=== PATIENT | female | born 1950 | race Caucasian/White ===

== ENCOUNTER 2017-06-18 07:44 | Observation (INO) ==
[2017-06-18 08:15] LABS: Basophils % 0.1 % (0.1-2.0); Eosinophils # 0.1 K/mm3 (0.0-0.4); Hematocrit 47.9 % (37.0-47.0); Lymphocytes # 0.5 K/mm3 (0.7-4.5); Lymphocytes % 7.8 K/mm3 (10-50); Mean Corpuscular HGB Conc 31.3 g/dL (31.8-35.4); Mean Corpuscular Hemoglobin 29.3 pg (27.0-31.2); Mean Corpuscular Volume 93.7 fl (81-99); Mean Platelet Volume 8.5 fl (7.4-10.4); Monocytes # 0.4 K/mm3 (0.1-1.0); Monocytes % 6.2 % (1.7-9.3); Neutrophils # 5.5 K/mm3 (1.8-7.8); Neutrophils % 83.9 % (37.0-80.0); Platelet Count 220 K/mm3 (142-424); Red Blood Count 5.11 M/mm3 (4.20-5.40); Red Cell Distribution Width 15.2 % (11.5-17.5); White Blood Count 6.6 K/mm3 (4.8-10.8)
[2017-06-18 08:26] LABS: Bilirubin,Total 1.1 mg/dL (0.2-1.0); Calcium 9.4 mg/dL (8.5-10.1); Globulin 4.2 gm/dl (1.3-3.2); Total Protein,Serum 8.2 gm/dL (6.4-8.2)
--- NOTE | 2017-06-18 08:50 | Emergency Department Note ---
ED Disposition Clinical Impression: Intractable vomiting, Renal insufficiency, Alfredo's disease, Influenza, Steroid dependence, Enteritis Disposition: Still a Patient Condition on Discharge: Fair Instructions: DI for Diarrhea and Traveler's Diarrhea -- Adult, DI for Diarrhea and Traveler's Diarrhea -- Child, DI for Nausea -- Adult, DI for Nausea -- Child - Critical Care Critical Care Time: No Attestation: On 06/18/17, the high probability of a clinically significant, sudden or life threatening deterioration of the following system(s) required my full and direct attention, intervention and personal management. The time I documented below is in addition to time spent performing reported procedures but includes the following listed in this critical care notation. Medical Decision Making - Medical Records Medical records reviewed: Yes: I reviewed the patient's medical records. - Justino Inquiry Pt receiving controlled substance: Yes Justino was queried for this patient: No (emergency .) Risks and benefits of using a controlled substance: were discussed with pt by me Comment: the patient has NSAID side effects Vital Signs: 06/18/17 07:46 06/18/17 11:16 Temperature 101.8 F H 100.4 F H Temperature Source Oral Oral Pulse Rate [Right Radial] 91 H 72 Respiratory Rate 26 H 20 Blood Pressure [Right Arm] 163/79 131/62 Blood Pressure Mean [Right Arm] 107 85 Blood Pressure Source [Right Arm] Automatic Cuff Automatic Cuff Blood Pressure Position [Right Arm] Sitting Supine 02 Sat by Pulse Oximetry 97 92 L Oxygen Delivery Method Room Air Room Air Oxygen Flow Rate (LPM) 2 - Lab Data Lab Results 06/18/17 07:40: WBC 6.6, RBC 5.11, Hgb 15.0, Hct 47.9 H, MCV 93.7, MCH 29.3, MCHC 31.3 L, RDW 15.2, Plt Count 220, MPV 8.5, Neut % (Auto) 83.9 H, Lymph % ( Auto) 7.8 L, [place] % (Auto) 6.2, Eos % (Auto) 2.0, Baso % (Auto) 0.1, Neut # ( Auto) 5.5, Lymph # (Auto) 0.5 L, [place] # (Auto) 0.4, Eos # (Auto) 0.1, Baso # ( Auto) 0.0 06/18/17 07:40: Sodium 141, Potassium 3.0 L, Chloride 102, Carbon Dioxide 28, Anion Gap 14.0, BUN 26 H, Creatinine 1.59 H, Estimated Creat Clear 40, Estimated GFR 32 L, Est GFR ( Amer) 39 L, Glucose 144 H, Calcium 9.4, Total Bilirubin 1.1 H, AST 24, ALT 23, Alkaline Phosphatase 116, Total Protein 8.2, Albumin 4.0, Globulin 4.2 H, Albumin/Globulin Ratio 1.0 L 06/18/17 07:40: Magnesium 1.2 L 06/18/17 08:05: Influenza Type A Ag Positive A, Influenza Type B Ag Negative 06/18/17 09:00: Lactic Acid 1.7 Result diagrams: 06/18/17 07:40 06/18/17 07:40 Orders (Tests/Meds): ED MEDICATIONS Generic Name Dose Route Start Last Admin Trade Name Freq PRN Reason Stop Dose Admin Potassium Chloride/Sodium Chloride 1,000 mls @ 100 mls/hr 06/18/17 08:45 11:16 Kcl 20 Meq In Ns 1,000 Ml Iv Soln IV 07/18/17 08:44 100 mls/hr .Q10H NARINDER Administration Oseltamivir Phosphate 75 mg 06/18/17 09:00 06/18/17 10:08 Tamiflu 75mg Capsule PO 07/02/17 08:59 75 mg BID NARINDER Administration Discontinued Medications Generic Name Dose Route Start Last Admin Trade Name Freq PRN Reason Stop Dose Admin Acetaminophen 650 mg 06/18/17 08:10 06/18/17 08:10 Acetaminophen 325mg Tab PO 06/18/17 08:11 650 mg ONCE ONE Administration Famotidine 20 mg 06/18/17 08:42 06/18/17 09:12 Pepcid 20mg/2ml Vial IV 06/18/17 08:43 20 mg ONCE ONE Administration Sodium Chloride 1,000 mls @ 999 mls/hr 06/18/17 08:00 06/18/17 08:20 Sod Chlor 0.9% 1000ml Bag IV 06/18/17 09:00 999 mls/hr .Q1H1M NARINDER Administration Magnesium Sulfate 1 gm/ Sodium 102 mls @ 200 mls/hr 06/18/17 10:11 06/18/17 10:39 Chloride IV 06/18/17 10:41 200 mls/hr ONCE ONE Administration Meperidine HCl 12.5 mg 06/18/17 10:02 06/18/17 10:06 Meperidine 25mg/Ml 1ml Syringe IV 06/18/17 10:03 12.5 mg ONCE ONE Administration Morphine Sulfate 2 mg 06/18/17 08:42 06/18/17 09:13 Morphine 2mg/2ml Syringe IV 06/18/17 08:43 2 mg ONCE ONE Administration Ondansetron HCl 4 mg 06/18/17 07:56 06/18/17 07:57 Zofran 4mg/2ml Vial IV 06/18/17 07:57 4 mg ONCE ONE Administration Potassium Chloride 20 meq 06/18/17 08:42 06/18/17 09:12 Klor-Con 20meq Tablet PO 06/18/17 08:43 20 meq ONCE ONE Administration Promethazine HCl 12.5 mg 06/18/17 09:08 06/18/17 09:12 Phenergan 25mg/Ml 1ml Vial IV 06/18/17 09:09 12.5 mg ONCE ONE Administration Sodium Chloride 25 ml 06/18/17 09:08 Sod Chlor 0.9% 25ml Bag IV 06/18/17 09:09 ONCE ONE ORDERS Category Date Time Status Diarrhea Panel, PCR Stat Lab 06/18/17 08:39 Ordered Blood Culture Stat Micro 06/18/17 10:20 Received - CT Data CT Scan: Abdomen, Pelvis Time Received: 11:[address] Reviewed: Yes: I have viewed the radiologist's interpretation Preliminary Findings: Abnormal Findings Narrative: ====IMPRESSION========= 1. Periumbilical hernia again noted but is slightly larger than seen than previous study & now contains small bowel loops. However I see no inflammation nor bowel dilatation associated here. No strangulation nor obstructive changes evident 2. Moderate fluid filled distended stomach , with generous fluid throughout nondilated small bowel. Also liquid stool throughout the right colon. These Nonspecific features but could reflect developing enteritis. Correlation required 3. Colonic diverticulosis most evident sigmoid colon, along with diverticuli scattered throughout the remainder the colon. No diverticulitis. 4. Mildly distended gallbladder. No gallstones evident 5. Minimal airspace disease left lung base most likely reflects dependent atelectasis Medical Decision Narrative: I reviewed the CT scan with Dr. Saunders who agreed to admit the patient recommended D5 Ringer lactate. Bowel rest and anti-medic. Just with the patient her family agreed for admission. Nausea/Vomiting/Diarrhea HPI - General Chief complaint: Nausea/Vomiting/Diarrhea Stated complaint: NAUSEA, BODY ACHES Time Seen by Provider: 06/18/17 08:20 Mode of Arrival: EMS Limitations: No Limitations Description of Symptoms (Recalled from ER Triage Doc. by RN): BODY ACHES, NAUSEA , DRY HEAVING, DIARRHEA AND FEVER SINCE YESTERDAY - History of Present Illness HPI Narrative: 67 years old white female with history of Alfredo thyroiditis, migraine chronic back pain due to degenerative arthritis on chronic steroid therapy. 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 The history was obtained from her daughter who returned from work at 630 this morning and found her mother week due to vomiting and diarrhea. By the patient account she started vomiting around 6 PM last night 10-20 times associated with diarrhea 10-20 times. He has no information is about the color of the vomiting or the color of the diarrhea. The daughter found her to have a fever of 100.7 at home the patient was not able to ambulate, her daughter called ambulance and brought the patient to the ED. the patient admits for having abdominal. Ms. 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 MD complaint: nausea, vomiting, diarrhea, abdominal pain Onset (ago): hour(s) (14 hours.) Description of Vomiting: other (Patient does not know.) Description of Diarrhea: water Associated Abdominal Pain: Yes (Right-sided. ) Location of pain: RLQ Severity: moderate Quality: dull Consistency: constant Relieving factors: none Exacerbating factors: bowel movement, vomiting Associated symptoms: fever/chills, malaise, nausea/vomiting, weakness - Related Data Home Medications Medication Instructions Recorded Confirmed Allopurinol [Allopurinol 300mg 300 mg PO DAILY 06/18/17 06/18/17 tablet] Atorvastatin Calcium [Atorvastatin 20 mg PO DAILY 06/18/17 06/18/17 20mg Tab] Dextran 70/Hypromellose 1 each OP Q1HP PRN 06/18/17 06/18/17 [Artificial Tears] Esomeprazole Magnesium 40 mg PO DAILY 06/18/17 06/18/17 Fluticasone Propionate 9.9 ml NS BID 06/18/17 06/18/17 Fluticasone Propionate [Flovent 1 puff NOSTRIL-B Q6HP PRN 06/18/17 06/18/17 Hfa 110mcg Inhaler] Furosemide [Furosemide 40MG tAB] 40 mg PO DAILY 06/18/17 06/18/17 Hydrocodone/Acetaminophen 10 - 325 mg PO QID 06/18/17 06/18/17 [Hydrocodone-Acetamin 10-325 mg] LORazepam [Ativan 0.5mg tablet] 0.5 mg PO Q8HP PRN 06/18/17 06/18/17 Ondansetron [Zofran 4mg ODT] 4 mg PO Q6HP PRN 06/18/17 06/18/17 Oxybutynin Chloride [Oxybutynin 5 mg PO DAILY 06/18/17 06/18/17 Chloride ER] Potassium Chloride [K-Tab ER 10 10 meq PO DAILY 06/18/17 06/18/17 mEq] Propranolol HCl 40 mg PO BID 06/18/17 06/18/17 Sertraline HCl [Zoloft 50mg tablet] 50 mg PO DAILY 06/18/17 06/18/17 Tizanidine HCl [Zanaflex] 4 mg PO HS 06/18/17 06/18/17 predniSONE [Deltasone 5mg 5 mg PO DAILY 06/18/17 06/18/17 tablet] Allergies Allergy/AdvReac Type Severity Reaction Status Date / Time NSAID AdvReac Mild KIDNEY Uncoded 06/18/17 07:54 [facility] History I have reviewed the patient's past medical history: Yes (History obtained from the patient and her daughters.) Medical History: Denies:: Cancer, Diabetes Mellitus Type 1, Diabetes Mellitus Type 2 - Social History Alcohol Intake: never - Psychiatric History Expresses thoughts of harming self/others: None Suicide Plan Description: No Plan ROS Obtained: Yes All systems reviewed & no additional complaints Physical Exam - General General appearance: alert, other (the patient is moaning in pain from back and abdominal pain, no active vomiting. ) - Head Head exam: atraumatic, normocephalic, normal inspection - Eye Eye exam: Present: normal appearance, PERRL, EOMI. Absent: scleral icterus - ENT ENT exam: Present: normal oropharynx, mucous membranes dry, TM's normal bilaterally - Neck Neck exam: Present: normal inspection, full ROM, trachea midline, other (no neck stiffness. ). Absent: tenderness, meningismus, lymphadenopathy - Chest Chest inspection: Present: normal inspection, symmetric chest wall rise. Absent : tenderness - Respiratory Respiratory exam: Present: normal lung sounds bilaterally. Absent: respiratory distress - Cardiovascular Cardiovascular exam: Present: regular rate, normal rhythm. Absent: JVD - Abdominal Exam Abdominal exam: Present: soft, tenderness, normal bowel sounds, tenderness at [place], other. Absent: guarding, rebound, rigidity Comment: The abdomen is obese soft with right sided abdominal tenderness no guarding no rigidity no rebound no cross or or rebound tenderness. The patient has a umbilical hernia most likely to be an omentocelle. No pulsating masses equal bilateral femoral pulse. - External exam: Present: normal external exam - Extremities Exam Extremities exam: Present: normal inspection, full ROM, normal capillary refill. Absent: calf tenderness - Back Exam Back exam: Present: normal inspection. Absent: tenderness - Neurological Exam Neurological exam: Present: alert, oriented X3, CN II-XII intact, motor sensory deficit, reflexes normal - Psychiatric Psychiatric exam: Present: normal affect, normal mood - Skin Skin exam: Present: warm, dry, intact, normal color - Lymphatic Lymphatic Findings: no adenopathy
--- NOTE | 2017-06-18 13:18 | History & Physical Report ---
*Admission Date: 06/18/17 *Chief complaint: Vomiting and diarrhea *History of present illness: 67 year old female with fairly sudden onset of symptoms last night consisting of fever and chills, body aches and cough followed by vomiting and diarrhea this morning. Patient was very weak this morning and her daughter called EMS to bring her to [facility] ER. She was evaluated in the ER and was found to have Influenza A and gastroenteritis. [facility] History Medical History: Reports:: Gastroesophageal Reflux Disease(GERD), Hyperlipidemia , Migraine, Renal Insufficiency Denies:: Cancer, Diabetes Mellitus Type 1, Diabetes Mellitus Type 2 Other Medical History: Reports: Arthritis, Other (gout, allergic rhinitis, chronic back pain, chronic steroid use) - *Social History Alcohol Intake: never - Psychiatric History Expresses thoughts of harming self/others: None Suicide Plan Description: No Plan *Family Hx:: No significant family history Review of Systems - Constitutional Reports chills - Eyes Denies blurry vision - ENT Denies dizziness - *Cardiovascular Denies chest pain - *Respiratory Reports cough - *Gastrointestinal Reports loose stools, Reports nausea, Reports vomiting - *Genitourinary Denies difficulty urinating - *Musculoskeletal Reports joint pain (chronic) - Integumentary/Breasts Denies rash - *Neurologic Denies dizziness Meds Home Medications Medication Instructions Recorded Confirmed Type Allopurinol [Allopurinol 300mg 300 mg PO DAILY 06/18/17 06/18/17 History tablet] Atorvastatin Calcium [Atorvastatin 20 mg PO DAILY 06/18/17 06/18/17 History 20mg Tab] Dextran 70/Hypromellose 1 each OP Q1HP PRN 06/18/17 06/18/17 History [Artificial Tears] Esomeprazole Magnesium 40 mg PO DAILY 06/18/17 06/18/17 History Fluticasone Propionate 9.9 ml NS BID 06/18/17 06/18/17 History Fluticasone Propionate [Flovent 1 puff NOSTRIL-B Q6HP PRN 06/18/17 06/18/17 History Hfa 110mcg Inhaler] Furosemide [Furosemide 40MG tAB] 40 mg PO DAILY 06/18/17 06/18/17 History Hydrocodone/Acetaminophen 10 - 325 mg PO QID 06/18/17 06/18/17 History [Hydrocodone-Acetamin 10-325 mg] LORazepam [Ativan 0.5mg tablet] 0.5 mg PO Q8HP PRN 06/18/17 06/18/17 History Ondansetron [Zofran 4mg ODT] 4 mg PO Q6HP PRN 06/18/17 06/18/17 History Oxybutynin Chloride [Oxybutynin 5 mg PO DAILY 06/18/17 06/18/17 History Chloride ER] Potassium Chloride [K-Tab ER 10 10 meq PO DAILY 06/18/17 06/18/17 History mEq] Propranolol HCl 40 mg PO BID 06/18/17 06/18/17 History Sertraline HCl [Zoloft 50mg tablet] 50 mg PO DAILY 06/18/17 06/18/17 History Tizanidine HCl [Zanaflex] 4 mg PO HS 06/18/17 06/18/17 History predniSONE [Deltasone 5mg 5 mg PO DAILY 06/18/17 06/18/17 History tablet] Allergies Allergy/AdvReac Type Severity Reaction Status Date / Time NSAID AdvReac Mild KIDNEY Uncoded 06/18/17 07:54 Exam Vital signs and Labs for Last 24 Hours: Temp Pulse Resp BP Pulse Ox 100.1 F H 62 20 153/77 92 L 06/18/17 13:04 06/18/17 13:04 06/18/17 13:04 06/18/17 13:04 06/18/17 11:16 - Constitutional no acute distress - *Routine HEENT Exam Head: Present: normocephalic, atraumatic ENT: Present: mucous membranes moist - *Routine Respiratory Exam Present: CTA bilaterally - *Routine Cardiovascular Exam Present: RRR - *Routine Skin Exam Present: intact H&P: Result - Labs Labs: Laboratory Results - last 24 hr 06/18/17 07:40: WBC 6.6, RBC 5.11, Hgb 15.0, Hct 47.9 H, MCV 93.7, MCH 29.3, MCHC 31.3 L, RDW 15.2, Plt Count 220, MPV 8.5, Neut % (Auto) 83.9 H, Lymph % ( Auto) 7.8 L, [place] % (Auto) 6.2, Eos % (Auto) 2.0, Baso % (Auto) 0.1, Neut # ( Auto) 5.5, Lymph # (Auto) 0.5 L, [place] # (Auto) 0.4, Eos # (Auto) 0.1, Baso # ( Auto) 0.0 06/18/17 07:40: Sodium 141, Potassium 3.0 L, Chloride 102, Carbon Dioxide 28, Anion Gap 14.0, BUN 26 H, Creatinine 1.59 H, Estimated Creat Clear 40, Estimated GFR 32 L, Est GFR ( Amer) 39 L, Glucose 144 H, Calcium 9.4, Total Bilirubin 1.1 H, AST 24, ALT 23, Alkaline Phosphatase 116, Total Protein 8.2, Albumin 4.0, Globulin 4.2 H, Albumin/Globulin Ratio 1.0 L 06/18/17 07:40: Magnesium 1.2 L 06/18/17 08:05: Influenza Type A Ag Positive A, Influenza Type B Ag Negative 06/18/17 09:00: Lactic Acid 1.7 Assessment and Plan (1) Gastroenteritis Current visit: Yes Status: Acute Category: Medical Code(s): K52.9 - Noninfective gastroenteritis and colitis, unspecified (2) Intractable vomiting Current visit: Yes Status: Acute Category: Medical Code(s): R11.10 - Vomiting, unspecified (3) Influenza A Current visit: Yes Status: Acute Category: Medical Code(s): J10.1 - Influenza due to other identified influenza virus with other respiratory manifestations (4) Renal insufficiency Current visit: Yes Status: Acute Category: Medical Code(s): N28.9 - Disorder of kidney and ureter, unspecified (5) Steroid dependence Current visit: Yes Status: Acute Category: Medical (6) Alfredo's disease Current visit: Yes Status: Acute Category: Medical Code(s): E06.3 - Autoimmune thyroiditis - Assessment and plan all Dx Assessment and Plan for all problems:: Patient admitted to [facility] for further treatment of her gastroenteritis and influenza. Potassium is being replaced with IVF. Recheck labs tomorrow.
[2017-06-19 07:21] LABS: Basophils % 0.5 % (0.1-2.0); Eosinophils # 0.1 K/mm3 (0.0-0.4); Eosinophils % 2.3 % (0.1-12.0); Hematocrit 39.3 % (37.0-47.0); Lymphocytes # 1.1 K/mm3 (0.7-4.5); Lymphocytes % 30.1 K/mm3 (10-50); Mean Corpuscular HGB Conc 31.2 g/dL (31.8-35.4); Mean Corpuscular Hemoglobin 29.7 pg (27.0-31.2); Mean Corpuscular Volume 95.2 fl (81-99); Mean Platelet Volume 8.5 fl (7.4-10.4); Monocytes # 0.2 K/mm3 (0.1-1.0); Monocytes % 6.2 % (1.7-9.3); Neutrophils # 2.3 K/mm3 (1.8-7.8); Platelet Count 165 K/mm3 (142-424); Red Blood Count 4.13 M/mm3 (4.20-5.40); Red Cell Distribution Width 15.4 % (11.5-17.5); White Blood Count 3.8 K/mm3 (4.8-10.8)
[2017-06-19 07:22] LABS: Hemoglobin 12.3 g/dL (12.2-16.2)
[2017-06-19 07:25] LABS: Anion Gap 11.2 mEq/L (5-15); Potassium 3.2 mmoL/L (3.5-5.1)
--- NOTE | 2017-06-19 08:30 | Progress Note ---
Internal Medicine - PN: Subj *Date: 06/19/17 *Time: 08:30 Interval history: Patient feels a little better this morning. She still has a lot of body aches and nausea, she vomited once this morning. Exam Vital signs and Labs for Last 24 Hours: Temp Pulse Resp BP Pulse Ox 98.5 F 61 18 128/68 99 06/19/17 07:53 06/19/17 07:53 06/19/17 07:53 06/19/17 07:53 06/19/17 07:53 Laboratory Results - last 24 hr 06/19/17 06:26: WBC 3.8 L D, RBC 4.13 L, Hgb 12.3 D, Hct 39.3, MCV 95.2, MCH 29.7, MCHC 31.2 L, RDW 15.4, Plt Count 165, MPV 8.5, Neut % (Auto) 61.0, Lymph % (Auto) 30.1, [place] % (Auto) 6.2, Eos % (Auto) 2.3, Baso % (Auto) 0.5, Neut # ( Auto) 2.3, Lymph # (Auto) 1.1, [place] # (Auto) 0.2, Eos # (Auto) 0.1, Baso # (Auto ) 0.0 06/19/17 06:26: Sodium 144, Potassium 3.2 L, Chloride 109 H, Carbon Dioxide 27, Anion Gap 11.2, BUN 16 D, Creatinine 1.25 H D, Estimated Creat Clear 83, Estimated GFR 43 L, Est GFR ( Amer) 52 L D, Glucose 115 H D Vital Signs Temp Pulse Pulse Resp BP BP BP 06/19/17 07:53 98.5 F 61 18 128/68 06/19/17 04:00 98.5 F 60 18 120/48 06/18/17 20:00 100.2 F H 62 18 146/47 06/18/17 15:52 98.7 F 64 16 133/53 06/18/17 14:02 100.1 F H 67 18 126/52 06/18/17 13:04 100.1 F H 62 20 153/77 06/18/17 11:16 100.4 F H 72 20 131/62 Pulse Ox 06/19/17 07:53 99 06/19/17 04:00 97 06/18/17 20:00 97 06/18/17 15:52 94 L 06/18/17 14:02 93 L 06/18/17 13:04 06/18/17 11:16 92 L Intake and Output 06/18/17 06/19/17 06/19/17 19:59 03:59 11:59 Intake Total 1412 / 1412 918 / 918 Output Total 500 / 500 300 / 300 600 / 600 Balance 912 / 912 -300 / -300 318 / 318 Intake: Intake, Oral Amount 0 / 0 Intake, Other Amount 918 / 918 Intake, Total IV Amount 1412 / 1412 0.9% NaCl w/20mEq KCL 1,000 ml 1000 / 1000 @ 100 mls/hr IV .Q10H NARINDER Rx#: [id number] Dextrose 5%-Lactated Ringers 1, 412 / 412 000 ml @ 100 mls/hr IV .Q10H NARINDER Rx#:[id number] Output: Output, Urine Amount 500 / 500 300 / 300 600 / 600 Other: Number of Voids 1 1 Weight 262 lb 4 oz Patient Weight 06/19/17 11:59 Weight 262 lb 4 oz I & O for Last 24 hours: Intake & Output 06/16/17 06/17/17 06/18/17 06/19/17 11:59 11:59 11:59 11:59 Intake Total 2330 / 2330 Output Total 1400 / 1400 Balance 930 / 930 - Constitutional mild distress - *Routine Respiratory Exam Present: CTA bilaterally - *Routine Cardiovascular Exam Present: RRR Assessment and Plan (1) Gastroenteritis Current visit: Yes Status: Acute Category: Medical Code(s): K52.9 - Noninfective gastroenteritis and colitis, unspecified (2) Intractable vomiting Current visit: Yes Status: Acute Category: Medical Code(s): R11.10 - Vomiting, unspecified (3) Influenza A Current visit: Yes Status: Acute Category: Medical Code(s): J10.1 - Influenza due to other identified influenza virus with other respiratory manifestations (4) Renal insufficiency Current visit: Yes Status: Acute Category: Medical Code(s): N28.9 - Disorder of kidney and ureter, unspecified (5) Steroid dependence Current visit: Yes Status: Acute Category: Medical (6) Alfredo's disease Current visit: Yes Status: Acute Category: Medical Code(s): E06.3 - Autoimmune thyroiditis (7) Hypokalemia Current visit: Yes Status: Acute Category: Medical Code(s): E87.6 - Hypokalemia - Assessment and plan all Dx Assessment and Plan for all problems:: Plan to continue current treatment as patient is improving but is still symptomatic, replace potassium.
--- NOTE | 2017-06-19 12:00 | Pharmacy Consult Notes ---
[facility] Pharmacy VTE Monitoring - Patient Demographics Admission date: 06/19/17 Report Date: 06/19/17 Time: 12:00 Allergies/Adverse Reactions: Patient Allergies NSAID Adverse Reaction (Mild, Uncoded 06/18/17 07:54) KIDNEY Height: 1.73 m Weight: 118.955 kg Patient Problems: Current Active Problems Intractable vomiting (Acute) Renal insufficiency (Acute) Alfredo's disease (Acute) Influenza (Acute) Steroid dependence (Acute) Enteritis (Acute) Gastroenteritis (Acute) Influenza A (Acute) Hypokalemia (Acute) - VTE Risk Labs: VTE Related Lab Results Hgb 12.3 g/dL (12.2-16.2) D 06/19/17 06:26 Hct 39.3 % (37.0-47.0) 06/19/17 06:26 Plt Count 165 K/mm3 (142-424) 06/19/17 06:26 BUN 16 mg/dL (7-18) D 06/19/17 06:26 Creatinine 1.25 mg/dL (0.55-1.02) H D 06/19/17 06:26 Estimated Creat Clear 83 mL/min (0-300) 06/19/17 06:26 Was VTE Risk Assessment Performed: Yes VTE Score: 2 - VTE Diagnosis Confirmed Comment: JOANNE SANCHEZ ORDERED
[2017-06-20 06:51] LABS: Basophils % 0.3 % (0.1-2.0); Eosinophils # 0.2 K/mm3 (0.0-0.4); Eosinophils % 5.1 % (0.1-12.0); Hematocrit 37.9 % (37.0-47.0); Hemoglobin 11.7 g/dL (12.2-16.2); Lymphocytes # 1.6 K/mm3 (0.7-4.5); Lymphocytes % 39.6 K/mm3 (10-50); Mean Corpuscular HGB Conc 30.9 g/dL (31.8-35.4); Mean Corpuscular Hemoglobin 29.2 pg (27.0-31.2); Mean Corpuscular Volume 94.7 fl (81-99); Monocytes # 0.2 K/mm3 (0.1-1.0); Monocytes % 5.2 % (1.7-9.3); Neutrophils % 49.8 % (37.0-80.0); Platelet Count 171 K/mm3 (142-424); Red Cell Distribution Width 15.3 % (11.5-17.5)
[2017-06-20 06:56] LABS: Anion Gap 10.7 mEq/L (5-15); Potassium 3.7 mmoL/L (3.5-5.1)
--- NOTE | 2017-06-20 08:07 | Progress Note ---
<Mirlande Hauser - Last Filed: 06/20/17 08:02> Internal Medicine - PN: Subj *Date: 06/20/17 *Time: 08:02 Interval history: Feels terrible. Has a migraine headache. Has received pain medicine for this. Did not sleep. She is unable to eat or drink due to nausea. States she has not vomited in a while. Bowels have not moved. She is voiding. She states she hurts all over. She does have a dry cough. Exam Vital signs and Labs for Last 24 Hours: Temp Pulse Resp BP Pulse Ox 98.3 F 69 20 152/68 99 06/20/17 07:34 06/20/17 07:34 06/20/17 07:34 06/20/17 07:34 06/20/17 07:34 Laboratory Results - last 24 hr 06/20/17 06:17: WBC 4.0 L, RBC 4.00 L, Hgb 11.7 L, Hct 37.9, MCV 94.7, MCH 29.2 , MCHC 30.9 L, RDW 15.3, Plt Count 171, MPV 8.0, Neut % (Auto) 49.8, Lymph % ( Auto) 39.6, Tama % (Auto) 5.2, Eos % (Auto) 5.1, Baso % (Auto) 0.3, Neut # (Auto ) 2.0, Lymph # (Auto) 1.6, Tama # (Auto) 0.2, Eos # (Auto) 0.2, Baso # (Auto) 0.0 06/20/17 06:17: Sodium 144, Potassium 3.7, Chloride 110 H, Carbon Dioxide 27, Anion Gap 10.7, BUN 8 D, Creatinine 1.12 H, Estimated Creat Clear 93, Estimated GFR 49 L, Est GFR ( Amer) 59, Glucose 110 H I & O for Last 24 hours: Intake & Output 06/17/17 06/18/17 06/19/17 06/20/17 11:59 11:59 11:59 11:59 Intake Total 2330 / 2330 3780 / 3780 Output Total 1400 / 1400 1400 / 1400 Balance 930 / 930 2380 / 2380 Weight 262 lb 4 oz - Constitutional no acute distress Comments: Lying on her side with her head covered. - *Routine Respiratory Exam Present: CTA bilaterally (Anteriorly and posteriorly) - *Routine Cardiovascular Exam Present: RRR - *Routine Abdominal Exam Present: soft, normoactive bowel sounds. Absent: tenderness - *Routine Extremities Exam Absent: edema, calf tenderness - *Routine Neurological Exam Present: alert Assessment and Plan (1) Gastroenteritis Current visit: Yes Status: Acute Category: Medical Code(s): K52.9 - Noninfective gastroenteritis and colitis, unspecified (2) Intractable vomiting Current visit: Yes Status: Acute Category: Medical Code(s): R11.10 - Vomiting, unspecified (3) Influenza A Current visit: Yes Status: Acute Category: Medical Code(s): J10.1 - Influenza due to other identified influenza virus with other respiratory manifestations (4) Renal insufficiency Current visit: Yes Status: Acute Category: Medical Code(s): N28.9 - Disorder of kidney and ureter, unspecified (5) Steroid dependence Current visit: Yes Status: Acute Category: Medical (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 Potassium is normal today. <Dwain Saunders - Last Filed: 06/20/17 08:52> Internal Medicine - PN: Subj *Date: 06/20/17 *Time: 08:52 Exam Vital signs and Labs for Last 24 Hours: Temp Pulse Resp BP Pulse Ox 98.3 F 69 20 152/68 99 06/20/17 07:34 06/20/17 07:34 06/20/17 07:34 06/20/17 07:34 06/20/17 07:34 Laboratory Results - last 24 hr 06/20/17 06:17: WBC 4.0 L, RBC 4.00 L, Hgb 11.7 L, Hct 37.9, MCV 94.7, MCH 29.2 , MCHC 30.9 L, RDW 15.3, Plt Count 171, MPV 8.0, Neut % (Auto) 49.8, Lymph % ( Auto) 39.6, Tama % (Auto) 5.2, Eos % (Auto) 5.1, Baso % (Auto) 0.3, Neut # (Auto ) 2.0, Lymph # (Auto) 1.6, Tama # (Auto) 0.2, Eos # (Auto) 0.2, Baso # (Auto) 0.0 06/20/17 06:17: Sodium 144, Potassium 3.7, Chloride 110 H, Carbon Dioxide 27, Anion Gap 10.7, BUN 8 D, Creatinine 1.12 H, Estimated Creat Clear 93, Estimated GFR 49 L, Est GFR ( Amer) 59, Glucose 110 H I & O for Last 24 hours: Intake & Output 06/17/17 06/18/17 06/19/17 06/20/17 11:59 11:59 11:59 11:59 Intake Total 2330 / 2330 3780 / 3780 Output Total 1400 / 1400 1400 / 1400 Balance 930 / 930 2380 / 2380 Weight 262 lb 4 oz Assessment and Plan (1) Gastroenteritis Current visit: Yes Status: Acute Category: Medical Code(s): K52.9 - Noninfective gastroenteritis and colitis, unspecified (2) Intractable vomiting Current visit: Yes Status: Acute Category: Medical Code(s): R11.10 - Vomiting, unspecified (3) Influenza A Current visit: Yes Status: Acute Category: Medical Code(s): J10.1 - Influenza due to other identified influenza virus with other respiratory manifestations (4) Renal insufficiency Current visit: Yes Status: Acute Category: Medical Code(s): N28.9 - Disorder of kidney and ureter, unspecified (5) Steroid dependence Current visit: Yes Status: Acute Category: Medical (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
--- NOTE | 2017-06-21 08:10 | Progress Note ---
<Mirlande Hauser - Last Filed: 06/21/17 08:07> Internal Medicine - PN: Subj *Date: 06/21/17 *Time: 08:07 Interval history: States she feels a little bit better. She did sleep some last night. She continues to have a headache. Pain medicine does help. Nausea is controlled with her medicine. She has had some full liquids without vomiting. She did take a shower yesterday and tolerated well and this made her feel better. She slept in a chair some yesterday as well. She continues to have body aches. She denies chest pain shortness of breath. Cough is infrequent. Voiding QS. Bowels moved yesterday. Exam Vital signs and Labs for Last 24 Hours: Temp Pulse Resp BP Pulse Ox 98.2 F 59 L 20 184/61 99 06/21/17 07:59 06/21/17 07:59 06/21/17 07:59 06/21/17 07:59 06/21/17 07:59 I & O for Last 24 hours: Intake & Output 06/18/17 06/19/17 06/20/17 06/21/17 11:59 11:59 11:59 11:59 Intake Total 2330 / 2330 4500 / 4500 3332 / 3332 Output Total 1400 / 1400 1950 / 1950 800 / 800 Balance 930 / 930 2550 / 2550 2532 / 2532 Weight 262 lb 4 oz - Constitutional no acute distress - *Routine Respiratory Exam Present: CTA bilaterally (Anteriorly and posteriorly) - *Routine Cardiovascular Exam Present: RRR - *Routine Abdominal Exam Present: soft, normoactive bowel sounds. Absent: tenderness - *Routine Extremities Exam Present: calf tenderness (Bilaterally wherever palpated). Absent: edema - *Routine Neurological Exam Present: alert, oriented X3 Assessment and Plan (1) Gastroenteritis Current visit: Yes Status: Acute Category: Medical Code(s): K52.9 - Noninfective gastroenteritis and colitis, unspecified (2) Intractable vomiting Current visit: Yes Status: Acute Category: Medical Code(s): R11.10 - Vomiting, unspecified (3) Influenza A Current visit: Yes Status: Acute Category: Medical Code(s): J10.1 - Influenza due to other identified influenza virus with other respiratory manifestations (4) Renal insufficiency Current visit: Yes Status: Acute Category: Medical Code(s): N28.9 - Disorder of kidney and ureter, unspecified (5) Steroid dependence Current visit: Yes Status: Acute Category: Medical (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 Saline lock <Dwain Saunders - Last Filed: 06/21/17 08:43> Internal Medicine - PN: Subj *Date: 06/21/17 *Time: 08:42 Exam Vital signs and Labs for Last 24 Hours: Temp Pulse Resp BP Pulse Ox 98.2 F 59 L 20 184/61 99 06/21/17 07:59 06/21/17 07:59 06/21/17 07:59 06/21/17 07:59 06/21/17 07:59 I & O for Last 24 hours: Intake & Output 06/18/17 06/19/17 06/20/17 06/21/17 11:59 11:59 11:59 11:59 Intake Total 2330 / 2330 4500 / 4500 3332 / 3332 Output Total 1400 / 1400 1950 / 1950 800 / 800 Balance 930 / 930 2550 / 2550 2532 / 2532 Weight 262 lb 4 oz Assessment and Plan (1) Gastroenteritis Current visit: Yes Status: Acute Category: Medical Code(s): K52.9 - Noninfective gastroenteritis and colitis, unspecified (2) Intractable vomiting Current visit: Yes Status: Acute Category: Medical Code(s): R11.10 - Vomiting, unspecified (3) Influenza A Current visit: Yes Status: Acute Category: Medical Code(s): J10.1 - Influenza due to other identified influenza virus with other respiratory manifestations (4) Renal insufficiency Current visit: Yes Status: Acute Category: Medical Code(s): N28.9 - Disorder of kidney and ureter, unspecified (5) Steroid dependence Current visit: Yes Status: Acute Category: Medical (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
--- NOTE | 2017-06-22 07:47 | Progress Note ---
<Mirlande Hauser - Last Filed: 06/22/17 07:44> Internal Medicine - PN: Subj *Date: 06/22/17 *Time: 07:44 Interval history: States she may feel a little bit better today. Headache is somewhat better. She continues to have body aches although they have improved. She states her legs always hurt due to bad knees. She was a able to eat yesterday without problems. She has been ambulating in the room. She did require pain medicine last night. Exam Vital signs and Labs for Last 24 Hours: Temp Pulse Resp BP Pulse Ox 98.3 F 66 20 149/52 97 06/22/17 04:00 06/22/17 04:00 06/22/17 04:00 06/22/17 04:00 06/22/17 04:00 I & O for Last 24 hours: Intake & Output 06/19/17 06/20/17 06/21/17 06/22/17 11:59 11:59 11:59 11:59 Intake Total 2330 / 2330 4500 / 4500 3332 / 3332 1560 / 1560 Output Total 1400 / 1400 1950 / 1950 800 / 800 1900 / 1900 Balance 930 / 930 2550 / 2550 2532 / 2532 -340 / -340 Weight 262 lb 4 oz - Constitutional no acute distress Comments: She is up in the room. - *Routine Respiratory Exam Present: CTA bilaterally (Anteriorly and posteriorly) - *Routine Cardiovascular Exam Present: RRR - *Routine Abdominal Exam Present: soft, normoactive bowel sounds. Absent: tenderness - *Routine Extremities Exam Present: edema. Absent: calf tenderness - *Routine Neurological Exam Present: alert, oriented X3 Assessment and Plan (1) Gastroenteritis Current visit: Yes Status: Acute Category: Medical Code(s): K52.9 - Noninfective gastroenteritis and colitis, unspecified (2) Intractable vomiting Current visit: Yes Status: Acute Category: Medical Code(s): R11.10 - Vomiting, unspecified (3) Influenza A Current visit: Yes Status: Acute Category: Medical Code(s): J10.1 - Influenza due to other identified influenza virus with other respiratory manifestations (4) Renal insufficiency Current visit: Yes Status: Acute Category: Medical Code(s): N28.9 - Disorder of kidney and ureter, unspecified (5) Steroid dependence Current visit: Yes Status: Acute Category: Medical (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 Possible discharge today. <Dwain Saunders - Last Filed: 06/22/17 07:59> Internal Medicine - PN: Subj *Date: 06/22/17 *Time: 07:58 Exam Vital signs and Labs for Last 24 Hours: Temp Pulse Resp BP Pulse Ox 98.9 F 60 22 186/69 100 06/22/17 07:52 06/22/17 07:52 06/22/17 07:52 06/22/17 07:52 06/22/17 07:52 I & O for Last 24 hours: Intake & Output 06/19/17 06/20/17 06/21/17 06/22/17 11:59 11:59 11:59 11:59 Intake Total 2330 / 2330 4500 / 4500 3332 / 3332 1560 / 1560 Output Total 1400 / 1400 1950 / 1950 800 / 800 1900 / 1900 Balance 930 / 930 2550 / 2550 2532 / 2532 -340 / -340 Weight 262 lb 4 oz Assessment and Plan (1) Gastroenteritis Current visit: Yes Status: Acute Category: Medical Code(s): K52.9 - Noninfective gastroenteritis and colitis, unspecified (2) Intractable vomiting Current visit: Yes Status: Acute Category: Medical Code(s): R11.10 - Vomiting, unspecified (3) Influenza A Current visit: Yes Status: Acute Category: Medical Code(s): J10.1 - Influenza due to other identified influenza virus with other respiratory manifestations (4) Renal insufficiency Current visit: Yes Status: Acute Category: Medical Code(s): N28.9 - Disorder of kidney and ureter, unspecified (5) Steroid dependence Current visit: Yes Status: Acute Category: Medical (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
[2017-06-22 07:54] VITALS: BP 186/69
--- NOTE | 2017-06-22 13:33 | Discharge Summary ---
General - General Admission date: 06/19/17 Discharge date: 06/22/17 HPI HPI: Ms Gongora is a 67 year old female with fairly sudden onset of symptoms last night consisting of fever and chills, body aches and cough followed by vomiting and diarrhea this morning. Patient was very weak this morning and her daughter called EMS to bring her to [facility] ER. She was evaluated in the ER and was found to have Influenza A and gastroenteritis. Hospital Course Hospital Course: The patient was started on tamiflu. The CT of her abdomen and pelvis showed a possible enteritis. Her potassium was low, therefore it was replaced with IVF. She had a migraine headache and received pain medicine for this as well as imitrex. Her potassium normalized and her symptoms improved. She was saline locked, her diet was advanced, and she was stable to be discharged home. Objective Vital signs: Temp Pulse Resp BP Pulse Ox 98.9 F 60 22 186/69 100 06/22/17 07:52 06/22/17 07:52 06/22/17 07:52 06/22/17 07:52 06/22/17 07:52 Narrative: - Constitutional no acute distress - *Routine HEENT Exam Head: Present: normocephalic, atraumatic ENT: Present: mucous membranes moist - *Routine Respiratory Exam Present: CTA bilaterally - *Routine Cardiovascular Exam Present: RRR - *Routine Skin Exam Present: intact DS: Diagnosis - Discharge Diagnosis (1) Gastroenteritis Status: Acute (2) Hypokalemia Status: Acute (3) Influenza A Status: Acute (4) Intractable vomiting Status: Acute (5) Renal insufficiency Status: Acute (6) Steroid dependence Status: Chronic (7) Alfredo's disease Status: Chronic Discharge Plan - Patient Discharge Instructions ACTIVITY: Continue current activity DIET: continue same diet Additional Instructions: Follow up with Tricia Carrasquillo in [place], [place] in 1 week. Patient Instructions: Influenza, Nausea and Vomiting-Adult - Follow up Plan Disposition: Home, Self-Longterm Medications: Home Medications Medication Instructions Recorded Confirmed Type Allopurinol [Allopurinol 300mg 300 mg PO DAILY 06/18/17 06/18/17 History tablet] Atorvastatin Calcium [Atorvastatin 20 mg PO DAILY 06/18/17 06/18/17 History 20mg Tab] Dextran 70/Hypromellose 1 each OP Q1HP PRN 06/18/17 06/18/17 History [Artificial Tears] Esomeprazole Magnesium 40 mg PO DAILY 06/18/17 06/18/17 History Fluticasone Propionate 2 sprays NS BID 06/18/17 06/19/17 History Furosemide [Furosemide 40MG tAB] 40 mg PO DAILY 06/18/17 06/18/17 History Hydrocodone/Acetaminophen 10 - 325 mg PO QID 06/18/17 06/18/17 History [Hydrocodone-Acetamin 10-325 mg] LORazepam [Ativan 0.5mg tablet] 0.5 mg PO Q8HP PRN 06/18/17 06/18/17 History Ondansetron [Zofran 4mg ODT] 4 mg PO Q6HP PRN 06/18/17 06/18/17 History Oxybutynin Chloride [Oxybutynin 5 mg PO DAILY 06/18/17 06/18/17 History Chloride ER] Potassium Chloride [K-Tab ER 10 10 meq PO DAILY 06/18/17 06/18/17 History mEq] Propranolol HCl 40 mg PO BID 06/18/17 06/18/17 History Sertraline HCl [Zoloft 50mg tablet] 50 mg PO DAILY 06/18/17 06/18/17 History Tizanidine HCl [Zanaflex] 4 mg PO HS 06/18/17 06/18/17 History predniSONE [Deltasone 5mg 5 mg PO DAILY 06/18/17 06/18/17 History tablet] Albuterol Sulfate [Albuterol HFA 2 puffs IH Q6HP PRN 06/19/17 06/19/17 History Inhaler] Fluticasone Propionate [Flovent 1 puff IH Q6HP PRN 06/19/17 06/19/17 History Hfa 110mcg Inhaler] Prescriptions/Medication Reconciliation: New Oseltamivir Phosphate [Tamiflu 75mg Capsule] 75 mg PO BID #4 cap Promethazine/Dextromethorphan [Promethazine-Dm Syrup] 5 ml PO Q6HP PRN #118 ml MDD 30ML/DAY PRN Reason: Cough Benzonatate [Benzonatate 200mg Cap] 200 mg PO TIDP PRN #30 cap PRN Reason: Cough Continue Dextran 70/Hypromellose [Artificial Tears] 1 each OP Q1HP PRN PRN Reason: Dry Eye(S) Hydrocodone/Acetaminophen [Hydrocodone-Acetamin 10-325 mg] 10 - 325 mg PO QID Ondansetron [Zofran 4mg ODT] 4 mg PO Q6HP PRN PRN Reason: Nausea LORazepam [Ativan 0.5mg tablet] 0.5 mg PO Q8HP PRN PRN Reason: Anxiety Furosemide [Furosemide 40MG tAB] 40 mg PO DAILY Potassium Chloride [K-Tab ER 10 mEq] 10 meq PO DAILY Esomeprazole Magnesium 40 mg PO DAILY Oxybutynin Chloride [Oxybutynin Chloride ER] 5 mg PO DAILY Tizanidine HCl [Zanaflex] 4 mg PO HS Sertraline HCl [Zoloft 50mg tablet] 50 mg PO DAILY predniSONE [Deltasone 5mg tablet] 5 mg PO DAILY Atorvastatin Calcium [Atorvastatin 20mg Tab] 20 mg PO DAILY Allopurinol [Allopurinol 300mg tablet] 300 mg PO DAILY Albuterol Sulfate [Albuterol HFA Inhaler] 2 puffs IH Q6HP PRN PRN Reason: BREATHING Fluticasone Propionate [Flovent Hfa 110mcg Inhaler] 1 puff IH Q6HP PRN PRN Reason: BREATHING Fluticasone Propionate 2 sprays NS BID Propranolol HCl 40 mg PO BID
== END 2017-06-22 09:09 | disposition home or self-care (01) ==
LOC: ER 07:44 → 2ND 07:44
PROVIDERS: ADMIT Family Medicine; ATTEND Family Medicine

== ENCOUNTER 2018-06-15 13:57 | Observation (INO) ==
[2018-06-15 15:03] LABS: Basophils % 0.2 % (0.1-2.0); Eosinophils # 0.1 K/mm3 (0.0-0.4); Eosinophils % 1.4 % (0.1-12.0); Hematocrit 50.7 % (37.0-47.0); Hemoglobin 16.1 g/dL (12.2-16.2); Lymphocytes # 0.7 K/mm3 (0.7-4.5); Lymphocytes % 7.2 % (10-50); Mean Corpuscular HGB Conc 31.8 g/dL (31.8-35.4); Mean Corpuscular Hemoglobin 29.8 pg (27.0-31.2); Mean Corpuscular Volume 93.9 fl (81-99); Mean Platelet Volume 7.6 fl (7.4-10.4); Monocytes # 0.3 K/mm3 (0.1-1.0); Monocytes % 3.2 % (1.7-9.3); Neutrophils # 8.7 K/mm3 (1.8-7.8); Platelet Count 265 K/mm3 (142-424); Red Blood Count 5.41 M/mm3 (4.20-5.40); Red Cell Distribution Width 15.2 % (11.5-17.5); White Blood Count 9.9 K/mm3 (4.8-10.8)
--- NOTE | 2018-06-15 15:14 | Emergency Department Note ---
ED Disposition Clinical Impression: Intractable vomiting Disposition: Admitted as Observation Condition on Discharge: Fair Instructions: DI for Diarrhea and Traveler's Diarrhea -- Adult, DI for Diarrhea and Traveler's Diarrhea -- Child, DI for Nausea -- Adult, DI for Nausea -- Child Referrals: Aura Carrasquillo APRN [Primary Care Provider] - Time of Disposition: 18:04 - Critical Care Critical Care Time: No Attestation: On 06/15/18, the high probability of a clinically significant, sudden or life threatening deterioration of the following system(s) required my full and direct attention, intervention and personal management. The time I documented below is in addition to time spent performing reported procedures but includes the following listed in this critical care notation. Medical Decision Making - Medical Records Medical records reviewed: Yes: I reviewed the patient's medical records. - Justino Inquiry Pt receiving controlled substance: No Justino was queried for this patient: No Vital Signs: 06/15/18 14:07 06/15/18 15:51 06/15/18 16:35 Temperature 99 F 210.2 F H Temperature Source Axillary Oral Pulse Rate [Left Radial] 92 H 91 H 70 Respiratory Rate 22 15 20 Blood Pressure [Right Arm] 176/89 H 138/73 166/70 H Blood Pressure Mean [Right Arm] 118 94 102 Blood Pressure Source [Right Arm] Automatic Cuff Automatic Cuff Automatic Cuff Blood Pressure Position [Right Arm] Sitting Sitting Sitting 02 Sat by Pulse Oximetry 99 95 94 L Oxygen Delivery Method Room Air Room Air Room Air - Lab Data Lab results reviewed: Yes: I reviewed the patient's lab results. Lab Results 06/15/18 14:55: WBC 9.9, RBC 5.41 H, Hgb 16.1, Hct 50.7 H, MCV 93.9, MCH 29.8, MCHC 31.8, RDW 15.2, Plt Count 265, MPV 7.6, Neut % (Auto) 88.0 H, Lymph % (Auto) 7.2 L, [place] % (Auto) 3.2, Eos % (Auto) 1.4, Baso % (Auto) 0.2, Neut # (Auto) 8.7 H, Lymph # (Auto) 0.7, [place] # (Auto) 0.3, Eos # (Auto) 0.1, Baso # (Auto) 0.0, Total Counted 100, Neutrophils % (Manual) 84 H, Band Neutrophils % 3.0, Lymphocytes % (Manual) 7 L, Monocytes % (Manual) 4, Eosinophils % (Manual) 2, Platelet Estimate Normal, Hypochromasia 1+ 06/15/18 14:55: Sodium 146 H, Potassium 3.7, Chloride 106, Carbon Dioxide 24, Anion Gap 19.7 H, BUN 32 H, Creatinine 1.53 H, Estimated Creat Clear 30, Estimated GFR 34 L, Est GFR ( Amer) 41 L, Glucose 137 H, Calcium 9.4, Total Bilirubin 1.0, AST 19, ALT 26, Alkaline Phosphatase 113, Troponin I < 0.02, Total Protein 8.7 H, Albumin 4.2, Globulin 4.5 H, Albumin/Globulin Ratio 0.9 L, Lipase 147 06/15/18 15:19: Influenza Type A Ag Negative, Influenza Type B Ag Negative 06/15/18 17:35: Urine Color Yellow, Urine Appearance Clear, Urine pH 5.5, Ur Specific [place] 1.015, Urine Protein 2+, Urine Glucose (UA) Negative, Urine Ketones Negative, Urine Blood 1+, Urine Nitrate Negative, Urine Bilirubin Negative, Urine Urobilinogen 0.2, Ur Leukocyte Esterase Negative Result diagrams: 06/15/18 14:55 06/15/18 14:55 Orders (Tests/Meds): ED MEDICATIONS Discontinued Medications Generic Name Dose Route Start Last Admin Trade Name Freq PRN Reason Stop Dose Admin Famotidine 20 mg 06/15/18 14:52 06/15/18 14:58 Pepcid 20mg/2ml Vial IV 06/15/18 14:53 20 mg ONCE ONE Administration Sodium Chloride 1,000 mls @ 999 mls/hr 06/15/18 15:00 06/15/18 15:16 Sod Chlor 0.9% 1000ml Bag IV 06/15/18 16:00 999 mls/hr .Q1H1M NARINDER Administration Metoclopramide HCl 10 mg 06/15/18 14:53 06/15/18 14:58 Reglan 10mg/2ml Vial IVP 06/15/18 14:54 10 mg ONCE ONE Administration Ondansetron HCl 4 mg 06/15/18 14:55 06/15/18 15:16 Zofran 4mg/2ml Vial IV 06/15/18 14:56 4 mg ONCE ONE Administration Promethazine HCl 25 mg 06/15/18 14:54 06/15/18 15:15 Phenergan 25mg/Ml 1ml Vial IV 06/15/18 14:55 25 mg ONCE ONE Administration Sodium Chloride 25 ml 06/15/18 14:54 06/15/18 15:15 Sod Chlor 0.9% 25ml Bag IV 06/15/18 14:55 25 ml ONCE ONE Administration ORDERS Category Date Time Status UA [Urinalysis and Microscopic] Stat Lab 06/15/18 17:35 Results EKG Request [ECG Request by Dr/Nse] Stat Y 06/15/18 14:53 Stop Req - Physician Consults Physician Consulted: sound Time: 18:02 Reason -: Admission General Adult HPI - General Chief complaint: Nausea/Vomiting/Diarrhea Stated complaint: V/D Time Seen by Provider: 06/15/18 15:11 Mode of Arrival: Family Vehicle Source of Information: Patient, Relative (n/v) Limitations: No Limitations Description of Symptoms (Recalled from ER Triage Doc. by RN): N/V, diarrhea began this morning - History of Present Illness HPI narrative: n/v/d/ started this am - Related Data Home Medications Medication Instructions Recorded Confirmed Allopurinol [Allopurinol 300mg 300 mg PO DAILY 06/18/17 06/18/17 tablet] Atorvastatin Calcium [Atorvastatin 20 mg PO DAILY 06/18/17 06/18/17 20mg Tab] Dextran 70/Hypromellose 1 each OP Q1HP PRN 06/18/17 06/18/17 [Artificial Tears] Esomeprazole Magnesium 40 mg PO DAILY 06/18/17 06/18/17 Fluticasone Propionate 2 sprays NS BID 06/18/17 06/19/17 Furosemide [Furosemide 40MG tAB] 40 mg PO DAILY 06/18/17 06/18/17 Hydrocodone/Acetaminophen 10 - 325 mg PO QID 06/18/17 06/18/17 [Hydrocodone-Acetamin 10-325 mg] LORazepam [Ativan 0.5mg 0.5 mg PO Q8HP PRN 06/18/17 06/18/17 tablet] Ondansetron [Zofran 4mg ODT] 4 mg PO Q6HP PRN 06/18/17 06/18/17 Oxybutynin Chloride [Oxybutynin 5 mg PO DAILY 06/18/17 06/18/17 Chloride ER] Potassium Chloride [K-Tab ER 10 10 meq PO DAILY 06/18/17 06/18/17 mEq] Propranolol HCl 40 mg PO BID 06/18/17 06/18/17 Sertraline HCl [Zoloft 50mg tablet] 50 mg PO DAILY 06/18/17 06/18/17 Tizanidine HCl [Zanaflex] 4 mg PO HS 06/18/17 06/18/17 predniSONE [Deltasone 5mg 5 mg PO DAILY 06/18/17 06/18/17 tablet] Albuterol Sulfate [Albuterol HFA 2 puffs IH Q6HP PRN 06/19/17 06/19/17 Inhaler] Fluticasone Propionate [Flovent 1 puff IH Q6HP PRN 06/19/17 06/19/17 Hfa 110mcg Inhaler] Previous Rx's Medication Instructions Recorded Benzonatate [Benzonatate 200mg Cap] 200 mg PO TIDP PRN #30 cap 06/22/17 Oseltamivir Phosphate [Tamiflu 75 mg PO BID #4 cap 06/22/17 75mg Capsule] Promethazine/Dextromethorphan 5 ml PO Q6HP PRN #118 ml MDD 06/22/17 [Promethazine-Dm Syrup] 30ML/DAY Allergies Allergy/AdvReac Type Severity Reaction Status Date / Time NSAID AdvReac Mild KIDNEY Uncoded 06/18/17 07:54 [facility] History - Hepatitis A Screen Drug use history?: No High risk sexual behaviors?: No History of sexually transmitted infection?: No Currently employed?: No Childcare worker?: No Do you have indoor plumbing?: Yes Do you have electricity?: Yes Attestation statement:: This patient has been screened for Hepatitis A risk factors. I have reviewed the patient's past medical history: Yes Medical History: Reports:: Gastroesophageal Reflux Disease(GERD), Hyperlipidemia, Migraine, MRSA, Renal Insufficiency Denies:: Cancer, Diabetes Mellitus Type 1, Diabetes Mellitus Type 2 Other Medical History: Reports: Arthritis, Thyroid Disease, Other (gout, allergic rhinitis, chronic back pain, chronic steroid use) Other Surgeries: Yes: Tubal Ligation Amputation: No Fractures: No - Social History Smoking Status: Never smoker Alcohol Intake: never Occupational Status: disabled Housing: house Household Members: children - Psychiatric History Expresses thoughts of harming self/others: None Suicide Plan Description: No Plan Family Hx:: No significant family history ROS Obtained: Yes All systems reviewed & no additional complaints - Constitutional Constitutional: Reports chills, Denies fever(s) - Eyes Eyes: Denies change in vision - ENT Ears, Nose, Mouth, and Throat: Denies sore throat, Denies throat swelling - Cardiovascular Cardiovascular: Reports system reviewed and no additional complaints, except as docu, Reports chest pain, Reports chest pain at rest - Respiratory Respiratory: Yes system reviewed and no additional complaints, except as docu, No chest congestion, No cough - Gastrointestinal Gastrointestingal: Reports: diarrhea, nausea, vomiting. Denies: abdominal pain - Genitourinary Female Genitourinary: Denies dysuria, Denies flank pain - Musculoskeletal Musculoskeletal: Denies joint pain, Denies decreased muscle mass, Denies joint swelling - Integumentary/Breasts Skin/Breast: Denies rash - Neurologic Neurologic: Denies behavioral changes, Denies focal weakness, Denies head ache(s), Denies numbness - Hematologic/Lymphatic Henatologic/Lymphatic: Denies easy bleeding, Denies easy bruising Physical Exam - General General appearance: alert, anxious, in distress, obese - Head Head exam: atraumatic, normocephalic, normal inspection - Eye Eye exam: Present: normal appearance, PERRL, EOMI - ENT ENT exam: Present: normal exam, normal oropharynx, mucous membranes moist, TM's normal bilaterally, normal external ear exam - Respiratory Respiratory exam: Present: normal lung sounds bilaterally. Absent: respiratory distress - Cardiovascular Cardiovascular exam: Present: regular rate, normal rhythm. Absent: JVD - Abdominal Exam Abdominal exam: Present: soft. Absent: distention, tenderness, guarding, rebound, mass - Extremities Exam Extremities exam: Present: normal inspection, full ROM, normal capillary refill. Absent: calf tenderness - Neurological Exam Neurological exam: Present: alert, oriented X3 - Psychiatric Psychiatric exam: Present: normal affect, normal mood - Skin Skin exam: Present: warm, dry, intact, normal color
[2018-06-15 15:22] LABS: Alanine Aminotransferase 26 U/L (12-78); Albumin Level 4.2 gm/dL (3.4-5.0); Albumin/Globulin Ratio 0.9 (1.1-1.8); Alkaline Phosphatase 113 U/L (46-116); Anion Gap 19.7 mEq/L (5-15); Aspartate Amino Transferase 19 U/L (15-37); Blood Urea Nitrogen 32 mg/dL (7-18); Calcium 9.4 mg/dL (8.5-10.1); Carbon Dioxide 24 mmol/L (21.0-32.0); Chloride 106 mmol/L (98-107); Globulin 4.5 gm/dl (1.3-3.2); Glucose 137 mg/dL (74-106); Lipase 147 u/L (73-393); Potassium 3.7 mmoL/L (3.5-5.1); Sodium 146 mmol/L (136-145); Total Protein,Serum 8.7 gm/dL (6.4-8.2)
[2018-06-15 15:33] LABS: Eosinophils % 2 % (0-3); Lymphocytes % 7 % (10-50); Monocytes % 4 % (2-9); Neutrophils % 84 % (42-76); Total Cells Counted 100
[2018-06-15 15:35] LABS: Hypochromasia 1+
[2018-06-15 17:43] LABS: Appearance,Urine CLEAR (Clear); Bilirubin,Urine Negative (Negative); Blood, Urine 1+ (Negative); Color,Urine YELLOW (Yellow); Glucose,Urine (UA) Negative (Negative); Ketones,Urine Negative (Negative); Leukocyte Esterase,Urine Negative (Negative); Microscopic, Urine URINE MICROSCOPIC (MICROSCOPIC); PH,Urine 5.5 (5.0-8.5); Protein,Urine 2+ (Negative); Specific Gravity, Urine 1.015 (1.005-1.030); Urobilinogen,Urine 0.2 EU/dl (0.2)
[2018-06-15 18:11] LABS: Bacteria,Urine 1+ /lpf
[2018-06-16 06:54] LABS: Anion Gap 14.2 mEq/L (5-15); Potassium 4.2 mmoL/L (3.5-5.1)
[2018-06-16 07:22] LABS: Calcium 8.2 mg/dL (8.5-10.1)
[2018-06-16 07:33] LABS: Basophils % 0.2 % (0.1-2.0); Eosinophils # 0.1 K/mm3 (0.0-0.4); Eosinophils % 0.9 % (0.1-12.0); Hematocrit 40.3 % (37.0-47.0); Mean Corpuscular HGB Conc 31.8 g/dL (31.8-35.4); Mean Corpuscular Volume 94.2 fl (81-99); Mean Platelet Volume 8.3 fl (7.4-10.4); Monocytes # 0.3 K/mm3 (0.1-1.0); Monocytes % 4.9 % (1.7-9.3); Neutrophils # 5.3 K/mm3 (1.8-7.8); Platelet Count 182 K/mm3 (142-424); Red Blood Count 4.27 M/mm3 (4.20-5.40); Red Cell Distribution Width 15.4 % (11.5-17.5); White Blood Count 6.7 K/mm3 (4.8-10.8)
--- NOTE | 2018-06-16 07:41 | Pharmacy Consult Notes ---
[facility] Pharmacy VTE Monitoring - Patient Demographics Admission date: 06/16/18 Report Date: 06/16/18 Time: 07:40 Allergies/Adverse Reactions: Patient Allergies NSAID Adverse Reaction (Mild, Uncoded 06/18/17 07:54) KIDNEY Height: 1.6 m Weight: 115.241 kg Patient Problems: Current Active Problems Intractable vomiting (Acute) - VTE Risk Labs: VTE Related Lab Results Hgb 16.1 g/dL (12.2-16.2) 06/15/18 14:55 Hct 40.3 % (37.0-47.0) 06/16/18 07:23 Plt Count 182 K/mm3 (142-424) D 06/16/18 07:23 BUN 34 mg/dL (7-18) H 06/16/18 06:10 Creatinine 2.16 mg/dL (0.55-1.02) H D 06/16/18 06:10 Estimated Creat Clear 21 mL/min (50-200) 06/16/18 06:10 Was VTE Risk Assessment Performed: Yes VTE Score: 6 VTE Risk Level: Moderate Risk Clinical Trial Participant: No - Prophylaxis VTE Prophylaxis Ordered?: Yes Types of VTE Prophylaxis: TEDS Knee High
[2018-06-16 07:43] LABS: Hemoglobin 12.8 g/dL (12.2-16.2)
--- NOTE | 2018-06-16 08:43 | History & Physical Report ---
*Admission Date: 06/16/18 <Kathryn Madsen 06/16/18 08:47> *Chief complaint: nausea, vomiting, diarrhea <Kathryn Madsen 06/16/18 08:47> *History of present illness: Ms. Gongora is a 68-year-old patient of Dr. Carrasquillo who began having nausea, vomiting, and diarrhea yesterday morning. She states she was unable to keep down anything other than this small amount of chicken broth. She became weak and presented to the emergency room. She was found to be dehydrated and was admitted for IV fluid hydration. She was also started on antiemetics. She states she has not had any further vomiting since last night but she continues with the abdominal pain and diarrhea. She is also complaining of a headache. <Kathryn Madsen 06/16/18 08:47> [facility] History Medical History: Reports:: Anxiety, Asthma, Depression, Gastroesophageal Reflux Disease(GERD), Hyperlipidemia, Migraine, MRSA, Renal Insufficiency Denies:: Cancer, Diabetes Mellitus Type 1, Diabetes Mellitus Type 2 <Kathryn Madsen 06/16/18 08:47> *Have you ever received a pneumonia vaccine?: Yes <Kathryn Madsen 06/16/18 08:47> *Have you received a flu vaccine this season?: Yes <Kathryn Madsen 06/16/18 08:47> Other Medical History: Reports: Arthritis, Thyroid Disease, Other (gout, allergic rhinitis, chronic back pain, chronic steroid use) <Kathryn Madsen 06/16/18 08:47> Other Surgeries: Yes: Hernia Repair, Tubal Ligation <Kathryn Madsen 06/16/18 08:47> Amputation: No <Kathryn Madsen 06/16/18 08:47> Fractures: No <Kathryn Madsen 06/16/18 08:47> - *Social History Educational Level: Attended College <Kathryn Madsen 06/16/18 08:47> Smoking Status: Never smoker <Kathryn Madsen 06/16/18 08:47> Alcohol Intake: never <Kathryn Madsen 06/16/18 08:47> *Occupational Status:: disabled <Kathryn Madsen 06/16/18 08:47> Housing: house <Kathryn Madsen 06/16/18 08:47> Household Members: children <Kathryn Madsen 06/16/18 08:47> *Travel in the last 8 weeks: None <Kathryn Madsen 06/16/18 08:47> - Psychiatric History Expresses thoughts of harming self/others: None <Kathryn Madsen 06/16/18 08:47> Suicide Plan Description: No Plan <Kathryn Madsen 06/16/18 08:47> Family Hx:: Cancer, Hyperlipidemia, Hypertension, Stroke <Kathryn Madsen 06/16/18 08:47> Review of Systems - Constitutional Reports weakness, Denies fever(s) <Kathryn Madsen 06/16/18 08:47> - Eyes Denies blurry vision, Denies double vision <Kathryn Madsen 06/16/18 08:47> - ENT Denies nasal congestion, Denies sore throat <Kathryn Madsen 06/16/18 08:47> - *Cardiovascular Denies chest pain, Denies rapid, pounding, or irregular heartbeat <Kathryn Madsen 06/16/18 08:47> - *Respiratory Denies cough, Denies shortness of breath <Kathryn Madsen 06/16/18 08:47> - *Gastrointestinal Reports abdominal pain, Reports loose stools, Reports nausea, Reports vomiting <Kathryn Madsen 06/16/18 08:47> - *Genitourinary Denies difficulty urinating, Denies painful urination <Kathryn Madsne 06/16/18 08:47> - *Musculoskeletal Reports back pain, Reports body aches <Kathryn Madsen 06/16/18 08:47> - *Neurologic Reports headache(s), Reports dizziness, Denies behavioral changes, Denies localized weakness, Denies numbness <Kathryn Madsen 06/16/18 08:47> Meds Home Medications Medication Instructions Recorded Confirmed Type Allopurinol [Allopurinol 300mg 300 mg PO DAILY 06/18/17 06/15/18 History tablet] Atorvastatin Calcium [Atorvastatin 20 mg PO DAILY 06/18/17 06/15/18 History 20mg Tab] Dextran 70/Hypromellose 1 each OP Q1HP PRN 06/18/17 06/15/18 History [Artificial Tears] Esomeprazole Magnesium 40 mg PO DAILY 06/18/17 06/15/18 History Fluticasone Propionate 2 sprays NS DAILY 06/18/17 06/16/18 History Furosemide [Furosemide 40MG tAB] 40 mg PO BID 06/18/17 06/16/18 History Hydrocodone/Acetaminophen 10 - 325 mg PO TID 06/18/17 06/15/18 History [Hydrocodone-Acetamin 10-325 mg] LORazepam [Ativan 0.5mg 0.5 mg PO Q8HP PRN 06/18/17 06/15/18 History tablet] Ondansetron [Zofran 4mg ODT] 4 mg PO Q6HP PRN 06/18/17 06/15/18 History Oxybutynin Chloride [Oxybutynin 5 mg PO DAILY 06/18/17 06/15/18 History Chloride ER] Potassium Chloride [K-Tab ER 10 10 meq PO DAILY 06/18/17 06/15/18 History mEq] Propranolol HCl 40 mg PO BID 06/18/17 06/15/18 History Sertraline HCl [Zoloft 50mg tablet] 50 mg PO DAILY 06/18/17 06/15/18 History Tizanidine HCl [Zanaflex] 4 mg PO HS 06/18/17 06/15/18 History Albuterol Sulfate [Albuterol HFA 2 puffs IH Q6HP PRN 06/19/17 06/15/18 History Inhaler] Fluticasone Propionate [Flovent 1 puff IH BID 06/19/17 06/16/18 History Hfa 110mcg Inhaler] Benzonatate [Benzonatate 200mg Cap] 200 mg PO TIDP PRN #30 cap 06/22/17 06/15/18 Rx Nystatin [Nystatin Cr 100,000 1 applicatio TOPICAL BID 06/16/18 06/16/18 History Units/GM 30GM] Phenylephrine/Shk Lv/Mo/Pet,Wh 1 applicatio RC QID 06/16/18 06/16/18 History [Hemorrhoidal Ointment] predniSONE [Prednisone 5mg 5 mg PO DAILY 06/16/18 06/16/18 History Tab] <Poly Gonzalez - 06/16/18 09:13> Allergies Allergy/AdvReac Type Severity Reaction Status Date / Time NSAIDS (Non-Steroidal AdvReac EFFECTS Verified 06/16/18 08:52 Anti-Inflamma KIDNEYS <Poly Gonzalez - 06/16/18 09:13> Exam Vital signs and Labs for Last 24 Hours: Temp Pulse Resp BP Pulse Ox 98.0 F 52 L 18 125/43 L 97 06/16/18 08:00 06/16/18 08:00 06/16/18 08:00 06/16/18 08:00 06/16/18 08:14 Laboratory Results - last 24 hr 06/15/18 14:55: WBC 9.9, RBC 5.41 H, Hgb 16.1, Hct 50.7 H, MCV 93.9, MCH 29.8, MCHC 31.8, RDW 15.2, Plt Count 265, MPV 7.6, Neut % (Auto) 88.0 H, Lymph % (Auto) 7.2 L, [place] % (Auto) 3.2, Eos % (Auto) 1.4, Baso % (Auto) 0.2, Neut # (Auto) 8.7 H, Lymph # (Auto) 0.7, [place] # (Auto) 0.3, Eos # (Auto) 0.1, Baso # (Auto) 0.0, Total Counted 100, Neutrophils % (Manual) 84 H, Band Neutrophils % 3.0, Lymphocytes % (Manual) 7 L, Monocytes % (Manual) 4, Eosinophils % (Manual) 2, Platelet Estimate Normal, Hypochromasia 1+ 06/15/18 14:55: Sodium 146 H, Potassium 3.7, Chloride 106, Carbon Dioxide 24, Anion Gap 19.7 H, BUN 32 H, Creatinine 1.53 H, Estimated Creat Clear 30, Estimated GFR 34 L, Est GFR ( Amer) 41 L, Glucose 137 H, Calcium 9.4, Total Bilirubin 1.0, AST 19, ALT 26, Alkaline Phosphatase 113, Troponin I < 0.0 2, Total Protein 8.7 H, Albumin 4.2, Globulin 4.5 H, Albumin/Globulin Ratio 0.9 L, Lipase 147 06/15/18 15:19: Influenza Type A Ag Negative, Influenza Type B Ag Negative 06/15/18 17:35: Urine Color Yellow, Urine Appearance Clear, Urine pH 5.5, Ur Specific [place] 1.015, Urine Protein 2+, Urine Glucose (UA) Negative, Urine Ketones Negative, Urine Blood 1+, Urine Nitrate Negative, Urine Bilirubin Negative, Urine Urobilinogen 0.2, Ur Leukocyte Esterase Negative, Urine RBC 3-5, Urine WBC 5-10, Ur Squamous Epith Cells 3-5, Urine Bacteria 1+ 06/16/18 06:10: Sodium 144, Potassium 4.2, Chloride 107, Carbon Dioxide 27, Anion Gap 14.2, BUN 34 H, Creatinine 2.16 H D, Estimated Creat Clear 21, Estimated GFR 23 L, Est GFR ( Amer) 28 L D, Glucose 94 D, Calcium 8.2 L D 06/16/18 07:23: WBC 6.7 D, RBC 4.27, Hgb 12.8 D, Hct 40.3, MCV 94.2, MCH 30.0, MCHC 31.8, RDW 15.4, Plt Count 182 D, MPV 8.3, Neut % (Auto) 79.0, Lymph % (Auto) 15.0, [place] % (Auto) 4.9, Eos % (Auto) 0.9, Baso % (Auto) 0.2, Neut # (Auto) 5.3, Lymph # (Auto) 1.0, [place] # (Auto) 0.3, Eos # (Auto) 0.1, Baso # (Auto) 0.0 <Poly Gonzalez - 06/16/18 09:13> Temp Pulse Resp BP Pulse Ox 98.0 F 52 L 18 125/43 L 97 06/16/18 08:00 06/16/18 08:00 06/16/18 08:00 06/16/18 08:00 06/16/18 08:14 Laboratory Results - last 24 hr 06/15/18 14:55: WBC 9.9, RBC 5.41 H, Hgb 16.1, Hct 50.7 H, MCV 93.9, MCH 29.8, MCHC 31.8, RDW 15.2, Plt Count 265, MPV 7.6, Neut % (Auto) 88.0 H, Lymph % (Auto) 7.2 L, [place] % (Auto) 3.2, Eos % (Auto) 1.4, Baso % (Auto) 0.2, Neut # (Auto) 8.7 H, Lymph # (Auto) 0.7, [place] # (Auto) 0.3, Eos # (Auto) 0.1, Baso # (Auto) 0.0, Total Counted 100, Neutrophils % (Manual) 84 H, Band Neutrophils % 3.0, Lymphocytes % (Manual) 7 L, Monocytes % (Manual) 4, Eosinophils % (Manual) 2, Platelet Estimate Normal, Hypochromasia 1+ 06/15/18 14:55: Sodium 146 H, Potassium 3.7, Chloride 106, Carbon Dioxide 24, Anion Gap 19.7 H, BUN 32 H, Creatinine 1.53 H, Estimated Creat Clear 30, Estimated GFR 34 L, Est GFR ( Amer) 41 L, Glucose 137 H, Calcium 9.4, Total Bilirubin 1.0, AST 19, ALT 26, Alkaline Phosphatase 113, Troponin I < 0.02, Total Protein 8.7 H, Albumin 4.2, Globulin 4.5 H, Albumin/Globulin Ratio 0.9 L, Lipase 147 06/15/18 15:19: Influenza Type A Ag Negative, Influenza Type B Ag Negative 06/15/18 17:35: Urine Color Yellow, Urine Appearance Clear, Urine pH 5.5, Ur Specific [place] 1.015, Urine Protein 2+, Urine Glucose (UA) Negative, Urine Ketones Negative, Urine Blood 1+, Urine Nitrate Negative, Urine Bilirubin Negative, Urine Urobilinogen 0.2, Ur Leukocyte Esterase Negative, Urine RBC 3-5, Urine WBC 5-10, Ur Squamous Epith Cells 3-5, Urine Bacteria 1+ 06/16/18 06:10: Sodium 144, Potassium 4.2, Chloride 107, Carbon Dioxide 27, Anion Gap 14.2, BUN 34 H, Creatinine 2.16 H D, Estimated Creat Clear 21, Estimated GFR 23 L, Est GFR ( Amer) 28 L D, Glucose 94 D, Calcium 8.2 L D 06/16/18 07:23: WBC 6.7 D, RBC 4.27, Hgb 12.8 D, Hct 40.3, MCV 94.2, MCH 30.0, MCHC 31.8, RDW 15.4, Plt Count 182 D, MPV 8.3, Neut % (Auto) 79.0, Lymph % (Auto) 15.0, [place] % (Auto) 4.9, Eos % (Auto) 0.9, Baso % (Auto) 0.2, Neut # (Auto) 5.3, Lymph # (Auto) 1.0, [place] # (Auto) 0.3, Eos # (Auto) 0.1, Baso # (Auto) 0.0 <Kathryn Madsen 06/16/18 08:47> I & O for Last 24 hours: Intake & Output 06/13/18 06/14/18 06/15/18 06/16/18 11:59 11:59 11:59 11:59 Intake Total 2279 / 2279 Balance 2279 / 2279 Weight 254 lb 1 oz <Poly Gonzalez 06/16/18 09:13> Intake & Output 06/13/18 06/14/18 06/15/18 06/16/18 11:59 11:59 11:59 11:59 Intake Total 2279 / 2279 Balance 2279 / 2279 Weight 254 lb 1 oz <Kathryn Madsen 06/16/18 08:47> - Constitutional no acute distress [facility] 08[facility]47> - *Routine HEENT Exam Head: Present: normocephalic [facility] 06/16/18 08:47> Eye: Present: EOMI, PERRL <TenaKathryn - 06/16/18 08:47> ENT: Present: mucous membranes dry <AnkushcmKathryn 06/16/18 08:47> - *Routine Neck Exam Present: supple. Absent: lymphadenopathy <AnkushcmKathryn - 06/16/18 08:47> - *Routine Respiratory Exam Present: CTA bilaterally [facility] 06/16/18 08:47> - *Routine Cardiovascular Exam Present: RRR [facility] 06/16/18 08:47> - *Routine Abdominal Exam Present: soft, normoactive bowel sounds, tenderness (diffuse) <AnkushcmKathryn 06/16/18 08:47> - *Routine Extremities Exam Present: edema. Absent: cyanosis, clubbing <TenaKathryn 06/16/18 08:47> - *Routine Skin Exam Present: warm. Absent: rash <Kathryn Madsen - 06/16/18 08:47> - *Routine Neurological Exam Present: alert, oriented X3 <Kathryn Madsen 06/16/18 08:47> H&P: Result - Impressions Abd CT 1. No acute abdominal or pelvic findings. 2. Colonic diverticulosis and other nonacute findings as described above. <Kathryn Madsen 06/16/18 08:47> Assessment and Plan (1) Intractable vomiting Current visit: Yes Status: Acute Category: Medical Code(s): R11.10 - Vomiting, unspecified (2) Gastroenteritis Current visit: No Status: Acute Category: Medical Code(s): K52.9 - Noninfective gastroenteritis and colitis, unspecified (3) Renal insufficiency Current visit: Yes Status: Acute Category: Medical Code(s): N28.9 - Disorder of kidney and ureter, unspecified (4) Chronic back pain Current visit: Yes Status: Chronic Category: Medical Code(s): M54.9 - Dorsalgia, unspecified; G89.29 - Other chronic pain (5) Asthma Current visit: Yes Status: Chronic Category: Medical Code(s): J45.909 - Unspecified asthma, uncomplicated (6) Arthritis Current visit: Yes Status: Chronic Category: Medical Code(s): M19.90 - Un specified osteoarthritis, unspecified site (7) Hyperlipidemia Current visit: Yes Status: Chronic Category: Medical Code(s): E78.5 - Hyperlipidemia, unspecified <Kathryn Madsen - 06/16/18 08:40> (1) Intractable vomiting Current visit: Yes Status: Acute Category: Medical Code(s): R11.10 - Vomiting, unspecified (2) Gastroenteritis Current visit: No Status: Acute Category: Medical Code(s): K52.9 - Noninfective gastroenteritis and colitis, unspecified (3) Renal insufficiency Current visit: Yes Status: Acute Category: Medical Code(s): N28.9 - Disorder of kidney and ureter, unspecified (4) Chronic back pain Current visit: Yes Status: Chronic Category: Medical Code(s): M54.9 - Dorsalgia, unspecified; G89.29 - Other chronic pain (5) Asthma Current visit: Yes Status: Chronic Category: Medical Code(s): J45.909 - Unspecified asthma, uncomplicated (6) Arthritis Current visit: Yes Status: Chronic Category: Medical Code(s): M19.90 - Unspecified osteoarthritis, unspecified site (7) Hyperlipidemia Current visit: Yes Status: Chronic Category: Medical Code(s): E78.5 - Hyperlipidemia, unspecified <Poly Gonzalez - 06/16/18 09:13> - Assessment and plan all Dx Assessment and Plan for all problems:: will continue IVF for now, advance diet to full liquid and advance to full diet if possible. Possible dc today. Diarrhea panel pending. <Poly Gonzalez - 06/16/18 09:13> Patient has been started on IV fluids and antiemetics. Her vomiting has resolved but she continues with diarrhea. Will order a diarrhea panel today. Renal function has worsened since admission. Will discuss further care with Dr. Gonzalez. <Kathryn Madsen - 06/16/18 08:47>
--- NOTE | 2018-06-16 15:05 | Discharge Summary ---
General - General Admission date:: 06/15/18 <CarlosPoly - 06/16/18 15:39> 06/15/18 <Kathryn Madsen - 06/16/18 15:13> Discharge date: 06/16/18 <Kathryn Madsen - 06/16/18 15:13> HPI HPI: Ms. Gongora is a 68-year-old patient of Dr. Carrasquillo who began having nausea, vomiting, and diarrhea yesterday morning. She states she was unable to keep down anything other than this small amount of chicken broth. She became weak and presented to the emergency room. She was found to be dehydrated and was admitted for IV fluid hydration. She was also started on antiemetics. She states she has not had any further vomiting since last night but she continues with the abdominal pain and diarrhea. She is also complaining of a headache. <Kathryn Madsen 06/16/18 15:13> Hospital Course Hospital Course: Preliminary report showed E.coli and possibly Norovirus. Will call her with final results once available. <Poly Gonzalez 06/16/18 15:39> Her abdominal CT showed nothing acute. The patient's diet was advanced and her symptoms did improve. She had no further vomiting and only one more episode of diarrhea, which was collected for a diarrhea panel that is still pending. She was able to eat and drink and was stable to be discharged home on phenergan and zofran. Of note, she has other family members that now have the vomiting and diarrhea as well. <Kathryn Madsen 06/16/18 15:13> Objective Vital signs: Temp Pulse Resp BP Pulse Ox 98.0 F 52 L 18 125/43 L 97 06/16/18 08:00 06/16/18 08:00 06/16/18 08:00 06/16/18 08:00 06/16/18 08:14 <CarlosPoly 06/16/18 15:39> Temp Pulse Resp BP Pulse Ox 98.0 F 52 L 18 125/43 L 97 06/16/18 08:00 06/16/18 08:00 06/16/18 08:00 06/16/18 08:00 06/16/18 08:14 <Kathryn Madsen 06/16/18 15:13> Narrative: - Constitutional no acute distress - *Routine HEENT Exam Head: Present: normocephalic Eye: Present: EOMI, PERRL ENT: Present: mucous membranes dry - *Routine Neck Exam Present: supple. Absent: lymphadenopathy - *Routine Respiratory Exam Present: CTA bilaterally - *Routine Cardiovascular Exam Present: RRR - *Routine Abdominal Exam Present: soft, normoactive bowel sounds, tenderness (diffuse) - *Routine Extremities Exam Present: edema. Absent: cyanosis, clubbing - *Routine Skin Exam Present: warm. Absent: rash - *Routine Neurological Exam Present: alert, oriented X3 <Kathryn Madsen - 06/16/18 15:13> Results Labs on day of discharge: Labs from last 24 hours 06/16/18 06/16/18 06/15/18 07:23 06:10 17:35 WBC 6.7 D RBC 4.27 Hgb 12.8 D Hct 40.3 MCV 94.2 MCH 30.0 MCHC 31.8 RDW 15.4 Plt Count 182 D MPV 8.3 Neut % (Auto) 79.0 Lymph % (Auto) 15.0 Teller % (Auto) 4.9 Eos % (Auto) 0.9 Baso % (Auto) 0.2 Neut # (Auto) 5.3 Lymph # (Auto) 1.0 Teller # (Auto) 0.3 Eos # (Auto) 0.1 Baso # (Auto) 0.0 Sodium 144 Potassium 4.2 Chloride 107 Carbon Dioxide 27 Anion Gap 14.2 BUN 34 H Creatinine 2.16 H D Estimated Creat Clear 21 Estimated GFR 23 L Est GFR ( Amer) 28 L D Glucose 94 D Calcium 8.2 L D Urine Color Yellow Urine Appearance Clear Urine pH 5.5 Ur Specific [place] 1.015 Urine Protein 2+ Urine Glucose (UA) Negative Urine Ketones Negative Urine Blood 1+ Urine Nitrate Negative Urine Bilirubin Negative Urine Urobilinogen 0.2 Ur Leukocyte Esterase Negative Urine RBC 3-5 Urine WBC 5-10 Ur Squamous Epith Cells 3-5 Urine Bacteria 1+ Influenza Type A Ag Influenza Type B Ag 06/15/18 15:19 WBC RBC Hgb Hct MCV MCH MCHC RDW Plt Count MPV Neut % (Auto) Lymph % (Auto) [place] % (Auto) Eos % (Auto) Baso % (Auto) Neut # (Auto) Lymph # (Auto) [place] # (Auto) Eos # (Auto) Baso # (Auto) Sodium Potassium Chloride Carbon Dioxide Anion Gap BUN Creatinine Estimated Creat Clear Estimated GFR Est GFR ( Amer) Glucose Calcium Urine Color Urine Appearance Urine pH Ur Specific [place] Urine Protein Urine Glucose (UA) Urine Ketones Urine Blood Urine Nitrate Urine Bilirubin Urine Urobilinogen Ur Leukocyte Esterase Urine RBC Urine WBC Ur Squamous Epith Cells Urine Bacteria Influenza Type A Ag Negative Influenza Type B Ag Negative <Poly Gonzalez - 06/16/18 15:39> Labs from last 24 hours 06/16/18 06/16/18 06/15/18 07:23 06:10 17:35 WBC 6.7 D RBC 4.27 Hgb 12.8 D Hct 40.3 MCV 94.2 MCH 30.0 MCHC 31.8 RDW 15.4 Plt Count 182 D MPV 8.3 Neut % (Auto) 79.0 Lymph % (Auto) 15.0 [place]eller % (Auto) 4.9 Eos % (Auto) 0.9 Baso % (Auto) 0.2 Neut # (Auto) 5.3 Lymph # (Auto) 1.0 Teller # (Auto) 0.3 Eos # (Auto) 0.1 Baso # (Auto) 0.0 Total Counted Neutrophils % (Manual) Band Neutrophils % Lymphocytes % (Manual) Monocytes % (Manual) Eosinophils % (Manual) Platelet Estimate Hypochromasia Sodium 144 Potassium 4.2 Chloride 107 Carbon Dioxide 27 Anion Gap 14.2 BUN 34 H Creatinine 2.16 H D Estimated Creat Clear 21 Estimated GFR 23 L Est GFR ( Amer) 28 L D Glucose 94 D Calcium 8.2 L D Total Bilirubin AST ALT Alkaline Phosphatase Troponin I Total Protein Albumin Globulin Albumin/Globulin Ratio Lipase Urine Color Yellow Urine Appearance Clear Urine pH 5.5 Ur Specific [place] 1.015 Urine Protein 2+ Urine Glucose (UA) Negative Urine Ketones Negative Urine Blood 1+ Urine Nitrate Negative Urine Bilirubin Negative Urine Urobilinogen 0.2 Ur Leukocyte Esterase Negative Urine RBC 3-5 Urine WBC 5-10 Ur Squamous Epith Cells 3-5 Urine Bacteria 1+ Influenza Type A Ag Influenza Type B Ag 06/15/18 06/15/18 06/15/18 15:19 14:55 14:55 WBC 9.9 RBC 5.41 H Hgb 16.1 Hct 50.7 H MCV 93.9 MCH 29.8 MCHC 31.8 RDW 15.2 Plt Count 265 MPV 7.6 Neut % (Auto) 88.0 H Lymph % (Auto) 7.2 L [place]eller % (Auto) 3.2 Eos % (Auto) 1.4 Baso % (Auto) 0.2 Neut # (Auto) 8.7 H Lymph # (Auto) 0.7 Teller # (Auto) 0.3 Eos # (Auto) 0.1 Baso # (Auto) 0.0 Total Counted 100 Neutrophils % (Manual) 84 H Band Neutrophils % 3.0 Lymphocytes % (Manual) 7 L Monocytes % (Manual) 4 Eosinophils % (Manual) 2 Platelet Estimate Normal Hypochromasia 1+ Sodium 146 H Potassium 3.7 Chloride 106 Carbon Dioxide 24 Anion Gap 19.7 H BUN 32 H Creatinine 1.53 H Estimated Creat Clear 30 Estimated GFR 34 L Est GFR ( Amer) 41 L Glucose 137 H Calcium 9.4 Total Bilirubin 1.0 AST 19 ALT 26 Alkaline Phosphatase 113 Troponin I < 0.02 Total Protein 8.7 H Albumin 4.2 Globulin 4.5 H Albumin/Globulin Ratio 0.9 L Lipase 147 Urine Color Urine Appearance Urine pH Ur Specific [place] Urine Protein Urine Glucose (UA) Urine Ketones Urine Blood Urine Nitrate Urine Bilirubin Urine Urobilinogen Ur Leukocyte Esterase Urine RBC Urine WBC Ur Squamous Epith Cells Urine Bacteria Influenza Type A Ag Negative Influenza Type B Ag Negative <Kathryn Madsen 06/16/18 15:13> DS: Diagnosis - Discharge Diagnosis (1) Intractable vomiting Status: Acute (2) Gastroenteritis Status: Acute (3) Renal insufficiency Status: Acute (4) Chronic back pain Status: Chronic (5) Asthma Status: Chronic (6) Arthritis Status: Chronic (7) Hyperlipidemia Status: Chronic <Kathryn Madsen 06/16/18 15:02> (1) Intractable vomiting Status: Acute (2) Gastroenteritis Status: Acute (3) Renal insufficiency Status: Acute (4) Chronic back pain Status: Chronic (5) Asthma Status: Chronic (6) Arthritis Status: Chronic (7) Hyperlipidemia Status: Chronic <Poly Gonzalez 06/16/18 15:39> Discharge Plan - Patient Discharge Instructions ACTIVITY: Continue current activity <Kathryn Madsen 06/16/18 15:13> DIET: continue same diet (advised to bland diet for a week) <Kathryn Madsen - 06/16/18 15:13> Patient Instructions: DI for Vomiting -- Adult <Poly Gonzalez - 06/16/18 15:39> Forms: <Poly Gonzalez - 06/16/18 15:39> - Follow up Plan Follow up with: <Poly Gonzalez - 06/16/18 15:39> Unknown provider or service follow up:: 06/16/18 14:30 PCP in 1 week <Kathryn Madsen - 06/16/18 15:13> Disposition: Home, Self-Care <Poly Gonzalez - 06/16/18 15:39> Home Medications: Home Medications Medication Instructions Recorded Confirmed Type RX: Allopurinol [Allopurinol 300mg 300 mg PO DAILY 06/18/17 06/15/18 History tablet] RX: Atorvastatin Calcium 20 mg PO DAILY 06/18/17 06/15/18 History [Atorvastatin 20mg Tab] RX: Dextran 70/Hypromellose 1 each OP Q1HP PRN 06/18/17 06/15/18 History [Artificial Tears] RX: Esomeprazole Magnesium 40 mg PO DAILY 06/18/17 06/15/18 History RX: Fluticasone Propionate 2 sprays NS DAILY 06/18/17 06/16/18 History RX: Furosemide [Furosemide 40MG 40 mg PO BID 06/18/17 06/16/18 History tAB] RX: Hydrocodone/Acetaminophen 10 - 325 mg PO TID 06/18/17 06/15/18 History [Hydrocodone-Acetamin 10-325 mg] RX: LORazepam [Ativan 0.5mg 0.5 mg PO Q8HP PRN 06/18/17 06/15/18 History tablet] RX: Ondansetron [Zofran 4mg 4 mg PO Q6HP PRN 06/18/17 06/15/18 History ODT] RX: Oxybutynin Chloride 5 mg PO DAILY 06/18/17 06/15/18 History [Oxybutynin Chloride ER] RX: Potassium Chloride [K-Tab ER 10 meq PO DAILY 06/18/17 06/15/18 History 10 mEq] RX: Propranolol HCl 40 mg PO BID 06/18/17 06/15/18 History RX: Sertraline HCl [Zoloft 50mg 50 mg PO DAILY 06/18/17 06/15/18 History tablet] RX: Tizanidine HCl [Zanaflex] 4 mg PO HS 06/18/17 06/15/18 History RX: Albuterol Sulfate [Albuterol 2 puffs IH Q6HP PRN 06/19/17 06/15/18 History HFA Inhaler] RX: Fluticasone Propionate 1 puff IH BID 06/19/17 06/16/18 History [Flovent Hfa 110mcg Inhaler] RX: Benzonatate [Benzonatate 200mg 200 mg PO TIDP PRN #30 cap 06/22/17 06/15/18 Rx Cap] Ondansetron HCl [Zofran 4mg Tab] 4 mg PO Q6H #21 tab 06/16/18 Rx Promethazine HCl [Phenergan 12.5mg 12.5 mg PO Q6H PRN #21 tab 06/16/18 Rx tablet] RX: Nystatin [Nystatin Cr 100,000 1 applicatio TOPICAL BID 06/16/18 06/16/18 History Units/GM 30GM] RX: Phenylephrine/Shk Lv/Mo/Pet,Wh 1 applicatio RC QID 06/16/18 06/16/18 History [Hemorrhoidal Ointment] RX: predniSONE [Prednisone 5mg 5 mg PO DAILY 06/16/18 06/16/18 History Tab] <Poly Gonzalez - 06/16/18 15:39> Prescriptions/Medication Reconciliation: New Promethazine HCl [Phenergan 12.5mg tablet] 12.5 mg PO Q6H PRN #21 tab PRN Reason: Diarrhea Ondansetron HCl [Zofran 4mg Tab] 4 mg PO Q6H #21 tab Continue RX: Dextran 70/Hypromellose [Artificial Tears] 1 each OP Q1HP PRN PRN Reason: Dry Eye(S) RX: Hydrocodone/Acetaminophen [Hydrocodone-Acetamin 10-325 mg] 10 - 325 mg PO TID RX: Ondansetron [Zofran 4mg ODT] 4 mg PO Q6HP PRN PRN Reason: Nausea RX: LORazepam [Ativan 0.5mg tablet] 0.5 mg PO Q8HP PRN PRN Reason: Anxiety RX: Furosemide [Furosemide 40MG tAB] 40 mg PO BID RX: Potassium Chloride [K-Tab ER 10 mEq] 10 meq PO DAILY RX: Esomeprazole Magnesium 40 mg PO DAILY RX: Oxybutynin Chloride [Oxybutynin Chloride ER] 5 mg PO DAILY RX: Tizanidine HCl [Zanaflex] 4 mg PO HS RX: Sertraline HCl [Zoloft 50mg tablet] 50 mg PO DAILY RX: Atorvastatin Calcium [Atorvastatin 20mg Tab] 20 mg PO DAILY RX: Allopurinol [Allopurinol 300mg tablet] 300 mg PO DAILY RX: Albuterol Sulfate [Albuterol HFA Inhaler] 2 puffs IH Q6HP PRN PRN Reason: BREATHING RX: Fluticasone Propionate [Flovent Hfa 110mcg Inhaler] 1 puff IH BID RX: Phenylephrine/Shk Lv/Mo/Pet,Wh [Hemorrhoidal Ointment] 1 applicatio RC QID RX: Fluticasone Propionate 2 sprays NS DAILY RX: Propranolol HCl 40 mg PO BID RX: Benzonatate [Benzonatate 200mg Cap] 200 mg PO TIDP PRN #30 cap PRN Reason: Cough RX: Nystatin [Nystatin Cr 100,000 Units/GM 30GM] 1 applicatio TOPICAL BID RX: predniSONE [Prednisone 5mg Tab] 5 mg PO DAILY <Poly Gonzalez - 06/16/18 15:39>
== END 2018-06-16 14:59 | disposition home or self-care (01) ==
LOC: ER 13:57 → 2ND 13:57
PROVIDERS: ADMIT Emergency Medicine; ATTEND Emergency Medicine
CPT/HCPCS: 36415; 74176; 80048; 80053; 81001; 83690; 84484; 85007; 85025; 87275; 87276; 87507; 93005; 96365; 96375; 96376; 99284; G0378; J2405

== ENCOUNTER 2019-03-30 22:35 | Observation (INO) ==
[2019-03-30 23:21] LABS: Basophils % 0.1 % (0.1-2.0); Eosinophils # 0.1 K/mm3 (0.0-0.4); Eosinophils % 0.4 % (0.1-12.0); Hematocrit 50.7 % (37.0-47.0); Hemoglobin 15.6 g/dL (12.2-16.2); Lymphocytes # 0.6 K/mm3 (0.7-4.5); Lymphocytes % 4.4 % (10-50); Mean Corpuscular HGB Conc 30.8 g/dL (31.8-35.4); Mean Corpuscular Volume 96.1 fl (81-99); Mean Platelet Volume 8.2 fl (7.4-10.4); Monocytes # 0.4 K/mm3 (0.1-1.0); Monocytes % 2.8 % (1.7-9.3); Neutrophils # 13.2 K/mm3 (1.8-7.8); Neutrophils % 92.3 % (37.0-80.0); Platelet Count 413 K/mm3 (142-424); Red Blood Count 5.27 M/mm3 (4.20-5.40); Red Cell Distribution Width 14.5 % (11.5-17.5); White Blood Count 14.3 K/mm3 (4.8-10.8)
--- NOTE | 2019-03-30 23:25 | Emergency Department Note ---
ED Disposition Clinical Impression: Gastroenteritis due to norovirus Disposition: Admitted as Observation Condition on Discharge: Fair Referrals: Provider,Referral, [Primary Care Provider] - - Critical Care Critical Care Time: No Attestation: On 03/30/19, the high probability of a clinically significant, sudden or life threatening deterioration of the following system(s) required my full and direct attention, intervention and personal management. The time I documented below is in addition to time spent performing reported procedures but includes the following listed in this critical care notation. Medical Decision Making - Justino Inquiry Pt receiving controlled substance: No Vital Signs: 03/30/19 23:05 03/30/19 23:40 Temperature 98.4 F Temperature Source Oral Pulse Rate [Right] 62 70 Respiratory Rate 16 16 Blood Pressure [Right Arm] 160/70 H Blood Pressure Mean [Right Arm] 100 Blood Pressure Source [Right Arm] Automatic Cuff Blood Pressure Position [Right Arm] Sitting 02 Sat by Pulse Oximetry 94 L 100 Oxygen Delivery Method Room Air Room Air - Lab Data Lab Results 03/30/19 22:50: WBC 14.3 H, RBC 5.27, Hgb 15.6, Hct 50.7 H, MCV 96.1, MCH 29.6, MCHC 30.8 L, RDW 14.5, Plt Count 413, MPV 8.2, Neut % (Auto) 92.3 H, Lymph % (A uto) 4.4 L, [place] % (Auto) 2.8, Eos % (Auto) 0.4, Baso % (Auto) 0.1, Neut # (Auto) 13.2 H, Lymph # (Auto) 0.6 L, [place] # (Auto) 0.4, Eos # (Auto) 0.1, Baso # (Auto) 0.0, Total Counted 100, Neutrophils % (Manual) 90 H, Band Neutrophils % 7.0, Lymphocytes % (Manual) 3 L, Platelet Estimate Normal, Hypochromasia 1+, Rouleaux 1+ 03/30/19 22:50: Sodium 142, Potassium 3.5, Chloride 103, Carbon Dioxide 25, Anion Gap 17.5 H, BUN 35 H, Creatinine 1.76 H, Estimated Creat Clear 27, Es timated GFR 29 L, Est GFR ( Amer) 35 L, Glucose 122 H, Calcium 9.9, Total Bilirubin 0.8, AST 13 L, ALT 15, Alkaline Phosphatase 121 H, Total Protein 8.8 H , Albumin 4.2, Globulin 4.6 H, Albumin/Globulin Ratio 0.9 L 03/30/19 23:20: Influenza Type A Ag Negative, Influenza Type B Ag Negative 03/31/19 00:43: Stl Aeromonas (PCR) Not detected, Stl C. cayetanensis PCR Not detected, Stool Rotavirus (PCR) Not detected, Stl Adenov F 40/41 PCR Not detected, Stool Astrovirus (PCR) Not detected, Stool Campylobacter PCR Not detected, Stl C.difficile Tox PCR Not detected, Stool Cryptosporidium PCR Not detected, Stl E.coli Shiga Tox PCR Not detected, Stool E coli O157 PCR Not detected, Stl Enterotoxigenic E PCR Not detected, Stool EPEC (PCR) Not detected, Stool EAEC (PCR) Not detected, Stl E. histolytica PCR Not detected, Stool Giardia Lamblia PCR Not detected, Stool Salmonella PCR Not detected, Stool Sapovirus (PCR) Not detected, Stl P. shigelloides PCR Not detected, Stl Shigella/EIEC PCR Not detected, St Y.enterocolitica PCR Not detected, Stool Vibrio (PCR) Not detected, Stl Vibrio cholerae PCR Not detected, Stl Norovirus GI/GII PCR Detected A Result diagrams: 03/30/19 22:50 03/30/19 22:50 Orders (Tests/Meds): ED MEDICATIONS Generic Name Dose Route Start Last Admin Trade Name Freq PRN Reason Stop Dose Admin Sodium Chloride 1,000 mls @ 25 mls/hr 03/30/19 23:15 03/30/19 23:15 Sod Chlor 0.9% 1000ml Bag IV 04/29/19 23:14 25 mls/hr .Q25H NARINDER Administration Discontinued Medications Generic Name Dose Route Start Last Admin Trade Name Freq PRN Reason Stop Dose Admin Ondansetron HCl 4 mg 03/30/19 23:11 03/30/19 23:14 Zofran 4mg/2ml Vial IV 03/30/19 23:12 4 mg ONCE ONE Administration Prochlorperazine Edisylate 10 mg 03/30/19 23:31 03/30/19 23:38 Compazine 10mg/2ml Vial IV 03/30/19 23:32 10 mg ONCE ONE Administration Promethazine HCl 12.5 mg 03/30/19 23:11 03/30/19 23:14 Phenergan 25mg/Ml 1ml Vial IV 03/30/19 23:12 12.5 mg ONCE ONE Administration Sodium Chloride 25 ml 03/30/19 23:11 03/30/19 23:14 Sod Chlor 0.9% 25ml Bag IV 03/30/19 23:12 25 ml ONCE ONE Administration Sodium Chloride 1,000 ml 03/30/19 23:33 03/30/19 23:38 Sod Chlor 0.9% 1000ml Bag IV 03/30/19 23:34 1,000 ml BOLUS ONE Administration - Physician Consults Physician Consulted: Chip Time: 03:39 Reason -: Admission Comment/Response: Agrees to admit the patient to the hospital. We discussed the patient's clinical information, including history, exam, laboratory and radiology results and ED course. Per hospital procedure, I will write temporary bridge inpatient orders on the patient. Specific orders requested by the admitting physician: Continue IV fluids, nausea medication - Reevaluation(s) Time: 03:30 Reevaluation #1: Vomiting has subsided, but says she still feels terrible and nauseated. Does not feel she can go home. General Adult HPI - General Chief complaint: Nausea/Vomiting/Diarrhea Stated complaint: Vomiting Time Seen by Provider: 03/30/19 23:24 Mode of Arrival: Wheelchair Limitations: No Limitations Description of Symptoms (Recalled from ER Triage Doc. by RN): Pt c/o N/V/D starting today - History of Present Illness HPI narrative: Started with diffuse vomiting and diarrhea couple of hours ago. At least 5 episodes of diarrhea and constant vomiting and dry heaving. States her abdomen only hurts a little bit from vomiting. Has chronic back pain which is also been exacerbated by her vomiting. Denies fevers. Denies chest pain. Noted to have been admitted here in May of this year for the same symptoms. States that this feels the same. Also had cataract surgery done yesterday. No exposures. No unusual foods. - Related Data Home Medications Medication Instructions Recorded Confirmed Atorvastatin Calcium [Atorvastatin 20 mg PO DAILY 06/18/17 06/15/18 20mg Tab] Dextran 70/Hypromellose 1 each OP Q1HP PRN 06/18/17 06/15/18 [Artificial Tears] Esomeprazole Magnesium 40 mg PO DAILY 06/18/17 06/15/18 Fluticasone Propionate 2 sprays NS DAILY 06/18/17 06/16/18 Furosemide [Furosemide 40MG tAB] 40 mg PO BID 06/18/17 06/16/18 Hydrocodone/Acetaminophen 10 - 325 mg PO TID 06/18/17 06/15/18 [Hydrocodone-Acetamin 10-325 mg] LORazepam [Ativan 0.5mg 0.5 mg PO Q8HP PRN 06/18/17 06/15/18 tablet] Ondansetron [Zofran 4mg ODT] 4 mg PO Q6HP PRN 06/18/17 06/15/18 Oxybutynin Chloride [Oxybutynin 5 mg PO DAILY 06/18/17 06/15/18 Chloride ER] Potassium Chloride [K-Tab ER 10 10 meq PO DAILY 06/18/17 06/15/18 mEq] Propranolol HCl 40 mg PO BID 06/18/17 06/15/18 Sertraline HCl [Zoloft 50mg tablet] 50 mg PO DAILY 06/18/17 06/15/18 Tizanidine HCl [Zanaflex] 4 mg PO HS 06/18/17 06/15/18 allopurinoL [Allopurinol 300mg 300 mg PO DAILY 06/18/17 06/15/18 tablet] Albuterol Sulfate [Albuterol HFA 2 puffs IH Q6HP PRN 06/19/17 06/15/18 Inhaler] Fluticasone Propionate [Flovent 1 puff IH BID 06/19/17 06/16/18 Hfa 110mcg Inhaler] Nystatin [Nystatin Cr 100,000 1 applicatio TOPICAL BID 06/16/18 06/16/18 Units/GM 30GM] Phenylephrine/Shk Lv/Mo/Pet,Wh 1 applicatio RC QID 06/16/18 06/16/18 [Hemorrhoidal Ointment] predniSONE [Prednisone 5mg 5 mg PO DAILY 06/16/18 06/16/18 Tab] Previous Rx's Medication Instructions Recorded Benzonatate [Benzonatate 200mg Cap] 200 mg PO TIDP PRN #30 cap 06/22/17 Ondansetron HCl [Zofran 4mg Tab] 4 mg PO Q6H #21 tab 06/16/18 Promethazine HCl [Phenergan 12.5mg 12.5 mg PO Q6H PRN #21 tab 06/16/18 tablet] Azithromycin [Z-Edy 250mg Tab*] 250 mg PO UD DOSE PK #6 tab 03/17/19 Fluticasone Propionate [Flonase 1 - 2 spr NS DAILY #1 bottle 03/17/19 50mcg nasal spray 16gm] Allergies Allergy/AdvReac Type Severity Reaction Status Date / Time NSAIDS (Non-Steroidal AdvReac EFFECTS Verified 06/16/18 08:52 Anti-Inflamma KIDNEYS [facility] History - Hepatitis A Screen Drug use history?: No High risk sexual behaviors?: No History of sexually transmitted infection?: No Currently employed?: No Childcare worker?: No Do you have indoor plumbing?: Yes Do you have electricity?: Yes Attestation statement:: This patient has been screened for Hepatitis A risk factors. I have reviewed the patient's past medical history: Yes Medical History: Reports:: Anxiety, Asthma, Depression, Gastroesophageal Reflux Disease(GERD), Hyperlipidemia, Migraine, MRSA, Renal Insufficiency Denies:: Cancer, Diabetes Mellitus Type 1, Diabetes Mellitus Type 2 Other Medical History: Reports: Arthritis, Thyroid Disease, Other (gout, allergic rhinitis, chronic back pain, chronic steroid use) Other Surgeries: Yes: Hernia Repair, Tubal Ligation Amputation: No Fractures: No - Social History Smoking Status: Never smoker Alcohol Intake: never Occupational Status: disabled Housing: house Household Members: children - Psychiatric History Pschychiatric History:: Reports:: Anxiety, Depression Family Hx:: Cancer, Hyperlipidemia, Hypertension, Stroke ROS Obtained: Yes All systems reviewed & no additional complaints - Constitutional Constitutional: Denies fever(s) - Eyes Eyes: Reports as per HPI - Cardiovascular Cardiovascular: Denies chest pain - Respiratory Respiratory: No dyspnea - Gastrointestinal Gastrointestingal: Reports: diarrhea, nausea, vomiting - Musculoskeletal Musculoskeletal: Reports back pain Physical Exam - General General appearance: alert Comment: Retching almost continuously - Head Head exam: atraumatic, normocephalic - Eye Eye exam: Present: other (Has a shield on her right) - Neck Neck exam: Present: normal inspection, trachea midline - Chest Chest inspection: Present: normal inspection, symmetric chest wall rise - Respiratory Respiratory exam: Present: normal lung sounds bilaterally. Absent: respiratory distress - Cardiovascular Cardiovascular exam: Present: regular rate, normal rhythm, normal heart sounds - Abdominal Exam Abdominal exam: Present: soft, normal bowel sounds. Absent: distention, tenderness, guarding, rebound, rigidity - Extremities Exam Extremities exam: Present: normal inspection - Neurological Exam Neurological exam: Present: alert, oriented X3 - Psychiatric Psychiatric exam: Present: normal affect, normal mood - Skin Skin exam: Present: warm, dry
[2019-03-30 23:33] LABS: Albumin Level 4.2 gm/dL (3.4-5.0); Albumin/Globulin Ratio 0.9 (1.1-1.8); Anion Gap 17.5 mEq/L (5-15); Bilirubin,Total 0.8 mg/dL (0.2-1.0); Calcium 9.9 mg/dL (8.5-10.1); Globulin 4.6 gm/dl (1.3-3.2); Total Protein,Serum 8.8 gm/dL (6.4-8.2)
[2019-03-30 23:35] LABS: Hypochromasia 1+; Lymphocytes % 3 % (10-50); Neutrophils % 90 % (42-76); Rouleaux 1+; Total Cells Counted 100
--- NOTE | 2019-03-31 08:34 | History & Physical Report ---
*Admission Date: 03/31/19 <Kathryn Madsen 03/31/19 08:36> *Chief complaint: Nausea, vomiting, diarrhea <Kathryn Madsen 03/31/19 08:36> *History of present illness: Ms. Gongora is a 68-year-old female who began having nausea, vomiting, diarrhea, and abdominal pain around 6 PM last night. She has had norovirus in the past and felt dehydrated as she did with her last episode. She presented to the emergency room and was found to have norovirus again. She was admitted and started on IV fluids and antiemetics. She states everything started to slow down around 4-5 AM this morning. <Kathryn Madsen 03/31/19 08:36> [facility] History I have reviewed the patient's past medical history: Yes <Kathryn Madsen 03/31/19 08:36> Medical History: Reports:: Anxiety, Asthma, Depression, Gastroesophageal Reflux Disease(GERD), Hyperlipidemia, Migraine, MRSA, Renal Insufficiency Denies:: Cancer, Diabetes Mellitus Type 1, Diabetes Mellitus Type 2 <Kathryn Madsen 03/31/19 08:36> *Have you ever received a pneumonia vaccine?: Yes (within last 5 years) <Kathryn Madsen 03/31/19 08:36> *Have you received a flu vaccine this season?: Yes (feb 2019) <Kathryn Madsen 03/31/19 08:36> Other Medical History: Reports: Arthritis, Thyroid Disease, Other (gout, allergic rhinitis, chronic back pain, chronic steroid use) <Kathryn Madsen 03/31/19 08:36> Laterality Cases: Right: Cataract <Kathryn Madsen 03/31/19 08:36> Other Surgeries: Yes: Hernia Repair, Tubal Ligation <Kathryn Madsen 03/31/19 08:36> Amputation: No <Kathryn Madsen 03/31/19 08:36> Fractures: No <Kathryn Madsen 03/31/19 08:36> - *Social History Educational Level: Attended College <Kathryn Madsen 03/31/19 08:36> Smoking Status: Never smoker <Kathryn Madsen 03/31/19 08:36> Alcohol Intake: never <Kathryn Madsen 03/31/19 08:36> *Occupational Status:: disabled <Kathryn Madsen 03/31/19 08:36> Housing: house <Kathryn Madsen 03/31/19 08:36> Household Members: children <Kathryn Madsen 03/31/19 08:36> *Travel in the last 8 weeks: None <Kathryn Madsen 03/31/19 08:36> - Psychiatric History Pschychiatric History:: Reports:: Anxiety, Depression <Kathryn Madsen 03/31/19 08:36> Family Hx:: Cancer, Hyperlipidemia, Hypertension, Stroke <Kathryn Madsen 03/31/19 08:36> Review of Systems - Constitutional Reports body ache(s), Reports chills, Reports weakness, Denies fever(s) <Kathryn Madsen 03/31/19 08:36> - Eyes Denies blurry vision, Denies double vision <Kathryn Madsen 03/31/19 08:36> - ENT Reports sore throat, Denies nasal congestion <Kathryn Madsen 03/31/19 08:36> - *Cardiovascular Denies chest pain, Denies shortness of breath <Kathryn Madsen 03/31/19 08:36> - *Respiratory Denies chest congestion, Denies cough, Denies shortness of breath <Zeeshan Madsena 03/31/19 08:36> - *Gastrointestinal Reports abdominal pain (diffuse), Reports loose stools, Reports nausea, Reports vomiting <Kathryn Madsen 03/31/19 08:36> - *Genitourinary Denies difficulty urinating, Denies painful urination <Zeeshan Madsena 03/31/19 08:36> - *Musculoskeletal Reports body aches <Zeeshan Madsena 03/31/19 08:36> - *Neurologic Reports weakness, Denies headache(s), Denies dizziness <Kathryn Madsen 03/31/19 08:36> Meds Home Medications Medication Instructions Recorded Confirmed Type Atorvastatin Calcium [Atorvastatin 20 mg PO DAILY 06/18/17 03/31/19 History 20mg Tab] Dextran 70/Hypromellose 1 each OP Q1HP PRN 06/18/17 03/31/19 History [Artificial Tears] Esomeprazole Magnesium 40 mg PO DAILY 06/18/17 03/31/19 History Fluticasone Propionate 2 sprays NS DAILY 06/18/17 03/31/19 History Furosemide [Furosemide 40MG tAB] 40 mg PO BID 06/18/17 03/31/19 History LORazepam [Ativan 0.5mg 0.5 mg PO Q8HP PRN 06/18/17 03/31/19 History tablet] Ondansetron [Zofran 4mg ODT] 4 mg PO Q6HP PRN 06/18/17 03/31/19 History Oxybutynin Chloride [Oxybutynin 5 mg PO DAILY 06/18/17 03/31/19 History Chloride ER] Potassium Chloride [K-Tab ER 10 10 meq PO BID 06/18/17 03/31/19 History mEq] Propranolol HCl 40 mg PO BID 06/18/17 03/31/19 History Sertraline HCl [Zoloft 50mg tablet] 50 mg PO DAILY 06/18/17 03/31/19 History Tizanidine HCl [Zanaflex] 4 mg PO HS 06/18/17 03/31/19 History allopurinoL [Allopurinol 300mg 300 mg PO DAILY 06/18/17 03/31/19 History tablet] Fluticasone Propionate [Flovent 1 puff IH BID 06/19/17 03/31/19 History Hfa 110mcg Inhaler] Nystatin [Nystatin Cr 100,000 1 applicatio TOPICAL BID 06/16/18 03/31/19 History Units/GM 30GM] predniSONE [Prednisone 5mg 5 mg PO DAILY 06/16/18 03/31/19 History Tab] Ondansetron HCl [Zofran 4mg Tab*] 4 mg PO TID PRN 03/31/19 03/31/19 History Oxycodone HCl [Oxycodone 5mg tab 5 mg PO NEEDED PRN 03/31/19 03/31/19 History (IR)] SUMAtriptan succinate [Sumatriptan 100 mg PO QID 03/31/19 03/31/19 History Succinate] Spironolactone [Spironolactone 25 mg PO DAILY 03/31/19 03/31/19 History 25mg Tablet] Tobramycin [Tobrex] 5 ml OP QID 03/31/19 03/31/19 History prednisoLONE acetate [Prednisolone 5 ml OP QID 03/31/19 03/31/19 History Acetate] <Dwain Saunders - 03/31/19 08:57> Allergies Allergy/AdvReac Type Severity Reaction Status Date / Time NSAIDS (Non-Steroidal AdvReac EFFECTS Verified 03/31/19 05:31 Anti-Inflamma KIDNEYS <Dwain Saunders - 03/31/19 08:57> Exam Vital signs and Labs for Last 24 Hours: Temp Pulse Resp BP Pulse Ox 99.7 F H 56 L 17 157/52 H 97 03/31/19 08:00 03/31/19 08:00 03/31/19 08:00 03/31/19 08:00 03/31/19 08:00 Laboratory Results - last 24 hr 03/30/19 22:50: WBC 14.3 H, RBC 5.27, Hgb 15.6, Hct 50.7 H, MCV 96.1, MCH 29.6, MCHC 30.8 L, RDW 14.5, Plt Count 413, MPV 8.2, Neut % (Auto) 92.3 H, Lymph % (Auto) 4.4 L, [place] % (Auto) 2.8, Eos % (Auto) 0.4, Baso % (Auto) 0.1, Neut # (Auto) 13.2 H, Lymph # (Auto) 0.6 L, [place] # (Auto) 0.4, Eos # (Auto) 0.1, Baso # (Auto) 0.0, Total Counted 100, Neutrophils % (Manual) 90 H, Band Neutrophils % 7.0, Lymphocytes % (Manual) 3 L, Platelet Estimate Normal, Hypochromasia 1+, [place]le[place] 1+ 03/30/19 22:50: Sodium 142, Potassium 3.5, Chloride 103, Carbon Dioxide 25, Anion Gap 17.5 H, BUN 35 H, Creatinine 1.76 H, Estimated Creat Clear 27, Estimated GFR 29 L, Est GFR ( Amer) 35 L, Glucose 122 H, Calcium 9.9, Total Bilirubin 0.8, AST 13 L, ALT 15, Alkaline Phosphatase 121 H, Total Protein 8.8 H, Albumin 4.2, Globulin 4.6 H, Albumin/Globulin Ratio 0.9 L 03/30/19 23:20: Influenza Type A Ag Negative, Influenza Type B Ag Negative 03/31/19 00:43: Stl Aeromonas (PCR) Not detected, Stl C. cayetanensis PCR Not detected, Stool Rotavirus (PCR) Not detected, Stl Adenov F 40/41 PCR Not detected, Stool Astrovirus (PCR) Not detected, Stool Campylobacter PCR Not detected, Stl C.difficile Tox PCR Not detected, Stool Cryptosporidium PCR Not detected, Stl E.coli Shiga Tox PCR Not detected, Stool E coli O157 PCR Not detected, Stl Enterotoxigenic E PCR Not detected, Stool EPEC (PCR) Not detected, Stool EAEC (PCR) Not detected, Stl E. histolytica PCR Not detected, Stool Giardia Lamblia PCR Not detected, Stool Salmonella PCR Not detected, Stool Sapovirus (PCR) Not detected, Stl P. shigelloides PCR Not detected, Stl Shigella/EIEC PCR Not detected, St Y.enterocolitica PCR Not detected, Stool Vibrio (PCR) Not detected, Stl Vibrio cholerae PCR Not detected, Stl Norovirus GI/GII PCR Detected A <Dwain Saunders - 03/31/19 08:57> Temp Pulse Resp BP Pulse Ox 98.4 F 82 16 163/80 H 100 03/31/19 04:56 03/31/19 04:56 03/31/19 04:56 03/31/19 04:56 03/30/19 23:40 Laboratory Results - last 24 hr 03/30/19 22:50: WBC 14.3 H, RBC 5.27, Hgb 15.6, Hct 50.7 H, MCV 96.1, MCH 29.6, MCHC 30.8 L, RDW 14.5, Plt Count 413, MPV 8.2, Neut % (Auto) 92.3 H, Lymph % (Auto) 4.4 L, [place] % (Auto) 2.8, Eos % (Auto) 0.4, Baso % (Auto) 0.1, Neut # (Auto) 13.2 H, Lymph # (Auto) 0.6 L, [place] # (Auto) 0.4, Eos # (Auto) 0.1, Baso # (Auto) 0.0, Total Counted 100, Neutrophils % (Manual) 90 H, Band Neutrophils % 7.0, Lymphocytes % (Manual) 3 L, Platelet Estimate Normal, Hypochromasia 1+, [place] 1+ 03/30/19 22:50: Sodium 142, Potassium 3.5, Chloride 103, Carbon Dioxide 25, Anion Gap 17.5 H, BUN 35 H, Creatinine 1.76 H, Estimated Creat Clear 27, Estimated GFR 29 L, Est GFR ( Amer) 35 L, Glucose 122 H, Calcium 9.9, Total Bilirubin 0.8, AST 13 L, ALT 15, Alkaline Phosphatase 121 H, Total Protein 8.8 H, Albumin 4.2, Globulin 4.6 H, Albumin/Globulin Ratio 0.9 L 03/30/19 23:20: Influenza Type A Ag Negative, Influenza Type B Ag Negative 03/31/19 00:43: Stl Aeromonas (PCR) Not detected, Stl C. cayetanensis PCR Not detected, Stool Rotavirus (PCR) Not detected, Stl Adenov F 40/41 PCR Not detected, Stool Astrovirus (PCR) Not detected, Stool Campylobacter PCR Not detected, Stl C.difficile Tox PCR Not detected, Stool Cryptosporidium PCR Not detected, Stl E.coli Shiga Tox PCR Not detected, Stool E coli O157 PCR Not detected, Stl Enterotoxigenic E PCR Not detected, Stool EPEC (PCR) Not detected, Stool EAEC (PCR) Not detected, Stl E. histolytica PCR Not detected, Stool Giardia Lamblia PCR Not detected, Stool Salmonella PCR Not detected, Stool Sapovirus (PCR) Not detected, Stl P. shigelloides PCR Not detected, Stl Shigella/EIEC PCR Not detected, St Y.enterocolitica PCR Not detected, Stool Vibrio (PCR) Not detected, Stl Vibrio cholerae PCR Not detected, Stl Norovirus GI/GII PCR Detected A <Kathryn Madsen - 03/31/19 08:36> I & O for Last 24 hours: Intake & Output 03/28/19 03/29/19 03/30/19 03/31/19 23:59 23:59 23:59 23:59 Intake Total 1000 / 1000 Balance 1000 / 1000 Weight 250 lb <Dwain Saunders - 03/31/19 08:57> Intake & Output 01/08/03/29/19 03/30/19 03/31/19 11:59 11:59 11:59 11:59 Intake Total 1000 / 1000 Balance 1000 / 1000 Weight 250 lb <Kathryn Madsen 03/31/19 08:36> - Constitutional Comments: Does not appear to feel well <Kathryn Madsen 03/31/19 08:36> - *Routine HEENT Exam Head: Present: normocephalic <Zeeshan Madsena 03/31/19 08:36> Eye: Present: EOMI, PERRL <Zeeshan Madsena 03/31/19 08:36> ENT: Present: mucous membranes dry <Kathryn Madsen 03/31/19 08:36> - *Routine Neck Exam Present: supple. Absent: lymphadenopathy <Zeeshan Madsena 03/31/19 08:36> - *Routine Respiratory Exam Present: CTA bilaterally <Kathryn Madsen 03/31/19 08:36> - *Routine Cardiovascular Exam Present: RRR <[facility] 03/31/19 08:36> - *Routine Abdominal Exam Present: soft, normoactive bowel sounds, tenderness (diffuse) <TenaKathryn 03/31/19 08:36> - *Routine Extremities Exam Absent: cyanosis, clubbing, edema <TenaKathryn 03/31/19 08:36> - *Routine Skin Exam Present: warm. Absent: rash <Zeeshan Madsena 03/31/19 08:36> - *Routine Neurological Exam Present: alert, oriented X3 <Zeeshan Madsena 03/31/19 08:36> Assessment and Plan (1) Gastroenteritis due to norovirus Current visit: Yes Status: Acute Category: Medical Code(s): A08.11 - Acute gastroenteropathy due to [place] agent (2) Renal insufficiency Current visit: No Status: Acute Category: Medical Code(s): N28.9 - Disorder of kidney and ureter, unspecified (3) Arthritis Current visit: No Status: Chronic Category: Medical Code(s): M19.90 - Unspecified osteoarthritis, unspecified site (4) Asthma Current visit: No Status: Chronic Category: Medical Code(s): J45.909 - Unspecified asthma, uncomplicated (5) Chronic back pain Current visit: No Status: Chronic Category: Medical Code(s): M54.9 - Dorsalgia, unspecified; G89.29 - Other chronic pain (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 (7) Hyperlipidemia Current visit: No Status: Chronic Category: Medical Code(s): E78.5 - Hyperlipidemia, unspecified <Dwain Saunders - 03/31/19 08:57> (1) Gastroenteritis due to norovirus Current visit: Yes Status: Acute Category: Medical Code(s): A08.11 - Acute gastroenteropathy due to [place] agent (2) Renal insufficiency Current visit: No Status: Acute Category: Medical Code(s): N28.9 - Disorder of kidney and ureter, unspecified (3) Arthritis Current visit: No Status: Chronic Category: Medical Code(s): M19.90 - Unspecified osteoarthritis, unspecified site (4) Asthma Current visit: No Status: Chronic Category: Medical Code(s): J45.909 - Unspecified asthma, uncomplicated (5) Chronic back pain Current visit: No Status: Chronic Category: Medical Code(s): M54.9 - Dorsalgia, unspecified; G89.29 - Other chronic pain (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 <Dwain Saunders - 03/31/19 08:57> Patient was started on IV fluids and antiemetics and her vomiting and diarrhea have slowed. She would like to try some sips and chips this morning. <Kathryn Madsen - 03/31/19 08:36>
--- NOTE | 2019-03-31 11:53 | Pharmacy Consult Notes ---
[facility] Pharmacy VTE Monitoring - Patient Demographics Admission date: 03/31/19 Report Date: 03/31/19 Time: 11:52 Allergies/Adverse Reactions: Patient Allergies NSAIDS (Non-Steroidal Anti-Inflamma Adverse Reaction (Verified 03/31/19 05:31) EFFECTS KIDNEYS Height: 1.63 m Weight: 112.604 kg Patient Problems: Current Active Problems Gastroenteritis due to norovirus (Acute) - VTE Risk Labs: VTE Related Lab Results Hgb 15.6 g/dL (12.2-16.2) 03/30/19 22:50 Hct 50.7 % (37.0-47.0) H 03/30/19 22:50 Plt Count 413 K/mm3 (142-424) 03/30/19 22:50 BUN 35 mg/dL (7-18) H 03/30/19 22:50 Creatinine 1.76 mg/dL (0.55-1.02) H 03/30/19 22:50 Estimated Creat Clear 27 mL/min (50-200) 03/30/19 22:50 VTE Score: 5 VTE Risk Level: Low Risk - Prophylaxis Types of VTE Prophylaxis: TEDS Knee High (JOANNE HOSE ORDERED) Location of Applied Device: Bilateral Lower Extremeties
[2019-04-01 07:38] LABS: Basophils % 0.5 % (0.1-2.0); Eosinophils # 0.1 K/mm3 (0.0-0.4); Eosinophils % 2.5 % (0.1-12.0); Hematocrit 39.8 % (37.0-47.0); Lymphocytes # 1.5 K/mm3 (0.7-4.5); Lymphocytes % 31.4 % (10-50); Mean Corpuscular HGB Conc 30.1 g/dL (31.8-35.4); Mean Platelet Volume 8.7 fl (7.4-10.4); Monocytes # 0.3 K/mm3 (0.1-1.0); Monocytes % 6.8 % (1.7-9.3); Neutrophils # 2.8 K/mm3 (1.8-7.8); Neutrophils % 58.8 % (37.0-80.0); Platelet Count 264 K/mm3 (142-424); Red Blood Count 4.06 M/mm3 (4.20-5.40); Red Cell Distribution Width 14.8 % (11.5-17.5); White Blood Count 4.7 K/mm3 (4.8-10.8)
[2019-04-01 07:44] LABS: Anion Gap 16.4 mEq/L (5-15)
[2019-04-01 08:06] LABS: Calcium 8.5 mg/dL (8.5-10.1)
--- NOTE | 2019-04-01 08:31 | Progress Note ---
Internal Medicine - PN: Subj *Date: 04/01/19 *Time: 08:29 Interval history: Patient with no new complaints today. She denies vomiting overnight but did have 10 watery bowel movements. She did have some dyspepsia Exam Vital signs and Labs for Last 24 Hours: Temp Pulse Resp BP Pulse Ox 97.9 F 55 L 18 168/70 H 100 04/01/19 08:00 04/01/19 08:00 04/01/19 08:00 04/01/19 08:00 04/01/19 08:00 Laboratory Results - last 24 hr 04/01/19 06:37: WBC 4.7 L D, RBC 4.06 L, Hgb 12.0 L, Hct 39.8, MCV 98.0, MCH 29.5, MCHC 30.1 L, RDW 14.8, Plt Count 264 D, MPV 8.7, Neut % (Auto) 58.8, Lymph % (Auto) 31.4, [place] % (Auto) 6.8, Eos % (Auto) 2.5, Baso % (Auto) 0.5, Neut # (Auto) 2.8, Lymph # (Auto) 1.5, [place] # (Auto) 0.3, Eos # (Auto) 0.1, Baso # (Auto) 0.0 04/01/19 06:37: Sodium 142, Potassium 3.4 L, Chloride 109 H, Carbon Dioxide 20 L , Anion Gap 16.4 H, BUN 17 D, Creatinine 1.06 H D, Estimated Creat Clear 44, Estimated GFR 52 L, Est GFR ( Amer) 63 D, Glucose 97, Calcium 8.5 D Vital Signs - 24 hr 03/31/19 16:00 03/31/19 20:00 04/01/19 04:00 Temperature 98.3 F 97.8 F 98.2 F Pulse Rate [Right] 52 L 60 64 Respiratory Rate 18 18 17 Blood Pressure [Right Arm] 124/48 L 146/68 H 142/61 H 02 Sat by Pulse Oximetry 98 99 100 04/01/19 08:00 Temperature 97.9 F Pulse Rate [Right] 55 L Respiratory Rate 18 Blood Pressure [Right Arm] 168/70 H 02 Sat by Pulse Oximetry 100 I & O for Last 24 hours: Intake & Output 03/29/19 03/30/19 03/31/1912/20 23:59 23:59 23:59 23:59 Intake Total 1000 / 1000 Output Total 200 / 200 Balance 800 / 800 Weight 250 lb 248 lb 4 oz 244 lb 2 oz - Constitutional no acute distress - *Routine HEENT Exam Head: Present: normocephalic Eye: Present: EOMI ENT: Present: mucous membranes moist - *Routine Neck Exam Present: supple. Absent: lymphadenopathy - *Routine Respiratory Exam Present: CTA bilaterally - *Routine Cardiovascular Exam Present: RRR - *Routine Abdominal Exam Present: soft, normoactive bowel sounds. Absent: tenderness - *Routine Extremities Exam Absent: cyanosis, clubbing, edema - *Routine Skin Exam Present: warm. Absent: rash - *Routine Neurological Exam Present: alert, oriented X3 Assessment and Plan (1) Gastroenteritis due to norovirus Current visit: Yes Status: Acute Category: Medical Code(s): A08.11 - Acute gastroenteropathy due to [place] agent (2) Renal insufficiency Current visit: No Status: Acute Category: Medical Code(s): N28.9 - Disorder of kidney and ureter, unspecified (3) Arthritis Current visit: No Status: Chronic Category: Medical Code(s): M19.90 - Unspecified osteoarthritis, unspecified site (4) Asthma Current visit: No Status: Chronic Category: Medical Code(s): J45.909 - Unspecified asthma, uncomplicated (5) Chronic back pain Current visit: No Status: Chronic Category: Medical Code(s): M54.9 - Dorsalgia, unspecified; G89.29 - Other chronic pain (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
[2019-04-02 07:57] LABS: Anion Gap 14.9 mEq/L (5-15); Calcium 8.5 mg/dL (8.5-10.1)
[2019-04-02 08:03] LABS: Basophils % 0.3 % (0.1-2.0); Eosinophils # 0.1 K/mm3 (0.0-0.4); Eosinophils % 1.9 % (0.1-12.0); Hematocrit 39.4 % (37.0-47.0); Hemoglobin 12.6 g/dL (12.2-16.2); Lymphocytes # 1.9 K/mm3 (0.7-4.5); Lymphocytes % 30.4 % (10-50); Mean Corpuscular HGB Conc 31.9 g/dL (31.8-35.4); Mean Platelet Volume 10.3 fl (7.4-10.4); Monocytes # 0.4 K/mm3 (0.1-1.0); Neutrophils # 3.8 K/mm3 (1.8-7.8); Neutrophils % 61.4 % (37.0-80.0); Platelet Count 233 K/mm3 (142-424); Red Blood Count 4.15 M/mm3 (4.20-5.40); Red Cell Distribution Width 14.9 % (11.5-17.5); White Blood Count 6.2 K/mm3 (4.8-10.8)
--- NOTE | 2019-04-02 08:26 | Progress Note ---
<Mirlande Hauser - Last Filed: 04/02/19 08:23> Internal Medicine - PN: Subj *Date: 04/02/19 *Time: 08:23 Interval history: Patient states she is better. She did sleep during the night. She states her diarrhea has ceased. She is eating without difficulty. She is voiding QS. She denies chest pain and shortness of breath. She does complain of a sore throat this morning but states she has not been taking her daily antihistamines since in the hospital. She describes postnasal drainage. She denies cough and rhinorrhea as well. She also states her blood pressures been more elevated than at home. She feels the Inderal which she takes for her headaches keeps her blood pressure lower. Exam Vital signs and Labs for Last 24 Hours: Temp Pulse Resp BP Pulse Ox 97.7 F 68 16 156/66 H 96 04/02/19 04:00 04/02/19 04:00 04/02/19 04:00 04/02/19 04:00 04/02/19 04:00 Laboratory Results - last 24 hr 04/02/19 06:38: WBC 6.2 D, RBC 4.15 L, Hgb 12.6, Hct 39.4, MCV 95.0, MCH 30.3, MCHC 31.9, RDW 14.9, Plt Count 233, MPV 10.3, Neut % (Auto) 61.4, Lymph % (Auto) 30.4, [place] % (Auto) 6.0, Eos % (Auto) 1.9, Baso % (Auto) 0.3, Neut # (Auto) 3.8, Lymph # (Auto) 1.9, [place] # (Auto) 0.4, Eos # (Auto) 0.1, Baso # (Auto) 0.0 04/02/19 06:38: Sodium 142, Potassium 4.9 D, Chloride 112 H, Carbon Dioxide 20 L, Anion Gap 14.9, BUN 9 D, Creatinine 0.91, Estimated Creat Clear 47, Estimated GFR 62, Est GFR ( Amer) 75, Glucose 79, Calcium 8.5 I & O for Last 24 hours: Intake & Output 03/30/19 03/31/19 04/01/19 04/02/19 11:59 11:59 11:59 11:59 Intake Total 1000 / 1000 240 / 240 838 / 838 Output Total 200 / 200 Balance 800 / 800 240 / 240 838 / 838 Weight 248 lb 4 oz 244 lb 2 oz 258 lb 3 oz - Constitutional no acute distress Comments: Sitting in the recliner in her room. Appears comfortable. - *Routine HEENT Exam ENT: Present: mucous membranes moist Comments: Oropharyngeal area with some erythema. - *Routine Respiratory Exam Present: CTA bilaterally (Anteriorly and posteriorly) - *Routine Cardiovascular Exam Present: RRR - *Routine Abdominal Exam Present: soft, normoactive bowel sounds. Absent: tenderness - *Routine Extremities Exam Absent: edema, calf tenderness - *Routine Neurological Exam Present: alert, oriented X3 Assessment and Plan (1) Gastroenteritis due to norovirus Current visit: Yes Status: Acute Category: Medical Code(s): A08.11 - Acute gastroenteropathy due to [place] agent (2) Renal insufficiency Current visit: No Status: Acute Category: Medical Code(s): N28.9 - Disorder of kidney and ureter, unspecified (3) Arthritis Current visit: No Status: Chronic Category: Medical Code(s): M19.90 - Unspecified osteoarthritis, unspecified site (4) Asthma Current visit: No Status: Chronic Category: Medical Code(s): J45.909 - Unspecified asthma, uncomplicated (5) Chronic back pain Current visit: No Status: Chronic Category: Medical Code(s): M54.9 - Joe salgia, unspecified; G89.29 - Other chronic pain (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 Patient is ready for discharge with follow-up with her PCP <Dwain Saunders - Last Filed: 04/02/19 08:59> Internal Medicine - PN: Subj *Date: 04/02/19 *Time: 08:59 Exam Vital signs and Labs for Last 24 Hours: Temp Pulse Resp BP Pulse Ox 98.2 F 61 18 153/59 H 96 04/02/19 08:00 04/02/19 08:00 04/02/19 08:00 04/02/19 08:00 04/02/19 08:00 Laboratory Results - last 24 hr 04/02/19 06:38: WBC 6.2 D, RBC 4.15 L, Hgb 12.6, Hct 39.4, MCV 95.0, MCH 30.3, MCHC 31.9, RDW 14.9, Plt Count 233, MPV 10.3, Neut % (Auto) 61.4, Lymph % (Auto) 30.4, [place] % (Auto) 6.0, Eos % (Auto) 1.9, Baso % (Auto) 0.3, Neut # (Auto) 3.8, Lymph # (Auto) 1.9, [place] # (Auto) 0.4, Eos # (Auto) 0.1, Baso # (Auto) 0.0 04/02/19 06:38: Sodium 142, Potassium 4.9 D, Chloride 112 H, Carbon Dioxide 20 L, Anion Gap 14.9, BUN 9 D, Creatinine 0.91, Estimated Creat Clear 47, Estimated GFR 62, Est GFR ( Amer) 75, Glucose 79, Calcium 8.5 I & O for Last 24 hours: Intake & Output 03/30/19 03/31/19 04/01/19 04/02/19 23:59 23:59 23:59 23:59 Intake Total 1000 / 1000 1078 / 1078 Output Total 200 / 200 Balance 800 / 800 1078 / 1078 Weight 250 lb 248 lb 4 oz 244 lb 2 oz 258 lb 3 oz Assessment and Plan (1) Gastroenteritis due to norovirus Current visit: Yes Status: Acute Category: Medical Code(s): A08.11 - Acute gastroenteropathy due to [place] agent (2) Renal insufficiency Current visit: No Status: Acute Category: Medical Code(s): N28.9 - Disorde r of kidney and ureter, unspecified (3) Arthritis Current visit: No Status: Chronic Category: Medical Code(s): M19.90 - Unspecified osteoarthritis, unspecified site (4) Asthma Current visit: No Status: Chronic Category: Medical Code(s): J45.909 - Unspecified asthma, uncomplicated (5) Chronic back pain Current visit: No Status: Chronic Category: Medical Code(s): M54.9 - Dorsalgia, unspecified; G89.29 - Other chronic pain (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 OK for discharge.
--- NOTE | 2019-04-02 22:01 | Discharge Summary ---
General - General Admission date:: 03/31/19 Discharge date: 04/16/19 HPI HPI: Ms. Gongora is a 68-year-old female who began having nausea, vomiting, diarrhea, and abdominal pain around 6 PM last night. She has had norovirus in the past and felt dehydrated as she did with her last episode. She presented to the emergency room and was found to have norovirus again. She was admitted and started on IV fluids and antiemetics. She states everything started to slow down around 4-5 AM this morning. Hospital Course Hospital Course: Patient was started on IV fluids and antiemetics. She was started on sips and c hips. She continued with loose stools but her vomiting resolved. She was given potassium supplementation for hypokalemia. Her diet was advanced. She was started on some Nexium. Her diarrhea finally resolved and she was able to eat without difficulty. Her CBC, electrolytes, and renal function all normalized. She was stable to be discharged home and will need to follow-up with her PCP. Objective Vital signs: Temp Pulse Resp BP Pulse Ox 98.2 F 61 18 153/59 H 96 04/02/19 08:00 04/02/19 08:00 04/02/19 08:00 04/02/19 08:00 04/02/19 08:00 Narrative: - Constitutional Comments: Does not appear to feel well - *Routine HEENT Exam Head: Present: normocephalic Eye: Present: EOMI, PERRL ENT: Present: mucous membranes dry - *Routine Neck Exam Present: supple. Absent: lymphadenopathy - *Routine Respiratory Exam Present: CTA bilaterally - *Routine Cardiovascular Exam Present: RRR - *Routine Abdominal Exam Present: soft, normoactive bowel sounds, tenderness (diffuse) - *Routine Extremities Exam Absent: cyanosis, clubbing, edema - *Routine Skin Exam Present: warm. Absent: rash - *Routine Neurological Exam Present: alert, oriented X3 Results Labs on day of discharge: Labs from last 24 hours 04/02/19 04/02/19 06:38 06:38 WBC 6.2 D RBC 4.15 L Hgb 12.6 Hct 39.4 MCV 95.0 MCH 30.3 MCHC 31.9 RDW 14.9 Plt Count 233 MPV 10.3 Neut % (Auto) 61.4 Lymph % (Auto) 30.4 [place] % (Auto) 6.0 Eos % (Auto) 1.9 Baso % (Auto) 0.3 Neut # (Auto) 3.8 Lymph # (Auto) 1.9 [place] # (Auto) 0.4 Eos # (Auto) 0.1 Baso # (Auto) 0.0 Sodium 142 Potassium 4.9 D Chloride 112 H Carbon Dioxide 20 L Anion Gap 14.9 BUN 9 D Creatinine 0.91 Estimated Creat Clear 47 Estimated GFR 62 Est GFR ( Amer) 75 Glucose 79 Calcium 8.5 DS: Diagnosis - Discharge Diagnosis (1) Gastroenteritis due to norovirus Status: Acute (2) Renal insufficiency Status: Acute (3) Arthritis Status: Chronic (4) Asthma Status: Chronic (5) Chronic back pain Status: Chronic (6) Alfredo's disease Status: Chronic (7) Hyperlipidemia Status: Chronic (8) Hypokalemia Status: Acute Discharge Plan - Patient Discharge Instructions ACTIVITY: Continue current activity DIET: continue same diet Patient Instructions: Norovirus Infection - Follow up Plan Unknown provider or service follow up:: Follow up with primary MD in 1 week Disposition: Home, Self-Custodial Medications: Home Medications Medication Instructions Recorded Confirmed Type Atorvastatin Calcium [Atorvastatin 20 mg PO HS 06/18/17 03/31/19 History 20mg Tab] Dextran 70/Hypromellose 1 each OP Q1HP PRN 06/18/17 03/31/19 History [Artificial Tears] Esomeprazole Magnesium 40 mg PO DAILY 06/18/17 03/31/19 History Fluticasone Propionate 2 sprays NS DAILY 06/18/17 03/31/19 History Furosemide [Furosemide 40MG tAB] 40 mg PO BID 06/18/17 03/31/19 History LORazepam [Ativan 0.5mg 0.5 mg PO Q8HP PRN 06/18/17 03/31/19 History tablet] Oxybutynin Chloride [Oxybutynin 5 mg PO DAILY 06/18/17 03/31/19 History Chloride ER] Potassium Chloride [K-Tab ER 10 10 meq PO BID 06/18/17 03/31/19 History mEq] Propranolol HCl 40 mg PO BID 06/18/17 03/31/19 History Sertraline HCl [Zoloft 50mg tablet] 50 mg PO DAILY 06/18/17 03/31/19 History Tizanidine HCl [Zanaflex] 4 mg PO HS 06/18/17 03/31/19 History allopurinoL [Allopurinol 300mg 300 mg PO DAILY 06/18/17 03/31/19 History tablet] Fluticasone Propionate [Flovent 1 puff IH BID 06/19/17 03/31/19 History Hfa 110mcg Inhaler] Nystatin [Nystatin Cr 100,000 1 applicatio TOPICAL BID 06/16/18 03/31/19 History Units/GM 30GM] predniSONE [Prednisone 5mg 5 mg PO DAILY 06/16/18 03/31/19 History Tab] Ondansetron HCl [Zofran 4mg Tab*] 4 mg PO TID PRN 03/31/19 03/31/19 History Oxycodone HCl [Oxycodone 5mg tab 5 mg PO NEEDED PRN 03/31/19 03/31/19 History (IR)] SUMAtriptan succinate [Sumatriptan 100 mg PO QID 03/31/19 03/31/19 History Succinate] Spironolactone [Spironolactone 25 mg PO DAILY 03/31/19 03/31/19 History 25mg Tablet] Tobramycin [Tobrex] 1 drop OP QID 03/31/19 03/31/19 History prednisoLONE acetate [Prednisolone 1 drop OP QID 03/31/19 03/31/19 History Acetate] Prescriptions/Medication Reconciliation: Continued Dextran 70/Hypromellose [Artificial Tears] 1 each OP Q1HP PRN PRN Reason: Dry Eye(S) LORazepam [Ativan 0.5mg tablet] 0.5 mg PO Q8HP PRN PRN Reason: Anxiety Furosemide [Furosemide 40MG tAB] 40 mg PO BID Potassium Chloride [K-Tab ER 10 mEq] 10 meq PO BID Esomeprazole Magnesium 40 mg PO DAILY Oxybutynin Chloride [Oxybutynin Chloride ER] 5 mg PO DAILY Tizanidine HCl [Zanaflex] 4 mg PO HS Sertraline HCl [Zoloft 50mg tablet] 50 mg PO DAILY Atorvastatin Calcium [Atorvastatin 20mg Tab] 20 mg PO HS allopurinoL [Allopurinol 300mg tablet] 300 mg PO DAILY Fluticasone Propionate [Flovent Hfa 110mcg Inhaler] 1 puff IH BID Ondansetron HCl [Zofran 4mg Tab*] 4 mg PO TID PRN PRN Reason: Nausea Fluticasone Propionate 2 sprays NS DAILY Propranolol HCl 40 mg PO BID Nystatin [Nystatin Cr 100,000 Units/GM 30GM] 1 applicatio TOPICAL BID predniSONE [Prednisone 5mg Tab] 5 mg PO DAILY Oxycodone HCl [Oxycodone 5mg tab (IR)] 5 mg PO NEEDED PRN PRN Reason: pain Spironolactone [Spironolactone 25mg Tablet] 25 mg PO DAILY Tobramycin [Tobrex] 1 drop OP QID SUMAtriptan succinate [Sumatriptan Succinate] 100 mg PO QID prednisoLONE acetate [Prednisolone Acetate] 1 drop OP QID - Problem Reconciliation Problems Reviewed?: Yes
== END 2019-04-02 10:17 | disposition home or self-care (01) ==
LOC: 2ND 22:35 → ER 22:35 → 2ND 03-31 05:01
PROVIDERS: ADMIT Family Medicine; ATTEND Family Medicine
CPT/HCPCS: 36415; 80048; 80053; 85007; 85025; 87275; 87276; 87506; 96365; 96375; 99284; G0378; J2405

== ENCOUNTER 2021-04-13 18:35 | Emergency (ER) | payer MEDICARE, SELFPAY ==
--- NOTE | 2021-04-13 21:02 | HMH.EDUTC ---
[facility] [place] Clinical Impression: Viral syndrome, Exposure to COVID-19 virus Asthma exacerbation Qualifiers: Asthma severity: unspecified severity Asthma persistence: unspecified Qualified Code(s): J45.901 - Unspecified asthma with (acute) exacerbation Disposition: Home, Self-Care Condition on Discharge: Good Instructions: DI for COVID-19 (Suspected or Confirmed ), Preventing the Spread of Coronavirus Discharge Instructions Additional Instructions: Drink plenty of fluids. Take tylenol for pain or fever. Take the medications as directed. Follow up with your regular doctor. GO TO THE ER FOR ANY WORSENING SYMPTOMS Quarantine until you know the results of your covid-19 test. Notify your school or workplace of your results and follow their instructions regarding return to work/school. Prescriptions: methylPREDNISolone [Medrol] 4 mg PO DIRECTED 6 Days #21 packet Transmission Status: Received by [id number] Azithromycin [Z-Edy 250mg Tab*] 250 mg PO UD DOSE PK #6 tab Transmission Status: Received by [id number] Referrals: Reese Carrasquillo MD [Primary Care Provider] - Time of Disposition: 21:30 Medical Decision Making - Medical Records Medical records reviewed: No: I reviewed the patient's medical records. - Justino Inquiry Pt receiving controlled substance: No Vital Signs: 04/13/21 21:06 04/13/21 21:47 Temperature 98.2 F 98.2 F Temperature Source Oral Pulse Rate 57 L Pulse Rate [Left] 57 L Respiratory Rate 20 20 Blood Pressure 132/57 L Blood Pressure [Right Arm] 132/57 L Blood Pressure Mean [Right Arm] 82 02 Sat by Pulse Oximetry 95 - Lab Data Lab results reviewed: Yes: I reviewed the patient's lab results. Lab Results 04/13/21 21:00: Group A Strep Rapid Negative 04/13/21 21:00: Influenza Type A Ag Negative, Influenza Type B Ag Negative Orders (Tests/Meds): ORDERS Category Date Time Status Covid-19 Nasal PCR ([facility]) Routine Lab 04/13/21 21:00 Received Strep Screen Confirmation Stat Micro 04/13/21 21:00 Received [facility] UTC HPI - General Stated complaint: covid test MURO Time Seen by Provider: 04/13/21 21:02 - History of Present Illness Provider Complaint: She states that she has had chills, body aches, sore throat, a nonproductive cough, sinus congestion and she has felt bad since yesterday. She denies documented fever. She has been fully vaccinated against covid-19. She has a history of asthma. - Related Data Home Medications Medication Instructions Recorded Confirmed Atorvastatin Calcium [Lipitor 20mg 20 mg PO HS 06/18/17 03/31/19 Tab] Dextran 70/Hypromellose 1 each OP Q1HP PRN 06/18/17 03/31/19 [Artificial Tears] Esomeprazole Magnesium 40 mg PO DAILY 06/18/17 03/31/19 Fluticasone Propionate 2 sprays NS DAILY 06/18/17 03/31/19 Furosemide [Furosemide 40MG tAB*] 40 mg PO BID 06/18/17 03/31/19 LORazepam [Ativan 0.5mg 0.5 mg PO Q8HP PRN 06/18/17 03/31/19 tablet] Oxybutynin Chloride [Oxybutynin 5 mg PO DAILY 06/18/17 03/31/19 Chloride ER] Potassium Chloride [K-Tab ER 10 10 meq PO BID 06/18/17 03/31/19 mEq] Propranolol HCl 40 mg PO BID 06/18/17 03/31/19 Sertraline HCl [Zoloft 50mg tablet] 50 mg PO DAILY 06/18/17 03/31/19 Tizanidine HCl [Zanaflex] 4 mg PO HS 06/18/17 03/31/19 allopurinoL [Allopurinol 300mg 300 mg PO DAILY 06/18/17 03/31/19 tablet] Fluticasone Propionate [Flovent 1 puff IH BID 06/19/17 03/31/19 Hfa 110mcg Inhaler] Nystatin [Nystatin Cr 100,000 1 applicatio TOPICAL BID 06/16/18 03/31/19 Units/GM 30GM] predniSONE [Prednisone 5mg 5 mg PO DAILY 06/16/18 03/31/19 Tab] Oxycodone HCl [Oxycodone 5mg tab 5 mg PO NEEDED PRN 03/31/19 03/31/19 (IR)] SUMAtriptan succinate [Sumatriptan 100 mg PO QID 03/31/19 03/31/19 Succinate] Spironolactone [Spironolactone 25 mg PO DAILY 03/31/19 03/31/19 25mg Tablet] Tobramycin [Tobrex] 1 drop OP QID 03/31/19 03/31/19 anil
[2021-04-13 21:06] VITALS: BP 132/57; PULSE 57; RESP 20; TEMP 36.8; O2SAT 95; BMI 45.8
[2021-04-13 21:12] LABS: UTC Influenza A Antigen Negative (Negative)
[2021-04-13 21:13] LABS: UTC Influenza B Antigen Negative (Negative)
[2021-04-13 21:31] LABS: Strep Scrn Group A (Rapid) Negative (Negative)
[2021-04-13 21:47] VITALS: BP 132/57; PULSE 57; RESP 20; TEMP 36.8
== END 2021-04-13 21:48 | disposition home or self-care (01) ==
PROVIDERS: Emergency Provider Nurse Practitioner Family; PCP Family Medicine
DX: B34.9 Viral infection, unspecified (principal); Z20.822 Contact with and (suspected) exposure to COVID-19; J45.901 Unspecified asthma with (acute) exacerbation; F41.8 Other specified anxiety disorders; K21.9 Gastro-esophageal reflux disease without esophagitis
CPT/HCPCS: G0463; 87430; 87804; 99203; C9803; U0003; U0005

== ENCOUNTER 2021-06-02 21:51 | Observation (INO) | payer MEDICARE, SELFPAY ==
[2021-06-02 21:53] VITALS: BP 171/98; PULSE 87; RESP 18; TEMP 36.5; O2SAT 98; BMI 46.0
--- NOTE | 2021-06-02 22:21 | CT_ITS ---
PROCEDURE INFORMATION: Exam: CT Abdomen And Pelvis With Contrast Exam date and time: 06/02/2021 10:21 PM Age: 71 years old Clinical indication: Nausea and vomiting; Abdominal pain; Additional info: Abdominal pain/ nausea/ vomiting TECHNIQUE: Imaging protocol: Computed tomography of the abdomen and pelvis with contrast. Radiation optimization: All CT scans at this facility use at least one of these dose optimization techniques: automated exposure control; mA and/or kV adjustment per patient size (includes targeted exams where dose is matched to clinical indication); or iterative reconstruction. Contrast material: ISOVUE; Contrast volume: 75 ml; Contrast route: IV; [facility] pelvis wo con 06/15/2018 4:02 PM FINDINGS: Lungs: In the lung bases there is scattered areas of atelectasis. Liver: Normal. No mass. Gallbladder and bile ducts: Normal. No calcified stones. No ductal dilation. Pancreas: Normal. No ductal dilation. Spleen: Normal. No splenomegaly. Adrenal glands: Normal. No mass. Kidneys and ureters: 1 cm exophytic simple cyst right kidney requiring no further follow-up. No hydronephrosis or calcified stones. Stomach and bowel: Diverticulosis in the sigmoid without diverticulitis. The colon is decompressed. Dilated distal jejunal and proximal ileal loops with air-fluid levels with a transition point located in the midline lower abdomen series 3, image number 91. The distal small bowel loops are decompressed. Appendix: No evidence of appendicitis. Intraperitoneal space: Mild free fluid. Vasculature: Unremarkable. No abdominal aortic aneurysm. Lymph nodes: Unremarkable. No enlarged lymph nodes. Urinary bladder: Mcghee catheter in the urinary bladder. Reproductive: Unremarkable as visualized. Bones/joints: Unremarkable. No acute fracture. Soft tissues: Unremarkable. IMPRESSION: 1. Partial small bowel obstruction with dilated distal jejunum and proximal ileal loops with air-fluid levels. 2. Gallbladder normal. 3. Kidneys normal. 4. No colitis. 5. Mild free fluid.
[2021-06-02 22:27] LABS: Basophils # 0.2 K/mm3 (0-0.2); Basophils % 1.4 % (0.1-2.0); Eosinophils # 0.1 K/mm3 (0.0-0.4); Hematocrit 48.7 % (37.0-47.0); Hemoglobin 15.1 g/dL (12.2-16.2); Lymphocytes % 18.5 % (10-50); Mean Corpuscular HGB Conc 31.1 g/dL (31.8-35.4); Mean Corpuscular Volume 99.9 fl (81-99); Mean Platelet Volume 8.3 fl (7.4-10.4); Monocytes # 0.5 K/mm3 (0.1-1.0); Monocytes % 4.7 % (1.7-9.3); Neutrophils # 8.1 K/mm3 (1.8-7.8); Neutrophils % 75.8 % (37.0-80.0); Platelet Count 314 K/mm3 (142-424); Red Blood Count 4.88 M/mm3 (4.20-5.40); Red Cell Distribution Width 15.3 % (11.5-17.5); White Blood Count 10.7 K/mm3 (4.8-10.8)
[2021-06-02 22:29] LABS: Chloride 103 mmol/L (98-107); Potassium 4.1 mmoL/L (3.5-5.1); Sodium 143 mmol/L (136-145)
[2021-06-02 22:31] LABS: Amylase 118 U/L (30-110)
[2021-06-02 22:32] LABS: Alanine Aminotransferase 23 U/L (12-78); Albumin Level 4.8 g/dl (3.5-5.0); Albumin/Globulin Ratio 1.5 (1.1-1.8); Alkaline Phosphatase 102 U/L (38-126); Anion Gap 12.1 mEq/L (5-15); Aspartate Amino Transferase 31 U/L (14-36); Bilirubin,Total 1.2 mg/dl (0.2-1.3); Blood Urea Nitrogen 24 mg/dl (7-17); Calcium 9.4 mg/dl (8.4-10.2); Carbon Dioxide 32 mmol/L (22.0-30.0); Creatinine Clearance Estimated 31 mL/min (50-200); Estimated Glomerular Filt Rate 37 ml/min (>60); GFR (African American) 45 ML/MIN (>60); Globulin 3.3 g/dL (1.3-3.2); Glucose 127 mg/dl (74-100); Lipase 92 U/L (23-300); Total Protein,Serum 8.1 g/dl (6.3-8.2)
[2021-06-02 22:34] VITALS: BP 176/76; PULSE 44; O2SAT 94
--- NOTE | 2021-06-02 22:35 | ECG_ITS ---
APPROVED REPORT Exam: Resting ECG HR:45 bpm ECG Measurements Heart Rate 45 AXES [place] 171 P 76 QRSd 74 QRS -16 QT 453 T 61 QTc 406 Conclusion SINUS BRADYCARDIA BORDERLINE ECG UNCONFIRMED REPORT Electronically signed by : Edgar Mccarty MD 06/03/2021 07:41:14
--- NOTE | 2021-06-02 22:35 | PC.NURSE ---
PT COMPLAINT OF FEELING LIKE SHE IS GOING TO PASS OUT. PLACED IN LYING POSITION. PT PALP PULSE 39-45. EKG ORDERED. PT REMAINS ALERT AND ORIENTED AT THIS TIME.
[2021-06-02 22:38] LABS: C-Reactive Protein 9.1 mg/L (0-4)
--- NOTE | 2021-06-02 22:42 | HMH.EDNVD ---
ED Disposition Clinical Impression: Small bowel obstruction, Renal insufficiency, Bradycardia Obesity Qualifiers: Obesity type: due to excess calories Obesity classification: adult class 3 (BMI >= 40) Serious obesity comorbidity presence: with serious comorbidity Body mass index: BMI 45.0-49.9 Qualified Code(s): E66.01 - Morbid (severe) obesity due to excess calories; Z68.42 - Body mass index [BMI] 45.0-49.9, adult Disposition: Admitted As Inpatient Condition on Discharge: Fair - Critical Care Critical Care Time: No Attestation: On 06/02/21, the high probability of a clinically significant, sudden or life threatening deterioration of the following system(s) required my full and direct attention, intervention and personal management. The time I documented below is in addition to time spent performing reported procedures but includes the following listed in this critical care notation. Medical Decision Making - Medical Records Medical records reviewed: Yes: I reviewed the patient's medical records. - Justino Inquiry Pt receiving controlled substance: No Vital Signs: 06/02/21 21:53 06/02/21 22:34 06/02/21 23:01 Temperature 97.7 F Temperature Source Oral Pulse Rate 44 L 48 L Pulse Rate [Left Radial] 87 Respiratory Rate 18 Blood Pressure 176/76 H 167/66 H Blood Pressure [Right Arm] 171/98 H Blood Pressure Mean 91 81 Blood Pressure Mean [Right Arm] 122 Blood Pressure Position [Right Arm] Sitting 02 Sat by Pulse Oximetry 98 94 L 95 Oxygen Delivery Method Room Air - Lab Data Lab results reviewed: Yes: I reviewed the patient's lab results. Lab Results 06/02/21 22:13: WBC 10.7, RBC 4.88, Hgb 15.1, Hct 48.7 H, MCV 99.9 H, MCH 31.0, MCHC 31.1 L, RDW 15.3, Plt Count 314, MPV 8.3, Neut % (Auto) 75.8, Lymph % (Auto) 18.5, [place] % (Auto) 4.7, Eos % (Auto) 1.0, Baso % (Auto) 1.4, Neut # (Auto) 8.1 H, Lymph # (Auto) 2.0, [place] # (Auto) 0.5, Eos # (Auto) 0.1, Baso # (Auto) 0.2 06/02/21 22:13: Sodium 143, Potassium 4.1, Chloride 103, Carbon Dioxide 32 H, Anion Gap 12.1, BUN 24 H, Creatinine 1.40 H, Estimated Creat Clear 31, Estimated GFR 37 L, Est GFR ( Amer) 45 L, Glucose 127 H, Calcium 9.4, Total Bilirubin 1.2, AST 31, ALT 23, Alkaline Phosphatase 102, C-Reactive Protein 9.1 H, Total Protein 8.1, Albumin 4.8, Globulin 3.3 H, Albumin/Globulin Ratio 1.5, Amylase 118 H, Lipase 92, Procalcitonin 0.065 06/02/21 22:13: ESR 31 H 06/02/21 22:13: Troponin I < 0.01 06/02/21 22:33: Lactate 2.2 H 06/02/21 23:56: SARS-CoV-2 (PCR) Not detected, Influenza A Untype (PCR) Not detected, Influenza Type B (PCR) Not detected 06/03/21 00:00: Urine Color Yellow, Urine Appearance Clear, Urine pH 6.0, Ur Specific [place] 1.020, Urine Protein 1+, Urine Glucose (UA) Negative, Urine Ketones Negative, Urine Blood Negative, Urine Nitrate Negative, Urine Bilirubin Negative, Urine Urobilinogen 0.2, Ur Leukocyte Esterase Negative Result diagrams: 06/02/21 22:13 06/02/21 22:13 Orders (Tests/Meds): ED MEDICATIONS Generic Name Dose Route Start Last Admin Trade Name Freq PRN Reason Stop Dose Admin Sodium Chloride 1,000 mls @ 999 mls/hr 06/02/21 22:30 06/02/21 22:25 Sod Chlor 0.9% 1000ml Bag IV 06/02/21 23:30 999 mls/hr .Q1H1M NARINDER Administration Sodium Chloride 8 ml 06/03/21 00:33 Sodium Chloride 0.9% 10ml Vial IV 07/03/21 00:32 NEEDED PRN dilute pepcid Discontinued Medications Generic Name Dose Route Start Last Admin Trade Name Freq PRN Reason Stop Dose Admin Famotidine 20 mg 06/03/21 00:33 06/03/21 00:39 Famotidine 20mg/2ml Vial IV 06/03/21 00:34 20 mg ONCE ONE Administration Iopamidol 75 ml 06/02/21 23:17 06/02/21 23:18 Iopamidol-370 (76%);100ml Bottle IV 06/02/21 23:18 75 ml ONCE ONE Administration Metoclopramide HCl 10 mg 06/03/21 00:33 06/03/21 00:39 Metoclopramide Hcl 10mg/2ml Vial IVP 06/03/21 00:34 10 mg ONCE ONE Administration Ondansetron HCl 4
[2021-06-02 22:49] LABS: Lactic Acid 2.2 mmol/L (0.7-2.1)
[2021-06-02 22:51] LABS: Procalcitonin 0.065 ng/mL (0.0-2.0)
[2021-06-02 23:00] LABS: Erythrocyte Sedimentation Rate 31 mm/hr (0-30)
[2021-06-02 23:01] VITALS: BP 167/66; PULSE 48; O2SAT 95
--- NOTE | 2021-06-02 23:15 | PC.NURSE ---
Patient to X-Ray
--- NOTE | 2021-06-02 23:17 | XR_ITS ---
PROCEDURE INFORMATION: Exam: XR Chest Exam date and time: 06/02/2021 11:17 PM Age: 71 years old Clinical indication: Sternal or substernal pain; Additional info: Chest pain TECHNIQUE: Imaging protocol: XR of the chest. Views: 1 view. COMPARISON: CT ABDOMEN PELVIS W CON 06/02/2021 11:09 PM FINDINGS: Lungs: Granulomatous changes. No consolidation. Mild atelectasis in the lung bases. Pleural spaces: Unremarkable. No pleural effusion. No pneumothorax. Heart/Mediastinum: Cardiomegaly. Bones/joints: Unremarkable. IMPRESSION: No acute findings.
[2021-06-02 23:22] LABS: Troponin I < 0.01 ng/ml (0.00-0.034)
--- NOTE | 2021-06-02 23:25 | PC.NURSE ---
PT REPORTS NAUSEA HAS IMPROVED. PT REPORTS CONTINUED WEAKNESS AND DIZZINESS. FAMILY REMAINS AT BEDSIDE. 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 WCM.
[2021-06-02 23:48] VITALS: BP 159/73; PULSE 52; RESP 16; O2SAT 94
--- NOTE | 2021-06-02 23:58 | PC.NURSE ---
COVID SWAB OBTAINED AND SENT TO LAB. PT/FAMILY ARE AWARE OF PLAN TO ADMIT.
[2021-06-03] VITALS (14 sets, daily range): BP systolic 130–166; BP diastolic 50–82; PULSE 45–70; RESP 16–18; TEMP 36.6–37.6; O2SAT 88–98; BMI 46.6; BMI 45.7
[2021-06-03] LABS: Coronavirus 19, PCR Not Detected (NotDetected); Influenza A, PCR Not Detected (NotDetected); Influenza B, PCR Not Detected (NotDetected)
[2021-06-03 00:33] LABS: Microscopic, Urine URINE MICROSCOPIC (MICROSCOPIC)
[2021-06-03 00:38] LABS: Appearance,Urine CLEAR (Clear); Bilirubin,Urine Negative (Negative); Blood, Urine Negative (Negative); Color,Urine YELLOW (Yellow); Glucose,Urine (UA) Negative (Negative); Ketones,Urine Negative (Negative); Leukocyte Esterase,Urine Negative (Negative); Nitrate,Urine Negative (Negative); Protein,Urine 1+ (Negative); Urobilinogen,Urine 0.2 EU/dl (0.2)
--- NOTE | 2021-06-03 00:50 | PC.NURSE ---
domestic housekeeper notified this RN that pt will be boarding in the ER until further notice
[2021-06-03 00:54] LABS: Bacteria,Urine Trace /lpf; WBC,Urine Occasional #/hpf (0-3)
--- NOTE | 2021-06-03 00:55 | PC.NURSE ---
patient transferred to regular hospital bed for patient comfort, call light placed in patients reach
--- NOTE | 2021-06-03 01:54 | PC.NURSE ---
Second floor RN at bedside doing admission, patient has no complaints at this time call light within reach
[2021-06-03 02:06] LABS: Reflex Lactic Add Lactic Reflex
--- NOTE | 2021-06-03 02:16 | PC.NURSE ---
PT ASSISTED WITH REPOSITIONING FOR COMFORT. DENIES PAIN. IV SITE WNL. NO N/V AT THIS TIME. PT UPDATED TO REMAIN NPO. WCM.
[2021-06-03 02:27] LABS: Lactic Acid Follow Up (RFLX 1) 1.5 mmol/L (0.7-2.1)
--- NOTE | 2021-06-03 03:47 | PC.NURSE ---
food service steward on med surg notified of instrumentation supervisor surgeon and cardiology consults
--- NOTE | 2021-06-03 04:44 | PC.NURSE ---
PT ASSISTED FROM BEDSIDE COMMODE TO BED. SMALL AMOUNT OF FORMED STOOL NOTED. NO COMPLAINTS VOICED. NADN.
[2021-06-03 05:34] LABS: POC Glucose,Bedside 99 (70-110)
[2021-06-03 05:51] LABS: Basophils # 0.1 K/mm3 (0-0.2); Basophils % 0.8 % (0.1-2.0); Eosinophils # 0.1 K/mm3 (0.0-0.4); Eosinophils % 1.2 % (0.1-12.0); Lymphocytes # 1.6 K/mm3 (0.7-4.5); Lymphocytes % 18.1 % (10-50); Mean Corpuscular HGB Conc 30.6 g/dL (31.8-35.4); Mean Corpuscular Hemoglobin 31.1 pg (27.0-31.2); Mean Corpuscular Volume 101.5 fl (81-99); Mean Platelet Volume 8.8 fl (7.4-10.4); Monocytes # 0.5 K/mm3 (0.1-1.0); Monocytes % 5.6 % (1.7-9.3); Neutrophils # 6.5 K/mm3 (1.8-7.8); Neutrophils % 74.3 % (37.0-80.0); Platelet Count 235 K/mm3 (142-424); Red Blood Count 4.23 M/mm3 (4.20-5.40); Red Cell Distribution Width 15.3 % (11.5-17.5); White Blood Count 8.7 K/mm3 (4.8-10.8)
[2021-06-03 05:56] LABS: Anion Gap 6.3 mEq/L (5-15); Blood Urea Nitrogen 20 mg/dl (7-17); Calcium 8.9 mg/dl (8.4-10.2); Carbon Dioxide 32 mmol/L (22.0-30.0); Chloride 104 mmol/L (98-107); Creatinine Clearance Estimated 36 mL/min (50-200); Estimated Glomerular Filt Rate 44 ml/min (>60); GFR (African American) 54 ML/MIN (>60); Glucose 123 mg/dl (74-100); Potassium 3.3 mmoL/L (3.5-5.1); Sodium 139 mmol/L (136-145)
[2021-06-03 06:14] LABS: T4 (Thyroxine) 12.1 ug/dl (5.53-11.0)
[2021-06-03 06:23] LABS: Hemoglobin 13.2 g/dL (12.2-16.2)
[2021-06-03 06:27] LABS: Thyroid Stimulating Hormone 3.35 uIU/mL (0.465-4.68)
--- NOTE | 2021-06-03 07:00 | PC.NURSE ---
vascular lab staff at for echo
--- NOTE | 2021-06-03 07:20 | P.CONPHA_ITS ---
[facility] Pharmacy VTE Monitoring - Patient Demographics Admission date: 06/02/21 Report Date: 06/03/21 Time: 07:20 Allergies/Adverse Reactions: Patient Allergies NSAIDS (Non-Steroidal Anti-Inflamma Adverse Reaction (Verified 03/31/19 05:31) EFFECTS KIDNEYS Height: 1.6 m Weight: 119.38 kg Patient Problems: Current Active Problems Renal insufficiency (Acute) Small bowel obstruction (Acute) Obesity (Acute) Bradycardia (Acute) - VTE Risk Labs: VTE Related Lab Results Hgb 13.2 g/dL (12.2-16.2) D 06/03/21 05:50 Hct 43.0 % (37.0-47.0) 06/03/21 05:50 Plt Count 235 K/mm3 (142-424) D 06/03/21 05:50 BUN 20 mg/dl (7-17) H 06/03/21 05:50 Creatinine 1.20 mg/dl (0.52-1.04) H 06/03/21 05:50 Estimated Creat Clear 36 mL/min (50-200) 06/03/21 05:50 VTE Score: 4 VTE Risk Level: Low Risk - Prophylaxis VTE Prophylaxis Ordered?: Yes Types of VTE Prophylaxis: TEDS Knee High Location of Applied Device: Bilateral Lower Extremeties
--- NOTE | 2021-06-03 07:35 | PC.NURSE ---
Kaylen Chang at BS
--- NOTE | 2021-06-03 07:40 | PC.NURSE ---
clamp forklift operator paging dr. toscano
--- NOTE | 2021-06-03 08:00 | CA_ITS ---
APPROVED REPORT EXAM: Comprehensive 2D, Doppler, and color-flow Echocardiogram Microbiology Analyst: Rabia Butt CRT Ht: 5 ft 3 in Wt: 260lbs BSA: 2.16 BP: 166/66 mmHg Indications: Murmur, Hyperlipidemia, GERD 2D Dimensions LVOT 1.99 cm (M/F) 1.5-2.5 LA Volume 48.40 mL LA Volume Index 22.40 mL/m2 (M/F) 16-34 M-Mode Dimensions RVDd 3.26 cm (0.9-2.6) LA Diam 3.73 cm (1.9-4.0) LVDd 5.27 cm (3.5-5.7) Ao Diam 3.19 cm (2.0-3.7) LVDs 2.41 cm (3.5-5.7) IVSd 1.17 cm (0.6-1.1) PWd 0.72 cm (0.6-1.1) EF (Teich) 84.70% FS 54.30% EDV (Teich) 133.60 mL TAPSE 2.54 (<1.7) ESV (Teich) 20.40 mL LV Diastology E Decel Time 230.00 (160-240 msec) E/A Ratio 4.44 MED E' 8.10 (< 7 cm/sec) MED A' 10.00 cm/s E'/MED E' Ratio 12.00 (>14) LAT E' 9.30 (<10 cm/sec) LAT A' 8.80 cm/s E/LAT E' Ratio 10.45 (>14) Aortic Valve LVOT Max 179.00 (70-110 cm/s) LVOT VTI 39.00 cm AoV Peak Ish. 225.00 (50-130 cm/s) AI PHT 638.00 ms AO Peak GR. 20.20 mmHg AO Mean GR. 9.60 (<5 mmHg) AO VTI 46.00 (18-25 cm) SOLO (VTI) 2.64 (2.5-4.5 cm2) Mitral Valve MV A Velocity 22.00 (40-130 cm/s) E/A Ratio 4.44 MV Decel. Time 230.00 (160-240 ms) Pulmonary Valve PV Peak Velocity 129.00 (50-150 cm/s) Tricuspid Valve TR P. Velocity 283.00 cm/s RAP Estimate 10.00 mmHg RVSP 42.10 mmHg Left Ventricle Left atrium is mildly enlarged, left ventricle is normal size, mild concentric left ventricular hypertrophy, visually estimated ejection fraction 55% with no regional wall motion abnormality, diastolic parameters are inconclusive. Right Ventricle Right atrium and right ventricle are mildly enlarged with normal contractility. Aortic Valve Aortic valve is minimally thickened and fibrosed, aortic outflow velocity is mildly increased, does not represent any significant aortic insufficiency, there is mild aortic insufficiency. Mitral Valve Mitral valve leaflets are minimally thickened, there is mild mitral regurgitation. Tricuspid Valve Tricuspid valve grossly normal, there is mild tricuspid regurgitation, tricuspid regurgitation jet velocity is inadequate for calculation of the right ventricular systolic pressure. Pulmonic Valve Pulmonic valve is poorly visualized. Great Vessels Aortic root is normal size. Inferior vena cava is poorly visualized. Pericardium No significant pericardial effusion. Conclusion 1. Mildly enlarged left atrium, normal left ventricular size, mild concentric left ventricular hypertrophy, visually estimated ejection fraction 55% with no regional wall motion abnormality, diastolic parameters are inconclusive. 2. Thickened and calcified aortic valve without significant aortic stenosis, there is mild aortic insufficiency. 3. Mild mitral and tricuspid regurgitation. 4. No significant pericardial effusion noted. Electronically signed by : Anthony Moody MD 06/03/2021 20:01:11
--- NOTE | 2021-06-03 08:15 | PC.NURSE ---
dr. toscano called back at this time, dr. sawyer had went upstairs for rounds, notified dr. toscano of surgical consult on pt for SBO.
--- NOTE | 2021-06-03 08:24 | PC.NURSE ---
dr. toscano at BS
--- NOTE | 2021-06-03 08:29 | FL_ITS ---
FINAL REPORT CLINICAL HISTORY: . small bowel obstruction FINDINGS: Multiple images of the abdomen and pelvis were obtained after the injection of contrast through the existing nasogastric tube. On the manager of warehouse radiograph, a nasogastric tube is present with its tip in the region of the fundus of the stomach. The visualized small bowel has an unremarkable appearance. Contrast is noted within the colon by the 1 hour 15 minute image. There is no evidence of significant bowel obstruction. IMPRESSION: No evidence of bowel obstruction identified. Authenticated by Neo Stein III, MD on 06/03/2021 01:43:44 PM [facility]
--- NOTE | 2021-06-03 08:30 | HMH.GSCON ---
*Admission Date: 06/02/21 *Reason for consult:: Small bowel obstruction *History of present illness: This is a 71-year-old female seen in consultation from the primary service after presenting to emergency department with increasing abdominal pain and nausea. She states that her last bowel movement was yesterday and was a little loose . Her last flatus was reportedly yesterday. Currently, she feels somewhat better . Please see HPI forwarded from emergency department evaluation below. Ordered from emergency department evaluation: Nausea/Vomiting/Diarrhea HPI - General Chief complaint: Abdominal Pain Stated complaint: vomiting,abd pain Time Seen by Provider: 06/02/21 22:00 Mode of Arrival: Ambulatory Source of Information: Patient, Relative, Medical Record Limitations: No Limitations Description of Symptoms (Recalled from ER Triage Doc. by RN): PT BEGAN HAVING ABDOMINAL PAIN, NAUSEA AND VOMITING AROUND 1800 TODAY. - History of Present Illness HPI Narrative: acute onset of abd pain with nausea and vomiting this pm MD complaint: nausea, vomiting, abdominal pain Onset (ago): hour(s) Associated Abdominal Pain: Yes Location of pain: diffuse Severity: moderate Quality: cramping Associated symptoms: denies other symptoms Review of Systems - Constitutional Denies chills - *Cardiovascular Denies chest pain - *Respiratory Denies cough - *Gastrointestinal Reports abdominal pain, Reports nausea, Reports vomiting - *Neurologic Denies headache(s), Denies seizure-like activity [facility] History Medical History: Reports:: Anxiety, Asthma, Depression, Gastroesophageal Reflux Disease(GERD), Hyperlipidemia, Migraine, Renal Insufficiency Denies:: Cancer, Diabetes Mellitus Type 1, Diabetes Mellitus Type 2, MRSA *Have you ever received a pneumonia vaccine?: Yes *Have you received a flu vaccine this season?: Yes Other Medical History: Reports: Arthritis, Thyroid Disease, Other (gout, allergic rhinitis, chronic back pain, chronic steroid use) Other Surgeries: Yes: Hernia Repair, Tubal Ligation Amputation: No Fractures: No - *Social History Smoking Status: Never smoker Alcohol Intake: never *Occupational Status:: retired Housing: house Household Members: children *Travel in the last 8 weeks: None - Psychiatric History Pschychiatric History:: Reports:: Anxiety, Depression Family Hx:: No significant family history Meds Home Medications Medication Instructions Recorded Confirmed Type Atorvastatin Calcium [Lipitor 20mg 20 mg PO HS 06/18/17 06/02/21 History Tab] Dextran 70/Hypromellose 1 each OP Q1HP PRN 06/18/17 06/02/21 History [Artificial Tears] Esomeprazole Magnesium 40 mg PO DAILY 06/18/17 06/02/21 History Fluticasone Propionate 2 sprays NS DAILY 06/18/17 06/02/21 History Furosemide [Furosemide 40MG tAB*] 40 mg PO BID 06/18/17 06/02/21 History LORazepam [Ativan 0.5mg 0.5 mg PO Q8HP PRN 06/18/17 06/02/21 History tablet] Oxybutynin Chloride [Oxybutynin 5 mg PO DAILY 06/18/17 06/02/21 History Chloride ER] Potassium Chloride [K-Tab ER 10 10 meq PO BID 06/18/17 06/02/21 History mEq] Propranolol HCl 40 mg PO BID 06/18/17 06/02/21 History Sertraline HCl [Zoloft 50mg tablet] 50 mg PO DAILY 06/18/17 06/02/21 History Tizanidine HCl [Zanaflex] 4 mg PO HS 06/18/17 06/02/21 History allopurinoL [Allopurinol 300mg 300 mg PO DAILY 06/18/17 06/02/21 History tablet] Fluticasone Propionate [Flovent 1 puff IH BID 06/19/17 06/02/21 History Hfa 110mcg Inhaler] Nystatin [Nystatin Cr 100,000 1 applicatio TOPICAL BID 06/16/18 06/02/21 History Units/GM 30GM] Oxycodone HCl [Oxycodone 5mg tab 5 mg PO NEEDED PRN 03/31/19 06/02/21 History (IR)] SUMAtriptan succinate [Sumatriptan 100 mg PO QID 03/31/19 06/02/21 History Succinate] Spironolactone [Spironolactone 25 mg PO DAILY 03/31/19 06/02/21 History 25mg Tablet] ondansetron HCL [Zofran 4mg Tab*] 4 mg PO TID PRN 03/31/19 06/02/21 History
--- NOTE | 2021-06-03 08:49 | HMH.HP ---
*Admission Date: 06/02/21 *Chief complaint: Abdominal pain *History of present illness: 71-year-old female patient presented to the [facility] emergency department with complaints of abdominal pain, nausea, and several emesis starting about 5 hours prior to presentation. While in the emergency department her heart rate was in the 40s, she reports taking propranolol for migraines. She denies any chest pain, chest pressure, or shortness of breath. She does have bilateral lower extremity edema and she reports this is her normal. She denies any fever/chills/body aches or diarrhea In the emergency department she received 1 L of IV fluids, famotidine, metoclopramide, Zofran. Abdomen/pelvis CT revealed partial small bowel obstruction and general surgery was consulted [facility] History I have reviewed the patient's past medical history: Yes Medical History: Reports:: Anxiety, Asthma, Depression, Gastroesophageal Reflux Disease(GERD), Hyperlipidemia, Migraine, Renal Insufficiency Denies:: Cancer, Diabetes Mellitus Type 1, Diabetes Mellitus Type 2, MRSA *Have you ever received a pneumonia vaccine?: Yes *Have you received a flu vaccine this season?: Yes Other Medical History: Reports: Arthritis, Thyroid Disease, Other (gout, allergic rhinitis, chronic back pain, chronic steroid use) Other Surgeries: Yes: Hernia Repair, Tubal Ligation Amputation: No Fractures: No - *Social History Smoking Status: Never smoker Alcohol Intake: never *Occupational Status:: retired Housing: house Household Members: children *Travel in the last 8 weeks: None - Psychiatric History Pschychiatric History:: Reports:: Anxiety, Depression Family Hx:: No significant family history Review of Systems - Review of Systems Review of systems:: pertinent systems reviewed and negative unless documented below - Constitutional Reports fatigue, Reports fever(s), Denies chills - Eyes Denies blurry vision, Denies double vision - ENT Denies abnormal hearing, Denies nosebleed - *Cardiovascular Denies chest pain, Denies shortness of breath - *Respiratory Denies chest congestion, Denies shortness of breath - *Gastrointestinal Reports abdominal pain, Reports nausea, Reports vomiting, Denies loose stools, Denies vomiting blood - *Musculoskeletal Reports joint pain, Denies muscle weakness - Integumentary/Breasts Denies bleeding lesions, Denies yellowing of the skin - *Neurologic Denies headache(s), Denies seizure-like activity - Psychiatric Denies lack of enjoyment, Denies confusion - Endocrine Denies cold intolerance, Denies increased thirst - Hematologic/Lymphatic Reports easy bleeding, Reports easy bruising - Allergic/Immunologic Denies GI upset with certain foods, Denies seasonal runny nose Meds Home Medications Medication Instructions Recorded Confirmed Type Atorvastatin Calcium [Lipitor 20mg 20 mg PO HS 06/18/17 06/02/21 History Tab] Esomeprazole Magnesium 40 mg PO DAILY 06/18/17 06/02/21 History Furosemide [Furosemide 40MG tAB*] 40 mg PO BID 06/18/17 06/02/21 History LORazepam [Ativan 0.5mg 0.5 mg PO Q8HP PRN 06/18/17 06/02/21 History tablet] Oxybutynin Chloride [Oxybutynin 5 mg PO DAILY 06/18/17 06/02/21 History Chloride ER] Potassium Chloride [K-Tab ER 10 10 meq PO BID 06/18/17 06/02/21 History mEq] Propranolol HCl 40 mg PO BID 06/18/17 06/02/21 History Sertraline HCl [Zoloft 50mg tablet] 50 mg PO DAILY 06/18/17 06/02/21 History Tizanidine HCl [Zanaflex] 4 mg PO HS 06/18/17 06/02/21 History allopurinoL [Allopurinol 300mg 300 mg PO DAILY 06/18/17 06/02/21 History tablet] Spironolactone [Spironolactone 25 mg PO DAILY 03/31/19 06/02/21 History 25mg Tablet] Fexofenadine HCl 180 mg PO DAILY 06/03/21 06/03/21 History Hydrocodone/Acetaminophen 1 tab PO Q4H 06/03/21 06/03/21 History [Hydrocodone-Acetamin 10-325 mg] Allergies Allergy/AdvReac Type Severity Reaction Status Date / Time NSA
--- NOTE | 2021-06-03 09:54 | PC.NURSE ---
PT UP TO BEDSIDE COMMODE.
--- NOTE | 2021-06-03 10:20 | XR_ITS ---
FINAL REPORT CLINICAL HISTORY: CHECK NG PLACEMENT COMPARISON: 06/02/2021 FINDINGS: A single view of the chest was obtained. A new NG tube is present with the tip in the fundus of the stomach. The heart is enlarged. The mediastinum is unremarkable. There is no acute pulmonary abnormality. There is no pneumothorax. There is no acute osseous abnormality. IMPRESSION: No acute cardiopulmonary process. NG tube tip in the fundus of the stomach. Reviewed, Interpreted and Dictated by Neo Stein III, MD Transcribed by Jazmine Mtz Authenticated by Neo Stein III, MD on 06/03/2021 12:23:[address] [facility]
--- NOTE | 2021-06-03 10:20 | PC.NURSE ---
SUTTON DRAINED 1200CC URINE
--- NOTE | 2021-06-03 10:34 | PC.NURSE ---
second floor staff called stating pt will be assigned to room 202, room is clean but needs to be made up.
--- NOTE | 2021-06-03 10:57 | PC.NURSE ---
Radiology at bedside
--- NOTE | 2021-06-03 11:11 | PC.NURSE ---
REPORT CALLED TO FLOOR
--- NOTE | 2021-06-03 12:06 | HMH.CNCARD ---
History of Present Illness Consult date: 06/03/21 Requesting physician: Carter Hair Chief complaint: n/v/abd pain History of present illness: This is a 71-year-old white female who presented to the emergency department with complaints of nausea, vomiting and abdominal pain. She states that her abdominal pain started a few days ago and she just generally did not feel well. She states that her daughter's dog kept bothering her belly for a few days prior to her coming in the hospital. Then last night she started feeling really nauseated and then had episodes of vomiting. When her daughter came home from work and saw that she was really nauseous and having vomiting with her abdominal pain they brought her to the emergency department. The patient was found to have a small bowel obstruction and admitted to the hospital. She was also found to be bradycardic at the time of her admission. The patient takes propranolol for migraines which is most likely the cause of her bradycardia. Her propranolol has been held and her heart rate has improved and is around 60 bpm now. She denies any chest pain or pressure. She denies any shortness of breath or edema. She denies any fever, chills, diarrhea, PND or orthopnea. The patient denies any history of coronary artery disease or IA. [facility] History I have reviewed the patient's past medical history: Yes Medical History: Reports:: Anxiety, Asthma, Depression, Gastroesophageal Reflux Disease(GERD), Hyperlipidemia, Migraine, Renal Insufficiency Denies:: Cancer, Diabetes Mellitus Type 1, Diabetes Mellitus Type 2, MRSA *Have you ever received a pneumonia vaccine?: Yes *Have you received a flu vaccine this season?: Yes Other Medical History: Reports: Arthritis, Thyroid Disease, Other (gout, allergic rhinitis, chronic back pain, chronic steroid use) Other Surgeries: Yes: Hernia Repair, Tubal Ligation Amputation: No Fractures: No - *Social History Smoking Status: Never smoker Alcohol Intake: never *Occupational Status:: retired Housing: house Household Members: children *Travel in the last 8 weeks: None - Psychiatric History Pschychiatric History:: Reports:: Anxiety, Depression Family Hx:: No significant family history Meds Home Medications Medication Instructions Recorded Confirmed Type Atorvastatin Calcium [Lipitor 20mg 20 mg PO HS 06/18/17 06/02/21 History Tab] Esomeprazole Magnesium 40 mg PO DAILY 06/18/17 06/02/21 History Furosemide [Furosemide 40MG tAB*] 40 mg PO BID 06/18/17 06/02/21 History LORazepam [Ativan 0.5mg 0.5 mg PO Q8HP PRN 06/18/17 06/02/21 History tablet] Oxybutynin Chloride [Oxybutynin 5 mg PO DAILY 06/18/17 06/02/21 History Chloride ER] Potassium Chloride [K-Tab ER 10 10 meq PO BID 06/18/17 06/02/21 History mEq] Propranolol HCl 40 mg PO BID 06/18/17 06/02/21 History Sertraline HCl [Zoloft 50mg tablet] 50 mg PO DAILY 06/18/17 06/02/21 History Tizanidine HCl [Zanaflex] 4 mg PO HS 06/18/17 06/02/21 History allopurinoL [Allopurinol 300mg 300 mg PO DAILY 06/18/17 06/02/21 History tablet] Spironolactone [Spironolactone 25 mg PO DAILY 03/31/19 06/02/21 History 25mg Tablet] Fexofenadine HCl 180 mg PO DAILY 06/03/21 06/03/21 History Hydrocodone/Acetaminophen 1 tab PO Q4H 06/03/21 06/03/21 History [Hydrocodone-Acetamin 10-325 mg] Allergies Allergy/AdvReac Type Severity Reaction Status Date / Time NSAIDS (Non-Steroidal AdvReac EFFECTS Verified 03/31/19 05:31 Anti-Inflamma KIDNEYS Exam Vital signs and Labs for Last 24 Hours: Temp Pulse Resp BP Pulse Ox 97.7 F 56 L 16 130/50 L 94 L 06/02/21 21:53 06/03/21 08:01 06/03/21 08:01 06/03/21 08:01 06/03/21 08:01 Laboratory Results - last 24 hr 06/02/21 22:13: WBC 10.7, RBC 4.88, Hgb 15.1, Hct 48.7 H, MCV 99.9 H, MCH 31.0, MCHC 31.1 L, RDW 15.3, Plt Count 314, MPV 8.3, Neut % (Auto) 75.8, Lymph % (Auto) 18.5, Meriwether % (Auto) 4.7, Eos % (Auto) 1.0, Baso % (Auto) 1.4, Neut # (Au
--- NOTE | 2021-06-03 12:47 | HMH.PHAINT ---
MEDICATION RECONCILIATION COMPLETED ON PATIENT USING EXTERNAL FILL HISTORY FROM PHARMACY AND MEKA REPORT. -CLEO TAVAREZD
--- NOTE | 2021-06-03 13:35 | PC.NURSE ---
rounded on patient. patient was sleeping. family at bedside with no concerns or questions. no needs voiced.
[2021-06-03 16:43] LABS: POC Glucose,Bedside 87 (70-110)
--- NOTE | 2021-06-03 17:40 | PC.NURSE ---
Pt is alert and oriented x4. Lungs are clear, bowel sounds hyperactive x4. Abdomen is distended. She has had multiple episodes of bowel incontinence since arriving to the floor. Her goodwin is to bedside draining straw colored urine. Gann colored drainage noted from NG. 450 mls out since arriving to the floor. She's been given zofran x1 with favorable results noted on reassessment. She is currently laying in bed resting with her eyes closed. Daughter is at bedside.
[2021-06-03 23:59] LABS: POC Glucose,Bedside 110 (70-110)
[2021-06-04] VITALS (9 sets, daily range): BP systolic 130–166; BP diastolic 58–83; PULSE 50–80; RESP 16–20; TEMP 36.9–37.6; O2SAT 92–98; BMI 45.8
--- NOTE | 2021-06-04 04:34 | PC.NURSE ---
PATIENT HAS NOT RESTED WELL THRU THIS RN SHIFT. PATIENT HAD 2 DIARRHEA EPISODES THUS FAR. PATIENT HAD 450ML OF TEA COLOR FLUID FROM NG TUBE. NO NEW CONCERNS OR NEEDS AT THIS TIME.
--- NOTE | 2021-06-04 06:51 | HMH.GSPN ---
Subjective Patient reports: feels better, flatus, bowel movement Progress Note: A&P (1) Small bowel obstruction Status: Acute Assessment and plan: No obvious obstruction noted on small bowel follow-through yesterday. She reports bowel movement and flatus. D/C nasogastric tube Clear liquid diet (slowly advance as she tolerates) (2) Obesity, morbid, BMI 40.0-49.9 Status: Acute (3) Abdominal pain Status: Acute (4) Bradycardia Status: Acute (5) Renal insufficiency Status: Acute Exam Vital signs and Labs for Last 24 Hours: Temp Pulse Resp BP Pulse Ox 99.1 F 63 18 140/58 L 94 L 06/04/21 04:00 06/04/21 04:00 06/04/21 04:00 06/04/21 04:00 06/04/21 04:00 Laboratory Results - last 24 hr 06/03/21 05:50: TSH 3.35 06/03/21 16:34: POC Glucose 87 06/03/21 23:50: POC Glucose 110 I & O for Last 24 hours: Intake & Output 06/01/21 06/02/21 06/03/21 06/04/21 11:59 11:59 11:59 11:59 Intake Total 110 / 110 Output Total 1200 / 1200 Balance -1090 / -1090 Weight 263 lb 3 oz 258 lb 14.221 oz - Constitutional no acute distress - *Routine Respiratory Exam Absent: respiratory distress - *Routine Cardiovascular Exam Absent: tachycardia - *Routine Abdominal Exam Present: soft
--- NOTE | 2021-06-04 09:09 | HMH.ACPN2 ---
Internal Medicine - PN: Subj *Date: 06/04/21 *Time: 12:11 Interval history: 71-year-old female patient sitting up to the side of the bed, she does report some nausea present. NG tube was removed and she was started on a clear liquid diet, she reports she had a little bit too much fluids too soon and became nauseated. She does report some nausea during the night, denies emesis and Zofran relieves symptoms. Exam Vital signs and Labs for Last 24 Hours: Temp Pulse Resp BP Pulse Ox 99.6 F 80 20 155/83 H 96 06/04/21 08:00 06/04/21 08:00 06/04/21 08:00 06/04/21 08:00 06/04/21 08:00 Laboratory Results - last 24 hr 06/03/21 16:34: POC Glucose 87 06/03/21 23:50: POC Glucose 110 I & O for Last 24 hours: Intake & Output 06/01/21 06/02/21 06/03/21 06/04/21 23:59 23:59 23:59 23:59 Intake Total 110 / 110 1240 / 1240 Output Total 750 / 750 450 / 450 Balance -640 / -640 790 / 790 Weight 260 lb 258 lb 1 oz 258 lb 14.221 oz - Constitutional no acute distress, obese, chronically ill appearing - *Routine HEENT Exam Head: Present: normocephalic ENT: Present: mucous membranes moist - *Routine Neck Exam Present: trachea midline. Absent: tracheal deviation - *Routine Respiratory Exam Present: CTA bilaterally. Absent: accessory muscle use - *Routine Cardiovascular Exam Present: RRR - *Routine Abdominal Exam Present: soft, normoactive bowel sounds. Absent: tenderness, firm - *Routine Extremities Exam Present: full ROM. Absent: cyanosis, clubbing, calf tenderness - *Routine Skin Exam Present: intact, dry. Absent: cyanosis, erythema - *Routine Neurological Exam Present: alert, oriented X3. Absent: motor deficit - Routine Psychiatric Exam Present: normal affect, normal thought process. Absent: visual hallucinations Assessment and Plan (1) Small bowel obstruction Status: Acute Category: Medical Code(s): K56.609 - Unspecified intestinal obstruction, unspecified as to partial versus complete obstruction (2) Obesity, morbid, BMI 40.0-49.9 Status: Acute Category: Medical Code(s): E66.01 - Morbid (severe) obesity due to excess calories (3) Abdominal pain Status: Acute Category: Medical Code(s): R10.9 - Unspecified abdominal pain (4) Bradycardia Status: Acute Category: Medical Code(s): R00.1 - Bradycardia, unspecified (5) Renal insufficiency Status: Acute Category: Medical Code(s): N28.9 - Disorder of kidney and ureter, unspecified - Assessment and plan all Dx Assessment and Plan for all problems:: Rounded with Dr. Quiroz, all orders per Dr. Quiroz: 1. Refer to cardiology 2. PT OT eval 3. DC Mcghee 4. Clear liquids advance as tolerated
--- NOTE | 2021-06-04 10:09 | HMH.PNCARD ---
Subjective Date: 06/04/21 Time: 08:30 Principal diagnosis: bradycardia Interval history: This is a 71-year-old white female presented to the emergency department complaints of nausea, vomiting and abdominal pain. She was found to have a small bowel obstruction. The patient was also bradycardic on arrival to the emergency department. Her propranolol has been stopped and her heart rate is now in the 80s. She denies any chest pain or pressure. She denies any shortness of breath or edema. She denies any fever, chills, nausea, vomiting, diarrhea, PND or orthopnea. She states that she is feeling much better now since being in the hospital and also since having the NG tube removed. Exam Vital signs and Labs for Last 24 Hours: Temp Pulse Resp BP Pulse Ox 99.6 F 80 20 155/83 H 96 06/04/21 08:00 06/04/21 08:00 06/04/21 08:00 06/04/21 08:00 06/04/21 08:00 Laboratory Results - last 24 hr 06/03/21 16:34: POC Glucose 87 06/03/21 23:50: POC Glucose 110 I & O for Last 24 hours: Intake & Output 06/01/21 06/02/21 06/03/21 06/04/21 23:59 23:59 23:59 23:59 Intake Total 110 / 110 1840 / 1840 Output Total 750 / 750 450 / 450 Balance -640 / -640 1390 / 1390 Weight 260 lb 258 lb 1 oz 258 lb 14.221 oz Narrative: Echocardiogram shows: 1. Mildly enlarged left atrium, normal left ventricular size, mild concentric left ventricular hypertrophy, visually estimated ejection fraction 55% with no regional wall motion abnormality, diastolic parameters are inconclusive. 2. Thickened and calcified aortic valve without significant aortic stenosis, there is mild aortic insufficiency. 3. Mild mitral and tricuspid regurgitation. 4. No significant pericardial effusion noted. - Constitutional no acute distress, morbidly obese - *Routine HEENT Exam Head: Present: normocephalic, atraumatic Eye: Present: EOMI, PERRL ENT: Present: mucous membranes moist - *Routine Neck Exam Present: supple, full ROM, normal carotid upstroke. Absent: JVD, carotid bruit, lymphadenopathy - *Routine Respiratory Exam Present: CTA bilaterally - *Routine Cardiovascular Exam Present: RRR, Normal S1, Normal S2. Absent: murmur - *Routine Abdominal Exam Present: soft, normoactive bowel sounds. Absent: tenderness, distended - *Routine Extremities Exam Present: full ROM, pulses intact, normal capillary refill. Absent: cyanosis, clubbing, edema - *Routine Skin Exam Present: intact, warm. Absent: erythema, rash - *Routine Neurological Exam Present: alert, oriented X3, CN II-XII intact. Absent: sensory deficit, motor deficit Progress Note: A&P (1) Bradycardia Status: Acute (2) Small bowel obstruction Status: Acute (3) Obesity, morbid, BMI 40.0-49.9 Status: Acute (4) Abdominal pain Status: Acute (5) Renal insufficiency Status: Acute (6) Hypertension Status: Acute (7) Nausea & vomiting Status: Resolved (8) Hyperlipidemia Status: Chronic Assessment and Plan for All Diagnoses:: Plan: 1. The patient was mated to the hospital with nausea, vomiting and abdominal pain. She was found to have small bowel obstruction. Her NG tube has been removed. This is being managed by her primary care provider and surgery. Will defer. 2. The patient was also found to be bradycardic on admission with a heart rate in the 40s. Her propranolol was stopped and her heart rate is now in the 80s. 3. The patient's blood pressure is elevated today since being off the propranolol. We will restart this at a lower dose today due to her hypertension. Start propranolol 20 mg p.o. twice daily for better blood pressure control. 4. Her LDL goal is less than 100. 5. Her echocardiogram shows a normal ejection fraction with no wall motion abnormalities. There is mild AI mild MR. She denies any chest pain or pressure. No plans for any further invasive cardiac testing at this time. 6. No further recommendations at this time
--- NOTE | 2021-06-04 11:35 | HMH.OTEV ---
OT Inpatient Evaluation Rehab OT IP Evaluation Start: 06/04/21 08:25 Freq: ONCE Status: Complete Protocol: Document 06/04/21 11:30 TRINY (Rec: 06/04/21 11:34 [facility] [id number]) Rehab OT IP Assessment Subjective History Pt oriented x 3 on arrival. Pt agreeable to engage in therapy evaluation. Pt was admitted on 06/02/21 due to abdominal pain. Pt explains she lived at home with her daughter prior to being in the hospital. Pt claims she was independent with ADLs and IADLs prior to becoming sick. Pt did use a can when ambulating out in public for safety. The following information was copied from history and physical report: 71-year-old female patient presented to the [facility] emergency department with complaints of abdominal pain, nausea, and several emesis starting about 5 hours prior to presentation. While in the emergency department her heart rate was in the 40s, she reports taking propranolol for migraines. She denies any chest pain, chest pressure, or shortness of breath. She does have bilateral lower extremity edema and she reports this is her normal. She denies any fever/chills/body aches or diarrhea In the emergency department she received 1 L of IV fluids, famotidine, metoclopramide, Zofran. Abdomen/pelvis CT revealed partial small bowel obstruction and general surgery was consulted Subjective I am just sore. Pt resting in bed on arrival. Pt completed bed mobility and went from supine to sitting at eob with cga. Pt stoo
--- NOTE | 2021-06-04 11:50 | HMH.PTEV ---
Physical Therapy Evaluation Rehab PT IP Evaluation Start: 06/04/21 08:24 Freq: ONCE Status: Active Protocol: Document 06/04/21 11:44 PHORARI (Rec: 06/04/21 11:50 PHORNE [id number]) Subjective/History History History 71 yowf adm to [facility] with SBO. She reports she lives with family and is independent with all mobility at baseline. Subjective Subjective Pt reports continued abdominal pain, but feels better overall. Rehab PT IP Eval Objective Appearance Patient Behavior Appropriate Patient Orientation Person,Place,Time Difficulty following instructions none Speech Pattern Clear Ambulation Patient Able to Ambulate Yes Ambulation Observation IP General Gait Pattern Observation Wide Based Gait Ambulation Distance (feet) 30 Ambulation Assistive Device None Ambulation Ability Independent Balance Ability to Arise Able, uses arms to help Sitting Balance Steady, safe Standing Balance Steady, wide stance Dynamic Sitting Balance Ability Good Dynamic Standing Balance Ability Good Transfers Bed Transfer Ability Independent Chair Transfer Ability Independent Sit to Stand Bed Transfer Ability Independent Sit to Stand Chair Transfer Ability Independent Rehab PT IP prob,goals,plan Problems Date of Evaluation: 06/04/21 Discharge Plan PT Discharge Plan Pt appears to be at baseline for all mobility at this time and is appropriate to return home once medically stable. G -code Required No PHYSICIAN CERTIFICATION: I certify the specified therapy services for Summer Gongora are required, authorized, and reviewed every 30 days.
--- NOTE | 2021-06-04 14:08 | PC.NURSE ---
Taz and BENJIE dc'd this am per MD order. Pt tolerated well.
--- NOTE | 2021-06-04 17:14 | PC.NURSE ---
Pt has been up to the chair most of the shift. Zofran administered once at breakfast with relief noted on reassessment. No reports of nausea since. Morphine administered once for back pain with favorable results. She is tolerating her clear liquid diet. Sinus dereck/arrhythmia on telemetry. Glucose was 97 and 102 at checks. No other complaints noted at this time.
[2021-06-05] VITALS: BP 149/65; PULSE 50; PULSE 61; RESP 14; TEMP 36.7; O2SAT 97
[2021-06-05 04:00] VITALS: BP 148/69; PULSE 60; RESP 20; TEMP 36.8; O2SAT 96
[2021-06-05 05:00] VITALS: BMI 44.4
[2021-06-05 06:16] LABS: POC Glucose,Bedside 93 (70-110)
--- NOTE | 2021-06-05 06:29 | PC.NURSE ---
PATIENT RESTED WELL THRU THIS RN SHIFT, ABLE TO AMBULATE TO RESTROOM WITH STAND BY ASSIST. TOLERATED WELL. NO NEW CONCERNS AT THIS TIME.
[2021-06-05 06:59] LABS: Blood Urea Nitrogen 11 mg/dl (7-17); Calcium 7.9 mg/dl (8.4-10.2); Carbon Dioxide 26 mmol/L (22.0-30.0); Chloride 110 mmol/L (98-107); Creatinine Clearance Estimated 41 mL/min (50-200); Estimated Glomerular Filt Rate 55 ml/min (>60); GFR (African American) 66 ML/MIN (>60); Glucose 103 mg/dl (74-100); Sodium 137 mmol/L (136-145)
[2021-06-05 07:04] LABS: Basophils % 0.2 % (0.1-2.0); Eosinophils # 0.3 K/mm3 (0.0-0.4); Eosinophils % 5.1 % (0.1-12.0); Hemoglobin 11.8 g/dL (12.2-16.2); Lymphocytes # 1.5 K/mm3 (0.7-4.5); Lymphocytes % 24.1 % (10-50); Mean Corpuscular Hemoglobin 31.8 pg (27.0-31.2); Mean Corpuscular Volume 99.4 fl (81-99); Monocytes # 0.4 K/mm3 (0.1-1.0); Monocytes % 6.9 % (1.7-9.3); Neutrophils # 3.8 K/mm3 (1.8-7.8); Neutrophils % 63.7 % (37.0-80.0); Platelet Count 175 K/mm3 (142-424); Red Blood Count 3.72 M/mm3 (4.20-5.40); Red Cell Distribution Width 15.4 % (11.5-17.5)
[2021-06-05 08:00] VITALS: BP 142/74; PULSE 64; PULSE 87; RESP 18; TEMP 37.3; O2SAT 97
[2021-06-05 08:16] LABS: Anion Gap 4.6 mEq/L (5-15); Potassium 3.6 mmoL/L (3.5-5.1)
--- NOTE | 2021-06-05 09:12 | HMH.GSPN ---
Subjective Patient reports: no new complaints, feels better, flatus, bowel movement Narrative: She continues to have some abdominal discomfort but states that she has gotten much better Progress Note: A&P (1) Small bowel obstruction Status: Acute Assessment and plan: No evidence of obstruction on small bowel follow-through. She continues to have bowel function. Full liquid diet ordered (2) Obesity, morbid, BMI 40.0-49.9 Status: Acute (3) Abdominal pain Status: Acute (4) Bradycardia Status: Acute (5) Renal insufficiency Status: Acute Exam Vital signs and Labs for Last 24 Hours: Temp Pulse Resp BP Pulse Ox 99.2 F 87 18 142/74 H 97 06/05/21 08:00 06/05/21 08:00 06/05/21 08:00 06/05/21 08:00 06/05/21 08:00 Laboratory Results - last 24 hr 06/05/21 05:58: WBC 6.0 D, RBC 3.72 L, Hgb 11.8 L, Hct 37.0, MCV 99.4 H, MCH 31.8 H, MCHC 32.0, RDW 15.4, Plt Count 175 D, MPV 9.0, Neut % (Auto) 63.7, Lymph % (Auto) 24.1, Twiggs % (Auto) 6.9, Eos % (Auto) 5.1, Baso % (Auto) 0.2, Neut # (Auto) 3.8, Lymph # (Auto) 1.5, Twiggs # (Auto) 0.4, Eos # (Auto) 0.3, Baso # (Auto) 0.0 06/05/21 05:58: Sodium 137, Potassium 3.6, Chloride 110 H, Carbon Dioxide 26, Anion Gap 4.6 L, BUN 11 D, Creatinine 1.00, Estimated Creat Clear 41, Estimated GFR 55 L, Est GFR ( Amer) 66 D, Glucose 103 H, Calcium 7.9 L 06/05/21 06:09: POC Glucose 93 I & O for Last 24 hours: Intake & Output 06/02/21 06/03/21 06/04/21 06/05/21 11:59 11:59 11:59 11:59 Intake Total 1950 / 1950 1587 / 1587 Output Total 1700 / 1700 Balance 250 / 250 1587 / 1587 Weight 263 lb 3 oz 258 lb 14.221 oz 250 lb 11.2 oz - Constitutional no acute distress - *Routine Respiratory Exam Absent: respiratory distress - *Routine Cardiovascular Exam Absent: tachycardia - *Routine Abdominal Exam Present: soft
[2021-06-05 11:34] VITALS: BMI 44.4
--- NOTE | 2021-06-05 11:40 | DIET.NUTRFU ---
RD provided handout on GI soft with plans to discharge soon.
[2021-06-05 11:53] LABS: POC Glucose,Bedside 99 (70-110)
[2021-06-05 12:00] VITALS: PULSE 56
[2021-06-05 16:00] VITALS: BP 140/90; PULSE 60; RESP 20; TEMP 36.9; O2SAT 98
--- NOTE | 2021-06-05 16:58 | PC.NURSE ---
No acute changes. Remains on room air. Lungs CTA. SB/sinus arrhythmia on tely. Abdomen soft, non-tender w/ active BS in all quads. Pt did report having a liquid stool this AM. Voiding w/o difficulty. Ambulates independently w/o safety concerns. Tolerating full liquid diet w/o issue. Has sat in recliner most of day. No complaints voiced. Call rios w/in reach.
--- NOTE | 2021-06-05 17:52 | HMH.DCSUM ---
General - General Admission date:: 06/03/21 Discharge date: 06/05/21 HPI HPI: 71-year-old female patient presented to the [facility] emergency department with complaints of abdominal pain, nausea, and several emesis starting about 5 hours prior to presentation. While in the emergency department her heart rate was in the 40s, she reports taking propranolol for migraines. She denies any chest pain, chest pressure, or shortness of breath. She does have bilateral lower extremity edema and she reports this is her normal. She denies any fever/chills/body aches or diarrhea In the emergency department she received 1 L of IV fluids, famotidine, metoclopramide, Zofran. Abdomen/pelvis CT revealed partial small bowel obstruction and general surgery was consulted Hospital Course Hospital Course: Abnormal Lab Results 06/05/21 05:58: RBC 3.72 L, Hgb 11.8 L, MCV 99.4 H, MCH 31.8 H 06/05/21 05:58: Chloride 110 H, Anion Gap 4.6 L, Estimated GFR 55 L, Glucose 103 H, Calcium 7.9 L Ordering Physician: Carter Hair MD Date of Service: 06/02/21 Procedure(s): CT abdomen pelvis w con Accession Number(s): [id number] cc: Edmar Richmond MD; Reese Carrasquillo MD; Carter Hair MD~ PROCEDURE INFORMATION: Exam: CT Abdomen And Pelvis With Contrast Exam date and time: 06/02/2021 10:21 PM Age: 71 years old Clinical indication: Nausea and vomiting; Abdominal pain; Additional info: Abdominal pain/ nausea/ vomiting TECHNIQUE: Imaging protocol: Computed tomography of the abdomen and pelvis with contrast. Radiation optimization: All CT scans at this facility use at least one of these dose optimization techniques: automated exposure control; mA and/or kV adjustment per patient size (includes targeted exams where dose is matched to clinical indication); or iterative reconstruction. Contrast material: ISOVUE; Contrast volume: 75 ml; Contrast route: IV; COMPARISON: ABDPELWO CT abdomen pelvis wo con 06/15/2018 4:02 PM FINDINGS: Lungs: In the lung bases there is scattered areas of atelectasis. Liver: Normal. No mass. Gallbladder and bile ducts: Normal. No calcified stones. No ductal dilation. Pancreas: Normal. No ductal dilation. Spleen: Normal. No splenomegaly. Adrenal glands: Normal. No mass. Kidneys and ureters: 1 cm exophytic simple cyst right kidney requiring no further follow-up. No hydronephrosis or calcified stones. Stomach and bowel: Diverticulosis in the sigmoid without diverticulitis. The colon is decompressed. Dilated distal jejunal and proximal ileal loops with air-fluid levels with a transition point located in the midline lower abdomen series 3, image number 91. The distal small bowel loops are decompressed. Appendix: No evidence of appendicitis. Intraperitoneal space: Mild free fluid. Vasculature: Unremarkable. No abdominal aortic aneurysm. Lymph nodes: Unremarkable. No enlarged lymph nodes. Urinary bladder: Mcghee catheter in the urinary bladder. Reproductive: Unremarkable as visualized. Bones/joints: Unremarkable. No acute fracture. Soft tissues: Unremarkable. IMPRESSION: 1. Partial small bowel obstruction with dilated distal jejunum and proximal ileal loops with air-fluid levels. 2. Gallbladder normal. 3. Kidneys normal. 4. No colitis. 5. Mild free fluid. Ordering Physician: Carter Hair MD Date of Service: 06/02/21 Procedure(s): XR chest portable Accession Number(s): [id number] cc: Edmar Richmond MD; Reese Carrasquillo MD~ PROCEDURE INFORMATION: Exam: XR Chest Exam date and time: 06/02/2021 11:17 PM Age: 71 years old Clinical indication: Sternal or substernal pain; Additional info: Chest pain TECHNIQUE: Imaging protocol: XR of the chest. Views: 1 view. COMPARISON: CT ABDOMEN PELVIS W CON 06/02/2021 11:09 PM FINDINGS: Lungs: Granulomatous changes. No consolidation. Mild atelectasis in the lung b
== END 2021-06-05 19:30 | disposition home or self-care (01) ==
LOC: ER 21:56 → 2ND 06-03 00:52
PROVIDERS: Nurse Practitioner Family; Admitting Provider Emergency Medicine; Emergency Provider Emergency Medicine; PCP Family Medicine; Visit Provider Emergency Medicine
DX: K56.600 Partial intestinal obstruction, unspecified as to cause (principal); E66.01 Morbid (severe) obesity due to excess calories; Z68.41 Body mass index [BMI] 40.0-44.9, adult; I10 Essential (primary) hypertension; K21.9 Gastro-esophageal reflux disease without esophagitis; E03.9 Hypothyroidism, unspecified; Z79.899 Other long term (current) drug therapy; G43.909 Migraine, unspecified, not intractable, without status migrainosus; E78.5 Hyperlipidemia, unspecified; R10.9 Unspecified abdominal pain; R00.1 Bradycardia, unspecified; N28.9 Disorder of kidney and ureter, unspecified
CPT/HCPCS: G0378; 51702; 71045; 74177; 74250; 80048; 80053; 81001; 82150; 82962; 83605; 83690; 84145; 84436; 84443; 84484; 85025; 85651; 86140; 93005; 93306; 96374; 96375; 96376; 97166; 99285; C9803; J2405; Q9967; U0003; U0005

== ENCOUNTER 2021-06-16 17:51 | Inpatient (IN) | payer MEDICARE, SELFPAY ==
[2021-06-16] VITALS (8 sets, daily range): BP systolic 156–174; BP diastolic 62–86; PULSE 44–76; RESP 19–20; TEMP 36.8; O2SAT 94–100; BMI 44.9; BMI 45.6
--- NOTE | 2021-06-16 18:05 | HMH.EDGENADL ---
ED Disposition Condition on Discharge: Good - Critical Care Critical Care Time: No <Emerson Newton - Last Filed: 06/16/21 20:07> <Carter Hair - Last Filed: 06/17/21 00:20> Clinical Impression: SBO (small bowel obstruction), Obesity, morbid, BMI 40.0-49.9, Renal insufficiency Vomiting Qualifiers: Vomiting type: unspecified Nausea presence: with nausea Qualified Code(s): R11.2 - Nausea with vomiting, unspecified Disposition: Admitted as Observation Attestation: On 06/16/21, the high probability of a clinically significant, sudden or life threatening deterioration of the following system(s) required my full and direct attention, intervention and personal management. The time I documented below is in addition to time spent performing reported procedures but includes the following listed in this critical care notation. Medical Decision Making - Medical Records Medical records reviewed: Yes: I reviewed the patient's medical records. - Justino Inquiry Pt receiving controlled substance: No - Lab Data Result diagrams: 06/16/21 18:15 06/16/21 18:15 - ECG Data Tracing #1 I reviewed this ECG and interpreted as documented below: <Emerson Newton - Last Filed: 06/16/21 20:07> - Lab Data Lab results reviewed: Yes: I reviewed the patient's lab results. Result diagrams: 06/16/21 18:15 06/16/21 18:15 - Radiology Data #1 Image(s): Abdomen Image Reviewed: Yes I have reviewed radiologist's interpretation Preliminary Findings: Normal/NAD - CT Data CT Scan: Abdomen, Pelvis Time Received: 00:[address] Reviewed: Yes: I have viewed the radiologist's interpretation Preliminary Findings: Abnormal - Physician Consults Physician Consulted: julio Reason -: Pt condition <Carter Hair - Last Filed: 06/17/21 00:20> Vital Signs: 06/16/21 17:53 06/16/21 18:38 06/16/21 19:31 Temperature 98.3 F 98.3 F Temperature Source Oral Oral Pulse Rate 44 L 70 Pulse Rate [Left Radial] 76 Respiratory Rate 20 19 Blood Pressure 159/81 H Blood Pressure [Right Arm] 159/81 H Blood Pressure Mean Blood Pressure Mean [Right Arm] 107 Blood Pressure Source Automatic Cuff Blood Pressure Source [Right Arm] Automatic Cuff Blood Pressure Position Supine Blood Pressure Position [Right Arm] Sitting 02 Sat by Pulse Oximetry 97 96 96 Oxygen Delivery Method Room Air Room Air Room Air 06/16/21 20:04 06/16/21 20:30 06/16/21 21:00 Temperature Temperature Source Pulse Rate 64 62 64 Pulse Rate [Left Radial] Respiratory Rate Blood Pressure 156/62 H 173/62 H 174/72 H Blood Pressure [Right Arm] Blood Pressure Mean 93 99 97 Blood Pressure Mean [Right Arm] Blood Pressure Source Blood Pressure Source [Right Arm] Blood Pressure Position Blood Pressure Position [Right Arm] 02 Sat by Pulse Oximetry 100 100 99 Oxygen Delivery Method Room Air Room Air Room Air 06/16/21 23:16 06/16/21 23:31 Temperature Temperature Source Pulse Rate 65 65 Pulse Rate [Left Radial] Respiratory Rate Blood Pressure 159/86 H 170/82 H Blood Pressure [Right Arm] Blood Pressure Mean Blood Pressure Mean [Right Arm] Blood Pressure Source Blood Pressure Source [Right Arm] Blood Pressure Position Blood Pressure Position [Right Arm] 02 Sat by Pulse Oximetry 94 L 95 Oxygen Delivery Method Room Air - Lab Data Lab Results 06/16/21 18:15: WBC 9.4, RBC 4.86, Hgb 15.6, Hct 47.6 H, MCV 98.1, MCH 32.1 H, MCHC 32.7, RDW 15.1, Plt Count 301, MPV 9.4, Neut % (Auto) 76.0, Lymph % (Auto) 18.1, Boyle % (Auto) 4.1, Eos % (Auto) 1.3, Baso % (Auto) 0.5, Neut # (Auto) 7.2, Lymph # (Auto) 1.7, Boyle # (Auto) 0.4, Eos # (Auto) 0.1, Baso # (Auto) 0.0 06/16/21 18:15: Sodium 140, Potassium 4.2, Chloride 97 L, Carbon Dioxide 32 H, Anion Gap 15.2 H, BUN 25 H, Creatinine 1.60 H, Estimated Creat Clear 27, Estimated GFR 32 L, Est GFR ( Amer) 39 L, Glucose 141 H, Calcium 9.9, Total Bilirub
[2021-06-16 18:26] LABS: Basophils % 0.5 % (0.1-2.0); Eosinophils # 0.1 K/mm3 (0.0-0.4); Eosinophils % 1.3 % (0.1-12.0); Hematocrit 47.6 % (37.0-47.0); Hemoglobin 15.6 g/dL (12.2-16.2); Lymphocytes # 1.7 K/mm3 (0.7-4.5); Lymphocytes % 18.1 % (10-50); Mean Corpuscular HGB Conc 32.7 g/dL (31.8-35.4); Mean Corpuscular Hemoglobin 32.1 pg (27.0-31.2); Mean Corpuscular Volume 98.1 fl (81-99); Mean Platelet Volume 9.4 fl (7.4-10.4); Monocytes # 0.4 K/mm3 (0.1-1.0); Monocytes % 4.1 % (1.7-9.3); Neutrophils # 7.2 K/mm3 (1.8-7.8); Platelet Count 301 K/mm3 (142-424); Red Blood Count 4.86 M/mm3 (4.20-5.40); Red Cell Distribution Width 15.1 % (11.5-17.5); White Blood Count 9.4 K/mm3 (4.8-10.8)
--- NOTE | 2021-06-16 18:30 | XR_ITS ---
PROCEDURE INFORMATION: Exam: XR Complete Acute Abdomen Series Including Chest Exam date and time: 06/16/2021 6:31 PM Age: 71 years old Clinical indication: Abdominal pain; Generalized; Additional info: N/v, abd pain, h/o sbo TECHNIQUE: Imaging protocol: XR complete acute abdomen series, including 2 or more views of the abdomen and a single view chest. COMPARISON: CR XR CHEST PORTABLE 06/02/2021 11:23 PM FINDINGS: Lungs: Bibasal subsegmental atelectasis/scarring. Pleural spaces: No pleural effusion. No pneumothorax. Heart/Mediastinum: Within normal limits. Gastrointestinal tract: Non-obstructive bowel gas pattern. Intraperitoneal space: No pneumoperitoneum. Bones/joints: No acute fracture or malalignment. Soft tissues: Unremarkable. IMPRESSION: No acute findings. No evidence of small bowel obstruction.
[2021-06-16 19:07] LABS: Alanine Aminotransferase 25 U/L (12-78); Albumin Level 4.9 g/dl (3.5-5.0); Albumin/Globulin Ratio 1.3 (1.1-1.8); Alkaline Phosphatase 92 U/L (38-126); Anion Gap 15.2 mEq/L (5-15); Aspartate Amino Transferase 36 U/L (14-36); Blood Urea Nitrogen 25 mg/dl (7-17); Calcium 9.9 mg/dl (8.4-10.2); Carbon Dioxide 32 mmol/L (22.0-30.0); Chloride 97 mmol/L (98-107); Creatinine Clearance Estimated 27 mL/min (50-200); Estimated Glomerular Filt Rate 32 ml/min (>60); GFR (African American) 39 ML/MIN (>60); Globulin 3.7 g/dL (1.3-3.2); Glucose 141 mg/dl (74-100); Potassium 4.2 mmoL/L (3.5-5.1); Sodium 140 mmol/L (136-145); Total Protein,Serum 8.6 g/dl (6.3-8.2)
--- NOTE | 2021-06-16 19:29 | ECG_ITS ---
APPROVED REPORT Exam: Resting ECG HR:66 bpm ECG Measurements Heart Rate 66 AXES MT 180 P 74 QRSd 94 QRS -18 QT 253 T 88 QTc 266 Conclusion SINUS RHYTHM WITH FREQUENT SUPRAVENTRICULAR PREMATURE COMPLEXES IN A BIGEMINAL PATTERN NONSPECIFIC ST & T-WAVE ABNORMALITY ABNORMAL RHYTHM ECG UNCONFIRMED REPORT Electronically signed by : dEgar Mccarty MD 06/18/2021 16:04:57
--- NOTE | 2021-06-16 19:41 | PC.NURSE ---
LAB NOTIFIED OF NEED FOR LAB STICK.
[2021-06-16 19:47] LABS: Troponin I < 0.01 ng/ml (0.00-0.034)
[2021-06-16 19:59] LABS: Lactic Acid 2.5 mmol/L (0.7-2.1)
--- NOTE | 2021-06-16 21:06 | CT_ITS ---
PROCEDURE INFORMATION: Exam: CT Abdomen And Pelvis Without Contrast Exam date and time: 06/16/2021 9:24 PM Age: 71 years old Clinical indication: Nausea and vomiting; Additional info: N/v TECHNIQUE: Imaging protocol: Computed tomography of the abdomen and pelvis without contrast. Radiation optimization: All CT scans at this facility use at least one of these dose optimization techniques: automated exposure control; mA and/or kV adjustment per patient size (includes targeted exams where dose is matched to clinical indication); or iterative reconstruction. COMPARISON: CT ABDOMEN PELVIS W CON 06/02/2021 11:09 PM FINDINGS: Liver: Unremarkable. Gallbladder and bile ducts: Unremarkable. Pancreas: Fatty infiltration of the pancreas, unchanged. Spleen: Unremarkable. Adrenal glands: Unremarkable. Kidneys and ureters: Stable right simple renal cyst. No renal or ureteral stones. No hydronephrosis. Stomach and bowel: Persistent incarcerated umbilical hernia with worsening proximal small bowel distension and regional mesenteric edema associated with a 2nd transition point proximally, consistent with closed loop obstruction. Increased feculent material in the obstructed small bowel loops, consistent with delayed transit. No evidence of pneumatosis. Colonic diverticulosis without evidence of diverticulitis, unchanged. Appendix: No evidence of appendicitis. Intraperitoneal space: Trace ascites in the pelvis, likely on account of extensive mesenteric edema. No pneumoperitoneum. Vasculature: Unremarkable. Lymph nodes: Unremarkable. Urinary bladder: Bladder is decompressed, limiting evaluation. Reproductive: Unremarkable. Bones/joints: Multi-level bridging osteophytes in the spine, compatible with diffuse idiopathic skeletal hyperostosis (DISH), unchanged. Variant lumbosacral anatomy with sacralization of L5. No acute osseous abnormality. Soft tissues: Unremarkable. IMPRESSION: 1. Persistent incarcerated umbilical hernia with worsening proximal small bowel obstruction associated with a 2nd transition point proximally, consistent with closed loop obstruction. 2. 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 Please correlate with patient history and/or symptoms. 3. Additional chronic ancillary findings are stable, as detailed above.
[2021-06-16 21:32] LABS: Amylase 98 U/L (30-110); Lipase 120 U/L (23-300)
[2021-06-16 21:47] LABS: Troponin I < 0.01 ng/ml (0.00-0.034)
--- NOTE | 2021-06-16 22:04 | PC.NURSE ---
Pt attempted to give urine specimen but was unable to give enough urine to test
[2021-06-16 23:08] LABS: Coronavirus 19, PCR Not Detected (NotDetected); Influenza A, PCR Not Detected (NotDetected); Influenza B, PCR Not Detected (NotDetected)
--- NOTE | 2021-06-16 23:18 | PC.NURSE ---
Dr. Hair on phone with Dr. Klein
[2021-06-16 23:25] LABS: Reflex Lactic Add Lactic Reflex
--- NOTE | 2021-06-16 23:28 | PC.NURSE ---
Patient admitted to [address] Hair with acute small bowel obstruction.
[2021-06-16 23:40] LABS: Lactic Acid Follow Up (RFLX 1) 1.2 mmol/L (0.7-2.1)
[2021-06-17] VITALS (29 sets, daily range): BP systolic 125–175; BP diastolic 62–85; PULSE 65–100; RESP 14–20; TEMP 36.2–43; O2SAT 90–100; BMI 45.6; BMI 45.3; BMI 44.9
--- NOTE | 2021-06-17 00:33 | PC.NURSE ---
pt arrived to floor via stretcher at this time
[2021-06-17 01:44] LABS: Troponin I < 0.01 ng/ml (0.00-0.034)
[2021-06-17 05:55] LABS: Basophils % 0.5 % (0.1-2.0); Eosinophils # 0.1 K/mm3 (0.0-0.4); Hematocrit 39.9 % (37.0-47.0); Lymphocytes # 1.3 K/mm3 (0.7-4.5); Lymphocytes % 22.6 % (10-50); Mean Corpuscular Hemoglobin 32.2 pg (27.0-31.2); Mean Corpuscular Volume 94.9 fl (81-99); Monocytes # 0.4 K/mm3 (0.1-1.0); Monocytes % 7.3 % (1.7-9.3); Neutrophils % 67.6 % (37.0-80.0); Platelet Count 204 K/mm3 (142-424); White Blood Count 5.9 K/mm3 (4.8-10.8)
[2021-06-17 06:16] LABS: Hemoglobin 12.8 g/dL (12.2-16.2)
--- NOTE | 2021-06-17 07:00 | P.CONPHA_ITS ---
[facility] Pharmacy VTE Monitoring - Patient Demographics Admission date: 06/16/21 Report Date: 06/17/21 Time: 07:00 Allergies/Adverse Reactions: Patient Allergies NSAIDS (Non-Steroidal Anti-Inflamma Adverse Reaction (Verified 06/17/21 00:55) EFFECTS KIDNEYS Height: 1.6 m Weight: 116.891 kg Patient Problems: Current Active Problems Renal insufficiency (Acute) Small bowel obstruction (Acute) Obesity, morbid, BMI 40.0-49.9 (Acute) Vomiting (Acute) - VTE Risk Labs: VTE Related Lab Results Hgb 12.8 g/dL (12.2-16.2) D 06/17/21 05:42 Hct 39.9 % (37.0-47.0) 06/17/21 05:42 Plt Count 204 K/mm3 (142-424) D 06/17/21 05:42 BUN 25 mg/dl (7-17) H 06/16/21 18:15 Creatinine 1.60 mg/dl (0.52-1.04) H 06/16/21 18:15 Estimated Creat Clear 27 mL/min (50-200) 06/16/21 18:15 VTE Score: 7 VTE Risk Level: Moderate Risk - Prophylaxis VTE Prophylaxis Ordered?: Yes Types of VTE Prophylaxis: TEDS Knee High Location of Applied Device: Bilateral Lower Extremeties
[2021-06-17 07:07] LABS: Anion Gap 10.4 mEq/L (5-15); Blood Urea Nitrogen 21 mg/dl (7-17); Calcium 8.5 mg/dl (8.4-10.2); Carbon Dioxide 28 mmol/L (22.0-30.0); Chloride 103 mmol/L (98-107); Creatinine Clearance Estimated 35 mL/min (50-200); Estimated Glomerular Filt Rate 44 ml/min (>60); GFR (African American) 54 ML/MIN (>60); Glucose 87 mg/dl (74-100); Potassium 3.4 mmoL/L (3.5-5.1); Sodium 138 mmol/L (136-145)
--- NOTE | 2021-06-17 07:48 | HMH.GSCON ---
*Admission Date: 06/16/21 *Reason for consult:: Bowel obstruction *History of present illness: Patient is a 71-year-old female. She had previously undergone apparent laparoscopic umbilical hernia repair about 2 years ago in [facility]. She had been admitted to the hospital on 06/03/2021 until 06/05/2021 with findings of partial small bowel obstruction. This was able to be managed nonoperatively. However, the patient had recurrent symptoms of significant abdominal pain with some nausea and vomiting. She had presented to the emergency department yesterday evening. She was seen and evaluated. She did have findings of dehydration. She underwent plain films of the chest and abdomen and this was unremarkable for any acute process. However her symptoms persisted and she underwent CT scan. This revealed findings of persistent incarcerated umbilical hernia with worsening proximal small bowel obstruction associated with second transition point proximally, consistent with closed-loop obstruction. Patient has not had any vomiting this morning. She states however she is having a lot of burping and belching. She has persistent pain. Review of Systems - Review of Systems Review of systems:: pertinent systems reviewed and negative unless documented below - *Neurologic Denies seizure-like activity [facility] History I have reviewed the patient's past medical history: Yes Medical History: Reports:: Anxiety, Asthma, Depression, Diabetes Mellitus Type 2, Gastroesophageal Reflux Disease(GERD), Hyperlipidemia, Migraine, Renal Insufficiency Denies:: Cancer, Diabetes Mellitus Type 1, MRSA *Have you ever received a pneumonia vaccine?: Yes *Have you received a flu vaccine this season?: Yes Other Medical History: Reports: Arthritis, Thyroid Disease, Other (gout, allergic rhinitis, chronic back pain, chronic steroid use) Other Surgeries: Yes: Hernia Repair, Tubal Ligation Amputation: No Fractures: No - *Social History Smoking Status: Never smoker Alcohol Intake: never *Occupational Status:: retired Housing: house Household Members: children *Travel in the last 8 weeks: None - Psychiatric History Pschychiatric History:: Reports:: Anxiety, Depression Family Hx:: No significant family history Meds Home Medications Medication Instructions Recorded Confirmed Type Atorvastatin Calcium [Lipitor 20mg 20 mg PO HS 06/18/17 06/17/21 History Tab] Esomeprazole Magnesium 40 mg PO DAILY 06/18/17 06/17/21 History Furosemide [Furosemide 40MG tAB*] 40 mg PO BID 06/18/17 06/17/21 History LORazepam [Ativan 0.5mg 0.5 mg PO Q8HP PRN 06/18/17 06/17/21 History tablet] Oxybutynin Chloride [Oxybutynin 5 mg PO DAILY 06/18/17 06/17/21 History Chloride ER] Potassium Chloride [K-Tab ER 10 10 meq PO BID 06/18/17 06/17/21 History mEq] Sertraline HCl [Zoloft 50mg tablet] 50 mg PO DAILY 06/18/17 06/17/21 History Tizanidine HCl [Zanaflex] 4 mg PO HS 06/18/17 06/17/21 History allopurinoL [Allopurinol 300mg 300 mg PO DAILY 06/18/17 06/17/21 History tablet] Spironolactone [Spironolactone 25 mg PO DAILY 03/31/19 06/17/21 History 25mg Tablet] Fexofenadine HCl 180 mg PO DAILY 06/03/21 06/17/21 History Hydrocodone/Acetaminophen 1 tab PO Q4H 06/03/21 06/17/21 History [Hydrocodone-Acetamin 10-325 mg] Propranolol HCl [Inderal 20mg 20 mg PO BID 06/16/21 06/17/21 History tablet] Dextran 70/Hypromellose/Pf 1 drp EYE-BOTH NEEDED PRN 06/17/21 06/17/21 History [Artificial Tears Drops] Empagliflozin [Jardiance] 25 mg PO DAILY 06/17/21 06/17/21 History Fluticasone Propionate [Flovent 50 mcg IH DAILY 06/17/21 06/17/21 History Diskus] Metformin HCl [Metformin ER 500 mg PO DAILY 06/17/21 06/17/21 History Gastric] ondansetron HCL [Ondansetron 4mg 4 mg PO Q6 PRN 06/17/21 06/17/21 History tab*] predniSONE [Prednisone 5mg 5 mg PO DAILY 06/17/21 06/17/21 History Tab] Allergies Allergy/AdvReac Type Severity Reaction Status
--- NOTE | 2021-06-17 09:41 | HMH.HP ---
*Admission Date: 06/16/21 *Chief complaint: abd pain *History of present illness: 71-year-old female presented to ed with c/o of abd pain. She had been admitted to the hospital on 06/03/2021 until 06/05/2021 with findings of partial small bowel obstruction. At that time it was managed nonoperatively. She had previously undergone apparent laparoscopic umbilical hernia repair about 2 years ago in [facility]. Patinet states the symptoms returned a few days ago and worsened woth nausea and vomiting. CT scan shows findings of persistent incarcerated umbilical hernia with worsening proximal small bowel obstruction associated with second transition point proximally, consistent with closed-loop obstruction. Patient was admitted and surgery consult placed. [facility] History I have reviewed the patient's past medical history: Yes Medical History: Reports:: Anxiety, Asthma, Depression, Diabetes Mellitus Type 2, Gastroesophageal Reflux Disease(GERD), Hyperlipidemia, Migraine, Renal Insufficiency Denies:: Cancer, Diabetes Mellitus Type 1, MRSA *Have you ever received a pneumonia vaccine?: Yes *Have you received a flu vaccine this season?: Yes Other Medical History: Reports: Arthritis, Thyroid Disease, Other (gout, allergic rhinitis, chronic back pain, chronic steroid use) Other Surgeries: Yes: Hernia Repair, Tubal Ligation Amputation: No Fractures: No - *Social History Smoking Status: Never smoker Alcohol Intake: never *Occupational Status:: retired Housing: house Household Members: children *Travel in the last 8 weeks: None - Psychiatric History Pschychiatric History:: Reports:: Anxiety, Depression Family Hx:: No significant family history Review of Systems - Review of Systems Review of systems:: pertinent systems reviewed and negative unless documented below - Constitutional Denies body ache(s) - Eyes Denies blurry vision - ENT Denies bleeding gums - *Cardiovascular Denies chest pain at rest - *Respiratory Denies chest congestion - *Gastrointestinal Reports abdominal pain, Reports belching, Reports bloating, Reports cramping, Reports nausea, Reports vomiting - *Genitourinary Denies urinary urgency - *Musculoskeletal Denies joint pain - Integumentary/Breasts Denies rash - *Neurologic Denies abnormal hearing, Denies seizure-like activity - Psychiatric Denies anxiety - Endocrine Denies excessive sweating - Hematologic/Lymphatic Denies easy bruising - Allergic/Immunologic Denies itchy eyes Meds Home Medications Medication Instructions Recorded Confirmed Type Atorvastatin Calcium [Lipitor 20mg 20 mg PO HS 06/18/17 06/17/21 History Tab] Esomeprazole Magnesium 40 mg PO DAILY 06/18/17 06/17/21 History Furosemide [Furosemide 40MG tAB*] 40 mg PO BID 06/18/17 06/17/21 History LORazepam [Ativan 0.5mg 0.5 mg PO Q8HP PRN 06/18/17 06/17/21 History tablet] Oxybutynin Chloride [Oxybutynin 5 mg PO DAILY 06/18/17 06/17/21 History Chloride ER] Potassium Chloride [K-Tab ER 10 10 meq PO BID 06/18/17 06/17/21 History mEq] Sertraline HCl [Zoloft 50mg tablet] 50 mg PO DAILY 06/18/17 06/17/21 History Tizanidine HCl [Zanaflex] 4 mg PO HS 06/18/17 06/17/21 History allopurinoL [Allopurinol 300mg 300 mg PO DAILY 06/18/17 06/17/21 History tablet] Spironolactone [Spironolactone 25 mg PO DAILY 03/31/19 06/17/21 History 25mg Tablet] Fexofenadine HCl 180 mg PO DAILY 06/03/21 06/17/21 History Hydrocodone/Acetaminophen 1 tab PO Q4H 06/03/21 06/17/21 History [Hydrocodone-Acetamin 10-325 mg] Propranolol HCl [Inderal 20mg 20 mg PO BID 06/16/21 06/17/21 History tablet] Dextran 70/Hypromellose/Pf 1 drp EYE-BOTH NEEDED PRN 06/17/21 06/17/21 History [Artificial Tears Drops] Empagliflozin [Jardiance] 25 mg PO DAILY 06/17/21 06/17/21 History Fluticasone Propionate [Flovent 50 mcg IH DAILY 06/17/21 06/17/21 History Diskus] Metformin HCl [Metformin ER 500 mg PO DAILY 06/17/21
--- NOTE | 2021-06-17 11:40 | PC.NURSE ---
Pt left the floor to go to surgery
--- NOTE | 2021-06-17 12:39 | HMH.ANESCL ---
[facility] Anesthesia Checklist - Patient Identification Patient Identification: Arm Band, Family - Structural Data Admitted From: Inpatient Planned Operative Procedure/s: Exploratory Laparotomy Consent for Planned Operative Procedure(s) Verified: Yes Verified Documents: Surgical Consent - NPO Status Verified Time NPO: 00:00 - Additional verifications Anesthesia Reactions: No - Airway Assessment C-Spine Mobility Assessed: Yes (mp2) TMJ Mobility Assessed: Yes Dentition: Edentulous - Neurological Assessment Level of Consciousness: Awake, Alert - Anesthesia Plan Anesthesia Risk discussed: Yes Anesthesia Plan: Verified ASA Class: III Anesthesia Type: General [facility] History I have reviewed the patient's past medical history: Yes Medical History: Reports:: Anxiety, Asthma, Depression, Diabetes Mellitus Type 2, Gastroesophageal Reflux Disease(GERD), Hyperlipidemia, Migraine, Renal Insufficiency Denies:: Cancer, Diabetes Mellitus Type 1, MRSA *Have you ever received a pneumonia vaccine?: Yes *Have you received a flu vaccine this season?: Yes Other Medical History: Reports: Arthritis, Thyroid Disease, Other (gout, allergic rhinitis, chronic back pain, chronic steroid use) Anesthesia experience/problems:: nac Other Surgeries: Yes: Hernia Repair, Tubal Ligation Amputation: No Fractures: No - *Social History Smoking Status: Never smoker Alcohol Intake: never Substance Use Type: denies use *Occupational Status:: retired Housing: house Household Members: children *Travel in the last 8 weeks: None - Psychiatric History Pschychiatric History:: Reports:: Anxiety, Depression Family Hx:: No significant family history
--- NOTE | 2021-06-17 15:07 | HMH.OPNOTE ---
Date of procedure: 06/17/21 Pre-op Diagnosis:: Small bowel obstruction Post-op Diagnosis:: Same Procedure performed:: Laparotomy with small bowel resection for obstruction Surgeon:: Neo Klein MD FERMENTING CELLAR DROPPER:: Jacques Madrigal Anesthesia: GETAlejandra Estimated blood loss (mL): 40 Clinical Note:: Patient is a 71-year-old female. She had previously undergone apparent umbilical hernia repair about 2 years ago in [facility]. Exact details of hernia repair are unclear. She had been admitted to the hospital on 06/03/2021 until 06/05/2021 with findings of partial small bowel obstruction. This was able to be managed nonoperatively. She actually did undergo a small bowel follow-through during that hospitalization which revealed no evidence of any obstruction. However, the patient had recurrent symptoms of significant abdominal pain with some nausea and vomiting. She had presented to the emergency department yesterday evening. She was seen and evaluated. She did have findings of dehydration. She underwent plain films of the chest and abdomen and this was unremarkable for any acute process. However her symptoms persisted and she underwent CT scan. This revealed findings of persistent incarcerated umbilical hernia with worsening proximal small bowel obstruction associated with second transition point proximally, consistent with closed-loop obstruction. Patient has not had any vomiting this morning. She states however she is having a lot of burping and belching. She has persistent pain. On examination she was quite tender with findings consistent with early peritonitis. Plan was made for laparotomy. Operative findings:: Patient had severely matted small bowel near her umbilical area. It was difficult to determine if she had recurrent hernia versus severe adhesions distally with severe adhesions proximally creating somewhat of a closed-loop obstruction. The small bowel was markedly edematous, distended, and quite friable. The mesentery was quite friable and edematous as well. Operative note:: Patient was taken to the operating room. She was given preoperative intravenous antibiotics. In the operating room she was placed in a supine position. Mcghee catheter was placed. Abdomen was prepped and draped in the standard surgical fashion. Limited supraumbilical laparotomy incision was made. Dissection was carried down through subcutaneous tissues down to fascia. Fascia was incised. Peritoneum was entered. There was some edema within the soft tissues. There was some fluid in the abdomen. This was suctioned free. Exposure was achieved. Ultimately incision was extended inferiorly around the umbilicus. She had densely matted adhesions posterior to the umbilical area which included omentum and small bowel. There was a fibrous sheath likely from previous hernia repair. This was ultimately excised back to normal fascia. There were several tiny hernias and what appeared to be mesh mostly containing epiploic fat. This was able to be reduced. Ultimately adhesions were freed and distal small bowel was completely decompressed. Mid small bowel was extremely matted, edematous, indurated, and inflamed. This included severely inflamed and friable mesentery. Proximally this was actually decompressed as well as it appeared adhesions were creating somewhat of a closed-loop obstruction. With careful Metzenbaum dissection this was freed. However the mesentery was quite friable and tore easily. There were also some serosal tears present but no evidence of any full-thickness perforation. Although there was no evidence of any small bowel vascular compromise or necrosis as of yet it was felt that resection was deemed necessary due to the profound inflammation, edema, and friability of the tissues. Has limited of a resection as possible was carried out dividing the small bowel proximally and distally with VARUN 75-type stapling device. Small bowel mesentery was then d
--- NOTE | 2021-06-17 15:10 | HMH.ANESI ---
[facility] Anesthesia Record Part I Intake, IV Amount: 2,100 Estimated blood loss (mL): 50 Urine output (mL): 100 Blood Pressure: 161/76 SaO2: 93 Pulse Rate: 81 Respiratory Rate: 14 Temperature: 98.2 F Patient is:: Drowsy Stable to PACU at:: 15:04
[2021-06-17 15:23] LABS: POC Glucose,Bedside 116 (70-110)
--- NOTE | 2021-06-17 15:38 | SUR.PHASEI ---
Detailed report called to Dulce Sánchez RN @ [phone]. RN made aware of pt's (R) zach WALDROP that is to be to [facility]. 16 fr goodwin cath inserted while in OR, urine clear/straw color in appearance. Midline incision c/d/i. Pt rates pain @ time of report given 04/30, pain medicaiton admin per MAR previously for pain w/ favorable results. Pt transported to floor and left in care of primary nurse. VSS. Bed in lowest postion and locked. Family updated once again and @ bedside.
[2021-06-17 15:39] LABS: Microscopic,Cath URINE MICROSCOPIC (MICROSCOPIC)
[2021-06-17 16:24] LABS: Appearance,Urine/Cath CLEAR (Clear); Blood, Urine/Cath Negative (Negative); Color,Urine/Cath YELLOW (Yellow); Glucose,Urine/Cath (UA) 3+ (Negative); Ketones,Urine/Cath 1+ (Negative); Leukocyte Esterase,Cath Negative (Negative); Nitrate,Cath Negative (Negative); Protein,Urine/Cath Negative (Negative); Specific Gravity, Urine/Cath 1.015 (1.005-1.030); Urobilinogen,Cath 0.2 EU/dl (0.2)
[2021-06-17 16:35] LABS: Bilirubin,Cath 1+ (Negative)
[2021-06-17 16:57] LABS: RBC,Urine/Cath Occasional # /hpf (0-3); Squamous Epithelial Ur./Cath Occasional #/hpf (0-5)
[2021-06-18] VITALS (13 sets, daily range): BP systolic 127–172; BP diastolic 57–83; PULSE 18–105; RESP 17–28; TEMP 36.6–38.1; O2SAT 90–96; BMI 44.4
--- NOTE | 2021-06-18 03:00 | PC.NURSE ---
Patient has now pulled two NG tubes out. Pt remains screaming out in pain, states the pain is in the incision, her back, and legs. Continuously educated on OSTEOPATHIC MEDICINE TEACHER pump use. Patient is able to hit her button when needed. Patient's upper abdomen is more distended and firm than previous assessment. Called MD Klein and notified. Ordered to place another NG tube and receive x-ray for confirmation. Placed NG to right nare at 60, x-ray was taken and confirmed placement.
--- NOTE | 2021-06-18 04:22 | XR_ITS ---
PROCEDURE INFORMATION: Exam: XR Abdomen Exam date and time: 06/18/2021 4:39 AM Age: 71 years old Clinical indication: Device placement; Gi device; Nasogastric tube; Additional info: Ng tube placement TECHNIQUE: Imaging protocol: XR of the abdomen. Views: Frontal supine view of the abdomen. 1 View. COMPARISON: CT ABDOMEN PELVIS WO CON 06/16/2021 9:24 PM FINDINGS: Tubes, catheters and devices: Nasogastric tube overlies the stomach. Gastrointestinal tract: Normal. No bowel dilation. Bones/joints: Unremarkable. IMPRESSION: Nasogastric tube in good position.
--- NOTE | 2021-06-18 06:15 | HMH.ANESII ---
[facility] Anesthesia Record Part II Discharge Time: 15:41 Destination: 2nd floor PACU nurse assessment reviewed?: Yes Patient Condition:: Good Anesthesia Complications:: None none Swallowing reflex intact?: Yes Cyanosis?: No Blood Pressure: 157/72 Pulse Rate: 18 Temperature: 98 F Mental Status: Alert & Oriented Pain level:: 2 Nausea and/or vomitting:: None Intake, IV Amount: 0
--- NOTE | 2021-06-18 06:50 | XR_ITS ---
FINAL REPORT CLINICAL HISTORY: NG placement COMPARISON: From earlier today June 18, 2021 FINDINGS: A single portable view of the chest was obtained. A nasogastric tube is again noted with its tip in the region of the body of the stomach. The heart size is within normal limits. There is pulmonary vascular congestion. The mediastinum is within normal limits. There is persistent left base atelectasis or pneumonia. The bony thorax is intact. IMPRESSION: NG tube tip in the body of stomach. Pulmonary vascular congestion with persistent left base atelectasis or pneumonia. Reviewed, Interpreted and Dictated by Neo Stein III, MD Transcribed by Ron Anderson Authenticated by Neo Stein III, MD on 06/18/2021 08:26:58 AM [facility]
--- NOTE | 2021-06-18 06:54 | P.PN_ITS ---
Subjective Narrative: Patient had quite an eventful night. Had increasing pain so as needed morphine was increased. Pain still not controlled so morphine HEAVY EQUIPMENT MECHANIC was ordered. Consideration was being given for possible Toradol but this was not done due to her allergies and renal function. Continued to have agitation. Pulled out NG numerous times only to have it replaced. Ultimately patient was given some Haldol for her significant agitation. Complains of pain in abdomen, back, legs, etc. This morning once again pulled NG out. Progress Note: A&P (1) Obesity, morbid, BMI 40.0-49.9 Status: Acute (2) Renal insufficiency Status: Acute (3) Small bowel obstruction Status: Acute (4) Abdominal pain Status: Acute Assessment and Plan for All Diagnoses:: Unclear as to the etiology of the patient's significant pain and agitation/confusion. May need to hold meds for now to allow mental status to normalize. Doubt intra-abdominal pathology but will continue to monitor closely and may need return to OR for re-exploration. Labs pending. Exam Vital signs and Labs for Last 24 Hours: Temp Pulse Resp BP Pulse Ox 98 F 18 L 17 157/72 H 90 L 06/18/21 06:16 06/18/21 06:16 06/18/21 06:00 06/18/21 06:16 06/18/21 06:00 Laboratory Results - last 24 hr 06/17/21 05:42: Sodium 138, Potassium 3.4 L, Chloride 103, Carbon Dioxide 28, Anion Gap 10.4, BUN 21 H, Creatinine 1.20 H D, Estimated Creat Clear 35, Estimated GFR 44 L, Est GFR ( Amer) 54 L D, Glucose 87 D, Calcium 8.5 06/17/21 12:20: Urine Color Yellow, Urine Appearance Clear, Urine pH 6.0, Ur Specific [place] 1.015, Urine Protein Negative, Urine Glucose (UA) 3+, Urine Ketones 1+, Urine Blood Negative, Urine Nitrate Negative, Urine Bilirubin 1+ A, Urine Urobilinogen 0.2, Ur Leukocyte Esterase Negative, Urine RBC Occasional, Urine WBC None, Ur Squamous Epith Cells Occasional, Urine Bacteria None 06/17/21 15:16: POC Glucose 116 H I & O for Last 24 hours: Intake & Output 06/15/21 06/16/21 06/17/21 06/18/21 11:59 11:59 11:59 11:59 Intake Total 0 / 0 2100 / 2100 Output Total 750 / 750 Balance 0 / 0 1350 / 1350 Weight 257 lb 11.2 oz 250 lb 14.4 oz Microbiology Reports for the Last 24 Hours: Microbiology 06/16/21 22:58 Blood Blood Culture - Preliminary Narrative: Agitated and confused. - *Routine Abdominal Exam Present: soft Comments: Incision clean. Abdomen soft. Some incisional tenderness.
[2021-06-18 07:01] LABS: Basophils % 0.5 % (0.1-2.0); Eosinophils % 0.5 % (0.1-12.0); Hematocrit 36.1 % (37.0-47.0); Hemoglobin 12.1 g/dL (12.2-16.2); Lymphocytes # 0.8 K/mm3 (0.7-4.5); Mean Corpuscular HGB Conc 33.5 g/dL (31.8-35.4); Mean Corpuscular Hemoglobin 32.2 pg (27.0-31.2); Mean Corpuscular Volume 96.3 fl (81-99); Mean Platelet Volume 8.9 fl (7.4-10.4); Monocytes # 0.4 K/mm3 (0.1-1.0); Monocytes % 5.5 % (1.7-9.3); Neutrophils % 82.6 % (37.0-80.0); Platelet Count 242 K/mm3 (142-424); Red Blood Count 3.75 M/mm3 (4.20-5.40); Red Cell Distribution Width 14.8 % (11.5-17.5); White Blood Count 7.3 K/mm3 (4.8-10.8)
[2021-06-18 07:05] LABS: Anion Gap 14.6 mEq/L (5-15); Blood Urea Nitrogen 19 mg/dl (7-17); Carbon Dioxide 23 mmol/L (22.0-30.0); Chloride 106 mmol/L (98-107); Potassium 3.6 mmoL/L (3.5-5.1); Sodium 140 mmol/L (136-145)
[2021-06-18 07:06] LABS: Creatinine Clearance Estimated 30 mL/min (50-200); Estimated Glomerular Filt Rate 37 ml/min (>60); GFR (African American) 45 ML/MIN (>60); Glucose 143 mg/dl (74-100)
--- NOTE | 2021-06-18 07:16 | PC.NURSE ---
This RN has placed a NG tube down the left nare. Placed at 60. Confirmed via KUB x-ray and auscultation.
--- NOTE | 2021-06-18 07:47 | PC.NURSE ---
17mg of Morphine cleared from REHAB DEPARTMENT MANAGER pump at this time.
--- NOTE | 2021-06-18 14:26 | HMH.ACPN2 ---
Internal Medicine - PN: Subj *Date: 06/18/21 *Time: 21:27 Interval history: 71-year-old female patient sitting up in bed she does not respond to verbal direction or communication. Nursing reports she removed her NG tube multiple times during the night and this morning, there is some blood in the tubing. Coin intact to midline abdominal incision no redness, drainage, or swelling. Dressing intact to incision clean/dry/intact Exam Vital signs and Labs for Last 24 Hours: Temp Pulse Resp BP Pulse Ox 100 F H 61 26 H 168/64 H 94 L 06/18/21 12:00 06/18/21 12:00 06/18/21 12:00 06/18/21 12:00 06/18/21 12:00 Laboratory Results - last 24 hr 06/17/21 12:20: Urine Color Yellow, Urine Appearance Clear, Urine pH 6.0, Ur Specific [place] 1.015, Urine Protein Negative, Urine Glucose (UA) 3+, Urine Ketones 1+, Urine Blood Negative, Urine Nitrate Negative, Urine Bilirubin 1+ A, Urine Urobilinogen 0.2, Ur Leukocyte Esterase Negative, Urine RBC Occasional, Urine WBC None, Ur Squamous Epith Cells Occasional, Urine Bacteria None 06/17/21 15:16: POC Glucose 116 H 06/18/21 06:44: WBC 7.3, RBC 3.75 L, Hgb 12.1 L, Hct 36.1 L, MCV 96.3, MCH 32.2 H, MCHC 33.5, RDW 14.8, Plt Count 242, MPV 8.9, Neut % (Auto) 82.6 H, Lymph % (Auto) 11.0, [place] % (Auto) 5.5, Eos % (Auto) 0.5, Baso % (Auto) 0.5, Neut # (Auto) 6.0, Lymph # (Auto) 0.8, [place] # (Auto) 0.4, Eos # (Auto) 0.0, Baso # (Auto) 0.0 06/18/21 06:44: Sodium 140, Potassium 3.6, Chloride 106, Carbon Dioxide 23, Anion Gap 14.6, BUN 19 H, Creatinine 1.40 H, Estimated Creat Clear 30, Estimated GFR 37 L, Est GFR ( Amer) 45 L, Glucose 143 H, Calcium 8.0 L I & O for Last 24 hours: Intake & Output 06/15/21 06/16/21 06/17/21 06/18/21 23:59 23:59 23:59 23:59 Intake Total 2100 / 2100 1744 / 1744 Output Total 300 / 750 600 / 600 Balance 1800 / 1350 1144 / 1144 Weight 257 lb 11.2 oz 253 lb 5 oz 250 lb 14.4 oz Microbiology Reports for the Last 24 Hours: Microbiology 06/16/21 22:58 Blood Blood Culture - Preliminary - Constitutional no acute distress, obese - *Routine HEENT Exam Head: Present: normocephalic ENT: Present: mucous membranes moist - *Routine Neck Exam Present: trachea midline. Absent: tracheal deviation - *Routine Respiratory Exam Present: CTA bilaterally. Absent: accessory muscle use - *Routine Cardiovascular Exam Present: RRR - *Routine Abdominal Exam Present: soft, normoactive bowel sounds, tenderness. Absent: firm - *Routine Extremities Exam Present: edema, full ROM, pulses intact. Absent: cyanosis, clubbing - *Routine Skin Exam Present: dry, wounds. Absent: intact, cyanosis, erythema Assessment and Plan (1) Obesity, morbid, BMI 40.0-49.9 Status: Acute Category: Medical Code(s): E66.01 - Morbid (severe) obesity due to excess calories (2) Renal insufficiency Status: Acute Category: Medical Code(s): N28.9 - Disorder of kidney and ureter, unspecified (3) Small bowel obstruction Status: Acute Category: Medical Code(s): K56.609 - Unspecified intestinal obstruction, unspecified as to partial versus complete obstruction (4) Abdominal pain Status: Acute Category: Medical Code(s): R10.9 - Unspecified abdominal pain - Assessment and plan all Dx Assessment and Plan for all problems:: Rounded with Dr. Quiroz, all orders for Dr. Quiroz: 1. General surgery following 2. Continue current medical regimen
--- NOTE | 2021-06-18 18:38 | PC.NURSE ---
Pt has been confused, combative and resistant to care this shift. She has mittens on and her two daughters are at bedside assisting in comforting her. She has repeatedly tried to pull her mittens off and NG tube out. IV dilaudid required for pain control and ativan administered per mar for agitation (see mar) with inconsistent relief noted. She has ran a low grade temp of 100.1 - 100.6 this shift. Her goodwin is to bedside draining dark colored urine. IV is patent and infusing LR @ 125. She remain NPO per order at this time.
[2021-06-19] VITALS (8 sets, daily range): BP systolic 114–155; BP diastolic 59–95; PULSE 70–130; RESP 16–24; TEMP 36.8–37.4; O2SAT 90–95; BMI 100.8; BMI 46.3
--- NOTE | 2021-06-19 06:53 | HMH.GSPN ---
Subjective Narrative: Patient had better night. Better rested and less pain. Mental status improved. Progress Note: A&P (1) Obesity, morbid, BMI 40.0-49.9 Status: Acute (2) Renal insufficiency Status: Acute (3) Small bowel obstruction Status: Acute (4) Abdominal pain Status: Acute Assessment and Plan for All Diagnoses:: Continue n.p.o. with nasogastric suction and limited to ice chips. Will decrease Dilaudid to continue with pain control but allow patient to wake up and encourage mobility. Exam Vital signs and Labs for Last 24 Hours: Temp Pulse Resp BP Pulse Ox 99.4 F 104 H 16 145/63 H 95 06/19/21 04:00 06/19/21 04:00 06/19/21 04:00 06/19/21 04:00 06/19/21 04:00 Laboratory Results - last 24 hr 06/18/21 06:44: WBC 7.3, RBC 3.75 L, Hgb 12.1 L, Hct 36.1 L, MCV 96.3, MCH 32.2 H, MCHC 33.5, RDW 14.8, Plt Count 242, MPV 8.9, Neut % (Auto) 82.6 H, Lymph % (Auto) 11.0, [place] % (Auto) 5.5, Eos % (Auto) 0.5, Baso % (Auto) 0.5, Neut # (Auto) 6.0, Lymph # (Auto) 0.8, [place] # (Auto) 0.4, Eos # (Auto) 0.0, Baso # (Auto) 0.0 06/18/21 06:44: Sodium 140, Potassium 3.6, Chloride 106, Carbon Dioxide 23, Anion Gap 14.6, BUN 19 H, Creatinine 1.40 H, Estimated Creat Clear 30, Estimated GFR 37 L, Est GFR ( Amer) 45 L, Glucose 143 H, Calcium 8.0 L I & O for Last 24 hours: Intake & Output 06/16/21 06/17/21 06/18/21 06/19/21 11:59 11:59 11:59 11:59 Intake Total 0 / 0 3844 / 3844 713 / 713 Output Total 750 / 750 1050 / 1050 Balance 0 / 0 3094 / 3094 -337 / -337 Weight 257 lb 11.2 oz 250 lb 14.4 oz 569 lb 0.209 oz Microbiology Reports for the Last 24 Hours: Microbiology 06/16/21 22:58 Blood Blood Culture - Preliminary NO GROWTH AFTER 48 HOURS - Constitutional Comments: Resting comfortably
[2021-06-19 07:08] LABS: Basophils % 0.7 % (0.1-2.0); Eosinophils % 0.4 % (0.1-12.0); Hemoglobin 10.8 g/dL (12.2-16.2); Lymphocytes # 0.9 K/mm3 (0.7-4.5); Lymphocytes % 17.1 % (10-50); Mean Corpuscular HGB Conc 32.6 g/dL (31.8-35.4); Mean Corpuscular Hemoglobin 32.1 pg (27.0-31.2); Mean Corpuscular Volume 98.5 fl (81-99); Monocytes # 0.3 K/mm3 (0.1-1.0); Neutrophils # 4.1 K/mm3 (1.8-7.8); Neutrophils % 76.8 % (37.0-80.0); Platelet Count 251 K/mm3 (142-424); Red Blood Count 3.35 M/mm3 (4.20-5.40); Red Cell Distribution Width 15.1 % (11.5-17.5); White Blood Count 5.4 K/mm3 (4.8-10.8)
[2021-06-19 07:14] LABS: Sodium 143 mmol/L (136-145)
[2021-06-19 07:15] LABS: Potassium 3.6 mmoL/L (3.5-5.1)
[2021-06-19 07:16] LABS: Chloride 109 mmol/L (98-107)
[2021-06-19 07:18] LABS: Anion Gap 7.6 mEq/L (5-15); Blood Urea Nitrogen 18 mg/dl (7-17); Calcium 7.5 mg/dl (8.4-10.2); Carbon Dioxide 30 mmol/L (22.0-30.0); Creatinine Clearance Estimated 35 mL/min (50-200); Estimated Glomerular Filt Rate 44 ml/min (>60); GFR (African American) 54 ML/MIN (>60); Glucose 106 mg/dl (74-100)
--- NOTE | 2021-06-19 10:55 | HMH.PTEV ---
Physical Therapy Evaluation Rehab PT IP Evaluation Start: 06/19/21 10:01 Freq: ONCE Status: Active Protocol: Document 06/19/21 10:51 PHODARY (Rec: 06/19/21 10:55 PHORNE [id number]) Subjective/History History History 71 yowf adm to [facility] with abd pain, now S/P lap SB resection . She reports she lives with daughter, 1 step to enter the home and uses a cane sometimes for ambulation. Subjective Subjective Pt c/o pain in the abdomen, worse with all movement. Rehab PT IP Eval Objective Appearance Patient Behavior Appropriate,Belligerent Patient Orientation Person,Place,Time Difficulty following instructions none Speech Pattern Clear Ambulation Patient Able to Ambulate Yes Ambulation Observation IP General Gait Pattern Observation Shuffling Step Ambulation Distance (feet) 3 Ambulation Ability Moderate x 1 (50% assist) Balance Ability to Arise Able, uses arms to help Sitting Balance Leans or slides in chair Standing Balance Unsteady Dynamic Sitting Balance Ability Fair Dynamic Standing Balance Ability Poor Transfers Bed Transfer Ability Maximum x 1 (75% assist) Chair Transfer Ability Moderate x 1 (50% assist) Sit to Stand Bed Transfer Ability Moderate x 1 (50% assist) Sit to Stand Chair Transfer Ability Moderate x 1 (50% assist) Rehab PT IP prob,goals,plan Problems Date of Evaluation: 06/19/21 PT IP Problems Bed Mobility,Transfers,Gait Rehab Potential Rehab Potential Good Plan PT Intervention Plan Bed Mobility,Transfers,Gait, Self care,Therapeutic Exercise PT Plan Frequency BID Duration LOS Discharge Goals Bed Transfer Ability Moderate x 1 (50% assist) Sit to Stand Chair Transfer Ability Minimal x 1 (25% assist) Ambulation Assistive Device Straight Cane Ambulation Distance (feet) 25 Discharge Plan PT Discharge Plan Pt is currently most appropriate for rehab placement once medically stable. She may be able to retrun home if she cooperates with care and improves mobility. G -code Required No Eval Complexity Eval Charge Codes 70605 - Moderate Complexity PHYSICIAN CERTIFICATION: I certify the specified therapy services for Summer [place] are required, authorized, and reviewed every
--- NOTE | 2021-06-19 10:57 | HMH.OTEV ---
OT Inpatient Evaluation Rehab OT IP Evaluation Start: 06/19/21 10:01 Freq: ONCE Status: Complete Protocol: Document 06/19/21 10:[address] [facility] (Rec: 06/19/21 10:[address] [facility] [id number]) Rehab OT IP Assessment Subjective History Pt oriented x 3 on arrival. Pt agreeable to engage in therapy evaluation. Pt was admitted on 06/16/21 due to small bowel obstruction. Pt required surgery on 06/17/21 to complete laparotomy with small bowel resection. Prior to becoming ill, pt lived with her daugther. Daugther was present during therapy evaluation and was supportive. Pt claims she was able to completed all ADLs and IADLs independently. Pt was also still driving. Pt used a cane when out in public for safety . The following information was copied from history and physcial report: 71-year-old female presented to ed with c/o of abd pain. She had been admitted to the hospital on 06/03/2021 until with findings of partial small bowel obstruction. At that time it was managed nonoperatively. She had previously undergone apparent laparoscopic umbilical hernia repair about 2 years ago in [facility]. Patinet states the symptoms returned a few days ago and worsened woth nausea and vomiting. CT scan shows findings of persistent incarcerated umbilical hernia with worsening proximal small bowel obstruction associated with second transition point proximally, consistent with closed-loop obstruction. Patient was admitted and surgery consult placed. Subjective I
--- NOTE | 2021-06-19 12:13 | DIET.NUTRFU ---
Spoke to family and patient today, she is more alert today and less confused. Still NPO s/p sx. Eats regular diet at home, watches her salt intake secondary to CKD. Newly dx DM, HgA1c of 15. Will provide some handouts and follow-up on Tuesday when more alert. Also recommended scheduling dietary consult for further education. Will advance diet to cardiac, diabetic when appropriate.
--- NOTE | 2021-06-19 12:54 | PC.NURSE ---
Addendum entered by Dinorah Barba RN 06/19/21 17:38: AT 1645 PT WAS RESTING IN BED. TECHS TOOK VS AND HR WAS IN THE 130'S. RT CALLED TO DO EKG. AFIB/RVR. SIGNED OFF BY THE ED PHYSICIAN. NOTIFIED AND HE ORDERED A ONE TIME CARDIZEM BOLUS AND CARDIZEM DRIP. ORDERED FAXED TO PHARMACY. PT'S FAMILY STATED PT HAD NO HISTORY OF AFIB. PT WILL BE TRANSFERRED TO STEP DOWN UNIT. Original Note: PT IS SITTING UP IN THE CHAIR WITH FAMILY AT BEDSIDE. ALERT AND ORIENTED X3. MEDICATED PER MAR FOR DISCOMFORT. PT STATES SHE FEELS LIKE SHE NEEDS THE DILAUDID EVERY HOUR FOR HER BACK AND ABDOMINAL PAIN. NG TUBE NOTED TO LEFT NARE CONNECTED TO LOW WALL SUCTION. ABDOMINAL DRESSING NOTED TO MIDLINE INCISION C/D/I. SWELLING NOTED TO LEFT ANKLE. SWELLING/BRUISING NOTED TO RT HAND. LUNG SOUNDS DIMINISHED. VSS. WILL CONTINUE TO MONITOR.
--- NOTE | 2021-06-19 13:16 | HMH.ACPN2 ---
Internal Medicine - PN: Subj *Date: 06/19/21 *Time: 08:16 Interval history: 71-year-old female patient resting quietly in bed with typing, daughter is in chair asleep at bedside. Patient is alert and oriented x3 this morning reports she is feeling better. Denies remembrance of yesterday's events. Denies any nausea and reports pain is well controlled. Exam Vital signs and Labs for Last 24 Hours: Temp Pulse Resp BP Pulse Ox 98.5 F 88 18 155/95 H 92 L 06/19/21 11:54 06/19/21 11:54 06/19/21 11:54 06/19/21 11:54 06/19/21 11:54 Laboratory Results - last 24 hr 06/19/21 06:55: WBC 5.4 D, RBC 3.35 L, Hgb 10.8 L, Hct 33.0 L, MCV 98.5, MCH 32.1 H, MCHC 32.6, RDW 15.1, Plt Count 251, MPV 9.0, Neut % (Auto) 76.8, Lymph % (Auto) 17.1, [place] % (Auto) 5.0, Eos % (Auto) 0.4, Baso % (Auto) 0.7, Neut # (Auto) 4.1, Lymph # (Auto) 0.9, [place] # (Auto) 0.3, Eos # (Auto) 0.0, Baso # (Auto) 0.0 06/19/21 06:55: Sodium 143, Potassium 3.6, Chloride 109 H, Carbon Dioxide 30, Anion Gap 7.6, BUN 18 H, Creatinine 1.20 H, Estimated Creat Clear 35, Estimated GFR 44 L, Est GFR ( Amer) 54 L, Glucose 106 H, Calcium 7.5 L I & O for Last 24 hours: Intake & Output 06/16/21 06/17/21 06/18/21 06/19/21 23:59 23:59 23:59 23:59 Intake Total 2100 / 2100 2457 / 2457 Output Total 300 / 750 600 / 1500 1900 / 1900 Balance 1800 / 1350 1857 / 957 -1900 / -1900 Weight 257 lb 11.2 oz 253 lb 5 oz 250 lb 14.4 oz 569 lb 0.209 oz Microbiology Reports for the Last 24 Hours: Microbiology 06/16/21 22:58 Blood Blood Culture - Preliminary Gram Positive Cocci 06/16/21 22:58 Blood Blood Culture - Preliminary NO GROWTH AFTER 48 HOURS - Constitutional no acute distress, chronically ill appearing - *Routine HEENT Exam Head: Present: normocephalic Eye: Present: EOMI ENT: Present: mucous membranes moist - *Routine Neck Exam Present: trachea midline. Absent: tracheal deviation - *Routine Respiratory Exam Present: CTA bilaterally. Absent: accessory muscle use - *Routine Cardiovascular Exam Present: RRR - *Routine Abdominal Exam Present: soft, normoactive bowel sounds, tenderness, obese, wound. Absent: firm Comments: Abdominal incision well approximated with chava intact No redness, swelling, or drainage - *Routine Extremities Exam Present: full ROM, pulses intact. Absent: cyanosis, clubbing, edema - *Routine Skin Exam Present: dry, warm, wounds. Absent: intact, cyanosis, erythema Comments: Midline abdominal incision with dressing clean dry and intact - *Routine Neurological Exam Present: alert, oriented X3. Absent: motor deficit - Routine Psychiatric Exam Present: normal affect, normal thought process. Absent: visual hallucinations Assessment and Plan (1) Obesity, morbid, BMI 40.0-49.9 Status: Acute Category: Medical Code(s): E66.01 - Morbid (severe) obesity due to excess calories (2) Renal insufficiency Status: Acute Category: Medical Code(s): N28.9 - Disorder of kidney and ureter, unspecified (3) Small bowel obstruction Status: Acute Category: Medical Code(s): K56.609 - Unspecified intestinal obstruction, unspecified as to partial versus complete obstruction (4) Abdominal pain Status: Acute Category: Medical Code(s): R10.9 - Unspecified abdominal pain - Assessment and plan all Dx Assessment and Plan for all problems:: Rounded with Dr. Hair, all orders per Dr. Hair: 1. Continue current medical care 2. General surgery following
--- NOTE | 2021-06-19 14:42 | PC.NURSE ---
rounded on patient. patient and family at bedside asleep.
--- NOTE | 2021-06-19 17:14 | ECG_ITS ---
APPROVED REPORT Exam: Resting ECG HR:157 bpm ECG Measurements Heart Rate 157 AXES QRSd 106 QRS -13 QT 278 T 70 QTc 366 Conclusion ATRIAL FIBRILLATION WITH RAPID VENTRICULAR RESPONSE INFERIOR change is old UNCONFIRMED REPORT Electronically signed by : Edgar Mccarty MD 06/20/2021 08:16:30
--- NOTE | 2021-06-19 17:46 | PC.NURSE ---
Called Admissions at [phone] to change pts status from acute to Stepdown
--- NOTE | 2021-06-19 18:13 | PC.NURSE ---
HR 160-180s. Diltiazem 10mg IV bolus given and Diltiazem gtt started @ 15mg/hr.
[2021-06-20] VITALS (10 sets, daily range): BP systolic 116–176; BP diastolic 56–73; PULSE 50–117; RESP 14–18; TEMP 36.8–37.5; O2SAT 91–96; BMI 46.3
--- NOTE | 2021-06-20 05:15 | PC.NURSE ---
Pt is A&O x3 with periods of confusion this shift. Has c/o discomfort to abdomen with a rating of 5-6 POLICY ANALYST scale. She has had difficulty with repositioning and being comfortable. Pt turned Q2 H or more as needed. Medication administered per may. NG to low wall continuous suction. Pt has passed gas this shift. F/C draining to bedside with bright, yellow urine. O2 NC titrated to 3L due to pt c/o soa this AM. Diltiazem titrated per protocol. Currently infusing @ 15 ml/hr. No other concerns. Will continue to monitor.
[2021-06-20 06:40] LABS: Basophils % 0.7 % (0.1-2.0); Eosinophils # 0.2 K/mm3 (0.0-0.4); Eosinophils % 3.5 % (0.1-12.0); Hematocrit 33.6 % (37.0-47.0); Hemoglobin 10.7 g/dL (12.2-16.2); Lymphocytes # 0.9 K/mm3 (0.7-4.5); Mean Corpuscular HGB Conc 31.9 g/dL (31.8-35.4); Mean Corpuscular Hemoglobin 32.1 pg (27.0-31.2); Mean Corpuscular Volume 100.6 fl (81-99); Mean Platelet Volume 8.6 fl (7.4-10.4); Monocytes # 0.3 K/mm3 (0.1-1.0); Monocytes % 6.9 % (1.7-9.3); Neutrophils % 68.8 % (37.0-80.0); Platelet Count 265 K/mm3 (142-424); Red Blood Count 3.34 M/mm3 (4.20-5.40); Red Cell Distribution Width 15.2 % (11.5-17.5); White Blood Count 4.4 K/mm3 (4.8-10.8)
[2021-06-20 07:45] LABS: Chloride 111 mmol/L (98-107); Potassium 3.6 mmoL/L (3.5-5.1); Sodium 145 mmol/L (136-145)
[2021-06-20 07:48] LABS: Anion Gap 10.6 mEq/L (5-15); Blood Urea Nitrogen 18 mg/dl (7-17); Calcium 7.3 mg/dl (8.4-10.2); Carbon Dioxide 27 mmol/L (22.0-30.0); Creatinine Clearance Estimated 41 mL/min (50-200); Estimated Glomerular Filt Rate 55 ml/min (>60); GFR (African American) 66 ML/MIN (>60); Glucose 92 mg/dl (74-100)
--- NOTE | 2021-06-20 08:33 | HMH.PHACONS ---
- Pharmacy Consult Date: 06/20/21 Time: 08:33 Referring provider: DR RODRIGUEZ Reason for Consult:: VANCOMYCIN DOSING CONSULT Allergies and ADEs:: Allergies Allergy/AdvReac Type Severity Reaction Status Date / Time NSAIDS (Non-Steroidal AdvReac EFFECTS Verified 06/17/21 00:55 Anti-Inflamma KIDNEYS Home Medications:: Home Medications Medication Instructions Recorded Confirmed Type Atorvastatin Calcium [Lipitor 20mg 20 mg PO HS 06/18/17 06/17/21 History Tab] Esomeprazole Magnesium 40 mg PO DAILY 06/18/17 06/17/21 History Furosemide [Furosemide 40MG tAB*] 40 mg PO BID 06/18/17 06/17/21 History LORazepam [Ativan 0.5mg 0.5 mg PO Q8HP PRN 06/18/17 06/17/21 History tablet] Oxybutynin Chloride [Oxybutynin 5 mg PO DAILY 06/18/17 06/17/21 History Chloride ER] Potassium Chloride [K-Tab ER 10 10 meq PO BID 06/18/17 06/17/21 History mEq] Sertraline HCl [Zoloft 50mg tablet] 50 mg PO DAILY 06/18/17 06/17/21 History Tizanidine HCl [Zanaflex] 4 mg PO HS 06/18/17 06/17/21 History allopurinoL [Allopurinol 300mg 300 mg PO DAILY 06/18/17 06/17/21 History tablet] Spironolactone [Spironolactone 25 mg PO DAILY 03/31/19 06/17/21 History 25mg Tablet] Fexofenadine HCl 180 mg PO DAILY 06/03/21 06/17/21 History Hydrocodone/Acetaminophen 1 tab PO Q4H 06/03/21 06/17/21 History [Hydrocodone-Acetamin 10-325 mg] Propranolol HCl [Inderal 20mg 20 mg PO BID 06/16/21 06/17/21 History tablet] Dextran 70/Hypromellose/Pf 1 drp EYE-BOTH NEEDED PRN 06/17/21 06/17/21 History [Artificial Tears Drops] Empagliflozin [Jardiance] 25 mg PO DAILY 06/17/21 06/17/21 History Fluticasone Propionate [Flovent 50 mcg IH DAILY 06/17/21 06/17/21 History Diskus] Metformin HCl [Metformin ER 500 mg PO DAILY 06/17/21 06/17/21 History Gastric] ondansetron HCL [Ondansetron 4mg 4 mg PO Q6 PRN 06/17/21 06/17/21 History tab*] predniSONE [Prednisone 5mg 5 mg PO DAILY 06/17/21 06/17/21 History Tab] Height: 1.6 m Weight: 118.478 kg Laboratory Results:: Laboratory Results - last 24 hr 06/20/21 06:30: WBC 4.4 L, RBC 3.34 L, Hgb 10.7 L, Hct 33.6 L, MCV 100.6 H, MCH 32.1 H, MCHC 31.9, RDW 15.2, Plt Count 265, MPV 8.6, Neut % (Auto) 68.8, Lymph % (Auto) 20.0, [place] % (Auto) 6.9, Eos % (Auto) 3.5, Baso % (Auto) 0.7, Neut # (Auto) 3.0, Lymph # (Auto) 0.9, [place] # (Auto) 0.3, Eos # (Auto) 0.2, Baso # (Auto) 0.0 06/20/21 06:30: Sodium 145, Potassium 3.6, Chloride 111 H, Carbon Dioxide 27, Anion Gap 10.6, BUN 18 H, Creatinine 1.00, Estimated Creat Clear 41, Estimated GFR 55 L, Est GFR ( Amer) 66 D, Glucose 92, Calcium 7.3 L Medical History: Reports:: Anxiety, Asthma, Depression, Diabetes Mellitus Type 2, Gastroesophageal Reflux Disease(GERD), Hyperlipidemia, Migraine, Renal Insufficiency Denies:: Cancer, Diabetes Mellitus Type 1, MRSA Assessment and Plan (1) Obesity, morbid, BMI 40.0-49.9 Status: Acute Category: Medical Code(s): E66.01 - Morbid (severe) obesity due to excess calories (2) Renal insufficiency Status: Acute Category: Medical Code(s): N28.9 - Disorder of kidney and ureter, unspecified (3) Small bowel obstruction Status: Acute Category: Medical Code(s): K56.609 - Unspecified intestinal obstruction, unspecified as to partial versus complete obstruction (4) Abdominal pain Status: Acute Category: Medical Code(s): R10.9 - Unspecified abdominal pain - Assessment and plan all Dx Assessment and Plan for all problems:: Pharmacokinetic dosing service Objective: Age: 71 yo Serum creatinine: 1.0 mg/dL Height: 63.0 Inches Weight (kg): 118.48 Diagnosis: BACTEREMIA Assessment: IBW (kg): 52.40 Dosing wt(kg): 78.8 Estimated Creatinine clearance (ml/min): 65.1 CRCL method: Cockcroft and Gault using adjusted body weight Drug selected: Vancomycin Loading dose (mg):
--- NOTE | 2021-06-20 09:36 | P.PN_ITS ---
Subjective Patient reports: no bowel movement Narrative: Patient went into atrial fibrillation with rapid ventricular response requiring transfer to stepdown and initiation of Cardizem drip. Otherwise she is doing well without significant complaints. NG drained a liter yesterday. Progress Note: A&P (1) Obesity, morbid, BMI 40.0-49.9 Status: Acute (2) Renal insufficiency Status: Acute (3) Small bowel obstruction Status: Acute (4) Abdominal pain Status: Acute Assessment and Plan for All Diagnoses:: We will start working towards removing NG tube. May be able to DC Mcghee. Exam Vital signs and Labs for Last 24 Hours: Temp Pulse Resp BP Pulse Ox 99.1 F 104 H 15 156/71 H 92 L 06/20/21 04:00 06/20/21 06:20 06/20/21 06:20 06/20/21 06:20 06/20/21 06:20 Laboratory Results - last 24 hr 06/20/21 06:30: WBC 4.4 L, RBC 3.34 L, Hgb 10.7 L, Hct 33.6 L, MCV 100.6 H, MCH 32.1 H, MCHC 31.9, RDW 15.2, Plt Count 265, MPV 8.6, Neut % (Auto) 68.8, Lymph % (Auto) 20.0, [place] % (Auto) 6.9, Eos % (Auto) 3.5, Baso % (Auto) 0.7, Neut # (Auto) 3.0, Lymph # (Auto) 0.9, [place] # (Auto) 0.3, Eos # (Auto) 0.2, Baso # (Auto) 0.0 06/20/21 06:30: Sodium 145, Potassium 3.6, Chloride 111 H, Carbon Dioxide 27, Anion Gap 10.6, BUN 18 H, Creatinine 1.00, Estimated Creat Clear 41, Estimated GFR 55 L, Est GFR ( Amer) 66 D, Glucose 92, Calcium 7.3 L I & O for Last 24 hours: Intake & Output 06/17/21 06/18/21 06/19/21 06/20/21 11:59 11:59 11:59 11:59 Intake Total 0 / 0 3844 / 3844 713 / 713 3699 / 3699 Output Total 750 / 750 2049 / 2050 570 / 570 Balance 0 / 0 3094 / 3094 -1337 / -1337 3129 / 3129 Weight 257 lb 11.2 oz 250 lb 14.4 oz 569 lb 0.209 oz 261 lb 3.2 oz Microbiology Reports for the Last 24 Hours: Microbiology 06/16/21 22:58 Blood Blood Culture - Preliminary 06/16/21 22:58 Blood Blood Culture - Preliminary Gram Positive Cocci - *Routine Abdominal Exam Present: soft Comments: Incisional tenderness.
--- NOTE | 2021-06-20 09:40 | HMH.ACPN2 ---
Internal Medicine - PN: Subj *Date: 06/20/21 *Time: 09:40 Interval history: afib w/rvr last night cardizem gtt and metoprolol x 1 good rate control more alert spoke w/Dr Klein Exam Vital signs and Labs for Last 24 Hours: Temp Pulse Resp BP Pulse Ox 99.1 F 104 H 15 156/71 H 92 L 06/20/21 04:00 06/20/21 06:20 06/20/21 06:20 06/20/21 06:20 06/20/21 06:20 Laboratory Results - last 24 hr 06/20/21 06:30: WBC 4.4 L, RBC 3.34 L, Hgb 10.7 L, Hct 33.6 L, MCV 100.6 H, MCH 32.1 H, MCHC 31.9, RDW 15.2, Plt Count 265, MPV 8.6, Neut % (Auto) 68.8, Lymph % (Auto) 20.0, [place] % (Auto) 6.9, Eos % (Auto) 3.5, Baso % (Auto) 0.7, Neut # (Auto) 3.0, Lymph # (Auto) 0.9, [place] # (Auto) 0.3, Eos # (Auto) 0.2, Baso # (Auto) 0.0 06/20/21 06:30: Sodium 145, Potassium 3.6, Chloride 111 H, Carbon Dioxide 27, Anion Gap 10.6, BUN 18 H, Creatinine 1.00, Estimated Creat Clear 41, Estimated GFR 55 L, Est GFR ( Amer) 66 D, Glucose 92, Calcium 7.3 L I & O for Last 24 hours: Intake & Output 06/17/21 06/18/21 06/19/21 06/20/21 23:59 23:59 23:59 23:59 Intake Total 2099 / 2099 2457 / 2457 3639 / 3669 60 / 60 Output Total 300 / 750 600 / 1500 2019 450 / 450 Balance 1800 / 1350 1857 / 957 1619 / 1649 -390 / -390 Weight 253 lb 5 oz 250 lb 14.4 oz 261 lb 6 oz 261 lb 3.2 oz Microbiology Reports for the Last 24 Hours: Microbiology 06/16/21 22:58 Blood Blood Culture - Preliminary 06/16/21 22:58 Blood Blood Culture - Preliminary Gram Positive Cocci - Constitutional no acute distress, obese, chronically ill appearing - *Routine HEENT Exam Head: Present: normocephalic Eye: Present: EOMI, PERRL ENT: Present: mucous membranes moist - *Routine Neck Exam Present: supple. Absent: lymphadenopathy - *Routine Respiratory Exam Present: CTA bilaterally - *Routine Cardiovascular Exam Present: tachycardia, irregularly irregular - *Routine Abdominal Exam Present: tenderness, surgical scars - *Routine Extremities Exam Absent: cyanosis, clubbing, edema - *Routine Skin Exam Present: warm. Absent: rash - *Routine Neurological Exam Present: alert, vision grossly intact, hearing grossly intact Assessment and Plan (1) Obesity, morbid, BMI 40.0-49.9 Status: Acute Category: Medical Code(s): E66.01 - Morbid (severe) obesity due to excess calories (2) Renal insufficiency Status: Acute Category: Medical Code(s): N28.9 - Disorder of kidney and ureter, unspecified (3) Small bowel obstruction Status: Acute Category: Medical Code(s): K56.609 - Unspecified intestinal obstruction, unspecified as to partial versus complete obstruction (4) Abdominal pain Status: Acute Category: Medical Code(s): R10.9 - Unspecified abdominal pain - Assessment and plan all Dx Assessment and Plan for all problems:: continue current regimen
--- NOTE | 2021-06-20 20:52 | PC.NURSE ---
Paged Pharmacy at [phone] to confirm compatibility with LR and Ampicillin Pharmacy returned call at [phone] and confirmed compatibility.
[2021-06-21] VITALS (13 sets, daily range): BP systolic 121–158; BP diastolic 56–93; PULSE 90–124; RESP 16–20; TEMP 36.5–38; O2SAT 90–98; BMI 46.5
--- NOTE | 2021-06-21 06:03 | PC.NURSE ---
pt has not rested much this shift, has required PRN pain meds 3 times this shift, PRN medications also given for agitation, NG remains in place to continuous low wall suction, remains on cardizem gtt at 15, HR has been between 90-116, systolic BP 121-157, goodwin remains in place, 1000 mL of urine out so far this shift
[2021-06-21 06:51] LABS: Basophils % 0.4 % (0.1-2.0); Eosinophils # 0.2 K/mm3 (0.0-0.4); Eosinophils % 3.4 % (0.1-12.0); Hematocrit 34.5 % (37.0-47.0); Hemoglobin 10.6 g/dL (12.2-16.2); Lymphocytes # 0.9 K/mm3 (0.7-4.5); Lymphocytes % 15.8 % (10-50); Mean Corpuscular HGB Conc 30.8 g/dL (31.8-35.4); Mean Corpuscular Hemoglobin 31.3 pg (27.0-31.2); Mean Corpuscular Volume 101.5 fl (81-99); Monocytes # 0.3 K/mm3 (0.1-1.0); Monocytes % 5.1 % (1.7-9.3); Neutrophils # 4.1 K/mm3 (1.8-7.8); Neutrophils % 75.3 % (37.0-80.0); Platelet Count 305 K/mm3 (142-424); Red Cell Distribution Width 15.1 % (11.5-17.5); White Blood Count 5.5 K/mm3 (4.8-10.8)
[2021-06-21 07:05] LABS: Chloride 113 mmol/L (98-107); Potassium 3.1 mmoL/L (3.5-5.1); Sodium 148 mmol/L (136-145)
[2021-06-21 07:08] LABS: Anion Gap 12.1 mEq/L (5-15); Carbon Dioxide 26 mmol/L (22.0-30.0)
[2021-06-21 07:09] LABS: Calcium 7.6 mg/dl (8.4-10.2); Glucose 75 mg/dl (74-100)
[2021-06-21 07:13] LABS: Blood Urea Nitrogen 15 mg/dl (7-17)
[2021-06-21 07:14] LABS: Creatinine Clearance Estimated 38 mL/min (50-200); Estimated Glomerular Filt Rate 49 ml/min (>60); GFR (African American) 59 ML/MIN (>60)
--- NOTE | 2021-06-21 09:14 | HMH.ACPN2 ---
Internal Medicine - PN: Subj *Date: 06/21/21 *Time: 09:14 Interval history: Patient looks much brighter today. NG tube still in, positive flatus. Atrial fib and flutter on the monitor, continues Cardizem at 15. No chest pain or dyspnea. Exam Vital signs and Labs for Last 24 Hours: Temp Pulse Resp BP Pulse Ox 100.4 F H 116 H 20 158/60 H 96 06/21/21 07:06 06/21/21 08:00 06/21/21 08:00 06/21/21 08:00 06/21/21 08:00 Laboratory Results - last 24 hr 06/21/21 06:26: WBC 5.5, RBC 3.40 L, Hgb 10.6 L, Hct 34.5 L, MCV 101.5 H, MCH 31.3 H, MCHC 30.8 L, RDW 15.1, Plt Count 305, MPV 9.0, Neut % (Auto) 75.3, Lymph % (Auto) 15.8, [place] % (Auto) 5.1, Eos % (Auto) 3.4, Baso % (Auto) 0.4, Neut # (Auto) 4.1, Lymph # (Auto) 0.9, [place] # (Auto) 0.3, Eos # (Auto) 0.2, Baso # (Auto) 0.0 06/21/21 06:26: Sodium 148 H, Potassium 3.1 L, Chloride 113 H, Carbon Dioxide 26, Anion Gap 12.1, BUN 15, Creatinine 1.10 H, Estimated Creat Clear 38, Estimated GFR 49 L, Est GFR ( Amer) 59, Glucose 75, Calcium 7.6 L I & O for Last 24 hours: Intake & Output 06/18/21 06/19/21 06/20/21 06/21/21 23:59 23:59 23:59 23:59 Intake Total 2457 / 2457 3639 / 3669 3174 / 3174 1775 / 1775 Output Total 600 / 1500 2019 2825 / 2825 2099 / 2100 Balance 1857 / 957 1619 / 1649 349 / 349 -325 / -325 Weight 250 lb 14.4 oz 261 lb 6 oz 261 lb 3.2 oz 262 lb 6.4 oz Microbiology Reports for the Last 24 Hours: Microbiology 06/16/21 22:58 Blood Blood Culture - Preliminary Gram Positive Cocci 06/16/21 22:58 Blood Blood Culture - Preliminary - Constitutional no acute distress, obese, chronically ill appearing, cooperative - *Routine HEENT Exam Head: Present: normocephalic Eye: Present: EOMI, PERRL ENT: Present: mucous membranes moist - *Routine Neck Exam Present: supple. Absent: lymphadenopathy - *Routine Respiratory Exam Present: CTA bilaterally - *Routine Cardiovascular Exam Present: tachycardia, irregular rhythm - *Routine Abdominal Exam Present: tenderness - *Routine Extremities Exam Absent: cyanosis, clubbing, edema - *Routine Skin Exam Present: warm. Absent: rash - *Routine Neurological Exam Present: alert, oriented X3 Assessment and Plan (1) Obesity, morbid, BMI 40.0-49.9 Status: Acute Category: Medical Code(s): E66.01 - Morbid (severe) obesity due to excess calories (2) Renal insufficiency Status: Acute Category: Medical Code(s): N28.9 - Disorder of kidney and ureter, unspecified (3) Small bowel obstruction Status: Acute Category: Medical Code(s): K56.609 - Unspecified intestinal obstruction, unspecified as to partial versus complete obstruction (4) Abdominal pain Status: Acute Category: Medical Code(s): R10.9 - Unspecified abdominal pain - Assessment and plan all Dx Assessment and Plan for all problems:: Continue current regimen for now. Have cardiology see tomorrow. Anticipate that NG be discontinued later today.
--- NOTE | 2021-06-21 09:17 | HMH.GSPN ---
Subjective Narrative: Patient taking in a very large amount of ice chips. Therefore significant NG output which appears mainly like water. She does state that she is passing gas. Progress Note: A&P (1) Obesity, morbid, BMI 40.0-49.9 Status: Acute (2) Renal insufficiency Status: Acute (3) Small bowel obstruction Status: Acute (4) Abdominal pain Status: Acute Assessment and Plan for All Diagnoses:: I will check an acute abdominal series. Monitor incision for wound infection. Possible removal of NG tube soon. Exam Vital signs and Labs for Last 24 Hours: Temp Pulse Resp BP Pulse Ox 100.4 F H 116 H 20 158/60 H 96 06/21/21 07:06 06/21/21 08:00 06/21/21 08:00 06/21/21 08:00 06/21/21 08:00 Laboratory Results - last 24 hr 06/21/21 06:26: WBC 5.5, RBC 3.40 L, Hgb 10.6 L, Hct 34.5 L, MCV 101.5 H, MCH 31.3 H, MCHC 30.8 L, RDW 15.1, Plt Count 305, MPV 9.0, Neut % (Auto) 75.3, Lymph % (Auto) 15.8, [place] % (Auto) 5.1, Eos % (Auto) 3.4, Baso % (Auto) 0.4, Neut # (Auto) 4.1, Lymph # (Auto) 0.9, [place] # (Auto) 0.3, Eos # (Auto) 0.2, Baso # (Auto) 0.0 06/21/21 06:26: Sodium 148 H, Potassium 3.1 L, Chloride 113 H, Carbon Dioxide 26, Anion Gap 12.1, BUN 15, Creatinine 1.10 H, Estimated Creat Clear 38, Estimated GFR 49 L, Est GFR ( Amer) 59, Glucose 75, Calcium 7.6 L I & O for Last 24 hours: Intake & Output 06/18/21 06/19/21 06/20/21 06/21/21 11:59 11:59 11:59 11:59 Intake Total 3844 / 3844 713 / 713 3699 / 3699 4889 / 4889 Output Total 750 / 750 2050 / 2050 570 / 570 4475 / 4475 Balance 3094 / 3094 -1337 / -1337 3129 / 3129 414 / 414 Weight 250 lb 14.4 oz 569 lb 0.209 oz 261 lb 3.2 oz 262 lb 6.4 oz Microbiology Reports for the Last 24 Hours: Microbiology 06/16/21 22:58 Blood Blood Culture - Preliminary Gram Positive Cocci 06/16/21 22:58 Blood Blood Culture - Preliminary - *Routine Abdominal Exam Present: soft Comments: Minor drainage from the incision.
--- NOTE | 2021-06-21 09:20 | XR_ITS ---
PROCEDURE INFORMATION: Exam: XR Abdomen Exam date and time: 06/21/2021 9:57 AM Age: 71 years old Clinical indication: Bloating; Prior surgery; Surgery date: Post-operative (0-2 days); Surgery type: Laparotomy; Additional info: Bowel obstruction, S/P laparotomy/ -- patient unable to stand we had to set up in chair for one and lay for the other for upright and supine xray TECHNIQUE: Imaging protocol: XR of the abdomen. Views: 2 Views. Upright and supine views. COMPARISON: CR XR KUB 06/18/2021 4:39 AM FINDINGS: Tubes, catheters and devices: There is a nasogastric tube terminating near the gastroesophageal junction. Gastrointestinal tract: There are multiple loops of air-filled bowel identified in the left upper quadrant. Most of these loops have the appearance of air-filled redundant transverse colon. There is a loop of bowel in the right hemiabdomen which is likely within ascending colon. On upright radiograph, there is a dilated loop of bowel in the upper abdomen that may represent dilated small bowel. Intraperitoneal space: Normal. No free air. Bones/joints: Unremarkable for age. IMPRESSION: 1. Air-filled dilated loops of bowel, mostly colon. However, there may be 1 loop of bowel in the left hemiabdomen that represents air-filled small bowel. 2. Dilation CT examination of the abdomen and pelvis is suggested for further evaluation.
[2021-06-22] VITALS (15 sets, daily range): BP systolic 135–179; BP diastolic 62–97; PULSE 84–117; RESP 12–23; TEMP 36.7–39; O2SAT 90–98; BMI 46.4
--- NOTE | 2021-06-22 | CA_ITS ---
APPROVED REPORT EXAM: Comprehensive 2D, Doppler, and color-flow Echocardiogram Engraver Machine: AIDAN Osman, RVS Ht: 5 ft 2 in Wt: 262lbs BSA: 2.14 BP: 135/64 mmHg Indications: post op SBO, AFIB, HTN, HLD, DM Echo Enhancing Agent Comments: Pt scanned Supine in chair, poor acoustics throughout exam. 2D Dimensions IVSd 0.80 cm LVEF (Visual) 74.70 % PWd 1.05 cm LA Volume 55.80 mL LVDd 5.05 cm LA Volume Index 26.10 mL/m2 (M/F) 16-34 LVDs 2.84 cm Left Atrium 3.40 cm LVOT 1.89 cm (M/F) 1.5-2.5 M-Mode Dimensions RVDd 2.55 cm (0.9-2.6) LA Diam 4.17 cm (1.9-4.0) LVDd 4.84 cm (3.5-5.7) Ao Diam 2.98 cm (2.0-3.7) LVDs 2.76 cm (3.5-5.7) IVSd 1.36 cm (0.6-1.1) PWd 1.19 cm (0.6-1.1) EF (Teich) 74.00% EPSs 0.64 cm FS 43.00% EDV (Teich) 109.60 mL TAPSE 2.97 (<1.7) ESV (Teich) 28.50 mL LV Diastology E Decel Time 270.00 (160-240 msec) E/A Ratio 1.13 MED E' 7.80 (< 7 cm/sec) MED A' 10.40 cm/s E'/MED E' Ratio 10.74 (>14) LAT E' 14.00 (<10 cm/sec) LAT A' 8.40 cm/s E/LAT E' Ratio 5.99 (>14) Aortic Valve LVOT Max 136.00 (70-110 cm/s) LVOT VTI 23.50 cm AoV Peak Ish. 230.00 (50-130 cm/s) AO Peak GR. 21.20 mmHg AO Mean GR. 10.40 (<5 mmHg) AO VTI 41.30 (18-25 cm) SOLO (VTI) 1.60 (2.5-4.5 cm2) Mitral Valve MV A Velocity 74.00 (40-130 cm/s) E/A Ratio 1.13 MV Decel. Time 270.00 (160-240 ms) MV Mean Gr. 2.50 (<2mmHg) MV PHT 80.00 ms Pulmonary Valve PV Peak Velocity 135.00 (50-150 cm/s) Tricuspid Valve TR P. Velocity 255.00 cm/s RAP Estimate 10.00 mmHg RVSP 36.00 mmHg Left Ventricle Left atrium is mildly enlarged, left ventricle is normal size, mild concentric left ventricular hypertrophy, visually estimated ejection fraction 55 to 60% with no regional wall motion abnormality, diastolic parameters are inconclusive. Right Ventricle Right atrium and left ventricular normal size and contractility. Aortic Valve Aortic valve is thickened and calcified, mean gradient across the aortic valve is 11 mmHg, valve area is 1.6 cm represents mild aortic stenosis, there is no significant aortic insufficiency. Mitral Valve Mitral valve is grossly normal, there is mild mitral regurgitation. Tricuspid Valve Tricuspid grossly normal, there is mild tricuspid regurgitation. Tricuspid regurgitation jet velocity is inadequate for calculation of the right ventricular systolic pressure. Pulmonic Valve Pulmonic valve is poorly visualized. Great Vessels Aortic root is normal size. Inferior vena cava is poorly visualized. Pericardium No significant pericardial effusion noted. Conclusion 1. Mildly enlarged left atrium, normal left ventricular size, mild concentric left ventricular hypertrophy, visually estimated ejection fraction 55 to 60% with no regional wall motion abnormality, diastolic parameters are inconclusive. 2. Thickened and calcified aortic valve with mild aortic stenosis, there is no aortic insufficiency. 3. Mild mitral and tricuspid regurgitation. 4. No significant pericardial effusion. 5. Inferior vena cava is poorly visualized. Electronically signed by : Anthony Moody MD 06/22/2021 20:57:30
[2021-06-22 04:35] LABS: MANUAL DIFFERENTIAL MANUAL DIFFERENTIAL (MANUAL DIFF)
[2021-06-22 04:38] LABS: Basophils # 0.1 K/mm3 (0-0.2); Basophils % 1.3 % (0.1-2.0); Eosinophils # 0.3 K/mm3 (0.0-0.4); Eosinophils % 4.2 % (0.1-12.0); Hematocrit 32.9 % (37.0-47.0); Hemoglobin 10.4 g/dL (12.2-16.2); Lymphocytes # 0.9 K/mm3 (0.7-4.5); Lymphocytes % 14.7 % (10-50); Mean Corpuscular HGB Conc 31.7 g/dL (31.8-35.4); Mean Corpuscular Hemoglobin 31.4 pg (27.0-31.2); Mean Corpuscular Volume 98.9 fl (81-99); Mean Platelet Volume 8.7 fl (7.4-10.4); Monocytes # 0.3 K/mm3 (0.1-1.0); Monocytes % 5.5 % (1.7-9.3); Neutrophils # 4.3 K/mm3 (1.8-7.8); Neutrophils % 74.2 % (37.0-80.0); Platelet Count 329 K/mm3 (142-424); Red Blood Count 3.32 M/mm3 (4.20-5.40); Red Cell Distribution Width 15.3 % (11.5-17.5); White Blood Count 5.8 K/mm3 (4.8-10.8)
[2021-06-22 04:57] LABS: Eosinophils % 3 % (0-3); Hypochromasia 1+; Lymphocytes % 13 % (10-50); Macrocytosis 1+; Monocytes % 2 % (2-9); Neutrophils % 68 % (42-76); Platelet Estimate Normal; Rouleaux 2+; Total Cells Counted 100
[2021-06-22 05:06] LABS: Vancomycin,Trough 11.8 ug/mL (5.0-10.0)
[2021-06-22 05:19] LABS: Chloride 115 mmol/L (98-107); Potassium 3.3 mmoL/L (3.5-5.1); Sodium 149 mmol/L (136-145)
[2021-06-22 05:22] LABS: Blood Urea Nitrogen 17 mg/dl (7-17); Creatinine Clearance Estimated 38 mL/min (50-200); Estimated Glomerular Filt Rate 49 ml/min (>60); GFR (African American) 59 ML/MIN (>60)
[2021-06-22 05:23] LABS: Anion Gap 8.3 mEq/L (5-15); Calcium 7.4 mg/dl (8.4-10.2); Carbon Dioxide 29 mmol/L (22.0-30.0); Glucose 81 mg/dl (74-100)
--- NOTE | 2021-06-22 05:29 | ECG_ITS ---
APPROVED REPORT Exam: Resting ECG HR:90 bpm ECG Measurements Heart Rate 90 AXES PA 162 P 59 QRSd 92 QRS 18 QT 309 T 89 QTc 357 Conclusion SINUS RHYTHM NONSPECIFIC T-WAVE ABNORMALITY BORDERLINE ECG UNCONFIRMED REPORT Electronically signed by : Edgar Mccarty MD 06/24/2021 17:37:01
--- NOTE | 2021-06-22 06:00 | PC.NURSE ---
Pt has rested better this shift. Has requested pain medication and ativan as needed. Administered per may. Pt turned and repositioned. She's A&O x3. Pt was noted on telemetry to have converted to NSR. EKG was obtained this AM. MD Quiroz was notified. New orders received to keep pt on Diltiazem gtt at this time. It is currently infusing @ 5 ml/hr. VS currently stable. Pt has been febrile this shift. She is currently on 2.5 L O2 NC. No other concerns. Will continue to monitor.
--- NOTE | 2021-06-22 08:56 | CA_ITS ---
FINAL REPORT TECHNIQUE: Sonographic images of the veins of the right upper extremity were obtained from axilla to antecubital fossa. Additionally, images of the internal jugular vein and subclavian vein were also obtained. CLINICAL HISTORY: EDEMA,BRUISING RUE,PAIN PROXIAML FOREARM,S/P BOWEL SURGERY FINDINGS: The veins of the right upper extremity are compressible from axilla to antecubital fossa. Blood flow is demonstrated by both color and spectral Doppler as well. The internal jugular vein and subclavian vein are also patent. IMPRESSION: No evidence of venous thrombosis of the upper extremity. Reviewed, Interpreted and Dictated by Neo Stein III, MD Transcribed by Tabitha Sánchez Authenticated by Neo Stein III, MD on 06/22/2021 11:45:56 AM [facility]
--- NOTE | 2021-06-22 09:01 | HMH.ACPN2 ---
Internal Medicine - PN: Subj *Date: 06/22/21 *Time: 08:15 Interval history: pt laying in bed states she feels bad Exam Vital signs and Labs for Last 24 Hours: Temp Pulse Resp BP Pulse Ox 98.3 F 90 15 142/66 H 95 06/22/21 04:00 06/22/21 06:00 06/22/21 06:00 06/22/21 06:00 06/22/21 06:00 Laboratory Results - last 24 hr 06/22/21 04:29: Vancomycin Trough 11.8 H 06/22/21 04:29: WBC 5.8, RBC 3.32 L, Hgb 10.4 L, Hct 32.9 L, MCV 98.9, MCH 31.4 H, MCHC 31.7 L, RDW 15.3, Plt Count 329, MPV 8.7, Neut % (Auto) 74.2, Lymph % (Auto) 14.7, [place] % (Auto) 5.5, Eos % (Auto) 4.2, Baso % (Auto) 1.3, Neut # (Auto) 4.3, Lymph # (Auto) 0.9, [place] # (Auto) 0.3, Eos # (Auto) 0.3, Baso # (Auto) 0.1, Total Counted 100, Neutrophils % (Manual) 68, Band Neutrophils % 14.0 H, Lymphocytes % (Manual) 13, Monocytes % (Manual) 2, Eosinophils % (Manual) 3, Platelet Estimate Normal, Hypochromasia 1+, Macrocytosis 1+, Rouleaux 2+ 06/22/21 04:29: Sodium 149 H, Potassium 3.3 L, Chloride 115 H, Carbon Dioxide 29, Anion Gap 8.3, BUN 17, Creatinine 1.10 H, Estimated Creat Clear 38, Estimated GFR 49 L, Est GFR ( Amer) 59, Glucose 81, Calcium 7.4 L I & O for Last 24 hours: Intake & Output 06/19/21 06/20/21 06/21/21 06/22/21 11:59 11:59 11:59 11:59 Intake Total 713 / 713 3699 / 3699 4889 / 4889 2124 / 2124 Output Total 2049 / 2049 570 / 570 4475 / 4475 2450 / 2450 Balance -1337 / -1337 3129 / 3129 414 / 414 -325 / -325 Weight 569 lb 0.209 oz 261 lb 3.2 oz 262 lb 6.4 oz 262 lb 3.2 oz Microbiology Reports for the Last 24 Hours: Microbiology 06/16/21 22:58 Blood Blood Culture - Final Jaylan singh 06/16/21 22:58 Blood Blood Culture - Preliminary Gram Positive Cocci - Constitutional no acute distress - *Routine HEENT Exam Head: Present: normocephalic Eye: Present: PERRL ENT: Present: mucous membranes moist - *Routine Neck Exam Present: supple. Absent: lymphadenopathy - *Routine Respiratory Exam Present: CTA bilaterally - *Routine Cardiovascular Exam Present: RRR - *Routine Abdominal Exam Present: soft, normoactive bowel sounds. Absent: tenderness Comments: ng in place - *Routine Extremities Exam Absent: cyanosis, clubbing, edema - *Routine Skin Exam Present: warm. Absent: rash Comments: chava in place, incision c/d/i - *Routine Neurological Exam Present: alert, oriented X3 Assessment and Plan (1) Obesity, morbid, BMI 40.0-49.9 Status: Acute Category: Medical Code(s): E66.01 - Morbid (severe) obesity due to excess calories (2) Renal insufficiency Status: Acute Category: Medical Code(s): N28.9 - Disorder of kidney and ureter, unspecified (3) Small bowel obstruction Status: Acute Category: Medical Code(s): K56.609 - Unspecified intestinal obstruction, unspecified as to partial versus complete obstruction (4) Abdominal pain Status: Acute Category: Medical Code(s): R10.9 - Unspecified abdominal pain - Assessment and plan all Dx Assessment and Plan for all problems:: rounded with dr sawyer all orders per dr sawyer cardiology consult surgery consult
--- NOTE | 2021-06-22 09:26 | HMH.CNCARD ---
History of Present Illness Consult date: 06/22/21 Requesting physician: Carter Hair Consult reason: atrial fibrillation Chief complaint: Surgery for SBO, PAF Additional Medical History:: 1. Diabetes mellitus type 2 2. Hyperlipidemia 3. Anxiety/depression 4. GERD 5. History of asthma 6. History of renal insufficiency History of present illness: 71-year-old female presented to ed with c/o of abd pain. She had been admitted to the hospital on 06/03/2021 until 06/05/2021 with findings of partial small bowel obstruction. At that time it was managed nonoperatively. She had previously undergone apparent laparoscopic umbilical hernia repair about 2 years ago in [facility]. Patinet states the symptoms returned a few days ago and worsened with nausea and vomiting. CT scan shows findings of persistent incarcerated umbilical hernia with worsening proximal small bowel obstruction associated with second transition point proximally, consistent with closed-loop obstruction. Patient was admitted and surgery consult placed. The above per Dr. Hair's H&P Patient did undergo surgery for small bowel obstruction. Patient had been doing well postoperatively until this past weekend when she developed atrial fibrillation with a rapid ventricular response. She responded well to IV Cardizem and is now actually back in sinus rhythm. She is still n.p.o. except ice chips with NG tube in place. No prior history of atrial fibrillation per patient. She denies any prior cardiac issues. [facility] History Medical History: Reports:: Anxiety, Asthma, Depression, Diabetes Mellitus Type 2, Gastroesophageal Reflux Disease(GERD), Hyperlipidemia, Migraine, Renal Insufficiency Denies:: Cancer, Diabetes Mellitus Type 1, MRSA *Have you ever received a pneumonia vaccine?: Yes *Have you received a flu vaccine this season?: Yes Other Medical History: Reports: Arthritis, Thyroid Disease, Other (gout, allergic rhinitis, chronic back pain, chronic steroid use) Anesthesia experience/problems:: nac Other Surgeries: Yes: Hernia Repair, Tubal Ligation Amputation: No Fractures: No - *Social History Smoking Status: Never smoker Alcohol Intake: never Substance Use Type: denies use *Occupational Status:: retired Housing: house Household Members: children *Travel in the last 8 weeks: None - Psychiatric History Pschychiatric History:: Reports:: Anxiety, Depression Family Hx:: No significant family history Meds Home Medications Medication Instructions Recorded Confirmed Type Atorvastatin Calcium [Lipitor 20mg 20 mg PO HS 06/18/17 06/17/21 History Tab] Esomeprazole Magnesium 40 mg PO DAILY 06/18/17 06/17/21 History Furosemide [Furosemide 40MG tAB*] 40 mg PO BID 06/18/17 06/17/21 History LORazepam [Ativan 0.5mg 0.5 mg PO Q8HP PRN 06/18/17 06/17/21 History tablet] Oxybutynin Chloride [Oxybutynin 5 mg PO DAILY 06/18/17 06/17/21 History Chloride ER] Potassium Chloride [K-Tab ER 10 10 meq PO BID 06/18/17 06/17/21 History mEq] Sertraline HCl [Zoloft 50mg tablet] 50 mg PO DAILY 06/18/17 06/17/21 History Tizanidine HCl [Zanaflex] 4 mg PO HS 06/18/17 06/17/21 History allopurinoL [Allopurinol 300mg 300 mg PO DAILY 06/18/17 06/17/21 History tablet] Spironolactone [Spironolactone 25 mg PO DAILY 03/31/19 06/17/21 History 25mg Tablet] Fexofenadine HCl 180 mg PO DAILY 06/03/21 06/17/21 History Hydrocodone/Acetaminophen 1 tab PO Q4H 06/03/21 06/17/21 History [Hydrocodone-Acetamin 10-325 mg] Propranolol HCl [Inderal 20mg 20 mg PO BID 06/16/21 06/17/21 History tablet] Dextran 70/Hypromellose/Pf 1 drp EYE-BOTH NEEDED PRN 06/17/21 06/17/21 History [Artificial Tears Drops] Empagliflozin [Jardiance] 25 mg PO DAILY 06/17/21 06/17/21 History Fluticasone Propionate [Flovent 50 mcg IH DAILY 06/17/21 06/17/21 History Diskus] Metformin HCl [Metformin ER 500 mg PO DAILY 06/17/21 06/17/21 History Gastric] ondansetron HCL [Ondansetron
--- NOTE | 2021-06-22 09:56 | SW/DCPLANNER ---
I spoke with patient's daughter (Xiomara/SHIKHA) regarding discharge. I discussed with daughter that PT/OT recommend SNF level of care at time of discharge. I explained to daughter that [facility] is the only facility in [facility] with patient's insurance. Daughter is agreeable w/ [facility]: information will be faxed if a bed is available. Rachel is currently here at [facility] and will evaluate this patient this AM.
--- NOTE | 2021-06-22 10:01 | CT_ITS ---
FINAL REPORT TECHNIQUE: Postcontrast axial images of the chest were performed in a CTA protocol. This study was performed with techniques to keep radiation doses as low as reasonably achievable, (ALARA). Individualized dose reduction technique using automated exposure control or adjustment of mA and/or kV according to the patient's size were employed. CLINICAL HISTORY: New onset A. fib, post op SBO FINDINGS: The heart is normal in size. No adenopathy is identified. No pleural or pericardial effusion is identified. The thoracic aorta is normal in caliber with no focal aneurysm or dissection identified. There is no filling defect to suggest pulmonary embolism. There is mild atelectasis. No lung infiltrate or mass is identified. The images of the upper abdomen demonstrate an NG tube with the tip in the stomach antrum. Probable sludge or stones are seen in the gallbladder. Note is made of bilateral renal cysts. IMPRESSION: No evidence for PE on this exam. Probable sludge or stones in the gallbladder. Reviewed, Interpreted and Dictated by Neo Stein III, MD Transcribed by Lady Franco Authenticated by Neo Stein III, MD on 06/22/2021 01:25:[address] [facility]
[2021-06-22 10:40] LABS: Vancomycin,Peak 27.6 ug/ml (11-39)
--- NOTE | 2021-06-22 10:45 | DIET.NUTRFU ---
Patient continues NPO since 06/16, not medically feasible for oral diet at this time. NG tube in place for suction. IVF in place for hydration. Labs 06/22: Na 149H, K 3.3L, BUN 17, Cr 1.10H, glucose 81. Will continue to monitor when oral diet is appropriate, she will need cardiac and diabetic diet.
--- NOTE | 2021-06-22 10:55 | P.PN_ITS ---
Subjective Narrative: Patient without major complaints. She does state that she is passing a lot of gas. No bowel movements. She did have an episode of nausea. Nasogastric aspirate appears to be consistent with melted ice chips. Progress Note: A&P (1) Obesity, morbid, BMI 40.0-49.9 Status: Acute (2) Renal insufficiency Status: Acute (3) Small bowel obstruction Status: Acute (4) Abdominal pain Status: Acute (5) Paroxysmal atrial fibrillation with rapid ventricular response Status: Acute Assessment and Plan for All Diagnoses:: Clamp NG tube for now. If tolerates may be able to DC NG tube. Cardiology seeing the patient patient is undergoing echocardiogram and CTA of the chest. Exam Vital signs and Labs for Last 24 Hours: Temp Pulse Resp BP Pulse Ox 98.1 F 84 13 135/64 97 06/22/21 08:00 06/22/21 08:00 06/22/21 08:00 06/22/21 08:00 06/22/21 08:00 Laboratory Results - last 24 hr 06/22/21 04:29: Vancomycin Trough 11.8 H 06/22/21 04:29: WBC 5.8, RBC 3.32 L, Hgb 10.4 L, Hct 32.9 L, MCV 98.9, MCH 31.4 H, MCHC 31.7 L, RDW 15.3, Plt Count 329, MPV 8.7, Neut % (Auto) 74.2, Lymph % (Auto) 14.7, [place] % (Auto) 5.5, Eos % (Auto) 4.2, Baso % (Auto) 1.3, Neut # (Auto) 4.3, Lymph # (Auto) 0.9, [place] # (Auto) 0.3, Eos # (Auto) 0.3, Baso # (Auto) 0.1, Total Counted 100, Neutrophils % (Manual) 68, Band Neutrophils % 14.0 H, Lymphocytes % (Manual) 13, Monocytes % (Manual) 2, Eosinophils % (Manual) 3, Platelet Estimate Normal, Hypochromasia 1+, Macrocytosis 1+, Rouleaux 2+ 06/22/21 04:29: Sodium 149 H, Potassium 3.3 L, Chloride 115 H, Carbon Dioxide 29, Anion Gap 8.3, BUN 17, Creatinine 1.10 H, Estimated Creat Clear 38, Estimated GFR 49 L, Est GFR ( Amer) 59, Glucose 81, Calcium 7.4 L 06/22/21 09:10: Vancomycin Peak 27.6 I & O for Last 24 hours: Intake & Output 06/19/21 06/20/21 06/21/21 06/22/21 11:59 11:59 11:59 11:59 Intake Total 713 / 713 3699 / 3699 4889 / 4889 2124 / 5 Output Total 2049 / 2049 570 / 570 4475 / 4475 2450 / 2450 Balance -1337 / -1337 3129 / 3129 414 / 414 -325 / -325 Weight 569 lb 0.209 oz 261 lb 3.2 oz 262 lb 6.4 oz 262 lb 3.2 oz Microbiology Reports for the Last 24 Hours: Microbiology 06/16/21 22:58 Blood Blood Culture - Final Dermacoccus richmiyaensis 06/16/21 22:58 Blood Blood Culture - Preliminary Gram Positive Cocci - *Routine Abdominal Exam Comments: Abdomen is slightly distended. Some minor redness around the incision. No definite wound infection.
--- NOTE | 2021-06-22 14:32 | PC.NURSE ---
new order received per Miguel LUJAN to give Diltiazem 15mg IV x 1 dose and to increase gtt to 10mg/hr r/t Aflutter.
--- NOTE | 2021-06-22 14:38 | HMH.PHACONS ---
- Pharmacy Consult Date: 06/22/21 Time: 14:38 Referring provider: DR. RODRIGUEZ Reason for Consult:: VANCOMYCIN LEVELS Allergies and ADEs:: Allergies Allergy/AdvReac Type Severity Reaction Status Date / Time NSAIDS (Non-Steroidal AdvReac EFFECTS Verified 06/17/21 00:55 Anti-Inflamma KIDNEYS Home Medications:: Home Medications Medication Instructions Recorded Confirmed Type Atorvastatin Calcium [Lipitor 20mg 20 mg PO HS 06/18/17 06/17/21 History Tab] Esomeprazole Magnesium 40 mg PO DAILY 06/18/17 06/17/21 History Furosemide [Furosemide 40MG tAB*] 40 mg PO BID 06/18/17 06/17/21 History LORazepam [Ativan 0.5mg 0.5 mg PO Q8HP PRN 06/18/17 06/17/21 History tablet] Oxybutynin Chloride [Oxybutynin 5 mg PO DAILY 06/18/17 06/17/21 History Chloride ER] Potassium Chloride [K-Tab ER 10 10 meq PO BID 06/18/17 06/17/21 History mEq] Sertraline HCl [Zoloft 50mg tablet] 50 mg PO DAILY 06/18/17 06/17/21 History Tizanidine HCl [Zanaflex] 4 mg PO HS 06/18/17 06/17/21 History allopurinoL [Allopurinol 300mg 300 mg PO DAILY 06/18/17 06/17/21 History tablet] Spironolactone [Spironolactone 25 mg PO DAILY 03/31/19 06/17/21 History 25mg Tablet] Fexofenadine HCl 180 mg PO DAILY 06/03/21 06/17/21 History Hydrocodone/Acetaminophen 1 tab PO Q4H 06/03/21 06/17/21 History [Hydrocodone-Acetamin 10-325 mg] Propranolol HCl [Inderal 20mg 20 mg PO BID 06/16/21 06/17/21 History tablet] Dextran 70/Hypromellose/Pf 1 drp EYE-BOTH NEEDED PRN 06/17/21 06/17/21 History [Artificial Tears Drops] Empagliflozin [Jardiance] 25 mg PO DAILY 06/17/21 06/17/21 History Fluticasone Propionate [Flovent 50 mcg IH DAILY 06/17/21 06/17/21 History Diskus] Metformin HCl [Metformin ER 500 mg PO DAILY 06/17/21 06/17/21 History Gastric] ondansetron HCL [Ondansetron 4mg 4 mg PO Q6 PRN 06/17/21 06/17/21 History tab*] predniSONE [Prednisone 5mg 5 mg PO DAILY 06/17/21 06/17/21 History Tab] Height: 1.6 m Weight: 118.932 kg Laboratory Results:: Laboratory Results - last 24 hr 06/22/21 04:29: Vancomycin Trough 11.8 H 06/22/21 04:29: WBC 5.8, RBC 3.32 L, Hgb 10.4 L, Hct 32.9 L, MCV 98.9, MCH 31.4 H, MCHC 31.7 L, RDW 15.3, Plt Count 329, MPV 8.7, Neut % (Auto) 74.2, Lymph % (Auto) 14.7, [place] % (Auto) 5.5, Eos % (Auto) 4.2, Baso % (Auto) 1.3, Neut # (Auto) 4.3, Lymph # (Auto) 0.9, [place] # (Auto) 0.3, Eos # (Auto) 0.3, Baso # (Auto) 0.1, Total Counted 100, Neutrophils % (Manual) 68, Band Neutrophils % 14.0 H, Lymphocytes % (Manual) 13, Monocytes % (Manual) 2, Eosinophils % (Manual) 3, Platelet Estimate Normal, Hypochromasia 1+, Macrocytosis 1+, Rouleaux 2+ 06/22/21 04:29: Sodium 149 H, Potassium 3.3 L, Chloride 115 H, Carbon Dioxide 29, Anion Gap 8.3, BUN 17, Creatinine 1.10 H, Estimated Creat Clear 38, Estimated GFR 49 L, Est GFR ( Amer) 59, Glucose 81, Calcium 7.4 L 06/22/21 09:10: Vancomycin Peak 27.6 Medical History: Reports:: Anxiety, Asthma, Depression, Diabetes Mellitus Type 2, Gastroesophageal Reflux Disease(GERD), Hyperlipidemia, Migraine, Renal Insufficiency Denies:: Cancer, Diabetes Mellitus Type 1, MRSA Assessment and Plan (1) Obesity, morbid, BMI 40.0-49.9 Status: Acute Category: Medical Code(s): E66.01 - Morbid (severe) obesity due to excess calories (2) Renal insufficiency Status: Acute Category: Medical Code(s): N28.9 - Disorder of kidney and ureter, unspecified (3) Small bowel obstruction Status: Acute Category: Medical Code(s): K56.609 - Unspecified intestinal obstruction, unspecified as to partial versus complete obstruction (4) Abdominal pain Status: Acute Category: Medical Code(s): R10.9 - Unspecified abdominal pain (5) Paroxysmal atrial fibrillation with rapid ventricular response Status: Acute Category: Medical Code(s): I48.0 - Paroxysmal atrial fibrillation - Assessment and plan all Dx Assessment and Plan for all problems:: VANCOMYCIN PEAK
--- NOTE | 2021-06-22 15:12 | PC.NURSE ---
pt refused to have IV sites changed.
--- NOTE | 2021-06-22 18:09 | PC.NURSE ---
received call from Dr. Klein. He gave verbal order to discontinue NG tube. OK to continue with small amount of ice chips.
[2021-06-23] VITALS (61 sets, daily range): BP systolic 60–174; BP diastolic 33–79; PULSE 51–165; RESP 16–26; TEMP 37.1–38.7; O2SAT 88–100; BMI 46.4
--- NOTE | 2021-06-23 04:31 | ECG_ITS ---
APPROVED REPORT Exam: Resting ECG HR:165 bpm ECG Measurements Heart Rate 165 AXES QRSd 115 QRS -44 QT 273 T 58 QTc 364 Conclusion ATRIAL FLUTTER/TACHYCARDIA WITH RAPID VENTRICULAR RESPONSE LEFT AXIS DEVIATION [QRS AXIS < -30] POSSIBLE ANTERIOR MYOCARDIAL INFARCTION , OF INDETERMINATE AGE [30 ms Q WAVE IN V3/V4, OR R < 0.2 mV IN V4] CRITICAL TEST RESULT UNCONFIRMED REPORT Electronically signed by : Edgar Mccarty MD 06/24/2021 17:35:03
[2021-06-23 04:53] LABS: Basophils # 0.1 K/mm3 (0-0.2); Basophils % 0.8 % (0.1-2.0); Eosinophils # 0.1 K/mm3 (0.0-0.4); Eosinophils % 1.1 % (0.1-12.0); Hematocrit 32.4 % (37.0-47.0); Hemoglobin 10.2 g/dL (12.2-16.2); Lymphocytes # 1.2 K/mm3 (0.7-4.5); Lymphocytes % 18.6 % (10-50); Mean Corpuscular HGB Conc 31.5 g/dL (31.8-35.4); Mean Corpuscular Hemoglobin 31.8 pg (27.0-31.2); Mean Corpuscular Volume 100.7 fl (81-99); Monocytes # 0.2 K/mm3 (0.1-1.0); Monocytes % 2.6 % (1.7-9.3); Neutrophils % 76.9 % (37.0-80.0); Platelet Count 456 K/mm3 (142-424); Red Blood Count 3.21 M/mm3 (4.20-5.40); Red Cell Distribution Width 15.6 % (11.5-17.5); White Blood Count 6.5 K/mm3 (4.8-10.8)
[2021-06-23 05:21] LABS: Chloride 118 mmol/L (98-107); Potassium 3.4 mmoL/L (3.5-5.1)
[2021-06-23 05:24] LABS: Anion Gap 14.4 mEq/L (5-15); Blood Urea Nitrogen 15 mg/dl (7-17); Calcium 7.3 mg/dl (8.4-10.2); Carbon Dioxide 21 mmol/L (22.0-30.0); Creatinine Clearance Estimated 41 mL/min (50-200); Estimated Glomerular Filt Rate 55 ml/min (>60); GFR (African American) 66 ML/MIN (>60); Glucose 54 mg/dl (74-100)
[2021-06-23 05:25] LABS: Sodium 150 mmol/L (136-145)
--- NOTE | 2021-06-23 06:09 | PC.NURSE ---
Duoneb treatment not given due to elevated HR overnight, Cardiology consulted, discussed this with pt's RN Mima Hi at bedside.
--- NOTE | 2021-06-23 06:14 | PC.NURSE ---
at 2204 pt rang out and stated she was SOA, lungs auscultated at this time and some expiratory wheezing was heard, Dr. Hair notified and new orders received and carried out at 2300 rectal temp was 102.2, PRN medications given at 2347 pt yelled out that she was going to be sick and vomited one time, MAR checked for PRN medications for nausea, PRN medication not due at this time, Dr. Hair notified and new orders received and carried out at 0400 rectal temp 101.7, PRN medications given at 0430 pt HR in 160's and sustaining, obtained manual pulse for 1 minute and confirmed HR was 160, EKG obtained, read by Dr. Hair as a flutter, FSBS obtained during this time and was 72, Dr. Dubon notified at 0444 of HR, new orders received for esmolol bolus and gtt, [facility] contacted for instructions on dosing and order faxed, Esmolol bolus and gtt started at 0501 PRN pain meds given 2 times this shift PRN meds for agitation given one time this shift
--- NOTE | 2021-06-23 06:48 | PC.NURSE ---
FSBS at 0629 was 39, stat blood glucose ordered and 1 amp D50 given
--- NOTE | 2021-06-23 06:58 | PC.NURSE ---
FSBS rechecked at this time and was 85
[2021-06-23 07:07] LABS: POC Glucose,Bedside 85 (70-110)
[2021-06-23 07:11] LABS: Glucose,Random 162 mg/dL (74-100)
--- NOTE | 2021-06-23 07:37 | CT_ITS ---
FINAL REPORT CLINICAL HISTORY: FEVER ABDOMINAL PAIN, RECENT SURGERY, JAUNDICE, COMPARISON: June 16, 2021 FINDINGS: CT OF THE ABDOMEN AND PELVIS WITH CONTRAST Axial CT images of the abdomen and pelvis were obtained after the administration of intravenous contrast. Coronal reformatted images were also obtained and reviewed.This study was performed with techniques to keep radiation doses as low as reasonably achievable (ALARA). Individualized dose reduction techniques using automated exposure control or adjustment of mA and/or kV according to the patient's size were employed. Abdomen: There is bibasilar atelectasis. The heart is normal in size. An NG tube is seen with the tip in the stomach. The liver has an unremarkable appearance, without evidence of mass or biliary ductal dilatation. The gallbladder is present. The spleen is unremarkable. No adrenal mass is present. The pancreas has an unremarkable appearance. There is a 21 mm cystic mass in the right kidney consistent with a cyst. There are multiple air and fluid-filled mildly distended small bowel loops favoring an ileus. There has been interval postoperative change. There are scattered colonic diverticulum. Pelvis: The appendix is not well-visualized. There is a Mcghee catheter within the urinary bladder. There is a small amount of pelvic free fluid. There is mixed attenuation within the free fluid the could represent some hemorrhage. IMPRESSION: Interval postoperative change. NG tube tip in the stomach. Multiple air and fluid-filled mildly distended small bowel loops, favor an ileus. Small amount of pelvic free fluid. Mixed attenuation within the free fluid could represent a small amount of hemorrhage. Reviewed, Interpreted and Dictated by Neo Stein III, MD Transcribed by Ron Anderson Authenticated by Neo Stein III, MD on 06/23/2021 09:02:17 AM [facility]
--- NOTE | 2021-06-23 07:40 | P.PN_ITS ---
Subjective Narrative: Patient tolerated nasogastric tube clamped all day yesterday. It was removed yesterday evening. This morning patient complains of increased abdominal pain. Belching and nauseated with emesis bag. She had temperature of 101.7. Progress Note: A&P (1) Obesity, morbid, BMI 40.0-49.9 Status: Acute (2) Renal insufficiency Status: Acute (3) Small bowel obstruction Status: Acute (4) Abdominal pain Status: Acute (5) Paroxysmal atrial fibrillation with rapid ventricular response Status: Acute Assessment and Plan for All Diagnoses:: Concerning with increasing abdominal pain with fevers. Having nausea. Place nasogastric tube. Patient may have superficial wound infection. I will obtain a stat CT scan of the abdomen with Gastrografin to evaluate for possible intra- abdominal issue. May need return to operating room for either superficial wound washout or reopening of laparotomy. Exam Vital signs and Labs for Last 24 Hours: Temp Pulse Resp BP Pulse Ox 101.7 F H 78 20 110/61 96 06/23/21 04:00 06/23/21 07:01 06/23/21 07:01 06/23/21 07:01 06/23/21 07:01 Laboratory Results - last 24 hr 06/22/21 09:10: Vancomycin Peak 27.6 06/23/21 04:44: WBC 6.5, RBC 3.21 L, Hgb 10.2 L, Hct 32.4 L, MCV 100.7 H, MCH 31.8 H, MCHC 31.5 L, RDW 15.6, Plt Count 456 H D, MPV 9.0, Neut % (Auto) 76.9, Lymph % (Auto) 18.6, [place] % (Auto) 2.6, Eos % (Auto) 1.1, Baso % (Auto) 0.8, Neut # (Auto) 5.0, Lymph # (Auto) 1.2, [place] # (Auto) 0.2, Eos # (Auto) 0.1, Baso # (Auto) 0.1 06/23/21 04:44: Sodium 150 H, Potassium 3.4 L, Chloride 118 H, Carbon Dioxide 21 L, Anion Gap 14.4, BUN 15, Creatinine 1.00, Estimated Creat Clear 41, Estimated GFR 55 L, Est GFR ( Amer) 66, Glucose 54 L, Calcium 7.3 L 06/23/21 06:48: Random Glucose 162 H 06/23/21 06:58: POC Glucose 85 I & O for Last 24 hours: Intake & Output 06/20/21 06/21/21 06/22/21 06/23/21 11:59 11:59 11:59 11:59 Intake Total 3699 / 3699 4889 / 4889 2125 / 2125 1850 / 1850 Output Total 570 / 570 4475 / 4475 2450 / 2450 1400 / 1400 Balance 3129 / 3129 414 / 414 -325 / -325 450 / 450 Weight 261 lb 3.2 oz 262 lb 6.4 oz 262 lb 3.2 oz 262 lb 3.203 oz Microbiology Reports for the Last 24 Hours: Microbiology 06/16/21 22:58 Blood Blood Culture - Final Dermacoccus richmiyaensis - *Routine Abdominal Exam Present: tenderness Comments: Some erythema and induration.
--- NOTE | 2021-06-23 08:35 | HMH.PNCARD ---
Subjective Date: 06/23/21 Time: 08:35 Principal diagnosis: PAF, SBO surgery Interval history: 71-year-old white female sitting on bedside commode after nurses replaced NG tube. Patient asking for something for nausea after receiving Zofran. Complaining of belly pain. She quickly filled up 1 bucket attached to the NG suction. Patient remains on combination of Cardizem and esmolol for A. fib/flutter. Exam Vital signs and Labs for Last 24 Hours: Temp Pulse Resp BP Pulse Ox 101.7 F H 78 20 110/61 96 06/23/21 04:00 06/23/21 07:01 06/23/21 07:01 06/23/21 07:01 06/23/21 07:01 Laboratory Results - last 24 hr 06/22/21 09:10: Vancomycin Peak 27.6 06/23/21 04:44: WBC 6.5, RBC 3.21 L, Hgb 10.2 L, Hct 32.4 L, MCV 100.7 H, MCH 31.8 H, MCHC 31.5 L, RDW 15.6, Plt Count 456 H D, MPV 9.0, Neut % (Auto) 76.9, Lymph % (Auto) 18.6, [place] % (Auto) 2.6, Eos % (Auto) 1.1, Baso % (Auto) 0.8, Neut # (Auto) 5.0, Lymph # (Auto) 1.2, [place] # (Auto) 0.2, Eos # (Auto) 0.1, Baso # (Auto) 0.1 06/23/21 04:44: Sodium 150 H, Potassium 3.4 L, Chloride 118 H, Carbon Dioxide 21 L, Anion Gap 14.4, BUN 15, Creatinine 1.00, Estimated Creat Clear 41, Estimated GFR 55 L, Est GFR ( Amer) 66, Glucose 54 L, Calcium 7.3 L 06/23/21 06:48: Random Glucose 162 H 06/23/21 06:58: POC Glucose 85 I & O for Last 24 hours: Intake & Output 06/20/21 06/21/21 06/22/21 06/23/21 11:59 11:59 11:59 11:59 Intake Total 3699 / 3699 4889 / 4889 2125 / 2125 1850 / 1850 Output Total 570 / 570 4475 / 4475 2450 / 2450 1400 / 1400 Balance 3129 / 3129 414 / 414 -325 / -325 450 / 450 Weight 261 lb 3.2 oz 262 lb 6.4 oz 262 lb 3.2 oz 262 lb 3.203 oz Microbiology Reports for the Last 24 Hours: Microbiology 06/16/21 22:58 Blood Blood Culture - Final Dermacoccus francyensis - Constitutional mild distress Comments: Shivering with mottling of extremities. - *Routine Respiratory Exam Present: CTA bilaterally - *Routine Cardiovascular Exam Present: irregularly irregular - *Routine Abdominal Exam Present: tenderness, distended - *Routine Extremities Exam Present: edema. Absent: cyanosis, clubbing - *Routine Neurological Exam Present: alert, oriented X3 Progress Note: A&P (1) Small bowel obstruction Status: Acute (2) Abdominal pain Status: Acute (3) Paroxysmal atrial fibrillation with rapid ventricular response Status: Acute (4) Obesity, morbid, BMI 40.0-49.9 Status: Acute (5) Anemia Status: Acute Assessment and Plan for All Diagnoses:: 1. Small bowel obstruction, status post surgical correction now with elevated temp, abdominal distention and vomiting. Surgery considering taking patient back to the OR for further evaluation 2. Paroxysmal atrial fibrillation, rate improved on combination of esmolol and Cardizem. Lovenox for now until patient taking oral medications. 3. Chronic Ativan use 4. Hypokalemia and hyponatremia, both improving 5. Anemia, stable at 10.2
--- NOTE | 2021-06-23 09:04 | HMH.ACPN2 ---
Internal Medicine - PN: Subj *Date: 06/23/21 *Time: 19:48 Interval history: 71-year-old female patient resting in bed reports increasing abdominal pain, nursing reports T-max during the night 101.7. NG was clamped yesterday, patient was complaining of increased nausea and pain, NG replaced 1 L blackish fluid immediately out. General surgery plans on taking patient back to the OR today. Exam Vital signs and Labs for Last 24 Hours: Temp Pulse Resp BP Pulse Ox 99.1 F 60 16 135/72 99 06/23/21 13:28 06/23/21 16:00 06/23/21 13:28 06/23/21 13:28 06/23/21 13:28 Laboratory Results - last 24 hr 06/23/21 04:44: WBC 6.5, RBC 3.21 L, Hgb 10.2 L, Hct 32.4 L, MCV 100.7 H, MCH 31.8 H, MCHC 31.5 L, RDW 15.6, Plt Count 456 H D, MPV 9.0, Neut % (Auto) 76.9, Lymph % (Auto) 18.6, [place] % (Auto) 2.6, Eos % (Auto) 1.1, Baso % (Auto) 0.8, Neut # (Auto) 5.0, Lymph # (Auto) 1.2, [place] # (Auto) 0.2, Eos # (Auto) 0.1, Baso # (Auto) 0.1 06/23/21 04:44: Sodium 150 H, Potassium 3.4 L, Chloride 118 H, Carbon Dioxide 21 L, Anion Gap 14.4, BUN 15, Creatinine 1.00, Estimated Creat Clear 41, Estimated GFR 55 L, Est GFR ( Amer) 66, Glucose 54 L, Calcium 7.3 L 06/23/21 04:44: Total Bilirubin 4.1 H, Direct Bilirubin 3.2 H, Conjugated Bilirubin 1.6 H, Indirect Bilirubin 0.9, Unconjugated Bilirubin 1.0, AST 73 H, ALT 32, Alkaline Phosphatase 72, Total Protein 4.4 L D, Albumin 2.1 L 06/23/21 06:48: Random Glucose 162 H 06/23/21 06:58: POC Glucose 85 06/23/21 10:46: Specimen Source R radial, O2 % 100, ABG pH 7.42, ABG pCO2 34.9 L, ABG pO2 67.6 L, ABG HCO3 22.0, ABG Total CO2 23.1, ABG O2 Saturation 92, ABG Base Excess -2.5 L, Aaron Test Acceptable, Vent Rate 12, Tidal Volume 500, PEEP 6 06/23/21 13:16: Specimen Source R radial, O2 % 100, ABG pH 7.33 L, ABG pCO2 50.8 H, ABG pO2 73.8 L, ABG HCO3 25.9, ABG Total CO2 27.5 H, ABG O2 Saturation 93, ABG Base Excess -0.1, Aaron Test Acceptable, Vent Rate 16, Tidal Volume 420, PEEP 5 I & O for Last 24 hours: Intake & Output 06/20/21 06/21/21 06/22/21 06/23/21 23:59 23:59 23:59 23:59 Intake Total 3174 / 3174 2368 / 2368 3382 / 3382 Output Total 2825 / 2825 3250 / 3250 2100 / 2500 2300 / 2300 Balance 349 / 349 -882 / -882 1282 / 882 -2300 / -2300 Weight 261 lb 3.2 oz 262 lb 6.4 oz 262 lb 3.2 oz 262 lb 3.203 oz Microbiology Reports for the Last 24 Hours: Microbiology 06/23/21 10:45 Abdomen Gram Stain - Final 06/23/21 13:13 Sputum - Endotracheal Tube Aspirate Gram Stain - Final - Constitutional mild distress, obese - *Routine HEENT Exam Head: Present: normocephalic Eye: Present: EOMI ENT: Present: mucous membranes moist - *Routine Neck Exam Present: trachea midline. Absent: tracheal deviation - *Routine Respiratory Exam Present: CTA bilaterally. Absent: accessory muscle use - *Routine Cardiovascular Exam Present: irregular rhythm - *Routine Abdominal Exam Present: soft, tenderness, distended - *Routine Extremities Exam Present: edema, pulses intact. Absent: cyanosis, clubbing - *Routine Skin Exam Present: erythema, wounds Comments: Midline abdominal incision with redness, some edema, chava intact - *Routine Neurological Exam Present: alert, oriented X3. Absent: motor deficit - Routine Psychiatric Exam Present: normal affect, normal thought process. Absent: auditory hallucinations Assessment and Plan (1) Small bowel obstruction Status: Acute Category: Medical Code(s): K56.609 - Unspecified intestinal obstruction, unspecified as to partial versus complete obstruction (2) Abdominal pain Status: Acute Category: Medical Code(s): R10.9 - Unspecified abdominal pain (3) Paroxysmal atrial fibrillation with rapid ventricular response Status: Acute Category: Medical Code(s): I48.0 - Paroxysmal atrial fibrillation (4) Obesity, morbid, BMI 40.0-49.9 Status: Acute Category: Medical Code(s): E66.01 - Morbid (severe) obesity due to excess calorie
--- NOTE | 2021-06-23 09:23 | PC.NURSE ---
0730: during bedside report pt stated that she needed to use the BSC states that she may have to go number 2. pt was placed on the bsc, she was noted to be belching and complaining of abd pain. 0745: Went to check on pt as she had not rang to say she was finished. Dulce PRESLEY went with this RN. Dr kim rounded at this time as well. Informed of motteling of pt legs, abd pain (states this was previously present, but may be slightly increased), belching, nausea with retching/gagging and tachycardia (during the night.) Dr kim gave order to reinsert NG tube. When inserting ng tube, pt retched and began to vomit black liquid. NG tube was further advanced into the stomach. black liquid also was noted to be pouring/draining from open end of ng tube before it could be connected to suction/position verified. it was also noted that pt had increased serous/serosanguinous drainage from lower portion of midline incision. MD states he will order stat CT scan as well. (ng tube was noted to have approx 1200ml out. immediately) 0814: Assessment completed and Dr kim was notified that pt bowel sounds were noted to be absent in all quads. (this was verified with another nurse S Juan Daniel RN.) no new orders regarding absent bowel sounds. 0820: pt transported to radiology for stat Ct of abd. This RN transported with 2 rad techs while pt was on SD monitor. 0839: pt returned to unit and placed back in room. 0948 pt transported to surgery by A Doe RN.
--- NOTE | 2021-06-23 10:22 | PC.NURSE ---
when pt was placed back in bed, it was noted that pt had melted suppository that had deposited in bsc. melted suppository was also noted around her rectum when obtaining rectal temp.
--- NOTE | 2021-06-23 10:26 | PC.NURSE ---
0827 called and spoke with pt SHIKHA (daughter Xiomara Rodriguez) consent was obtained for wound washout/possible opening laparotomy. consent verified on phone with Dulce Barba RN.
[2021-06-23 10:48] LABS: ABG PCO2 34.9 mmhg (35.0-45.0); ABG PH 7.42 mmol/L (7.35-7.45); ABG PO2 67.6 mmhg (80-100)
[2021-06-23 10:49] LABS: ABG Base Excess -2.5 mmol/L (-2.4-2.3); ABG Oxygen Saturation 92 % (90-100); ABG TCO2 23.1 mmhg (23-27); Oxygen 100 %; PEEP 6; Tidal Volume 500; Vent Rate 12
[2021-06-23 10:50] LABS: Allen's Test ACCEPTABLE; Source R RADIAL
--- NOTE | 2021-06-23 10:53 | HMH.ACPN ---
Internal Medicine - PN: Subj *Date: 06/23/21 *Time: 10:53 Exam Vital signs and Labs for Last 24 Hours: Temp Pulse Resp BP Pulse Ox 101.5 F H 68 22 106/43 L 96 06/23/21 08:18 06/23/21 09:45 06/23/21 09:45 06/23/21 09:45 06/23/21 09:45 Laboratory Results - last 24 hr 06/23/21 04:44: WBC 6.5, RBC 3.21 L, Hgb 10.2 L, Hct 32.4 L, MCV 100.7 H, MCH 31.8 H, MCHC 31.5 L, RDW 15.6, Plt Count 456 H D, MPV 9.0, Neut % (Auto) 76.9, Lymph % (Auto) 18.6, [place] % (Auto) 2.6, Eos % (Auto) 1.1, Baso % (Auto) 0.8, Neut # (Auto) 5.0, Lymph # (Auto) 1.2, [place] # (Auto) 0.2, Eos # (Auto) 0.1, Baso # (Auto) 0.1 06/23/21 04:44: Sodium 150 H, Potassium 3.4 L, Chloride 118 H, Carbon Dioxide 21 L, Anion Gap 14.4, BUN 15, Creatinine 1.00, Estimated Creat Clear 41, Estimated GFR 55 L, Est GFR ( Amer) 66, Glucose 54 L, Calcium 7.3 L 06/23/21 06:48: Random Glucose 162 H 06/23/21 06:58: POC Glucose 85 06/23/21 10:46: Specimen Source R radial, O2 % 100, ABG pH 7.42, ABG pCO2 34.9 L, ABG pO2 67.6 L, ABG HCO3 22.0, ABG Total CO2 23.1, ABG O2 Saturation 92, ABG Base Excess -2.5 L, Aaron Test Acceptable, Vent Rate 12, Tidal Volume 500, PEEP 6 I & O for Last 24 hours: Intake & Output 06/20/21 06/21/21 06/22/21 06/23/21 23:59 23:59 23:59 23:59 Intake Total 3174 / 3174 2368 / 2368 3382 / 3382 Output Total 2825 / 2825 3250 / 3250 2100 / 2500 2099 / 2099 Balance 349 / 349 -882 / -882 1282 / 882 -2100 / -2100 Weight 118.478 kg 119.023 kg 118.932 kg 118.932 kg Microbiology Reports for the Last 24 Hours: Microbiology 06/16/21 22:58 Blood Blood Culture - Final Dermelidaccus francyensis Assessment and Plan (1) Small bowel obstruction Status: Acute Category: Medical Code(s): K56.609 - Unspecified intestinal obstruction, unspecified as to partial versus complete obstruction (2) Abdominal pain Status: Acute Category: Medical Code(s): R10.9 - Unspecified abdominal pain (3) Paroxysmal atrial fibrillation with rapid ventricular response Status: Acute Category: Medical Code(s): I48.0 - Paroxysmal atrial fibrillation (4) Obesity, morbid, BMI 40.0-49.9 Status: Acute Category: Medical Code(s): E66.01 - Morbid (severe) obesity due to excess calories (5) Anemia Status: Acute Category: Medical Code(s): D64.9 - Anemia, unspecified The patient's infection will respond to the chosen ABx?: Yes Is the patient receiving the right drug, dose, and route?: Yes Could a more targeted ABx be ordered?: No
--- NOTE | 2021-06-23 11:13 | HMH.PHACONS ---
- Pharmacy Consult Date: 06/23/21 Time: 11:13 Referring provider: DR. RODRIGUEZ Reason for Consult:: VANCOMYCIN DOSING Allergies and ADEs:: Allergies Allergy/AdvReac Type Severity Reaction Status Date / Time NSAIDS (Non-Steroidal AdvReac EFFECTS Verified 06/17/21 00:55 Anti-Inflamma KIDNEYS Home Medications:: Home Medications Medication Instructions Recorded Confirmed Type Atorvastatin Calcium [Lipitor 20mg 20 mg PO HS 06/18/17 06/17/21 History Tab] Esomeprazole Magnesium 40 mg PO DAILY 06/18/17 06/17/21 History Furosemide [Furosemide 40MG tAB*] 40 mg PO BID 06/18/17 06/17/21 History LORazepam [Ativan 0.5mg 0.5 mg PO Q8HP PRN 06/18/17 06/17/21 History tablet] Oxybutynin Chloride [Oxybutynin 5 mg PO DAILY 06/18/17 06/17/21 History Chloride ER] Potassium Chloride [K-Tab ER 10 10 meq PO BID 06/18/17 06/17/21 History mEq] Sertraline HCl [Zoloft 50mg tablet] 50 mg PO DAILY 06/18/17 06/17/21 History Tizanidine HCl [Zanaflex] 4 mg PO HS 06/18/17 06/17/21 History allopurinoL [Allopurinol 300mg 300 mg PO DAILY 06/18/17 06/17/21 History tablet] Spironolactone [Spironolactone 25 mg PO DAILY 03/31/19 06/17/21 History 25mg Tablet] Fexofenadine HCl 180 mg PO DAILY 06/03/21 06/17/21 History Hydrocodone/Acetaminophen 1 tab PO Q4H 06/03/21 06/17/21 History [Hydrocodone-Acetamin 10-325 mg] Propranolol HCl [Inderal 20mg 20 mg PO BID 06/16/21 06/17/21 History tablet] Dextran 70/Hypromellose/Pf 1 drp EYE-BOTH NEEDED PRN 06/17/21 06/17/21 History [Artificial Tears Drops] Empagliflozin [Jardiance] 25 mg PO DAILY 06/17/21 06/17/21 History Fluticasone Propionate [Flovent 50 mcg IH DAILY 06/17/21 06/17/21 History Diskus] Metformin HCl [Metformin ER 500 mg PO DAILY 06/17/21 06/17/21 History Gastric] ondansetron HCL [Ondansetron 4mg 4 mg PO Q6 PRN 06/17/21 06/17/21 History tab*] predniSONE [Prednisone 5mg 5 mg PO DAILY 06/17/21 06/17/21 History Tab] Height: 1.6 m Weight: 118.932 kg Laboratory Results:: Laboratory Results - last 24 hr 06/23/21 04:44: WBC 6.5, RBC 3.21 L, Hgb 10.2 L, Hct 32.4 L, MCV 100.7 H, MCH 31.8 H, MCHC 31.5 L, RDW 15.6, Plt Count 456 H D, MPV 9.0, Neut % (Auto) 76.9, Lymph % (Auto) 18.6, [place] % (Auto) 2.6, Eos % (Auto) 1.1, Baso % (Auto) 0.8, Neut # (Auto) 5.0, Lymph # (Auto) 1.2, [place] # (Auto) 0.2, Eos # (Auto) 0.1, Baso # (Auto) 0.1 06/23/21 04:44: Sodium 150 H, Potassium 3.4 L, Chloride 118 H, Carbon Dioxide 21 L, Anion Gap 14.4, BUN 15, Creatinine 1.00, Estimated Creat Clear 41, Estimated GFR 55 L, Est GFR ( Amer) 66, Glucose 54 L, Calcium 7.3 L 06/23/21 06:48: Random Glucose 162 H 06/23/21 06:58: POC Glucose 85 06/23/21 10:46: Specimen Source R radial, O2 % 100, ABG pH 7.42, ABG pCO2 34.9 L, ABG pO2 67.6 L, ABG HCO3 22.0, ABG Total CO2 23.1, ABG O2 Saturation 92, ABG Base Excess -2.5 L, Aaron Test Acceptable, Vent Rate 12, Tidal Volume 500, PEEP 6 Medical History: Reports:: Anxiety, Asthma, Depression, Diabetes Mellitus Type 2, Gastroesophageal Reflux Disease(GERD), Hyperlipidemia, Migraine, Renal Insufficiency Denies:: Cancer, Diabetes Mellitus Type 1, MRSA Assessment and Plan (1) Small bowel obstruction Status: Acute Category: Medical Code(s): K56.609 - Unspecified intestinal obstruction, unspecified as to partial versus complete obstruction (2) Abdominal pain Status: Acute Category: Medical Code(s): R10.9 - Unspecified abdominal pain (3) Paroxysmal atrial fibrillation with rapid ventricular response Status: Acute Category: Medical Code(s): I48.0 - Paroxysmal atrial fibrillation (4) Obesity, morbid, BMI 40.0-49.9 Status: Acute Category: Medical Code(s): E66.01 - Morbid (severe) obesity due to excess calories (5) Anemia Status: Acute Category: Medical Code(s): D64.9 - Anemia, unspecified - Assessment and plan all Dx Assessment and Plan for all problems:: Age: 71 yo Serum creatinine: 1 mg/d
--- NOTE | 2021-06-23 11:13 | SUR.OPER ---
1050- procedure went into an open laparotomy at this time. Dr. Klein does not want any additional antibiotics given other than cefepime that was administered by gala martell as preop order. 1110- family updated of pt current status via vy moffett in preop.
[2021-06-23 11:18] LABS: Alanine Aminotransferase 32 U/L (12-78); Albumin Level 2.1 g/dl (3.5-5.0); Alkaline Phosphatase 72 U/L (38-126); Aspartate Amino Transferase 73 U/L (14-36); Bilirubin, Conjugated 1.6 mg/dL (0.0-0.3); Bilirubin,Direct 3.2 mg/dl (0.0-0.4); Bilirubin,Indirect 0.9 mg/dL (0.0-0.9); Bilirubin,Total 4.1 mg/dl (0.2-1.3); Total Protein,Serum 4.4 g/dl (6.3-8.2)
--- NOTE | 2021-06-23 11:18 | SUR.OPER ---
1119- gala vasquez spoke with dr. Hair at this time concerning extubating pt following procedure. Dr. Hair advised pedro to speak to dr. Troncoso at this time pertaining to this issue and to follow up/consult a this time.
--- NOTE | 2021-06-23 11:45 | [facility]H.PULMCON ---
*Admission Date: 06/16/21 *Reason for consult:: Acute on chronic hypoxic respiratory failure *History of present illness: Ms. Gongora is a 71-year-old female presented to the hospital on 06/16/2021 complaining of abdominal pain post laparotomy with small bowel resection for obstruction has been doing fairly well up until today where patient noted to have worsening abdominal pain nausea and febrile episodes and was taken to the OR for wound washout with possible reexploration eventually remain on ventilator pulmonary was called for further management. Upon chart review patient respiratory status has been relatively stable since admission needing 2 to 4 L nasal cannula saturations maintained at 90% and above. CTA performed on 06/22/2021 did not show any evidence of dense consolidation. Bilateral lower lobe atelectasis noted. No evidence of pulmonary embolism noted. Home inhalers medications include Flovent discus [facility] History Medical History: Reports:: Anxiety, Asthma, Depression, Diabetes Mellitus Type 2, Gastroesophageal Reflux Disease(GERD), Hyperlipidemia, Migraine, Renal Insufficiency Denies:: Cancer, Diabetes Mellitus Type 1, MRSA *Have you ever received a pneumonia vaccine?: Yes *Have you received a flu vaccine this season?: Yes Other Medical History: Reports: Arthritis, Thyroid Disease, Other (gout, allergic rhinitis, chronic back pain, chronic steroid use) Anesthesia experience/problems:: nac Other Surgeries: Yes: Hernia Repair, Tubal Ligation Amputation: No Fractures: No - *Social History Smoking Status: Never smoker Alcohol Intake: never Substance Use Type: denies use *Occupational Status:: retired Housing: house Household Members: children *Travel in the last 8 weeks: None - Psychiatric History Pschychiatric History:: Reports:: Anxiety, Depression Family Hx:: No significant family history ROS - Review of Systems Review of systems:: unable to obtain Patient intubated and sedated Meds Home Medications Medication Instructions Recorded Confirmed Type Atorvastatin Calcium [Lipitor 20mg 20 mg PO HS 06/18/17 06/17/21 History Tab] Esomeprazole Magnesium 40 mg PO DAILY 06/18/17 06/17/21 History Furosemide [Furosemide 40MG tAB*] 40 mg PO BID 06/18/17 06/17/21 History LORazepam [Ativan 0.5mg 0.5 mg PO Q8HP PRN 06/18/17 06/17/21 History tablet] Oxybutynin Chloride [Oxybutynin 5 mg PO DAILY 06/18/17 06/17/21 History Chloride ER] Potassium Chloride [K-Tab ER 10 10 meq PO BID 06/18/17 06/17/21 History mEq] Sertraline HCl [Zoloft 50mg tablet] 50 mg PO DAILY 06/18/17 06/17/21 History Tizanidine HCl [Zanaflex] 4 mg PO HS 06/18/17 06/17/21 History allopurinoL [Allopurinol 300mg 300 mg PO DAILY 06/18/17 06/17/21 History tablet] Spironolactone [Spironolactone 25 mg PO DAILY 03/31/19 06/17/21 History 25mg Tablet] Fexofenadine HCl 180 mg PO DAILY 06/03/21 06/17/21 History Hydrocodone/Acetaminophen 1 tab PO Q4H 06/03/21 06/17/21 History [Hydrocodone-Acetamin 10-325 mg] Propranolol HCl [Inderal 20mg 20 mg PO BID 06/16/21 06/17/21 History tablet] Dextran 70/Hypromellose/Pf 1 drp EYE-BOTH NEEDED PRN 06/17/21 06/17/21 History [Artificial Tears Drops] Empagliflozin [Jardiance] 25 mg PO DAILY 06/17/21 06/17/21 History Fluticasone Propionate [Flovent 50 mcg IH DAILY 06/17/21 06/17/21 History Diskus] Metformin HCl [Metformin ER 500 mg PO DAILY 06/17/21 06/17/21 History Gastric] ondansetron HCL [Ondansetron 4mg 4 mg PO Q6 PRN 06/17/21 06/17/21 History tab*] predniSONE [Prednisone 5mg 5 mg PO DAILY 06/17/21 06/17/21 History Tab] Allergies Allergy/AdvReac Type Severity Reaction Status Date / Time NSAIDS (Non-Steroidal AdvReac EFFECTS Verified 06/17/21 00:55 Anti-Inflamma KIDNEYS Exam - Constitutional Constitutional:: Present: no acute distress, comfortable - HENMT Exam HENMT: Present: normocephalic, atraumatic - Eye Exam Eyes:: Present: normal appeara
--- NOTE | 2021-06-23 12:57 | PC.NURSE ---
Notified Lucrecia in Dr. Clemente office that pt was back from surgery
--- NOTE | 2021-06-23 13:12 | P.OP_ITS ---
Date of procedure: 06/23/21 Pre-op Diagnosis:: Wound infection Post-op Diagnosis:: Fascial dehiscence Procedure performed:: 1. Reopening of recent laparotomy 2. Complex closure of fascial dehiscence Surgeon:: Neo Klein MD MEDICAL PRACTICE ADMINISTRATOR:: Other Anesthesia: GETA Estimated blood loss (mL): 20 Clinical Note:: Patient is a 71-year-old female. About 2 years ago she had undergone previous umbilical hernia repair with apparent of bioabsorbable mesh at outside facility. She had recently presented to the hospital several weeks ago with findings of possible bowel obstruction. She was able to be managed nonoperatively at that time. However she returned with findings of closed-loop obstruction. This required laparotomy on 06/17/2021. She has had a prolonged ileus postoperatively. Of note, the patient was quite combative the evening of her surgery. He had a nasogastric tube removed in the evening of 06/22/2021 as it had been clamped for the entire day without issue. On morning rounds on postoperative day #6 she was found to have fever. She appeared ill. She had some salmon-colored thin drainage from her incision. There was concern for possible wound infection versus intra-abdominal pathology. Arrangements are being made for possible operative intervention. Patient was taken to radiology where she underwent CT scan. This revealed findings of interval postoperative change. Nasogastric tube in stomach. Multiple air-fluid filled mildly distended small bowel loops, favor an ileus. Plan was made for operative intervention with at least opening of the wound and washout versus reopening of laparotomy. Operative findings:: She had some nonpurulent fluid within the subcutaneous tissues. She had fascial dehiscence of the upper aspect of her incision. Operative note:: Patient was taken emergently to the operating room. She was given preoperative intravenous antibiotic. In the operating room she was placed in a supine position. General anesthesia was induced via endotracheal tube. Her abdomen was prepped and draped in the standard surgical fashion. Skin chava were removed. There was some drainage of thin serosanguineous fluid mostly from the inferior aspect of the incision. This was sent for culture. Incision was opened. There was some nonpurulent fluid and inflammatory tissue. Upon reopening of the skin and subcutaneous tissues it was noted to be appreciable fascial dehiscence. Remaining sutures were removed. Limited abdominal exploration was carried out. It appeared as though there was no evidence of any intra-abdominal pathology other than probable expected postoperative ileus. Nasogastric tube was able to be palpated and found to be in an appropriate position within the gastric lumen. Fascial edges were quite friable with evidence of very poor tissue. Fascia was mobilized on each side using electrocautery dissecting the subcutaneous tissue free from the anterior fascia. Limited irrigation was performed of the peritoneal cavity. Fascia was closed with numerous interrupted #2 Novafil and a far?near?near?far fashion. The subcutaneous tissues were then thoroughly irrigated with 3 L of saline using the InterPulse pulsatile salesforce administrator device. There was good hemostasis of the subcutaneous tissues. Skin was then closed partially with several interrupted 2-0 Ethilon vertical mattress sutures. Portions of the wound were packed with saline moistened Kerlix and covered with clean dry sterile dressing. There were no immediate complications. Condition: stable Disposition: PACU Complications:: None immediate.
--- NOTE | 2021-06-23 13:30 | XR_ITS ---
FINAL REPORT CLINICAL HISTORY: hypoxia COMPARISON: 06/16/2021 FINDINGS: SINGLE VIEW CHEST There is cardiomegaly. The mediastinum is unremarkable. Endotracheal tube terminates in the midthoracic trachea. NG tube terminates below the diaphragm. There is worsening pulmonary vascular congestion. Bilateral pulmonary alveolar opacities are identified, favor edema over bilateral pneumonia. There are small pleural effusions. There is no pneumothorax. IMPRESSION: Favor edema over bilateral pneumonia. Small pleural effusions. Cardiomegaly and pulmonary vascular congestion Reviewed, Interpreted and Dictated by Neo Stein III, MD Transcribed by Mirlande Mcclure Authenticated by Neo Stein III, MD on 06/23/2021 03:02:38 PM [facility]
--- NOTE | 2021-06-23 13:43 | SUR.PHASEI ---
1257- [facility] Pt left intubated, and transported on continuous monitoring via gala moon, vy hooper and vy mesa. gala Moon using bag to ventilate at this time. Pt in stable condition. 1258- [facility] Respiratory at bedside to assist with ventilator at this time. Pt in stable condition. vy Hooper staying with pt at bedside the required PACU time.
[2021-06-23 14:03] LABS: ABG Base Excess -0.1 mmol/L (-2.4-2.3); ABG HCO3 25.9 mmhg (22.0-26.0); ABG Oxygen Saturation 93 % (90-100); ABG PH 7.33 mmol/L (7.35-7.45); ABG PO2 73.8 mmhg (80-100); ABG TCO2 27.5 mmhg (23-27)
[2021-06-23 14:06] LABS: Oxygen 100 %; PEEP 5; Tidal Volume 420; Vent Rate 16
[2021-06-23 14:07] LABS: Allen's Test ACCEPTABLE; Source R RADIAL
[2021-06-23 14:08] LABS: ABG PCO2 50.8 mmhg (35.0-45.0)
--- NOTE | 2021-06-23 14:17 | PC.NURSE ---
patient was restarted on esmolol with the cardizem. noted heart rate to drop from 150s to 40s. stopped drips including propofo and fentanyl. bp also 70/40 manually. notified jonh novak who stated leave cardizem and esmolol off at this time and to give a 500ml ns bolus
--- NOTE | 2021-06-23 21:32 | PC.NURSE ---
1540 notified Ondina gage that pt HR was back i nthe 112/125 range. while on phone with Willard, hr increased to the 150's per elissa borja and restart pt on esmolol drip. titrate to keep hr below 100. once esmolol was restarted it was noted that the pt bp was decreasing. order was obtained from dr rao at 1600 for levophed drip. keep sbp > 100 map >[address]. [address] rao also ordered a 500ml lr bolus at this time as well.
--- NOTE | 2021-06-23 21:37 | PC.NURSE ---
0948 pt transported to surgery. esmolol and cardizem infusing. 1300 upon arrival back to unit pt was on cardizem 15mg. esmolol was stopped during procedure by anesthesia and pt hr was treated as needed. pt was noted to be intubated. 7.5 ett. ng tube in r nare (inserted prior to surgery), dressing to abdomen, cdi. goodwin cath draining small amount of orange urine. (goodwin bag was changed to bag with urometer in place for hourly i/o). pt hr was noted to be 140-150. orders were obtained for sedation medications from Dr troncoso at approx 1330. (orders later entered by ). pt was restarted on esmolol as well as cardizem. propofol and fentanyl ordered for sedation. all drips were noted to be infusing by approx 1340. pt hr was noted to have decreased from 140 - 40's by miladys tse (see note). all meds were stopped at this time. 1500 pt fentanyl was restarted at 12.5 mcg. pt tolerated well. 1545 esmolol restarted at rate of 50mcg/kg/min per adri gage order r/t hr 103-151 pt tolerated. hr notably decreased 1558 bp noted to be 71/43 Dr Troncoso contacted for order for levophed drip. 1600 hr 65. 1610 levophed drip started at 10mcg, 500ml lr bolus started as well. 1610 hr 51 drip required titration with assistance of pharmacy. decreased to 24ml/hr. pt tolerated change well. pt hr noted to become stable in the 70's 1625 bp 62/33 levo drip increased to 25mcg. pt bp stabilized. diltiazem was dc per adri gage propofol was held r/t decreased bp/hr.
--- NOTE | 2021-06-23 22:27 | PC.NURSE ---
See Esmolol intake labeled Other in Intake and Output.
[2021-06-24] VITALS (32 sets, daily range): BP systolic 85–140; BP diastolic 43–63; PULSE 64–149; RESP 17–26; TEMP 37.1–37.7; O2SAT 95–100; BMI 48.0
[2021-06-24 00:33] LABS: POC Glucose,Bedside 106 (70-110)
--- NOTE | 2021-06-24 06:00 | XR_ITS ---
PROCEDURE INFORMATION: Exam: XR Chest Exam date and time: 06/24/2021 5:04 AM Age: 71 years old Clinical indication: Device placement; Ett placement (vent status); Additional info: Ett and ng placement TECHNIQUE: Imaging protocol: XR of the chest. Views: 1 view. COMPARISON: CR XR CHEST PORTABLE 06/23/2021 1:52 PM FINDINGS: Tubes, catheters and devices: The ET tube and nasogastric tube are unchanged. Lungs: Bibasilar airspace disease is present. Pleural spaces: Unremarkable. No pleural effusion. No pneumothorax. Heart/Mediastinum: The heart is enlarged. Bilateral effusions are noted. Bones/joints: Unremarkable. IMPRESSION: Cardiomegaly with bibasilar effusions and bibasilar airspace disease unchanged.
--- NOTE | 2021-06-24 06:08 | PC.NURSE ---
Pt light to moderate sedation. Will wake periodically. Glucose has remained stable this shift. VSS. Pt remains on esmolol infusion @ 24 ml/hr. Fentanyl was titrated to 25 mcg/hr. Propofol was started and titrated per protocol. It is currently infusing @ 40 mcg/kg/min. Levophed remains @ 25 mcg/min. NG to (R) nare to low wall continuous suction. See output. Contents Brown with blood streaked. F/C draining to bedside with clear, dark jose to orange in color. Urine ouput has decreased this shift. New IV placed #22 (R) chest. No other concerns. Will continue to monitor.
[2021-06-24 06:55] LABS: Chloride 113 mmol/L (98-107); Potassium 3.2 mmoL/L (3.5-5.1); Sodium 145 mmol/L (136-145)
[2021-06-24 06:56] LABS: Basophils # 0.1 K/mm3 (0-0.2); Basophils % 0.9 % (0.1-2.0); Eosinophils # 0.1 K/mm3 (0.0-0.4); Eosinophils % 1.3 % (0.1-12.0); Hematocrit 31.5 % (37.0-47.0); Hemoglobin 9.8 g/dL (12.2-16.2); Lymphocytes # 1.3 K/mm3 (0.7-4.5); Lymphocytes % 12.1 % (10-50); Mean Corpuscular HGB Conc 31.2 g/dL (31.8-35.4); Mean Corpuscular Hemoglobin 31.6 pg (27.0-31.2); Mean Corpuscular Volume 101.1 fl (81-99); Mean Platelet Volume 9.3 fl (7.4-10.4); Monocytes # 0.2 K/mm3 (0.1-1.0); Neutrophils # 9.3 K/mm3 (1.8-7.8); Neutrophils % 83.7 % (37.0-80.0); Platelet Count 461 K/mm3 (142-424); Red Blood Count 3.12 M/mm3 (4.20-5.40); Red Cell Distribution Width 16.2 % (11.5-17.5); White Blood Count 11.1 K/mm3 (4.8-10.8)
[2021-06-24 06:58] LABS: Blood Urea Nitrogen 28 mg/dl (7-17); Creatinine Clearance Estimated 16 mL/min (50-200); Estimated Glomerular Filt Rate 18 ml/min (>60); GFR (African American) 22 ML/MIN (>60)
[2021-06-24 06:59] LABS: Anion Gap 13.2 mEq/L (5-15); Calcium 6.9 mg/dl (8.4-10.2); Carbon Dioxide 22 mmol/L (22.0-30.0); Glucose 99 mg/dl (74-100)
--- NOTE | 2021-06-24 07:20 | P.PN_ITS ---
Subjective Narrative: She remains intubated/sedated. Per nursing, she remained fairly stable overnight. Progress Note: A&P (1) Small bowel obstruction Status: Acute Assessment and plan: Status post reopen laparotomy for fascial dehiscence yesterday. Continue current management as per the critical care service and the primary care service. Begin dressing changes to midline wound. (2) Abdominal pain Status: Acute (3) Paroxysmal atrial fibrillation with rapid ventricular response Status: Acute (4) Obesity, morbid, BMI 40.0-49.9 Status: Acute (5) Anemia Status: Acute Exam Vital signs and Labs for Last 24 Hours: Temp Pulse Resp BP Pulse Ox 99.7 F H 69 20 122/55 L 100 06/24/21 05:00 06/24/21 07:00 06/24/21 07:00 06/24/21 07:00 06/24/21 07:00 Laboratory Results - last 24 hr 06/23/21 04:44: Total Bilirubin 4.1 H, Direct Bilirubin 3.2 H, Conjugated Bilirubin 1.6 H, Indirect Bilirubin 0.9, Unconjugated Bilirubin 1.0, AST 73 H, ALT 32, Alkaline Phosphatase 72, Total Protein 4.4 L D, Albumin 2.1 L 06/23/21 10:46: Specimen Source R radial, O2 % 100, ABG pH 7.42, ABG pCO2 34.9 L , ABG pO2 67.6 L, ABG HCO3 22.0, ABG Total CO2 23.1, ABG O2 Saturation 92, ABG Base Excess -2.5 L, Aaron Test Acceptable, Vent Rate 12, Tidal Volume 500, PEEP 6 06/23/21 13:16: Specimen Source R radial, O2 % 100, ABG pH 7.33 L, ABG pCO2 50.8 H, ABG pO2 73.8 L, ABG HCO3 25.9, ABG Total CO2 27.5 H, ABG O2 Saturation 93, ABG Base Excess -0.1, Aaron Test Acceptable, Vent Rate 16, Tidal Volume 420, PEEP 5 06/24/21 00:26: POC Glucose 106 06/24/21 06:30: WBC 11.1 H D, RBC 3.12 L, Hgb 9.8 L, Hct 31.5 L, MCV 101.1 H, MCH 31.6 H, MCHC 31.2 L, RDW 16.2, Plt Count 461 H, MPV 9.3, Neut % (Auto) 83.7 H, Lymph % (Auto) 12.1, [place] % (Auto) 2.0, Eos % (Auto) 1.3, Baso % (Auto) 0.9, Neut # (Auto) 9.3 H, Lymph # (Auto) 1.3, [place] # (Auto) 0.2, Eos # (Auto) 0.1, Baso # (Auto) 0.1 06/24/21 06:30: Sodium 145, Potassium 3.2 L, Chloride 113 H, Carbon Dioxide 22, Anion Gap 13.2, BUN 28 H D, Creatinine 2.60 H D, Estimated Creat Clear 16, Estimated GFR 18 L*, Est GFR ( Amer) 22 L D, Glucose 99, Calcium 6.9 L I & O for Last 24 hours: Intake & Output 06/21/21 06/22/21 06/23/21 06/24/21 11:59 11:59 11:59 11:59 Intake Total 4889 / 4889 2125 / 2125 1850 / 1850 4970.023 / 4970.023 Output Total 4475 / 4475 2450 / 2450 2900 / 2900 1367 / 1367 Balance 414 / 414 -325 / -325 -1050 / -1050 3603.023 / 3603.023 Weight 262 lb 6.4 oz 262 lb 3.2 oz 262 lb 3.203 oz 271 lb Microbiology Reports for the Last 24 Hours: Microbiology 06/23/21 10:45 Abdomen Gram Stain - Final 06/23/21 13:13 Sputum - Endotracheal Tube Aspirate Gram Stain - Final - Constitutional Comments: Intubated/sedated - *Routine Cardiovascular Exam Absent: tachycardia - *Routine Abdominal Exam Comments: Dressing intact. No spreading cellulitis.
--- NOTE | 2021-06-24 08:58 | HMH.PULMPN ---
Internal Medicine - PN: Subj *Date: 06/24/21 *Time: 11:41 Interval history: No acute respiratory events overnight. Exam - Constitutional Constitutional:: Present: no acute distress, comfortable - HENMT Exam HENMT: Present: normocephalic - Eye Exam Eyes:: Present: normal appearance both eyes and related structures - Neck Exam Neck:: Present: normal visual inspection - Respiratory Exam Respiratory:: Present: crackles. Absent: wheezing - Cardiovascular Exam Cardiac:: Present: S1, S2 - GI Exam GI:: Present: soft - Skin Exam Skin: Present: warm - Neurological Exam Neurological: Absent: alert, awake, normal cognition - Extremities Exam Extremities: Present: no cyanosis, no clubbing, edema Assessment and Plan (1) Small bowel obstruction Status: Acute Category: Medical Code(s): K56.609 - Unspecified intestinal obstruction, unspecified as to partial versus complete obstruction (2) Abdominal pain Status: Acute Category: Medical Code(s): R10.9 - Unspecified abdominal pain (3) Paroxysmal atrial fibrillation with rapid ventricular response Status: Acute Category: Medical Code(s): I48.0 - Paroxysmal atrial fibrillation (4) Obesity, morbid, BMI 40.0-49.9 Status: Acute Category: Medical Code(s): E66.01 - Morbid (severe) obesity due to excess calories (5) Anemia Status: Acute Category: Medical Code(s): D64.9 - Anemia, unspecified - Assessment and plan all Dx Assessment and Plan for all problems:: # Acute on chronic hypoxic respiratory failure needing mechanical ventilatory support : Ms. Gongora is a 71-year-old female presented to the hospital on 06/16/2021 complaining of abdominal pain post laparotomy with small bowel resection for obstruction has been doing fairly well up until today where patient noted to have worsening abdominal pain nausea and febrile episodes and was taken to the OR for wound washout with possible reexploration eventually remain on ventilator pulmonary was called for further management. Upon chart review patient respiratory status has been relatively stable since admission needing 2 to 4 L nasal cannula saturations maintained at 90% and above. CTA performed on 06/22/2021 did not show any evidence of dense consolidation. Bilateral lower lobe atelectasis noted. No evidence of pulmonary embolism noted. Home inhalers medications include Flovent discus. Examination today patient not noted to be any respiratory distress. Initial ABG showed hypercarbia, made appropriate vent settings. Interval update: Slight worsening leukocytosis. Blood cultures pending. Endotracheal aspirate growing gram-positive cocci in pairs. Worsening shock continue to need Levophed. Plan: -Continue analgosedation with propofol and fentanyl. Will discuss with surgery and will perform SBT's in the morning. -Continue mechanical ventilatory support, currently on PEEP of 8 440 tidal volume and rate of 20 and FiO2 of 60%. Repeat blood gas showed respiratory alkalosis with a PCO2 of 28.8 and pH of 7.48. PO2 of 63.4. Will decrease respiratory rate to 16. CXR post intubation reviewed Worsening right lower lobe pulmonary infiltrates along with bilateral minimal pleural effusions left greater than left. No acute change on this morning's chest x-ray, except for worsening left lower lobe airspace disease along with effusion. Continue cefepime awaiting cultures. DuoNebs every 6 hours on a scheduled basis. - Blood cultures from admission growing Streptococcus, mecA not detected. Echo normal EF with mild aortic stenosis. Patient also hemodynamically instability overnight needing pressor requirements currently on Levophed. She continued to receive vancomycin and cefepime pending repeat blood cultures. We will add micafungin. Continue to receive Cardizem for her A. fib -Abdomen soft, midline dressing noted. Follow with surgery recommendations. -Worsening renal function, creatinine of 2.6 today. Hypokalemi
--- NOTE | 2021-06-24 09:11 | HMH.PNCARD ---
Subjective Date: 06/24/21 Time: 09:11 Principal diagnosis: PAF, SBO surgery Interval history: 71-year-old white female in bed, sedated, intubated and on mechanical ventilation. Telemetry shows atrial flutter with 3-1 conduction. She remains on esmolol for rate control. She is on Levophed for blood pressure support. Operative report reviewed from yesterday showing fascial dehiscence. Exam Vital signs and Labs for Last 24 Hours: Temp Pulse Resp BP Pulse Ox 99.7 F H 69 20 122/55 L 100 06/24/21 05:00 06/24/21 07:00 06/24/21 07:00 06/24/21 07:00 06/24/21 07:00 Laboratory Results - last 24 hr 06/23/21 04:44: Total Bilirubin 4.1 H, Direct Bilirubin 3.2 H, Conjugated Bilirubin 1.6 H, Indirect Bilirubin 0.9, Unconjugated Bilirubin 1.0, AST 73 H, ALT 32, Alkaline Phosphatase 72, Total Protein 4.4 L D, Albumin 2.1 L 06/23/21 10:46: Specimen Source R radial, O2 % 100, ABG pH 7.42, ABG pCO2 34.9 L, ABG pO2 67.6 L, ABG HCO3 22.0, ABG Total CO2 23.1, ABG O2 Saturation 92, ABG Base Excess -2.5 L, Aaron Test Acceptable, Vent Rate 12, Tidal Volume 500, PEEP 6 06/23/21 13:16: Specimen Source R radial, O2 % 100, ABG pH 7.33 L, ABG pCO2 50.8 H, ABG pO2 73.8 L, ABG HCO3 25.9, ABG Total CO2 27.5 H, ABG O2 Saturation 93, ABG Base Excess -0.1, Aaron Test Acceptable, Vent Rate 16, Tidal Volume 420, PEEP 5 06/24/21 00:26: POC Glucose 106 06/24/21 06:30: WBC 11.1 H D, RBC 3.12 L, Hgb 9.8 L, Hct 31.5 L, MCV 101.1 H, MCH 31.6 H, MCHC 31.2 L, RDW 16.2, Plt Count 461 H, MPV 9.3, Neut % (Auto) 83.7 H, Lymph % (Auto) 12.1, [place] % (Auto) 2.0, Eos % (Auto) 1.3, Baso % (Auto) 0.9, Neut # (Auto) 9.3 H, Lymph # (Auto) 1.3, [place] # (Auto) 0.2, Eos # (Auto) 0.1, Baso # (Auto) 0.1 06/24/21 06:30: Sodium 145, Potassium 3.2 L, Chloride 113 H, Carbon Dioxide 22, Anion Gap 13.2, BUN 28 H D, Creatinine 2.60 H D, Estimated Creat Clear 16, Estimated GFR 18 L*, Est GFR ( Amer) 22 L D, Glucose 99, Calcium 6.9 L I & O for Last 24 hours: Intake & Output 06/21/21 06/22/21 06/23/21 06/24/21 11:59 11:59 11:59 11:59 Intake Total 4889 / 4889 2125 / 2125 1850 / 1850 4970.023 / 4970.023 Output Total 4475 / 4475 2450 / 2450 2900 / 2900 1427 / 1427 Balance 414 / 414 -325 / -325 -1050 / -1050 3543.023 / 3543.023 Weight 262 lb 6.4 oz 262 lb 3.2 oz 262 lb 3.203 oz 271 lb Microbiology Reports for the Last 24 Hours: Microbiology 06/23/21 13:13 Sputum - Endotracheal Tube Aspirate Gram Stain - Final 06/23/21 13:13 Sputum - Endotracheal Tube Aspirate Sputum Culture - Preliminary 06/23/21 10:45 Abdomen Gram Stain - Final - Constitutional no acute distress - *Routine Respiratory Exam Present: patient mechanically ventilated, CTA bilaterally - *Routine Cardiovascular Exam Present: RRR, irregular rhythm - *Routine Extremities Exam Present: edema. Absent: cyanosis, clubbing Progress Note: A&P (1) Small bowel obstruction Status: Acute (2) Abdominal pain Status: Acute (3) Paroxysmal atrial fibrillation with rapid ventricular response Status: Acute (4) Obesity, morbid, BMI 40.0-49.9 Status: Acute (5) Anemia Status: Acute (6) Atrial flutter with controlled response Status: Acute (7) Acute kidney injury Status: Acute Assessment and plan: Creatinine 2.6 GFR 18 Assessment and Plan for All Diagnoses:: 1. Small bowel obstruction, status post surgical correction with second operation yesterday finding only fascial dehiscence. 2. Paroxysmal atrial fibrillation/flutter, rate controlled on esmolol drip. Lovenox for now until patient taking oral medications. Normal ejection fraction on echo this admission. 3. Chronic Ativan use 4. Hypokalemia, 3.2 today, continue potassium supplementation 5. Anemia, 9.8 today, continue to monitor 6. ALISA, Cr 2.6 with GFR 18, possibly due to combination of CT scans with contrast and Vancomycin
--- NOTE | 2021-06-24 10:24 | HMH.ACPN2 ---
Internal Medicine - PN: Subj *Date: 06/24/21 *Time: 08:00 Interval history: pt on vent settings a/cmv, fi02 80,tv 440,peep8,ps 10,resp 20, Exam Vital signs and Labs for Last 24 Hours: Temp Pulse Resp BP Pulse Ox 99.3 F 68 24 114/47 L 96 06/24/21 08:00 06/24/21 10:00 06/24/21 10:00 06/24/21 10:00 06/24/21 10:00 Laboratory Results - last 24 hr 06/23/21 04:44: Total Bilirubin 4.1 H, Direct Bilirubin 3.2 H, Conjugated Bilirubin 1.6 H, Indirect Bilirubin 0.9, Unconjugated Bilirubin 1.0, AST 73 H, ALT 32, Alkaline Phosphatase 72, Total Protein 4.4 L D, Albumin 2.1 L 06/23/21 10:46: Specimen Source R radial, O2 % 100, ABG pH 7.42, ABG pCO2 34.9 L, ABG pO2 67.6 L, ABG HCO3 22.0, ABG Total CO2 23.1, ABG O2 Saturation 92, ABG Base Excess -2.5 L, Aaron Test Acceptable, Vent Rate 12, Tidal Volume 500, PEEP 6 06/23/21 13:16: Specimen Source R radial, O2 % 100, ABG pH 7.33 L, ABG pCO2 50.8 H, ABG pO2 73.8 L, ABG HCO3 25.9, ABG Total CO2 27.5 H, ABG O2 Saturation 93, ABG Base Excess -0.1, Aaron Test Acceptable, Vent Rate 16, Tidal Volume 420, PEEP 5 06/24/21 00:26: POC Glucose 106 06/24/21 06:30: WBC 11.1 H D, RBC 3.12 L, Hgb 9.8 L, Hct 31.5 L, MCV 101.1 H, MCH 31.6 H, MCHC 31.2 L, RDW 16.2, Plt Count 461 H, MPV 9.3, Neut % (Auto) 83.7 H, Lymph % (Auto) 12.1, [place] % (Auto) 2.0, Eos % (Auto) 1.3, Baso % (Auto) 0.9, Neut # (Auto) 9.3 H, Lymph # (Auto) 1.3, [place] # (Auto) 0.2, Eos # (Auto) 0.1, Baso # (Auto) 0.1 06/24/21 06:30: Sodium 145, Potassium 3.2 L, Chloride 113 H, Carbon Dioxide 22, Anion Gap 13.2, BUN 28 H D, Creatinine 2.60 H D, Estimated Creat Clear 16, Estimated GFR 18 L*, Est GFR ( Amer) 22 L D, Glucose 99, Calcium 6.9 L I & O for Last 24 hours: Intake & Output 06/21/21 06/22/21 06/23/21 06/24/21 11:59 11:59 11:59 11:59 Intake Total 4889 / 4889 2125 / 2125 1850 / 1850 5306.023 / 5306.023 Output Total 4475 / 4475 2450 / 2450 2900 / 2900 1467 / 1467 Balance 414 / 414 -325 / -325 -1050 / -1050 3839.023 / 3839.023 Weight 262 lb 6.4 oz 262 lb 3.2 oz 262 lb 3.203 oz 271 lb Microbiology Reports for the Last 24 Hours: Microbiology 06/23/21 13:13 Sputum - Endotracheal Tube Aspirate Gram Stain - Final 06/23/21 13:13 Sputum - Endotracheal Tube Aspirate Sputum Culture - Preliminary 06/23/21 10:45 Abdomen Gram Stain - Final - Constitutional no acute distress - *Routine HEENT Exam Head: Present: normocephalic Eye: Present: PERRL ENT: Present: mucous membranes moist - *Routine Neck Exam Present: supple. Absent: lymphadenopathy - *Routine Respiratory Exam Present: patient mechanically ventilated - *Routine Cardiovascular Exam Present: irregular rhythm - *Routine Abdominal Exam Present: soft, normoactive bowel sounds, wound. Absent: tenderness Comments: dressing to abd c/d/i - *Routine Extremities Exam Absent: cyanosis, clubbing, edema - *Routine Skin Exam Present: warm. Absent: rash Comments: dressing c/d/i - *Routine Neurological Exam sedated Assessment and Plan (1) Small bowel obstruction Status: Acute Category: Medical Code(s): K56.609 - Unspecified intestinal obstruction, unspecified as to partial versus complete obstruction (2) Abdominal pain Status: Acute Category: Medical Code(s): R10.9 - Unspecified abdominal pain (3) Paroxysmal atrial fibrillation with rapid ventricular response Status: Acute Category: Medical Code(s): I48.0 - Paroxysmal atrial fibrillation (4) Obesity, morbid, BMI 40.0-49.9 Status: Acute Category: Medical Code(s): E66.01 - Morbid (severe) obesity due to excess calories (5) Anemia Status: Acute Category: Medical Code(s): D64.9 - Anemia, unspecified (6) Atrial flutter with controlled response Status: Acute Category: Medical Code(s): I48.92 - Unspecified atrial flutter (7) Acute kidney injury Status: Acute Category: Medical Code(s): N17.9 - Acute kidney failure, unspecified - Assess
[2021-06-24 10:59] LABS: ABG Base Excess -2.3 mmol/L (-2.4-2.3); ABG HCO3 21.2 mmhg (22.0-26.0); ABG Oxygen Saturation 93 % (90-100); ABG PCO2 28.8 mmhg (35.0-45.0); ABG PH 7.48 mmol/L (7.35-7.45); ABG PO2 63.4 mmhg (80-100)
[2021-06-24 11:02] LABS: Allen's Test ACCEPTABLE; Oxygen 60 %; PEEP 8; Source Right Radial; Tidal Volume 440; Vent Rate 20
--- NOTE | 2021-06-24 11:45 | PC.NURSE ---
Dr. Dubon @ [facility] and ordered Amio bolus 150mg/10min and then an Amio maintenance gtt. Pt continues in Aflutter 3:1 controlled. Amio bolus started @ 1150 and then Amio maintenance started @ 12pm. Daughter @ [facility]. Kaylen Chang APRN @ [facility] updating family.
--- NOTE | 2021-06-24 12:30 | DIET.NUTRFU ---
RD saw patient during rounds today, prognosis is poor. She is intubated with esmolol infusion, propofol and NG tube in place for suction. She is reported to have poor urine output and renal labs are declining at BUN 28H and Cr 2.6. Na WNL and K slightly depleted at 3.2. If TF becomes appropriate at any time, please consult RD. She is also receiving hydration with medication mixtures. Will continue to monitor labs and overall status
--- NOTE | 2021-06-24 13:21 | PC.NURSE ---
Esmolol gtt turned OFF per Dr. Dubon
--- NOTE | 2021-06-24 15:11 | PC.NURSE ---
pt bathed and midline dressing changed. Dressing is wet to dry kerlix packed and then covered in ABD dressing.
--- NOTE | 2021-06-24 15:15 | PC.NURSE ---
HR 150s. Willard LUJAN on the unit and gave order to restart Esmolol gtt.
--- NOTE | 2021-06-24 15:23 | PC.NURSE ---
spoke with patient family earlier in shift. asked about any concerns or questions with patient stay. family stated they had just spoke with amanda desai and at this time had no questions.
--- NOTE | 2021-06-24 15:52 | PC.NURSE ---
HR now 90-100. Aflutter. Esmolol gtt continues.
--- NOTE | 2021-06-24 18:00 | PC.NURSE ---
Amio gtt decreased to 0.5mg/min.
[2021-06-25] VITALS (41 sets, daily range): BP systolic 92–143; BP diastolic 28–63; PULSE 60–118; RESP 16–31; TEMP 36.6–37.4; O2SAT 94–100; BMI 48.0
--- NOTE | 2021-06-25 04:28 | PC.NURSE ---
No acute changes this shift. Pt has tolerated vent. VS currently stable. Pt remains on Esmolol @ 24 ml. Levophed is currently infusing @ 20 mcg/hr. Amiodarone @ 0.5 mg/min. Fentanyl @ 30 mcg/hr. Vent settings are as follows: AC, FiO2 60, TV 440, R 16, PEEP 8. Oral care and suctioning provided. Pt has had less output out of NG this shift. See I&O. F/C draining to bedside with dark, yellow urine. Urine output better this shift. Medications administered per mar. Titrated per protocol. No other concerns. Will continue to monitor.
--- NOTE | 2021-06-25 06:00 | XR_ITS ---
PROCEDURE INFORMATION: Exam: XR Chest Exam date and time: 06/25/2021 5:24 AM Age: 71 years old Clinical indication: Device placement; Ett placement (vent status); Additional info: Ett and ng placement TECHNIQUE: Imaging protocol: XR of the chest. Views: 1 view. COMPARISON: CR XR CHEST PORTABLE 06/24/2021 5:04 AM FINDINGS: Tubes, catheters and devices: Endotracheal tube unchanged in position 5 cm above the haris. Tip of nasogastric tube not well visualized but appears to be overlying the gastroduodenal region. Lungs: Hypoventilated lungs. Tapering left greater than right opacities suggest bilateral pleural effusions and bibasilar atelectasis. Heart/Mediastinum: Cardiac silhouette stable. Bones/joints: Unremarkable. Other findings: Overlying monitoring equipment. Patient somewhat dextro rotated. IMPRESSION: Left greater than right pleural effusions and bibasilar atelectasis. Pneumonia not excluded.
[2021-06-25 06:30] LABS: Chloride 111 mmol/L (98-107); Potassium 3.1 mmoL/L (3.5-5.1); Sodium 139 mmol/L (136-145)
[2021-06-25 06:33] LABS: Anion Gap 13.1 mEq/L (5-15); Blood Urea Nitrogen 36 mg/dl (7-17); Calcium 6.4 mg/dl (8.4-10.2); Carbon Dioxide 18 mmol/L (22.0-30.0); Creatinine Clearance Estimated 14 mL/min (50-200); Estimated Glomerular Filt Rate 15 ml/min (>60); GFR (African American) 19 ML/MIN (>60); Glucose 128 mg/dl (74-100)
[2021-06-25 06:35] LABS: Basophils # 0.2 K/mm3 (0-0.2); Eosinophils # 0.3 K/mm3 (0.0-0.4); Eosinophils % 1.8 % (0.1-12.0); Hematocrit 28.8 % (37.0-47.0); Hemoglobin 9.6 g/dL (12.2-16.2); Lymphocytes # 1.5 K/mm3 (0.7-4.5); Lymphocytes % 7.9 % (10-50); Mean Corpuscular HGB Conc 33.2 g/dL (31.8-35.4); Mean Corpuscular Hemoglobin 33.1 pg (27.0-31.2); Mean Corpuscular Volume 99.8 fl (81-99); Mean Platelet Volume 9.5 fl (7.4-10.4); Monocytes # 0.4 K/mm3 (0.1-1.0); Monocytes % 1.9 % (1.7-9.3); Neutrophils # 16.3 K/mm3 (1.8-7.8); Neutrophils % 87.3 % (37.0-80.0); Platelet Count 499 K/mm3 (142-424); Red Blood Count 2.88 M/mm3 (4.20-5.40); Red Cell Distribution Width 16.3 % (11.5-17.5); White Blood Count 18.7 K/mm3 (4.8-10.8)
[2021-06-25 07:16] LABS: MANUAL DIFFERENTIAL MANUAL DIFFERENTIAL (MANUAL DIFF)
--- NOTE | 2021-06-25 07:33 | P.PN_ITS ---
Subjective Narrative: Patient remains sedated and on ventilator. Atrial fibrillation flutter. Nasogastric output approximately 500 cc over 24 hours. Progress Note: A&P (1) Small bowel obstruction Status: Acute (2) Abdominal pain Status: Acute (3) Paroxysmal atrial fibrillation with rapid ventricular response Status: Acute (4) Obesity, morbid, BMI 40.0-49.9 Status: Acute (5) Anemia Status: Acute Assessment and Plan for All Diagnoses:: Keep NG tube while on the ventilator. Will defer presumed ventilator weaning to pulmonary. Elevated creatinine likely prerenal due to high NG output. Exam Vital signs and Labs for Last 24 Hours: Temp Pulse Resp BP Pulse Ox 99.0 F 72 19 101/57 L 100 06/25/21 04:00 06/25/21 07:00 06/25/21 07:00 06/25/21 07:00 06/25/21 07:00 Laboratory Results - last 24 hr 06/24/21 07:00: Specimen Source Right radial, O2 % 60, ABG pH 7.48 H, ABG pCO2 28.8 L, ABG pO2 63.4 L, ABG HCO3 21.2 L, ABG Total CO2 22.0 L, ABG O2 Saturation 93, ABG Base Excess -2.3, Aaron Test Acceptable, Vent Rate 20, Tidal Volume 440, PEEP 8 06/25/21 05:10: WBC 18.7 H D, RBC 2.88 L, Hgb 9.6 L, Hct 28.8 L, MCV 99.8 H, MCH 33.1 H, MCHC 33.2, RDW 16.3, Plt Count 499 H, MPV 9.5, Neut % (Auto) 87.3 H, Lymph % (Auto) 7.9 L, [place] % (Auto) 1.9, Eos % (Auto) 1.8, Baso % (Auto) 1.0, Neut # (Auto) 16.3 H, Lymph # (Auto) 1.5, [place] # (Auto) 0.4, Eos # (Auto) 0.3, Baso # (Auto) 0.2 06/25/21 05:10: Sodium 139, Potassium 3.1 L, Chloride 111 H, Carbon Dioxide 18 L , Anion Gap 13.1, BUN 36 H D, Creatinine 3.00 H, Estimated Creat Clear 14, Estimated GFR 15 L*, Est GFR ( Amer) 19 L*, Glucose 128 H D, Calcium 6.4 L I & O for Last 24 hours: Intake & Output 06/22/21 06/23/21 06/24/21 06/25/21 11:59 11:59 11:59 11:59 Intake Total 2125 / 2125 1850 / 1850 5306.023 / 5306.023 3541.572 / 3541.572 Output Total 2450 / 2450 2900 / 2900 1512 / 1512 1345 / 1345 Balance -325 / -325 -1050 / -1050 3794.023 / 3794.023 2196.572 / 2196.572 Weight 262 lb 3.2 oz 262 lb 3.203 oz 271 lb 271 lb 0.016 oz Microbiology Reports for the Last 24 Hours: Microbiology 06/23/21 10:45 Abdomen Gram Stain - Final 06/23/21 10:45 Abdomen Wound Culture - Preliminary NO GROWTH AFTER 24 HOURS 06/23/21 13:13 Sputum - Endotracheal Tube Aspirate Gram Stain - Final 06/23/21 13:13 Sputum - Endotracheal Tube Aspirate Sputum Culture - Preliminary - *Routine Abdominal Exam Comments: Abdomen soft. Dressing dry.
[2021-06-25 08:07] LABS: ABG Base Excess -4.5 mmol/L (-2.4-2.3); ABG Oxygen Saturation 94 % (90-100); ABG PCO2 31.7 mmhg (35.0-45.0); ABG PH 7.42 mmol/L (7.35-7.45); ABG PO2 72.6 mmhg (80-100)
[2021-06-25 08:14] LABS: Allen's Test ACCEPTABLE; Oxygen 40 %; PEEP 8; Source Right Radial; Tidal Volume 440; Vent Rate 16
[2021-06-25 08:22] LABS: Lactate Arterial 1.9 mmol/L (0.4-2.0)
[2021-06-25 09:10] LABS: Eosinophils % 1 % (0-3); Lymphocytes % 9 % (10-50); Monocytes % 2 % (2-9); Neutrophils % 87 % (42-76); Nucleated Red Blood Cells 2; Total Cells Counted 100
[2021-06-25 09:16] LABS: Hypochromasia 1+
[2021-06-25 09:17] LABS: Anisocytosis 1+; Macrocytosis 1+; Platelet Estimate Slight Increase
--- NOTE | 2021-06-25 09:23 | HMH.PULMPN ---
Internal Medicine - PN: Subj *Date: 06/25/21 *Time: 11:11 Interval history: No acute respiratory events overnight. Improving oxygen requirements. Exam - Constitutional Constitutional:: Present: no acute distress, comfortable - HENMT Exam HENMT: Present: normocephalic - Eye Exam Eyes:: Present: normal appearance both eyes and related structures - Neck Exam Neck:: Present: normal visual inspection - Respiratory Exam Respiratory:: Present: no respiratory distress. Absent: wheezing - Cardiovascular Exam Cardiac:: Present: S1, S2 - GI Exam GI:: Present: soft. Absent: normal to inspection - Skin Exam Skin: Present: warm, no rash - Neurological Exam Neurological: Present: awake. Absent: alert, normal cognition - Extremities Exam Extremities: Present: no cyanosis, no clubbing, no edema Assessment and Plan (1) Small bowel obstruction Status: Acute Category: Medical Code(s): K56.609 - Unspecified intestinal obstruction, unspecified as to partial versus complete obstruction (2) Abdominal pain Status: Acute Category: Medical Code(s): R10.9 - Unspecified abdominal pain (3) Paroxysmal atrial fibrillation with rapid ventricular response Status: Acute Category: Medical Code(s): I48.0 - Paroxysmal atrial fibrillation (4) Obesity, morbid, BMI 40.0-49.9 Status: Acute Category: Medical Code(s): E66.01 - Morbid (severe) obesity due to excess calories (5) Anemia Status: Acute Category: Medical Code(s): D64.9 - Anemia, unspecified - Assessment and plan all Dx Assessment and Plan for all problems:: # Acute on chronic hypoxic respiratory failure needing mechanical ventilatory support : Ms. Gongora is a 71-year-old female presented to the hospital on 06/16/2021 complaining of abdominal pain post laparotomy with small bowel resection for obstruction has been doing fairly well up until today where patient noted to have worsening abdominal pain nausea and febrile episodes and was taken to the OR for wound washout with possible reexploration eventually remain on ventilator pulmonary was called for further management. Upon chart review patient respiratory status has been relatively stable since admission needing 2 to 4 L nasal cannula saturations maintained at 90% and above. CTA performed on 06/22/2021 did not show any evidence of dense consolidation. Bilateral lower lobe atelectasis noted. No evidence of pulmonary embolism noted. Home inhalers medications include Flovent discus. Examination today patient not noted to be any respiratory distress. Initial ABG showed hypercarbia, made appropriate vent settings. Interval update: Slight worsening leukocytosis. Blood cultures pending. Endotracheal aspirate growing gram-positive cocci in pairs. Worsening shock continue to need Levophed. Plan: -Continue analgosedation with propofol and fentanyl. Sedation and perform SBT, low tidal volumes and tachypnea. We will continue to wean sedation as tolerated and perform SBT -Continue to receive mechanical ventilatory support, PEEP of 10/23/1939 of tidal volume rate of 16 and FiO2 40 ABG from this morning no acute abnormalities, pH of 7.42, PCO2 31.7 PO2 72.6. Chest x-ray this morning ET tube in place with improving Pulmonary infiltrates. No change in volume status. Continue current antibiotics awaiting final cultures. Prelim sputum rare gram-positive cocci in pairs. DuoNebs every 6 hours on a scheduled basis. -Worsening leukocytosis. Continue to receive vancomycin cefepime and micafungin. Repeat blood cultures pending. Repeat tracheal aspirate gram-positive cocci in pairs. Low-grade fevers T-max 99.3 -Hemodynamically unstable. Though improving, Levophed now at 10 mcg per hour A flutter. Cardiology following. On amiodarone continious and esmolol intermittently . On Levophed. -Abdomen soft, midline dressing noted. Follow with surgery recommendations. -Worsening renal function, creatinine of 3.0 today. [place]
--- NOTE | 2021-06-25 09:28 | HMH.PNCARD ---
Subjective Date: 06/25/21 Time: 09:29 Principal diagnosis: PAF, SBO surgery Interval history: 71-year-old white female sedated, intubated and on mechanical ventilation. Telemetry shows continued atrial flutter with a rate of 60 to 70 bpm. IV amiodarone to finish completion around noon today. Exam Vital signs and Labs for Last 24 Hours: Temp Pulse Resp BP Pulse Ox 98.4 F 72 19 101/57 L 100 06/25/21 08:00 06/25/21 07:00 06/25/21 07:00 06/25/21 07:00 06/25/21 07:00 Laboratory Results - last 24 hr 06/24/21 07:00: Specimen Source Right radial, O2 % 60, ABG pH 7.48 H, ABG pCO2 28.8 L, ABG pO2 63.4 L, ABG HCO3 21.2 L, ABG Total CO2 22.0 L, ABG O2 Saturation 93, ABG Base Excess -2.3, Aaron Test Acceptable, Vent Rate 20, Tidal Volume 440, PEEP 8 06/25/21 05:10: WBC 18.7 H D, RBC 2.88 L, Hgb 9.6 L, Hct 28.8 L, MCV 99.8 H, MCH 33.1 H, MCHC 33.2, RDW 16.3, Plt Count 499 H, MPV 9.5, Neut % (Auto) 87.3 H, Lymph % (Auto) 7.9 L, [place] % (Auto) 1.9, Eos % (Auto) 1.8, Baso % (Auto) 1.0, Neut # (Auto) 16.3 H, Lymph # (Auto) 1.5, [place] # (Auto) 0.4, Eos # (Auto) 0.3, Baso # (Auto) 0.2, Total Counted 100, Neutrophils % (Manual) 87 H, Lymphocytes % (Manual) 9 L, Monocytes % (Manual) 2, Eosinophils % (Manual) 1, Basophils % (Manual) 1.0, Nucleated RBCs 2, Platelet Estimate Slight increase, Hypochromasia 1+, Anisocytosis 1+, Macrocytosis 1+ 06/25/21 05:10: Sodium 139, Potassium 3.1 L, Chloride 111 H, Carbon Dioxide 18 L, Anion Gap 13.1, BUN 36 H D, Creatinine 3.00 H, Estimated Creat Clear 14, Estimated GFR 15 L*, Est GFR ( Amer) 19 L*, Glucose 128 H D, Calcium 6.4 L 06/25/21 07:00: Specimen Source Right radial, O2 % 40, ABG pH 7.42, ABG pCO2 31.7 L, ABG pO2 72.6 L, ABG HCO3 20.0 L, ABG Total CO2 21.0 L, ABG O2 Saturation 94, ABG Base Excess -4.5 L, Aaron Test Acceptable, Vent Rate 16, Tidal Volume 440, PEEP 8 06/25/21 08:20: ABG Lactate 1.9 I & O for Last 24 hours: Intake & Output 06/22/21 06/23/21 06/24/21 06/25/21 11:59 11:59 11:59 11:59 Intake Total 2125 / 2125 1850 / 1850 5306.023 / 5306.023 3541.572 / 3541.572 Output Total 2450 / 2450 2900 / 2900 1512 / 1512 1345 / 1345 Balance -325 / -325 -1050 / -1050 3794.023 / 3794.023 2196.572 / 2196.572 Weight 262 lb 3.2 oz 262 lb 3.203 oz 271 lb 271 lb 0.016 oz Microbiology Reports for the Last 24 Hours: Microbiology 06/23/21 10:45 Abdomen Gram Stain - Final 06/23/21 10:45 Abdomen Wound Culture - Preliminary NO GROWTH AFTER 24 HOURS 06/23/21 13:13 Sputum - Endotracheal Tube Aspirate Gram Stain - Final 06/23/21 13:13 Sputum - Endotracheal Tube Aspirate Sputum Culture - Preliminary - *Routine Respiratory Exam Present: patient mechanically ventilated - *Routine Cardiovascular Exam Present: RRR, irregular rhythm - *Routine Extremities Exam Present: edema. Absent: cyanosis, clubbing Progress Note: A&P (1) Small bowel obstruction Status: Acute (2) Abdominal pain Status: Acute (3) Paroxysmal atrial fibrillation with rapid ventricular response Status: Acute (4) Obesity, morbid, BMI 40.0-49.9 Status: Acute (5) Anemia Status: Acute (6) Acute kidney injury Status: Acute (7) Atrial flutter with controlled response Status: Acute Assessment and Plan for All Diagnoses:: 1. Small bowel obstruction, status post surgical correction with second operation finding only fascial dehiscence. 2. Paroxysmal atrial fibrillation/flutter, rate controlled on esmolol drip. Lovenox for now until patient taking oral medications. Normal ejection fraction on echo this admission. IV amiodarone continues. 3. Chronic Ativan use 4. Hypokalemia, continue potassium supplementation 5. Anemia, 9.6 today, continue to monitor 6. ALISA, Cr 3.0 with GFR 15, possibly due to combination of CT scans with contrast and Vancomycin will attempt cardioversion to restore NSR and hopefully be able to stop esmolol gtt which is causing hypoten
--- NOTE | 2021-06-25 10:36 | CT_ITS ---
FINAL REPORT CLINICAL HISTORY: ongoing abd issues, increased Ponce recent surgery COMPARISON: June 23, 2021 FINDINGS: CT ABDOMEN & PELVIS W/O CONTRAST Axial CT images of the abdomen and pelvis were obtained without intravenous contrast. Coronal reformatted images were also obtained.This study was performed with techniques to keep radiation doses as low as reasonably achievable (ALARA). Individualized dose reduction techniques using automated exposure control or adjustment of mA and/or kV according to the patient's size were employed. Abdomen: There is worsening bilateral lower lobe atelectasis. There is residual contrast in bilateral kidneys of uncertain significance but is worrisome for renal insufficiency. There are bilateral renal cysts. The gallbladder is present. The liver, spleen and pancreas have an unremarkable, unenhanced appearance. A nasogastric tube is present. There has been interval improvement in in the multiple distended small bowel loops. There is moderate anasarca. Pelvis: There is postoperative change in the pelvis. There is no evidence of ureteral dilation or ureteral stone. There is a Mcghee catheter in the urinary bladder. There is sigmoid diverticulosis without evidence of diverticulitis. IMPRESSION: Interval in improvement in the multiple distended small bowel loops. Worsening atelectasis in the lung bases. Findings worrisome for renal insufficiency. Reviewed, Interpreted and Dictated by Neo Stein III, MD Transcribed by Tabitha Sánchez Authenticated by Neo Stein III, MD on 06/25/2021 01:05:48 PM [facility]
--- NOTE | 2021-06-25 11:08 | CT_ITS ---
FINAL REPORT CLINICAL HISTORY: altered mental, pt is intubated FINDINGS: CT HEAD/BRAIN W/O CONTRAST Axial images of the head were obtained without contrast. Coronal reformatted images were also obtained.This study was performed with techniques to keep radiation doses as low as reasonably achievable (ALARA). Individualized dose reduction techniques using automated exposure control or adjustment of mA and/or kV according to the patient's size were employed. There is no evidence of intracranial hemorrhage or mass. The ventricular size is within normal limits. There is no evidence of shift of the midline structures. No abnormal extra axial fluid collection is identified. There is a fluid level in the right maxillary sinus, nonspecific. No skull abnormality is seen on the bone window images. IMPRESSION: No acute intracranial abnormality. Reviewed, Interpreted and Dictated by Neo Stein III, MD Transcribed by Tabitha Sánchez Authenticated by Neo Stein III, MD on 06/25/2021 01:01:05 PM [facility]
--- NOTE | 2021-06-25 11:10 | PC.NURSE ---
spoke with Jaime Chang in regards to pt alerted consciousness. pt does not follow commands, will not focus and is continually reach towards to ceiling. order entered without contrast at 1105
--- NOTE | 2021-06-25 11:30 | DIET.NUTRFU ---
Based on high NG output, TF continues to be not medically feasible. Receiving IVF fluid for hydration. Prognosis continues to be poor, during rounds today her fingers to right hand and toes appeared purple and her face and eyes appeared jaundice. Renal labs are worse with BUN at 36 and Cr 3.0 with GFR at 15. Bilirubin from 06/23 was elevated at 4.0. Will continue to monitor overall condition, if TF becomes feasible please contact RD
--- NOTE | 2021-06-25 12:22 | P.PCN_ITS ---
[facility] Cardioversion Date: 06/25/21 Provider:: LE Corrales Procedure Performed:: Synchronized electrical cardioversion Diagnosis:: Atrial flutter Procedure Summary:: Informed consent was obtained from patient's family. Patient was given IV sedation and a subsequent synchronized shock at 100 J was administered which successfully returned the patient to normal sinus rhythm. No immediate complications noted. Complications:: None Conculsion:: Successful electrical cardioversion from atrial flutter to normal sinus rhythm
--- NOTE | 2021-06-25 13:01 | HMH.ACPN2 ---
Internal Medicine - PN: Subj *Date: 06/25/21 *Time: 19:15 Interval history: 71-year-old female patient remains on the ventilator her sedation has been turned off in an attempt for spontaneous breathing trial today. Amiodarone is infusing and Levophed has been increased since yesterday, she is still making urine. White blood cell count has increased from 11-18 today, creatinine elevated to 3.0 and potassium 3.1. Will order abdominal/pelvic CT and head CT. Exam Vital signs and Labs for Last 24 Hours: Temp Pulse Resp BP Pulse Ox 98.4 F 111 H 31 H 101/57 L 100 06/25/21 08:00 06/25/21 11:14 06/25/21 11:14 06/25/21 07:00 06/25/21 11:14 Laboratory Results - last 24 hr 06/25/21 05:10: WBC 18.7 H D, RBC 2.88 L, Hgb 9.6 L, Hct 28.8 L, MCV 99.8 H, MCH 33.1 H, MCHC 33.2, RDW 16.3, Plt Count 499 H, MPV 9.5, Neut % (Auto) 87.3 H, Lymph % (Auto) 7.9 L, [place] % (Auto) 1.9, Eos % (Auto) 1.8, Baso % (Auto) 1.0, Neut # (Auto) 16.3 H, Lymph # (Auto) 1.5, [place] # (Auto) 0.4, Eos # (Auto) 0.3, Baso # (Auto) 0.2, Total Counted 100, Neutrophils % (Manual) 87 H, Lymphocytes % (Manual) 9 L, Monocytes % (Manual) 2, Eosinophils % (Manual) 1, Basophils % (Manual) 1.0, Nucleated RBCs 2, Platelet Estimate Slight increase, Hypochromasia 1+, Anisocytosis 1+, Macrocytosis 1+ 06/25/21 05:10: Sodium 139, Potassium 3.1 L, Chloride 111 H, Carbon Dioxide 18 L, Anion Gap 13.1, BUN 36 H D, Creatinine 3.00 H, Estimated Creat Clear 14, Estimated GFR 15 L*, Est GFR ( Amer) 19 L*, Glucose 128 H D, Calcium 6.4 L 06/25/21 07:00: Specimen Source Right radial, O2 % 40, ABG pH 7.42, ABG pCO2 31.7 L, ABG pO2 72.6 L, ABG HCO3 20.0 L, ABG Total CO2 21.0 L, ABG O2 Saturation 94, ABG Base Excess -4.5 L, Aaron Test Acceptable, Vent Rate 16, Tidal Volume 440, PEEP 8 06/25/21 08:20: ABG Lactate 1.9 I & O for Last 24 hours: Intake & Output 06/22/21 06/23/21 06/24/21 06/25/21 23:59 23:59 23:59 23:59 Intake Total 3382 / 3382 3396.318 / 3396.318 4538.992 / 4624.992 912.285 / 912.285 Output Total 2100 / 2500 2825 / 2825 1607 / 1632 525 / 525 Balance 1282 / 882 571.318 / 992.658 0945.992 / 2992.992 387.285 / 387.285 Weight 262 lb 3.2 oz 262 lb 2.074 oz 271 lb 271 lb 0.016 oz Microbiology Reports for the Last 24 Hours: Microbiology 06/23/21 10:45 Abdomen Gram Stain - Final 06/23/21 10:45 Abdomen Wound Culture - Preliminary NO GROWTH AFTER 24 HOURS - Constitutional mild distress - *Routine HEENT Exam Eye: Present: conjunctival icterus - *Routine Respiratory Exam Present: decreased breath sounds - *Routine Cardiovascular Exam Present: irregularly irregular - *Routine Abdominal Exam Present: soft - *Routine Extremities Exam Present: pulses intact. Absent: clubbing Comments: Bilateral toes discolored - *Routine Skin Exam Present: cyanosis, wounds. Absent: intact, erythema, dry Comments: Midline Abdomen - *Routine Neurological Exam Present: altered mental status - Routine Psychiatric Exam Present: unable to assess Assessment and Plan (1) Small bowel obstruction Status: Acute Category: Medical Code(s): K56.609 - Unspecified intestinal obstruction, unspecified as to partial versus complete obstruction (2) Abdominal pain Status: Acute Category: Medical Code(s): R10.9 - Unspecified abdominal pain (3) Paroxysmal atrial fibrillation with rapid ventricular response Status: Acute Category: Medical Code(s): I48.0 - Paroxysmal atrial fibrillation (4) Obesity, morbid, BMI 40.0-49.9 Status: Acute Category: Medical Code(s): E66.01 - Morbid (severe) obesity due to excess calories (5) Anemia Status: Acute Category: Medical Code(s): D64.9 - Anemia, unspecified (6) Acute kidney injury Status: Acute Category: Medical Code(s): N17.9 - Acute kidney failure, unspecified (7) Atrial flutter with controlled response Status: Acute Category: Medical Code(s): I48.92 - U
[2021-06-25 20:03] LABS: POC Glucose,Bedside 138 (70-110)
--- NOTE | 2021-06-25 20:56 | PC.WOUNDNOTE ---
am skin assessment pic
--- NOTE | 2021-06-25 21:00 | PC.NURSE ---
order received from Dr viveros that pt was to be cardioverted at bedside. Ondina Gage and Dr Viveros at bedside at approx 1135. pt was placed back on propofol drip at this time for sedation. pt tolerated well. pt was shocked 1 time at 120j. pt cardioverted. orders received from Dr Viveros to continue amiodarone drip (no po) r/t pt having NG tube to suction and not being ready for oral meds. order also received for pt to have esmolol drip dc. orders to be entered by dr brannon/ondina gage. miladys tse Rn also at bedside at this time.
--- NOTE | 2021-06-25 21:10 | PC.NURSE ---
late entry: Dr Troncoso verbally stated/face to face that it was ok for pt to be restarted on low dose fentanyl and propofol for comfort and r/t hx of anxiety. this was at approx 1500 at bedside.
[2021-06-25 21:36] LABS: Vancomycin,Trough 28.2 ug/mL (5.0-10.0)
--- NOTE | 2021-06-25 21:43 | PC.NURSE ---
[facility] contacted at this time with atul trough, pharmacist stated to hold 2100 dose
[2021-06-25 23:08] LABS: POC Glucose,Bedside 111 (70-110)
[2021-06-26] VITALS (39 sets, daily range): BP systolic 85–148; BP diastolic 40–82; PULSE 80–94; RESP 18–40; TEMP 36.7–37.4; O2SAT 100; BMI 49.3
[2021-06-26 05:39] LABS: Basophils # 0.3 K/mm3 (0-0.2); Basophils % 1.4 % (0.1-2.0); Eosinophils # 0.2 K/mm3 (0.0-0.4); Eosinophils % 1.1 % (0.1-12.0); Hematocrit 28.7 % (37.0-47.0); Hemoglobin 9.8 g/dL (12.2-16.2); Lymphocytes # 1.2 K/mm3 (0.7-4.5); Lymphocytes % 6.3 % (10-50); Mean Corpuscular Hemoglobin 32.9 pg (27.0-31.2); Mean Corpuscular Volume 96.6 fl (81-99); Mean Platelet Volume 9.2 fl (7.4-10.4); Monocytes # 0.4 K/mm3 (0.1-1.0); Monocytes % 2.1 % (1.7-9.3); Neutrophils # 16.9 K/mm3 (1.8-7.8); Neutrophils % 89.1 % (37.0-80.0); Platelet Count 369 K/mm3 (142-424); Red Blood Count 2.97 M/mm3 (4.20-5.40); Red Cell Distribution Width 16.5 % (11.5-17.5)
--- NOTE | 2021-06-26 06:29 | HMH.GSPN ---
Subjective Narrative: Patient still on ventilator. Sedation just stopped in anticipation of hopeful weaning to extubate. Had yet another CT scan of abdomen yesterday which reveals resolved bowel obstruction and ileus. 300 cc NG output overnight. Undergoing dressing changes to abdomen. On cefipime and still on Vancomycin. Successfully cardioverted yesterday into normal sinus rhythm. Progress Note: A&P (1) Small bowel obstruction Status: Acute (2) Abdominal pain Status: Acute (3) Paroxysmal atrial fibrillation with rapid ventricular response Status: Acute (4) Obesity, morbid, BMI 40.0-49.9 Status: Acute (5) Anemia Status: Acute (6) Acute kidney injury Status: Acute (7) Atrial flutter with controlled response Status: Acute Assessment and Plan for All Diagnoses:: Labs pending. Continue dressing changes. Hopefully extubate soon and be able to remove NG and start diet. Exam Vital signs and Labs for Last 24 Hours: Temp Pulse Resp BP Pulse Ox 98.7 F 82 20 115/50 L 100 06/26/21 04:00 06/26/21 06:21 06/26/21 06:21 06/26/21 06:00 06/26/21 06:21 Laboratory Results - last 24 hr 06/24/21 21:02: POC Glucose 138 H 06/25/21 05:10: WBC 18.7 H D, RBC 2.88 L, Hgb 9.6 L, Hct 28.8 L, MCV 99.8 H, MCH 33.1 H, MCHC 33.2, RDW 16.3, Plt Count 499 H, MPV 9.5, Neut % (Auto) 87.3 H, Lymph % (Auto) 7.9 L, Geary % (Auto) 1.9, Eos % (Auto) 1.8, Baso % (Auto) 1.0, Neut # (Auto) 16.3 H, Lymph # (Auto) 1.5, [place]ary # (Auto) 0.4, Eos # (Auto) 0.3, Baso # (Auto) 0.2, Total Counted 100, Neutrophils % (Manual) 87 H, Lymphocytes % (Manual) 9 L, Monocytes % (Manual) 2, Eosinophils % (Manual) 1, Basophils % (Manual) 1.0, Nucleated RBCs 2, Platelet Estimate Slight increase, Hypochromasia 1+, Anisocytosis 1+, Macrocytosis 1+ 06/25/21 05:10: Sodium 139, Potassium 3.1 L, Chloride 111 H, Carbon Dioxide 18 L, Anion Gap 13.1, BUN 36 H D, Creatinine 3.00 H, Estimated Creat Clear 14, Estimated GFR 15 L*, Est GFR ( Amer) 19 L*, Glucose 128 H D, Calcium 6.4 L 06/25/21 07:00: Specimen Source Right radial, O2 % 40, ABG pH 7.42, ABG pCO2 31.7 L, ABG pO2 72.6 L, ABG HCO3 20.0 L, ABG Total CO2 21.0 L, ABG O2 Saturation 94, ABG Base Excess -4.5 L, Aaron Test Acceptable, Vent Rate 16, Tidal Volume 440, PEEP 8 06/25/21 08:20: ABG Lactate 1.9 06/25/21 20:20: Vancomycin Trough 28.2 H 06/25/21 22:18: POC Glucose 111 H I & O for Last 24 hours: Intake & Output 06/23/21 06/24/21 06/25/21 06/26/21 11:59 11:59 11:59 11:59 Intake Total 1850 / 1850 5306.023 / 5306.023 3896.572 / 4070.572 3757.408 / 3757.408 Output Total 2900 / 2900 1512 / 1512 1695 / 1795 1515 / 1515 Balance -1050 / -1050 3794.023 / 3794.023 2201.572 / 2275.572 2242.408 / 2242.408 Weight 262 lb 3.203 oz 271 lb 271 lb 0.016 oz 278 lb 6.4 oz Microbiology Reports for the Last 24 Hours: Microbiology 06/23/21 10:45 Abdomen - Final 06/23/21 15:25 Blood Blood Culture - Preliminary NO GROWTH AFTER 48 HOURS 06/23/21 15:25 Blood Blood Culture - Preliminary NO GROWTH AFTER 48 HOURS 06/23/21 10:45 Abdomen Gram Stain - Final 06/23/21 10:45 Abdomen Wound Culture - Preliminary NO GROWTH AFTER 48 HOURS 06/23/21 13:13 Sputum - Endotracheal Tube Aspirate Gram Stain - Final 06/23/21 13:13 Sputum - Endotracheal Tube Aspirate Sputum Culture - Preliminary - *Routine Abdominal Exam Present: soft Comments: Dressing dry.
[2021-06-26 06:51] LABS: MANUAL DIFFERENTIAL MANUAL DIFFERENTIAL (MANUAL DIFF)
--- NOTE | 2021-06-26 07:03 | PC.NURSE ---
current vent settings FiO2 40 TV 440 Peep 8 RR 16 sedation currently turned off at this time in anticipation of SBT
[2021-06-26 07:22] LABS: Chloride 113 mmol/L (98-107); Sodium 141 mmol/L (136-145)
[2021-06-26 07:25] LABS: Blood Urea Nitrogen 34 mg/dl (7-17); Calcium 6.6 mg/dl (8.4-10.2); Carbon Dioxide 18 mmol/L (22.0-30.0); Creatinine Clearance Estimated 16 mL/min (50-200); Estimated Glomerular Filt Rate 18 ml/min (>60); GFR (African American) 22 ML/MIN (>60); Glucose 92 mg/dl (74-100)
[2021-06-26 07:42] LABS: Anisocytosis 1+; Hypochromasia 1+; Lymphocytes % 5 % (10-50); Macrocytosis 1+; Monocytes % 2 % (2-9); Neutrophils % 93 % (42-76); Platelet Estimate Normal; Total Cells Counted 100
--- NOTE | 2021-06-26 08:15 | HMH.PULMPN ---
Internal Medicine - PN: Subj *Date: 06/26/21 *Time: 10:37 Interval history: No acute respiratory events overnight. Patient continues remain on minimal vent settings. Exam - Constitutional Constitutional:: Absent: no acute distress, comfortable - HENMT Exam HENMT: Present: normocephalic - Eye Exam Eyes:: Present: normal appearance both eyes and related structures - Neck Exam Neck:: Present: normal visual inspection - Respiratory Exam Respiratory:: Present: no respiratory distress, crackles. Absent: wheezing - Cardiovascular Exam Cardiac:: Present: S1, S2 - GI Exam GI:: Present: soft - Skin Exam Skin: Present: warm - Neurological Exam Neurological: Absent: alert, awake, normal cognition - Extremities Exam Extremities: Present: no cyanosis, no clubbing, edema Assessment and Plan (1) Small bowel obstruction Status: Acute Category: Medical Code(s): K56.609 - Unspecified intestinal obstruction, unspecified as to partial versus complete obstruction (2) Abdominal pain Status: Acute Category: Medical Code(s): R10.9 - Unspecified abdominal pain (3) Paroxysmal atrial fibrillation with rapid ventricular response Status: Acute Category: Medical Code(s): I48.0 - Paroxysmal atrial fibrillation (4) Obesity, morbid, BMI 40.0-49.9 Status: Acute Category: Medical Code(s): E66.01 - Morbid (severe) obesity due to excess calories (5) Anemia Status: Acute Category: Medical Code(s): D64.9 - Anemia, unspecified (6) Acute kidney injury Status: Acute Category: Medical Code(s): N17.9 - Acute kidney failure, unspecified (7) Atrial flutter with controlled response Status: Acute Category: Medical Code(s): I48.92 - Unspecified atrial flutter - Assessment and plan all Dx Assessment and Plan for all problems:: # Acute on chronic hypoxic respiratory failure needing mechanical ventilatory support : Ms. Gongora is a 71-year-old female presented to the hospital on 06/16/2021 complaining of abdominal pain post laparotomy with small bowel resection for obstruction has been doing fairly well up until today where patient noted to have worsening abdominal pain nausea and febrile episodes and was taken to the OR for wound washout with possible reexploration eventually remain on ventilator pulmonary was called for further management. Upon chart review patient respiratory status has been relatively stable since admission needing 2 to 4 L nasal cannula saturations maintained at 90% and above. CTA performed on 06/22/2021 did not show any evidence of dense consolidation. Bilateral lower lobe atelectasis noted. No evidence of pulmonary embolism noted. Home inhalers medications include Flovent discus. Interval update: Leukocytosis relatively stable. Stable renal function. Urine output stable 1780 for last 24 hours. Respiratory status remained stable, improving oxygen requirements, minimal ventilator settings Plan: -Continue analgosedation with propofol and fentanyl. Off sedation since this morning. Still appears lethargic and somnolent. Failed SBT resulting in low tidal volumes and tachypnea. Continue to hold sedation awaiting patient's mentation to improve. Recommend to perform daily SBT's and extubate appropriately -Follow with blood gas after repeat SBT trial -Continue to receive mechanical ventilatory support, PEEP of 8, 440of tidal volume rate of 16 and FiO2 40 -Chest x-ray ET tube in place with no worsening pulmonary infiltrates. Left-sided pleural effusion. -Sputum culture showing gram-negative rods. We will continue cefepime, recommend changing antibiotics appropriately based on final cultures. -DuoNebs every 6 hours on a scheduled basis. -Stable leukocytosis. Sputum growing gram-negative rods. We will continue cefepime. Blood cultures no growth 48 hours. Will discontinue micafungin. Shock improving. On 4 of Levophed. Patient also has been receiving vancomycin for her positive blood culture
--- NOTE | 2021-06-26 08:20 | XR_ITS ---
FINAL REPORT TECHNIQUE: Single view chest CLINICAL HISTORY: hypoxia COMPARISON: 06/25/2021 FINDINGS: A single view of the chest was obtained. There is an ET tube with the tip in the midthoracic trachea. NG tube courses below the diaphragm. The heart is enlarged. There is mild pulmonary vascular congestion. There is bibasilar atelectasis or pneumonia with a small left pleural effusion. There is no pneumothorax. Osseous structures demonstrate degenerative changes of the right shoulder. IMPRESSION: Bibasilar atelectasis or pneumonia with small left pleural effusion. Reviewed, Interpreted and Dictated by Neo Stein III, MD Transcribed by Lady Franco Authenticated by Neo Stein III, MD on 06/26/2021 09:06:47 AM [facility]
--- NOTE | 2021-06-26 08:48 | HMH.PHACONS ---
- Pharmacy Consult Date: 06/26/21 Time: 08:48 Referring provider: DR RODRIGUEZ Reason for Consult:: VANCOMYCIN DOSING ADJUSTMENT Allergies and ADEs:: Allergies Allergy/AdvReac Type Severity Reaction Status Date / Time NSAIDS (Non-Steroidal AdvReac EFFECTS Verified 06/17/21 00:55 Anti-Inflamma KIDNEYS Home Medications:: Home Medications Medication Instructions Recorded Confirmed Type Atorvastatin Calcium [Lipitor 20mg 20 mg PO HS 06/18/17 06/17/21 History Tab] Esomeprazole Magnesium 40 mg PO DAILY 06/18/17 06/17/21 History Furosemide [Furosemide 40MG tAB*] 40 mg PO BID 06/18/17 06/17/21 History LORazepam [Ativan 0.5mg 0.5 mg PO Q8HP PRN 06/18/17 06/17/21 History tablet] Oxybutynin Chloride [Oxybutynin 5 mg PO DAILY 06/18/17 06/17/21 History Chloride ER] Potassium Chloride [K-Tab ER 10 10 meq PO BID 06/18/17 06/17/21 History mEq] Sertraline HCl [Zoloft 50mg tablet] 50 mg PO DAILY 06/18/17 06/17/21 History Tizanidine HCl [Zanaflex] 4 mg PO HS 06/18/17 06/17/21 History allopurinoL [Allopurinol 300mg 300 mg PO DAILY 06/18/17 06/17/21 History tablet] Spironolactone [Spironolactone 25 mg PO DAILY 03/31/19 06/17/21 History 25mg Tablet] Fexofenadine HCl 180 mg PO DAILY 06/03/21 06/17/21 History Hydrocodone/Acetaminophen 1 tab PO Q4H 06/03/21 06/17/21 History [Hydrocodone-Acetamin 10-325 mg] Propranolol HCl [Inderal 20mg 20 mg PO BID 06/16/21 06/17/21 History tablet] Dextran 70/Hypromellose/Pf 1 drp EYE-BOTH NEEDED PRN 06/17/21 06/17/21 History [Artificial Tears Drops] Empagliflozin [Jardiance] 25 mg PO DAILY 06/17/21 06/17/21 History Fluticasone Propionate [Flovent 50 mcg IH DAILY 06/17/21 06/17/21 History Diskus] Metformin HCl [Metformin ER 500 mg PO DAILY 06/17/21 06/17/21 History Gastric] ondansetron HCL [Ondansetron 4mg 4 mg PO Q6 PRN 06/17/21 06/17/21 History tab*] predniSONE [Prednisone 5mg 5 mg PO DAILY 06/17/21 06/17/21 History Tab] Height: 1.6 m Weight: 126.28 kg Laboratory Results:: Laboratory Results - last 24 hr 06/24/21 21:02: POC Glucose 138 H 06/25/21 05:10: Total Counted 100, Neutrophils % (Manual) 87 H, Lymphocytes % (Manual) 9 L, Monocytes % (Manual) 2, Eosinophils % (Manual) 1, Basophils % (Manual) 1.0, Nucleated RBCs 2, Platelet Estimate Slight increase, Hypochromasia 1+, Anisocytosis 1+, Macrocytosis 1+ 06/25/21 20:20: Vancomycin Trough 28.2 H 06/25/21 22:18: POC Glucose 111 H 06/26/21 05:23: WBC 19.0 H, RBC 2.97 L, Hgb 9.8 L, Hct 28.7 L, MCV 96.6, MCH 32.9 H, MCHC 34.0, RDW 16.5, Plt Count 369 D, MPV 9.2, Neut % (Auto) 89.1 H, Lymph % (Auto) 6.3 L, Dawes % (Auto) 2.1, Eos % (Auto) 1.1, Baso % (Auto) 1.4, Neut # (Auto) 16.9 H, Lymph # (Auto) 1.2, Dawes # (Auto) 0.4, Eos # (Auto) 0.2, Baso # (Auto) 0.3 H, Total Counted 100, Neutrophils % (Manual) 93 H, Lymphocytes % (Manual) 5 L, Monocytes % (Manual) 2, Platelet Estimate Normal, Hypochromasia 1+, Anisocytosis 1+, Macrocytosis 1+ 06/26/21 05:23: Sodium 141, Potassium 3.0 L, Chloride 113 H, Carbon Dioxide 18 L, Anion Gap 13.0, BUN 34 H, Creatinine 2.60 H, Estimated Creat Clear 16, Estimated GFR 18 L*, Est GFR ( Amer) 22 L, Glucose 92, Calcium 6.6 L Medical History: Reports:: Anxiety, Asthma, Depression, Diabetes Mellitus Type 2, Gastroesophageal Reflux Disease(GERD), Hyperlipidemia, Migraine, Renal Insufficiency Denies:: Cancer, Diabetes Mellitus Type 1, MRSA Assessment and Plan (1) Small bowel obstruction Status: Acute Category: Medical Code(s): K56.609 - Unspecified intestinal obstruction, unspecified as to partial versus complete obstruction (2) Abdominal pain Status: Acute Category: Medical Code(s): R10.9 - Unspecified abdominal pain (3) Paroxysmal atrial fibrillation with rapid ventricular response Status: Acute Category: Medical Code(s): I48.0 - Paroxysmal atrial fibrillation (4) Obesity, morbid, BMI 40.0-49.9 Status: Acute Category: Medical Co
--- NOTE | 2021-06-26 09:27 | PC.NURSE ---
md was made aware of critical potassium within thirty minutes.
[2021-06-26 09:38] LABS: Alanine Aminotransferase 131 U/L (12-78); Albumin Level 2.6 g/dl (3.5-5.0); Alkaline Phosphatase 129 U/L (38-126); Aspartate Amino Transferase 248 U/L (14-36); Bilirubin, Conjugated 1.7 mg/dL (0.0-0.3); Bilirubin,Direct 3.4 mg/dl (0.0-0.4); Bilirubin,Indirect 0.8 mg/dL (0.0-0.9); Bilirubin,Total 4.2 mg/dl (0.2-1.3); Bilirubin,Unconjugated 0.8 mg/dL (0.0-1.1); Total Protein,Serum 5.8 g/dl (6.3-8.2)
--- NOTE | 2021-06-26 10:25 | US_ITS ---
FINAL REPORT CLINICAL HISTORY: yellow skin FINDINGS: Sonographic images of the right upper quadrant were obtained. The pancreas is partially obscured.The liver has an unremarkable appearance.The gallbladder appears normal without evidence of gallstones.There is no evidence of biliary ductal dilatation.The common duct measures 2 mm. There is a 1.6 cm probable cyst in the right kidney. IMPRESSION: Probable right renal cyst. Reviewed, Interpreted and Dictated by Neo Stein III, MD Transcribed by Mirlande Mcclure Authenticated by Neo Stein III, MD on 06/26/2021 01:52:09 PM [facility]
--- NOTE | 2021-06-26 12:56 | DIET.NUTRFU ---
Pt is still on ventilator but sedation was stopped during morning rounds. Potassium critically low. Renal labs with slight improvement today. BUN 34, Creatinine 2.60, and GFR 18. Recommend advancing diet as tolerated if pt is able to be extubated. Will monitor to see if TF will become beneficial.
--- NOTE | 2021-06-26 13:08 | HMH.ACPN2 ---
Internal Medicine - PN: Subj *Date: 06/26/21 *Time: 08:15 Interval history: pt still on vent vent settings: vc spont fs 8 peep 8 fio2 40 tv 440 rate 16 ng and [address] in place Exam Vital signs and Labs for Last 24 Hours: Temp Pulse Resp BP Pulse Ox 98.7 F 94 H 23 128/52 L 100 06/26/21 04:00 06/26/21 11:31 06/26/21 07:00 06/26/21 07:00 06/26/21 07:00 Laboratory Results - last 24 hr 06/24/21 21:02: POC Glucose 138 H 06/25/21 20:20: Vancomycin Trough 28.2 H 06/25/21 22:18: POC Glucose 111 H 06/26/21 05:23: WBC 19.0 H, RBC 2.97 L, Hgb 9.8 L, Hct 28.7 L, MCV 96.6, MCH 32.9 H, MCHC 34.0, RDW 16.5, Plt Count 369 D, MPV 9.2, Neut % (Auto) 89.1 H, Lymph % (Auto) 6.3 L, [place] % (Auto) 2.1, Eos % (Auto) 1.1, Baso % (Auto) 1.4, Neut # (Auto) 16.9 H, Lymph # (Auto) 1.2, [place] # (Auto) 0.4, Eos # (Auto) 0.2, Baso # (Auto) 0.3 H, Total Counted 100, Neutrophils % (Manual) 93 H, Lymphocytes % (Manual) 5 L, Monocytes % (Manual) 2, Platelet Estimate Normal, Hypochromasia 1+, Anisocytosis 1+, Macrocytosis 1+ 06/26/21 05:23: Sodium 141, Potassium 3.0 L, Chloride 113 H, Carbon Dioxide 18 L, Anion Gap 13.0, BUN 34 H, Creatinine 2.60 H, Estimated Creat Clear 16, Estimated GFR 18 L*, Est GFR ( Amer) 22 L, Glucose 92, Calcium 6.6 L 06/26/21 05:23: Total Bilirubin 4.2 H, Direct Bilirubin 3.4 H, Conjugated Bilirubin 1.7 H, Indirect Bilirubin 0.8, Unconjugated Bilirubin 0.8, AST 248 H, ALT 131 H, Alkaline Phosphatase 129 H, Total Protein 5.8 L D, Albumin 2.6 L I & O for Last 24 hours: Intake & Output 06/24/21 06/25/21 06/26/21 06/27/21 11:59 11:59 11:59 11:59 Intake Total 5306.023 / 5306.023 3896.572 / 4070.572 3882.408 / 3882.408 Output Total 1512 / 1512 1695 / 1795 1890 / 1890 Balance 3794.023 / 3794.023 2201.572 / 2275.572 1991.408 / 1991.408 Weight 271 lb 271 lb 0.016 oz 278 lb 6.4 oz Microbiology Reports for the Last 24 Hours: Microbiology 06/23/21 13:13 Sputum - Endotracheal Tube Aspirate Gram Stain - Final 06/23/21 13:13 Sputum - Endotracheal Tube Aspirate Sputum Culture - Preliminary Gram Negative Rods 06/23/21 10:45 Abdomen Gram Stain - Final 06/23/21 10:45 Abdomen Wound Culture - Preliminary 06/23/21 10:45 Abdomen - Final 06/23/21 15:25 Blood Blood Culture - Preliminary NO GROWTH AFTER 48 HOURS 06/23/21 15:25 Blood Blood Culture - Preliminary NO GROWTH AFTER 48 HOURS - Constitutional no acute distress - *Routine HEENT Exam Head: Present: normocephalic Eye: Present: PERRL ENT: Present: mucous membranes moist - *Routine Neck Exam Present: supple. Absent: lymphadenopathy - *Routine Respiratory Exam Present: patient mechanically ventilated - *Routine Cardiovascular Exam Present: RRR - *Routine Abdominal Exam Present: soft, normoactive bowel sounds, wound. Absent: tenderness - *Routine Extremities Exam Absent: cyanosis, clubbing, edema - *Routine Skin Exam Present: jaundice, wounds Comments: dressing to midline abd c/d/i - *Routine Neurological Exam sedated Assessment and Plan (1) Small bowel obstruction Status: Acute Category: Medical Code(s): K56.609 - Unspecified intestinal obstruction, unspecified as to partial versus complete obstruction (2) Abdominal pain Status: Acute Category: Medical Code(s): R10.9 - Unspecified abdominal pain (3) Paroxysmal atrial fibrillation with rapid ventricular response Status: Acute Category: Medical Code(s): I48.0 - Paroxysmal atrial fibrillation converted to nsr (4) Obesity, morbid, BMI 40.0-49.9 Status: Acute Category: Medical Code(s): E66.01 - Morbid (severe) obesity due to excess calories (5) Anemia Status: Acute Category: Medical Code(s): D64.9 - Anemia, unspecified (6) Acute kidney injury Status: Acute Category: Medical Code(s): N17.9 - Acute kidney failure, unspecified
--- NOTE | 2021-06-26 13:39 | HMH.PNCARD ---
Subjective Date: 06/26/21 Time: 08:00 Principal diagnosis: PAF, SBO surgery Interval history: 71-year-old white female in the bed, sedated, intubated and on mechanical ventilation. Telemetry shows sinus rhythm. She continues on IV amiodarone. Exam Vital signs and Labs for Last 24 Hours: Temp Pulse Resp BP Pulse Ox 98.7 F 94 H 23 128/52 L 100 06/26/21 04:00 06/26/21 11:31 06/26/21 07:00 06/26/21 07:00 06/26/21 07:00 Laboratory Results - last 24 hr 06/24/21 21:02: POC Glucose 138 H 06/25/21 20:20: Vancomycin Trough 28.2 H 06/25/21 22:18: POC Glucose 111 H 06/26/21 05:23: WBC 19.0 H, RBC 2.97 L, Hgb 9.8 L, Hct 28.7 L, MCV 96.6, MCH 32.9 H, MCHC 34.0, RDW 16.5, Plt Count 369 D, MPV 9.2, Neut % (Auto) 89.1 H, Lymph % (Auto) 6.3 L, [place] % (Auto) 2.1, Eos % (Auto) 1.1, Baso % (Auto) 1.4, Neut # (Auto) 16.9 H, Lymph # (Auto) 1.2, [place] # (Auto) 0.4, Eos # (Auto) 0.2, Baso # (Auto) 0.3 H, Total Counted 100, Neutrophils % (Manual) 93 H, Lymphocytes % (Manual) 5 L, Monocytes % (Manual) 2, Platelet Estimate Normal, Hypochromasia 1+, Anisocytosis 1+, Macrocytosis 1+ 06/26/21 05:23: Sodium 141, Potassium 3.0 L, Chloride 113 H, Carbon Dioxide 18 L, Anion Gap 13.0, BUN 34 H, Creatinine 2.60 H, Estimated Creat Clear 16, Estimated GFR 18 L*, Est GFR ( Amer) 22 L, Glucose 92, Calcium 6.6 L 06/26/21 05:23: Total Bilirubin 4.2 H, Direct Bilirubin 3.4 H, Conjugated Bilirubin 1.7 H, Indirect Bilirubin 0.8, Unconjugated Bilirubin 0.8, AST 248 H, ALT 131 H, Alkaline Phosphatase 129 H, Total Protein 5.8 L D, Albumin 2.6 L I & O for Last 24 hours: Intake & Output 06/24/21 06/25/21 06/26/21 06/27/21 11:59 11:59 11:59 11:59 Intake Total 5306.023 / 5306.023 3896.572 / 4070.572 3882.408 / 3882.408 Output Total 1512 / 1512 1695 / 1795 1890 / 1890 Balance 3794.023 / 3794.023 2201.572 / 2275.572 1991.408 / 1991.408 Weight 271 lb 271 lb 0.016 oz 278 lb 6.4 oz Microbiology Reports for the Last 24 Hours: Microbiology 06/23/21 13:13 Sputum - Endotracheal Tube Aspirate Gram Stain - Final 06/23/21 13:13 Sputum - Endotracheal Tube Aspirate Sputum Culture - Preliminary Gram Negative Rods 06/23/21 10:45 Abdomen Gram Stain - Final 06/23/21 10:45 Abdomen Wound Culture - Preliminary 06/23/21 10:45 Abdomen - Final 06/23/21 15:25 Blood Blood Culture - Preliminary NO GROWTH AFTER 48 HOURS 06/23/21 15:25 Blood Blood Culture - Preliminary NO GROWTH AFTER 48 HOURS - *Routine Respiratory Exam Present: rhonchi - *Routine Cardiovascular Exam Present: RRR Progress Note: A&P (1) Small bowel obstruction Status: Acute (2) Abdominal pain Status: Acute (3) Paroxysmal atrial fibrillation with rapid ventricular response Status: Acute (4) Obesity, morbid, BMI 40.0-49.9 Status: Acute (5) Anemia Status: Acute (6) Acute kidney injury Status: Acute (7) Atrial flutter with controlled response Status: Acute Assessment and Plan for All Diagnoses:: 1. Small bowel obstruction, status post surgical correction with second operation finding only fascial dehiscence. 2. Paroxysmal atrial fibrillation/flutter, rate controlled on esmolol drip. Lovenox for now until patient taking oral medications. Normal ejection fraction on echo this admission. IV amiodarone continues. Echo EF this admission 55-60%. 3. Chronic Ativan use 4. Hypokalemia, continue potassium supplementation 5. Anemia, 9.8 today, continue to monitor 6. ALISA, Cr 2.6 with GFR 18, possibly due to combination of CT scans with contrast and Vancomycin
--- NOTE | 2021-06-26 19:16 | PC.WOUNDNOTE ---
photo by miladys tse, loaded by miladys kelly
--- NOTE | 2021-06-26 20:23 | PC.NURSE ---
patient has done well this shift. has remained off of sedation this shift, with no discomfort noted. still not aware when people are speaking to her. will withdraw to pain. tolerated dressing change well, serisang drainage, packed with moist kerlex and covered with abd and gauze. area was well approximated and clean. noted weeping to bilateral arms. removed scuds from legs to give them a break. floating heels and turns every two hours. will raise arms up but no purposeful movements with them. urine output has been good. family has been at bedside. oral care provided. remains on amiodarone drip. did note patient to be in normal sinus rhythm most of shift, around 1800 did notice some moments of aflutter. did not tolerate spontaneous breathing trial. patient currently breathing about 30 a minute. patient is set to [address] rao wanted patient to remain off sedation if possible and to use the prn fentanyl as needed.
--- NOTE | 2021-06-26 23:24 | PC.WOUNDNOTE ---
Photo taken by Rosalino Ruff RN
[2021-06-27] VITALS (33 sets, daily range): BP systolic 91–147; BP diastolic 36–63; PULSE 40–86; RESP 18–45; TEMP 35.9–37.3; O2SAT 40–100; BMI 51.9
--- NOTE | 2021-06-27 01:16 | PC.NURSE ---
She continues to be intubated. She is not sedated and has opened her eyes several times. She moves her upper extremities but has not attempted to full at her ETT. She is intubated with a 7.5ETT @ 22. Vent settings are as follow: TV 440, PEEP 8, Rate 16, FiO2 40%. She is receiving oral care and is being turned and repositioned q 2 hours. She received a complete bed bath. Midline abdominal incision with DSG changed via sterile technique. HOB elevated 30 degrees.
--- NOTE | 2021-06-27 06:00 | XR_ITS ---
PROCEDURE INFORMATION: Exam: XR Chest Exam date and time: 06/27/2021 5:46 AM Age: 71 years old Clinical indication: Device placement; Ett placement (vent status); Additional info: PT intubated. TECHNIQUE: Imaging protocol: XR of the chest. Views: 1 view. COMPARISON: CR XR CHEST PORTABLE 06/26/2021 8:35 AM FINDINGS: Tubes, catheters and devices: Endotracheal tube terminates 5 cm above the haris. Enteric tube courses toward the stomach. Lungs: Opacities in the perihilar regions and both bases may represent atelectasis or pneumonia.. Pleural spaces: Possible Small bilateral pleural effusions Heart/Mediastinum: Cardiomegaly and vascular prominence may represent interstitial edema or mild congestive heart failure. Bones/joints: Unremarkable. IMPRESSION: 1. Endotracheal tube terminates 5 cm above the haris. 2. Opacities in the perihilar regions and both bases may represent atelectasis or pneumonia.. 3. Cardiomegaly and vascular prominence may represent interstitial edema or mild congestive heart failure.
[2021-06-27 07:17] LABS: Basophils # 0.1 K/mm3 (0-0.2); Basophils % 0.6 % (0.1-2.0); Eosinophils # 0.1 K/mm3 (0.0-0.4); Eosinophils % 0.7 % (0.1-12.0); Hematocrit 24.8 % (37.0-47.0); Hemoglobin 7.9 g/dL (12.2-16.2); Lymphocytes % 8.9 % (10-50); Mean Corpuscular HGB Conc 31.9 g/dL (31.8-35.4); Mean Corpuscular Hemoglobin 31.1 pg (27.0-31.2); Mean Corpuscular Volume 97.6 fl (81-99); Mean Platelet Volume 9.5 fl (7.4-10.4); Monocytes # 0.4 K/mm3 (0.1-1.0); Monocytes % 3.1 % (1.7-9.3); Neutrophils # 10.1 K/mm3 (1.8-7.8); Neutrophils % 86.8 % (37.0-80.0); Platelet Count 318 K/mm3 (142-424); Red Blood Count 2.54 M/mm3 (4.20-5.40); Red Cell Distribution Width 16.7 % (11.5-17.5); White Blood Count 11.6 K/mm3 (4.8-10.8)
[2021-06-27 07:20] LABS: Chloride 117 mmol/L (98-107); Potassium 3.2 mmoL/L (3.5-5.1); Sodium 142 mmol/L (136-145)
[2021-06-27 07:22] LABS: MANUAL DIFFERENTIAL MANUAL DIFFERENTIAL (MANUAL DIFF)
[2021-06-27 07:23] LABS: Alanine Aminotransferase 105 U/L (12-78); Albumin Level 2.2 g/dl (3.5-5.0); Albumin/Globulin Ratio 0.8 (1.1-1.8); Alkaline Phosphatase 115 U/L (38-126); Anion Gap 8.2 mEq/L (5-15); Aspartate Amino Transferase 251 U/L (14-36); Bilirubin,Total 4.3 mg/dl (0.2-1.3); Blood Urea Nitrogen 28 mg/dl (7-17); Carbon Dioxide 20 mmol/L (22.0-30.0); Creatinine Clearance Estimated 18 mL/min (50-200); Estimated Glomerular Filt Rate 21 ml/min (>60); GFR (African American) 25 ML/MIN (>60); Globulin 2.9 g/dL (1.3-3.2); Total Protein,Serum 5.1 g/dl (6.3-8.2)
[2021-06-27 07:24] LABS: Calcium 6.6 mg/dl (8.4-10.2); Glucose 103 mg/dl (74-100)
[2021-06-27 07:31] LABS: INR 1.09 (0.9-1.1); Prothrombin Time 12.2 seconds (10.1-12.5)
[2021-06-27 08:16] LABS: Anisocytosis 1+; Hypochromasia 1+; Lymphocytes % 9 % (10-50); Monocytes % 4 % (2-9); Neutrophils % 84 % (42-76); Platelet Estimate Normal; Total Cells Counted 100
--- NOTE | 2021-06-27 09:19 | PC.NURSE ---
received verbal order from Dr. Browne to start trophic feeds.
--- NOTE | 2021-06-27 09:35 | PC.NURSE ---
Dr. Browne requested Dobhoff insertion (weighted feeding tube). We only have kangaroo non-weighted feeding tubes available. Dr. Browne updated. OK to use NG tube for trophic feeds.
--- NOTE | 2021-06-27 09:47 | P.PN_ITS ---
Subjective Narrative: Per nursing staff the patient has showed no significant changes over the past 24 hours. Recent vent changes in hopes of continued weaning have been made this morning and ABG is pending. Progress Note: A&P (1) Small bowel obstruction Status: Acute Assessment and plan: Continue weaning of ventilatory support as tolerated Trophic tube feeds via NG ordered Continue midline wound dressing changes (2) Abdominal pain Status: Acute (3) Paroxysmal atrial fibrillation with rapid ventricular response Status: Acute (4) Obesity, morbid, BMI 40.0-49.9 Status: Acute (5) Anemia Status: Acute (6) Acute kidney injury Status: Acute (7) Atrial flutter with controlled response Status: Acute Exam Vital signs and Labs for Last 24 Hours: Temp Pulse Resp BP Pulse Ox 96.6 F L 77 27 H 113/56 L 100 06/27/21 08:00 06/27/21 08:00 06/27/21 08:00 06/27/21 08:00 06/27/21 08:00 Laboratory Results - last 24 hr 06/27/21 06:27: WBC 11.6 H D, RBC 2.54 L, Hgb 7.9 L, Hct 24.8 L, MCV 97.6, MCH 31.1, MCHC 31.9, RDW 16.7, Plt Count 318, MPV 9.5, Neut % (Auto) 86.8 H, Lymph % (Auto) 8.9 L, [place] % (Auto) 3.1, Eos % (Auto) 0.7, Baso % (Auto) 0.6, Neut # (Auto) 10.1 H, Lymph # (Auto) 1.0, [place] # (Auto) 0.4, Eos # (Auto) 0.1, Baso # (Auto) 0.1, Total Counted 100, Neutrophils % (Manual) 84 H, Band Neutrophils % 3.0, Lymphocytes % (Manual) 9 L, Monocytes % (Manual) 4, Platelet Estimate Normal, Hypochromasia 1+, Anisocytosis 1+ 06/27/21 06:27: Sodium 142, Potassium 3.2 L, Chloride 117 H, Carbon Dioxide 20 L , Anion Gap 8.2, BUN 28 H, Creatinine 2.30 H, Estimated Creat Clear 18, Estimated GFR 21 L, Est GFR ( Amer) 25 L, Glucose 103 H, Calcium 6.6 L, Total Bilirubin 4.3 H, AST 251 H, ALT 105 H, Alkaline Phosphatase 115, Total Protein 5.1 L, Albumin 2.2 L D, Globulin 2.9, Albumin/Globulin Ratio 0.8 L 06/27/21 06:27: PT 12.2, INR 1.09 I & O for Last 24 hours: Intake & Output 06/24/21 06/25/21 06/26/21 06/27/21 11:59 11:59 11:59 11:59 Intake Total 5306.023 / 5306.023 3896.572 / 4070.572 4618.408 / 5639.408 3806 / 3806 Output Total 1512 / 1512 1695 / 1795 2235 / 2295 1600 / 1600 Balance 3794.023 / 3794.023 2201.572 / 2275.572 2383.408 / 3344.408 2206 / 2206 Weight 271 lb 271 lb 0.016 oz 278 lb 6.4 oz 293 lb 1.6 oz Microbiology Reports for the Last 24 Hours: Microbiology 06/23/21 10:45 Abdomen Gram Stain - Final 06/23/21 10:45 Abdomen Wound Culture - Preliminary 06/23/21 13:13 Sputum - Endotracheal Tube Aspirate Gram Stain - Final 06/23/21 13:13 Sputum - Endotracheal Tube Aspirate Sputum Culture - Final Escherichia coli - Constitutional Comments: Remains intubated. Minimal response (off sedation) - *Routine Cardiovascular Exam Absent: tachycardia - *Routine Abdominal Exam Present: soft Comments: Wound margin clean. No erythema.
[2021-06-27 10:11] LABS: ABG Base Excess -4.9 mmol/L (-2.4-2.3); ABG HCO3 19.4 mmhg (22.0-26.0); ABG Oxygen Saturation 96 % (90-100); ABG PH 7.43 mmol/L (7.35-7.45); ABG TCO2 20.3 mmhg (23-27)
[2021-06-27 10:12] LABS: Allen's Test acceptable; Oxygen 40 %; PEEP 8; Pressure Support 8; Source rr
--- NOTE | 2021-06-27 10:13 | DIET.NUTRFU ---
RD consult to start trophic TF, patient continues to be intubated. S/p small bowel obstruction sx, trophic TF to stimulate GI tract. Patients labs are improving with BUN at 28H and Cr 2.3H, K low at 3.2 potassium repletion ordered. Propofol in place providing 753kcal/d Family had reported to this RD that patient was newly dz with DM, no HgbA1c on file and glucose has been fairly well controlled with no tx in place. Will start standard formula for TF and monitor for glucose changes. Pulmocare most appropriate. Using 72kg as adjusted BW, nutritional needs are 1800kcal and 60gm protein. Urine output showed improvement yesterday at 1955ml and gastric output at 300ml. Weight is climbing from 122# (06/24)to 132# today, possibly holding fluid. Start pulmocare at 10ml/hr to determine tolerance and GI response, this will not meet nutritional needs at 345kcal +753kcal from propofol= 1098kcal and 14gm protein and 180ml free water. Flush with 50ml Q4H, may need additional IV fluids to meet needs, fluid provided per tube is 480ml/day. Monitor labs and GI tolerance to determine when to advance.
--- NOTE | 2021-06-27 10:27 | PC.NURSE ---
Pulmocare started @ 10mL/hr with a flush of H2O 30mL Q4hrs. Nutrition consult entered earlier this morning. Waiting on recommendations.
[2021-06-27 12:09] LABS: Vancomycin,Trough 15.7 ug/mL (5.0-10.0)
--- NOTE | 2021-06-27 12:21 | HMH.ACPN2 ---
Internal Medicine - PN: Subj *Date: 06/27/21 *Time: 12:31 Interval history: Patient has failed sbt Not responsive to verbal stimuli Tube feeding started by surgery service Exam Vital signs and Labs for Last 24 Hours: Temp Pulse Resp BP Pulse Ox 96.6 F L 75 20 113/56 L 100 06/27/21 08:00 06/27/21 11:15 06/27/21 11:15 06/27/21 08:00 06/27/21 11:15 Laboratory Results - last 24 hr 06/27/21 06:27: WBC 11.6 H D, RBC 2.54 L, Hgb 7.9 L, Hct 24.8 L, MCV 97.6, MCH 31.1, MCHC 31.9, RDW 16.7, Plt Count 318, MPV 9.5, Neut % (Auto) 86.8 H, Lymph % (Auto) 8.9 L, [place] % (Auto) 3.1, Eos % (Auto) 0.7, Baso % (Auto) 0.6, Neut # (Auto) 10.1 H, Lymph # (Auto) 1.0, [place] # (Auto) 0.4, Eos # (Auto) 0.1, Baso # (Auto) 0.1, Total Counted 100, Neutrophils % (Manual) 84 H, Band Neutrophils % 3.0, Lymphocytes % (Manual) 9 L, Monocytes % (Manual) 4, Platelet Estimate Normal, Hypochromasia 1+, Anisocytosis 1+ 06/27/21 06:27: Sodium 142, Potassium 3.2 L, Chloride 117 H, Carbon Dioxide 20 L, Anion Gap 8.2, BUN 28 H, Creatinine 2.30 H, Estimated Creat Clear 18, Estimated GFR 21 L, Est GFR ( Amer) 25 L, Glucose 103 H, Calcium 6.6 L, Total Bilirubin 4.3 H, AST 251 H, ALT 105 H, Alkaline Phosphatase 115, Total Protein 5.1 L, Albumin 2.2 L D, Globulin 2.9, Albumin/Globulin Ratio 0.8 L 06/27/21 06:27: PT 12.2, INR 1.09 06/27/21 07:00: Specimen Source rr, O2 % 40, ABG pH 7.43, ABG pCO2 30.0 L, ABG pO2 81.0, ABG HCO3 19.4 L, ABG Total CO2 20.3 L, ABG O2 Saturation 96, ABG Base Excess -4.9 L, Aaron Test acceptable, PEEP 8 06/27/21 10:48: Vancomycin Trough 15.7 H I & O for Last 24 hours: Intake & Output 06/24/21 06/25/21 06/26/21 06/27/21 23:59 23:59 23:59 23:59 Intake Total 4538.992 / 4624.992 3408.045 / 3601.045 5155.648 / 5296.648 1128 / 1128 Output Total 1607 / 1632 1785 / 1860 2255 / 2325 920 / 920 Balance 2931.992 / 2992.992 1623.045 / 1579.006 3173.648 / 2971.648 208 / 208 Weight 271 lb 271 lb 0.016 oz 278 lb 6.4 oz 293 lb 1.6 oz Microbiology Reports for the Last 24 Hours: Microbiology 06/23/21 10:45 Abdomen Gram Stain - Final 06/23/21 10:45 Abdomen Wound Culture - Preliminary 06/23/21 13:13 Sputum - Endotracheal Tube Aspirate Gram Stain - Final 06/23/21 13:13 Sputum - Endotracheal Tube Aspirate Sputum Culture - Final Escherichia coli - Constitutional somnolent - *Routine HEENT Exam Head: Present: normocephalic Eye: Present: EOMI, PERRL ENT: Present: mucous membranes moist - *Routine Neck Exam Present: supple. Absent: lymphadenopathy - *Routine Respiratory Exam Present: patient mechanically ventilated - *Routine Cardiovascular Exam Present: RRR - *Routine Abdominal Exam Present: soft. Absent: distended - *Routine Extremities Exam Absent: cyanosis, clubbing, edema - *Routine Skin Exam Present: warm. Absent: rash - *Routine Neurological Exam Absent: alert, oriented X3, vision grossly intact, hearing grossly intact Assessment and Plan (1) Small bowel obstruction Status: Acute Category: Medical Code(s): K56.609 - Unspecified intestinal obstruction, unspecified as to partial versus complete obstruction (2) Abdominal pain Status: Acute Category: Medical Code(s): R10.9 - Unspecified abdominal pain (3) Paroxysmal atrial fibrillation with rapid ventricular response Status: Acute Category: Medical Code(s): I48.0 - Paroxysmal atrial fibrillation (4) Obesity, morbid, BMI 40.0-49.9 Status: Acute Category: Medical Code(s): E66.01 - Morbid (severe) obesity due to excess calories (5) Anemia Status: Acute Category: Medical Code(s): D64.9 - Anemia, unspecified (6) Acute kidney injury Status: Acute Category: Medical Code(s): N17.9 - Acute kidney failure, unspecified (7) Atrial flutter with controlled response Status: Acute Category: Medical Code(s): I48.92 - Unspecified atrial flutter - Assessment and plan all Dx As
--- NOTE | 2021-06-27 13:31 | HMH.PHACONS ---
- Pharmacy Consult Date: 06/27/21 Time: 13:31 Referring provider: DR. HALE Reason for Consult:: VANCOMYCIN LEVEL Allergies and ADEs:: Allergies Allergy/AdvReac Type Severity Reaction Status Date / Time NSAIDS (Non-Steroidal AdvReac EFFECTS Verified 06/17/21 00:55 Anti-Inflamma KIDNEYS Home Medications:: Home Medications Medication Instructions Recorded Confirmed Type Atorvastatin Calcium [Lipitor 20mg 20 mg PO HS 06/18/17 06/17/21 History Tab] Esomeprazole Magnesium 40 mg PO DAILY 06/18/17 06/17/21 History Furosemide [Furosemide 40MG tAB*] 40 mg PO BID 06/18/17 06/17/21 History LORazepam [Ativan 0.5mg 0.5 mg PO Q8HP PRN 06/18/17 06/17/21 History tablet] Oxybutynin Chloride [Oxybutynin 5 mg PO DAILY 06/18/17 06/17/21 History Chloride ER] Potassium Chloride [K-Tab ER 10 10 meq PO BID 06/18/17 06/17/21 History mEq] Sertraline HCl [Zoloft 50mg tablet] 50 mg PO DAILY 06/18/17 06/17/21 History Tizanidine HCl [Zanaflex] 4 mg PO HS 06/18/17 06/17/21 History allopurinoL [Allopurinol 300mg 300 mg PO DAILY 06/18/17 06/17/21 History tablet] Spironolactone [Spironolactone 25 mg PO DAILY 03/31/19 06/17/21 History 25mg Tablet] Fexofenadine HCl 180 mg PO DAILY 06/03/21 06/17/21 History Hydrocodone/Acetaminophen 1 tab PO Q4H 06/03/21 06/17/21 History [Hydrocodone-Acetamin 10-325 mg] Propranolol HCl [Inderal 20mg 20 mg PO BID 06/16/21 06/17/21 History tablet] Dextran 70/Hypromellose/Pf 1 drp EYE-BOTH NEEDED PRN 06/17/21 06/17/21 History [Artificial Tears Drops] Empagliflozin [Jardiance] 25 mg PO DAILY 06/17/21 06/17/21 History Fluticasone Propionate [Flovent 50 mcg IH DAILY 06/17/21 06/17/21 History Diskus] Metformin HCl [Metformin ER 500 mg PO DAILY 06/17/21 06/17/21 History Gastric] ondansetron HCL [Ondansetron 4mg 4 mg PO Q6 PRN 06/17/21 06/17/21 History tab*] predniSONE [Prednisone 5mg 5 mg PO DAILY 06/17/21 06/17/21 History Tab] Height: 1.6 m Weight: 132.948 kg Laboratory Results:: Laboratory Results - last 24 hr 06/27/21 06:27: WBC 11.6 H D, RBC 2.54 L, Hgb 7.9 L, Hct 24.8 L, MCV 97.6, MCH 31.1, MCHC 31.9, RDW 16.7, Plt Count 318, MPV 9.5, Neut % (Auto) 86.8 H, Lymph % (Auto) 8.9 L, [place] % (Auto) 3.1, Eos % (Auto) 0.7, Baso % (Auto) 0.6, Neut # (Auto) 10.1 H, Lymph # (Auto) 1.0, [place] # (Auto) 0.4, Eos # (Auto) 0.1, Baso # (Auto) 0.1, Total Counted 100, Neutrophils % (Manual) 84 H, Band Neutrophils % 3.0, Lymphocytes % (Manual) 9 L, Monocytes % (Manual) 4, Platelet Estimate Normal, Hypochromasia 1+, Anisocytosis 1+ 06/27/21 06:27: Sodium 142, Potassium 3.2 L, Chloride 117 H, Carbon Dioxide 20 L, Anion Gap 8.2, BUN 28 H, Creatinine 2.30 H, Estimated Creat Clear 18, Estimated GFR 21 L, Est GFR ( Amer) 25 L, Glucose 103 H, Calcium 6.6 L, Total Bilirubin 4.3 H, AST 251 H, ALT 105 H, Alkaline Phosphatase 115, Total Protein 5.1 L, Albumin 2.2 L D, Globulin 2.9, Albumin/Globulin Ratio 0.8 L 06/27/21 06:27: PT 12.2, INR 1.09 06/27/21 07:00: Specimen Source rr, O2 % 40, ABG pH 7.43, ABG pCO2 30.0 L, ABG pO2 81.0, ABG HCO3 19.4 L, ABG Total CO2 20.3 L, ABG O2 Saturation 96, ABG Base Excess -4.9 L, Aaron Test acceptable, PEEP 8 06/27/21 10:48: Vancomycin Trough 15.7 H Medical History: Reports:: Anxiety, Asthma, Depression, Diabetes Mellitus Type 2, Gastroesophageal Reflux Disease(GERD), Hyperlipidemia, Migraine, Renal Insufficiency Denies:: Cancer, Diabetes Mellitus Type 1, MRSA Assessment and Plan (1) Small bowel obstruction Status: Acute Category: Medical Code(s): K56.609 - Unspecified intestinal obstruction, unspecified as to partial versus complete obstruction (2) Abdominal pain Status: Acute Category: Medical Code(s): R10.9 - Unspecified abdominal pain (3) Paroxysmal atrial fibrillation with rapid ventricular response Status: Acute Category: Medical Code(s): I48.0 - Paroxysmal atrial fibrillation (4) Obesity, morbid, BMI 40.0-4
--- NOTE | 2021-06-27 13:40 | HMH.ACPN ---
Internal Medicine - PN: Subj *Date: 06/27/21 *Time: 13:40 Exam Vital signs and Labs for Last 24 Hours: Temp Pulse Resp BP Pulse Ox 97.9 F 75 45 H 109/48 L 100 06/27/21 12:00 06/27/21 12:00 06/27/21 12:00 06/27/21 12:00 06/27/21 12:00 Laboratory Results - last 24 hr 06/27/21 06:27: WBC 11.6 H D, RBC 2.54 L, Hgb 7.9 L, Hct 24.8 L, MCV 97.6, MCH 31.1, MCHC 31.9, RDW 16.7, Plt Count 318, MPV 9.5, Neut % (Auto) 86.8 H, Lymph % (Auto) 8.9 L, [place] % (Auto) 3.1, Eos % (Auto) 0.7, Baso % (Auto) 0.6, Neut # (Auto) 10.1 H, Lymph # (Auto) 1.0, [place] # (Auto) 0.4, Eos # (Auto) 0.1, Baso # (Auto) 0.1, Total Counted 100, Neutrophils % (Manual) 84 H, Band Neutrophils % 3.0, Lymphocytes % (Manual) 9 L, Monocytes % (Manual) 4, Platelet Estimate Normal, Hypochromasia 1+, Anisocytosis 1+ 06/27/21 06:27: Sodium 142, Potassium 3.2 L, Chloride 117 H, Carbon Dioxide 20 L, Anion Gap 8.2, BUN 28 H, Creatinine 2.30 H, Estimated Creat Clear 18, Estimated GFR 21 L, Est GFR ( Amer) 25 L, Glucose 103 H, Calcium 6.6 L, Total Bilirubin 4.3 H, AST 251 H, ALT 105 H, Alkaline Phosphatase 115, Total Protein 5.1 L, Albumin 2.2 L D, Globulin 2.9, Albumin/Globulin Ratio 0.8 L 06/27/21 06:27: PT 12.2, INR 1.09 06/27/21 07:00: Specimen Source rr, O2 % 40, ABG pH 7.43, ABG pCO2 30.0 L, ABG pO2 81.0, ABG HCO3 19.4 L, ABG Total CO2 20.3 L, ABG O2 Saturation 96, ABG Base Excess -4.9 L, Aaron Test acceptable, PEEP 8 06/27/21 10:48: Vancomycin Trough 15.7 H I & O for Last 24 hours: Intake & Output 06/24/21 06/25/21 06/26/21 06/27/21 23:59 23:59 23:59 23:59 Intake Total 4538.992 / 4624.992 3408.045 / 3601.045 5155.648 / 5296.648 1128 / 1128 Output Total 1607 / 1632 1785 / 1860 2255 / 2325 920 / 920 Balance 2931.992 / 2992.992 1623.045 / 7349.961 1065.648 / 2971.648 208 / 208 Weight 122.924 kg 122.924 kg 126.28 kg 132.948 kg Microbiology Reports for the Last 24 Hours: Microbiology 06/23/21 10:45 Abdomen Gram Stain - Final 06/23/21 10:45 Abdomen Wound Culture - Preliminary 06/23/21 13:13 Sputum - Endotracheal Tube Aspirate Gram Stain - Final 06/23/21 13:13 Sputum - Endotracheal Tube Aspirate Sputum Culture - Final Escherichia coli Assessment and Plan (1) Small bowel obstruction Status: Acute Category: Medical Code(s): K56.609 - Unspecified intestinal obstruction, unspecified as to partial versus complete obstruction (2) Abdominal pain Status: Acute Category: Medical Code(s): R10.9 - Unspecified abdominal pain (3) Paroxysmal atrial fibrillation with rapid ventricular response Status: Acute Category: Medical Code(s): I48.0 - Paroxysmal atrial fibrillation (4) Obesity, morbid, BMI 40.0-49.9 Status: Acute Category: Medical Code(s): E66.01 - Morbid (severe) obesity due to excess calories (5) Anemia Status: Acute Category: Medical Code(s): D64.9 - Anemia, unspecified (6) Acute kidney injury Status: Acute Category: Medical Code(s): N17.9 - Acute kidney failure, unspecified (7) Atrial flutter with controlled response Status: Acute Category: Medical Code(s): I48.92 - Unspecified atrial flutter The patient's infection will respond to the chosen ABx?: Yes Is the patient receiving the right drug, dose, and route?: Yes Could a more targeted ABx be ordered?: No (E. COLI IN SPUTUM, SENSITIVE. WBC DECREASED.)
--- NOTE | 2021-06-27 22:02 | XR_ITS ---
PROCEDURE INFORMATION: Exam: XR Chest Exam date and time: 06/27/2021 10:05 PM Age: 71 years old Clinical indication: Device placement; Ett placement (vent status); Additional info: Verify tube placement TECHNIQUE: Imaging protocol: XR of the chest. Views: 1 view. COMPARISON: CR XR CHEST PORTABLE 06/27/2021 5:46 AM FINDINGS: Tubes, catheters and devices: Support lines and tubes are unchanged. Lungs: Bibasilar atelectasis. Low lung volumes with associated vascular crowding. Pleural spaces: Pleural effusions. Heart/Mediastinum: Unremarkable. No cardiomegaly. Bones/joints: Unremarkable. IMPRESSION: Support lines and tubes are unchanged.
--- NOTE | 2021-06-27 22:21 | PC.NURSE ---
upon entering pt's room pt very restless, vent alarming, and pt moved OETT, tube was at 22 at the lip upon last assessment and now tube at 18 at the lip, notified Will with RT and RT coming to bedside, pt also threw up around OETT, orally suctioned pt, stopped tubefeeds, and gave 4mg zofran IV; RT put tube back to 21 at the lip, stat cxr ordered and taken, will await virtual radiology to read xray
[2021-06-28] VITALS (34 sets, daily range): BP systolic 105–155; BP diastolic 39–95; PULSE 60–80; RESP 9–33; TEMP 36.8–37.4; O2SAT 99–100; BMI 51.0
[2021-06-28 07:30] LABS: Basophils # 0.2 K/mm3 (0-0.2); Basophils % 1.2 % (0.1-2.0); Eosinophils # 0.2 K/mm3 (0.0-0.4); Eosinophils % 0.9 % (0.1-12.0); Hematocrit 25.5 % (37.0-47.0); Hemoglobin 8.1 g/dL (12.2-16.2); Lymphocytes % 11.1 % (10-50); Mean Corpuscular HGB Conc 31.7 g/dL (31.8-35.4); Mean Corpuscular Hemoglobin 31.8 pg (27.0-31.2); Mean Corpuscular Volume 100.3 fl (81-99); Mean Platelet Volume 10.9 fl (7.4-10.4); Monocytes # 1.2 K/mm3 (0.1-1.0); Monocytes % 6.7 % (1.7-9.3); Neutrophils # 14.6 K/mm3 (1.8-7.8); Neutrophils % 80.1 % (37.0-80.0); Platelet Count 302 K/mm3 (142-424); Red Blood Count 2.54 M/mm3 (4.20-5.40); Red Cell Distribution Width 17.1 % (11.5-17.5)
[2021-06-28 07:31] LABS: White Blood Count 12.8 K/mm3 (4.8-10.8)
[2021-06-28 07:43] LABS: Chloride 123 mmol/L (98-107); Sodium 145 mmol/L (136-145)
--- NOTE | 2021-06-28 07:43 | XR_ITS ---
PROCEDURE INFORMATION: Exam: XR Chest Exam date and time: 06/28/2021 9:00 AM Age: 71 years old Clinical indication: Other: Intubation; Additional info: Intubated TECHNIQUE: Imaging protocol: XR of the chest. Views: 1 view. COMPARISON: CR XR CHEST PORTABLE 06/27/2021 10:05 PM FINDINGS: Tubes, catheters and devices: Enteric tube is seen within the stomach. Overlying EKG wires. Endotracheal tube terminates 5.5 cm above the haris in good position. Overlying EKG wires Lungs: Opacities in both bases may represent atelectasis or pneumonia.. Pleural spaces: There may be mild left pleural effusion.. Heart/Mediastinum: Unremarkable. No cardiomegaly. Bones/joints: Unremarkable. IMPRESSION: 1. Opacities in both bases may represent atelectasis or pneumonia.. 2. There may be mild left pleural effusion.. 3. Endotracheal tube terminates 5.5 cm above the haris in good position.
[2021-06-28 07:45] LABS: Alanine Aminotransferase 103 U/L (12-78); Aspartate Amino Transferase 240 U/L (14-36); Bilirubin,Total 4.2 mg/dl (0.2-1.3); Blood Urea Nitrogen 25 mg/dl (7-17); Calcium 7.3 mg/dl (8.4-10.2); Carbon Dioxide 18 mmol/L (22.0-30.0); Creatinine Clearance Estimated 19 mL/min (50-200); Estimated Glomerular Filt Rate 22 ml/min (>60); GFR (African American) 27 ML/MIN (>60); Glucose 112 mg/dl (74-100)
[2021-06-28 07:46] LABS: Albumin Level 2.1 g/dl (3.5-5.0); Albumin/Globulin Ratio 0.7 (1.1-1.8); Alkaline Phosphatase 110 U/L (38-126); Globulin 3.2 g/dL (1.3-3.2); Total Protein,Serum 5.3 g/dl (6.3-8.2)
--- NOTE | 2021-06-28 09:48 | HMH.GSPN ---
Subjective Narrative: Per nursing, she continues to have intermittent movements that do not seem to be purposeful. She has yet to appropriately follow commands. She did have some emesis yesterday and her tube feeds were held. Spontaneous breathing trial yesterday failed at about an hour . Progress Note: A&P (1) Small bowel obstruction Status: Acute Assessment and plan: Some emesis late yesterday after initiation of trophic tube feeds earlier in the morning. Currently, her tube feeds are held. Likely restart trophic tube feeds tomorrow. (2) Abdominal pain Status: Acute (3) Paroxysmal atrial fibrillation with rapid ventricular response Status: Acute (4) Obesity, morbid, BMI 40.0-49.9 Status: Acute (5) Anemia Status: Acute (6) Acute kidney injury Status: Acute (7) Atrial flutter with controlled response Status: Acute (8) Hyperbilirubinemia Status: Acute (9) Respiratory failure Status: Acute Assessment and plan: Currently stable on spontaneous breathing trials. Will increase repetitions of trials. (10) Altered mental status Status: Acute Assessment and plan: The patient has shown some signs of following command this morning. Exam Vital signs and Labs for Last 24 Hours: Temp Pulse Resp BP Pulse Ox 98.5 F 71 26 H 129/49 L 100 06/28/21 08:00 06/28/21 08:00 06/28/21 08:43 06/28/21 08:00 06/28/21 08:43 Laboratory Results - last 24 hr 06/27/21 07:00: Specimen Source rr, O2 % 40, ABG pH 7.43, ABG pCO2 30.0 L, ABG pO2 81.0, ABG HCO3 19.4 L, ABG Total CO2 20.3 L, ABG O2 Saturation 96, ABG Base Excess -4.9 L, Aaron Test acceptable, PEEP 8 06/27/21 10:48: Vancomycin Trough 15.7 H 06/28/21 06:40: WBC 12.8 H, RBC 2.54 L, Hgb 8.1 L, Hct 25.5 L, MCV 100.3 H, MCH 31.8 H, MCHC 31.7 L, RDW 17.1, Plt Count 302, MPV 10.9 H, Neut % (Auto) 80.1 H, Lymph % (Auto) 11.1, [place] % (Auto) 6.7, Eos % (Auto) 0.9, Baso % (Auto) 1.2, Neut # (Auto) 14.6 H, Lymph # (Auto) 2.0, [place] # (Auto) 1.2 H, Eos # (Auto) 0.2, Baso # (Auto) 0.2 06/28/21 06:40: Sodium 145, Potassium 4.0 D, Chloride 123 H, Carbon Dioxide 18 L, Anion Gap 8.0, BUN 25 H, Creatinine 2.20 H, Estimated Creat Clear 19, Estimated GFR 22 L, Est GFR ( Amer) 27 L, Glucose 112 H, Calcium 7.3 L, Total Bilirubin 4.2 H, AST 240 H, ALT 103 H, Alkaline Phosphatase 110, Total Protein 5.3 L, Albumin 2.1 L, Globulin 3.2, Albumin/Globulin Ratio 0.7 L I & O for Last 24 hours: Intake & Output 06/25/21 06/26/21 06/27/21 06/28/21 11:59 11:59 11:59 11:59 Intake Total 3896.572 / 4070.572 4618.408 / 5639.408 3806 / 3806 3996 / 3996 Output Total 1695 / 1795 2235 / 2295 1775 / 1850 1695 / 1695 Balance 2201.572 / 2275.572 2383.408 / 3344.408 2030 / 1956 2301 / 2301 Weight 271 lb 0.016 oz 278 lb 6.4 oz 293 lb 1.6 oz 288 lb 4.8 oz Microbiology Reports for the Last 24 Hours: Microbiology 06/23/21 10:45 Abdomen - Final 06/23/21 10:45 Abdomen Gram Stain - Final 06/23/21 10:45 Abdomen Wound Culture - Final Aeromonas hydrophila 06/23/21 13:13 Sputum - Endotracheal Tube Aspirate Gram Stain - Final 06/23/21 13:13 Sputum - Endotracheal Tube Aspirate Sputum Culture - Final Escherichia coli - Constitutional no acute distress - *Routine Respiratory Exam Present: patient mechanically ventilated - *Routine Cardiovascular Exam Absent: tachycardia - *Routine Abdominal Exam Present: soft Comments: Dressings intact. No spreading cellulitis. - *Routine Neurological Exam She intermittently followed commands. Specifically, she squeezed my hand twice when asked. In addition, she held up 1 finger when asked on 2 separate occasions.
[2021-06-28 10:12] LABS: ABG Base Excess -7.3 mmol/L (-2.4-2.3); ABG HCO3 17.5 mmhg (22.0-26.0); ABG Oxygen Saturation 93 % (90-100); ABG PCO2 29.1 mmhg (35.0-45.0); ABG PO2 68.1 mmhg (80-100); ABG TCO2 18.4 mmhg (23-27)
[2021-06-28 10:14] LABS: Allen's Test acceptable; Oxygen 40% %; PEEP 8; Pressure Support 8
[2021-06-28 10:15] LABS: Source Left Radial
--- NOTE | 2021-06-28 12:57 | HMH.ACPN2 ---
Internal Medicine - PN: Subj *Date: 06/28/21 *Time: 13:29 Interval history: Patient is slightly more alert this morning, following some commands. Trial is underway. Some emesis after tube feedings, currently held. Less jaundiced today. Total bili 4.2. Acute kidney injury, creatinine improving, 2.2 this morning. Exam Vital signs and Labs for Last 24 Hours: Temp Pulse Resp BP Pulse Ox 98.4 F 69 22 124/51 L 100 06/28/21 12:00 06/28/21 12:26 06/28/21 12:00 06/28/21 12:00 06/28/21 12:00 Laboratory Results - last 24 hr 06/28/21 06:40: WBC 12.8 H, RBC 2.54 L, Hgb 8.1 L, Hct 25.5 L, MCV 100.3 H, MCH 31.8 H, MCHC 31.7 L, RDW 17.1, Plt Count 302, MPV 10.9 H, Neut % (Auto) 80.1 H, Lymph % (Auto) 11.1, [place] % (Auto) 6.7, Eos % (Auto) 0.9, Baso % (Auto) 1.2, Neut # (Auto) 14.6 H, Lymph # (Auto) 2.0, [place] # (Auto) 1.2 H, Eos # (Auto) 0.2, Baso # (Auto) 0.2 06/28/21 06:40: Sodium 145, Potassium 4.0 D, Chloride 123 H, Carbon Dioxide 18 L, Anion Gap 8.0, BUN 25 H, Creatinine 2.20 H, Estimated Creat Clear 19, Estimated GFR 22 L, Est GFR ( Amer) 27 L, Glucose 112 H, Calcium 7.3 L, Total Bilirubin 4.2 H, AST 240 H, ALT 103 H, Alkaline Phosphatase 110, Total Protein 5.3 L, Albumin 2.1 L, Globulin 3.2, Albumin/Globulin Ratio 0.7 L 06/28/21 10:08: Specimen Source Left radial, O2 % 40%, ABG pH 7.40, ABG pCO2 29.1 L, ABG pO2 68.1 L, ABG HCO3 17.5 L, ABG Total CO2 18.4 L, ABG O2 Saturation 93, ABG Base Excess -7.3 L, Aaron Test acceptable, PEEP 8 I & O for Last 24 hours: Intake & Output 06/25/21 06/26/21 06/27/21 06/28/21 23:59 23:59 23:59 23:59 Intake Total 3408.045 / 3601.045 5155.648 / 5296.648 3404 / 3404 1720 / 1720 Output Total 1785 / 1860 2255 / 2325 1825 / 1900 915 / 915 Balance 1623.045 / 2183.910 6592.648 / 2971.648 1579 / 1504 805 / 805 Weight 271 lb 0.016 oz 278 lb 6.4 oz 293 lb 1.6 oz 288 lb 4.8 oz Microbiology Reports for the Last 24 Hours: Microbiology 06/23/21 10:45 Abdomen - Final 06/23/21 10:45 Abdomen Gram Stain - Final 06/23/21 10:45 Abdomen Wound Culture - Final Aeromonas hydrophila - Constitutional chronically ill appearing, somnolent - *Routine HEENT Exam Head: Present: normocephalic Eye: Present: EOMI, PERRL ENT: Present: mucous membranes moist - *Routine Neck Exam Present: supple. Absent: lymphadenopathy - *Routine Respiratory Exam Present: patient mechanically ventilated - *Routine Cardiovascular Exam Present: RRR - *Routine Abdominal Exam Present: soft. Absent: normoactive bowel sounds, rebound - *Routine Extremities Exam Absent: cyanosis, clubbing, edema Assessment and Plan (1) Small bowel obstruction Status: Acute Category: Medical Code(s): K56.609 - Unspecified intestinal obstruction, unspecified as to partial versus complete obstruction (2) Abdominal pain Status: Acute Category: Medical Code(s): R10.9 - Unspecified abdominal pain (3) Paroxysmal atrial fibrillation with rapid ventricular response Status: Acute Category: Medical Code(s): I48.0 - Paroxysmal atrial fibrillation (4) Obesity, morbid, BMI 40.0-49.9 Status: Acute Category: Medical Code(s): E66.01 - Morbid (severe) obesity due to excess calories (5) Anemia Status: Acute Category: Medical Code(s): D64.9 - Anemia, unspecified (6) Acute kidney injury Status: Acute Category: Medical Code(s): N17.9 - Acute kidney failure, unspecified (7) Atrial flutter with controlled response Status: Acute Category: Medical Code(s): I48.92 - Unspecified atrial flutter (8) Hyperbilirubinemia Status: Acute Category: Medical Code(s): E80.6 - Other disorders of bilirubin metabolism (9) Respiratory failure Status: Acute Category: Medical Code(s): J96.90 - Respiratory failure, unspecified, unspecified whether with hypoxia or hypercapnia (10) Altered mental status Status: Acute Category: Medical Code(s): R4
--- NOTE | 2021-06-28 18:17 | PC.NURSE ---
shift summary: pt is following commands. Will open/close eyes, put up 1 finger, and squeeze hands. SBT x 3 today (early AM, early afternoon, and late afternoon) with improving RR with each trial. Each SBT last 2hrs. Has been normotensive. Amio gtt continues @ 0.5mg/min. NSR with intermittent PVCs and radiologist diagnostic on tele. Midline abd dressing changed. No s/s of infection noted. No BM this shift.
[2021-06-29] VITALS (45 sets, daily range): BP systolic 128–176; BP diastolic 55–72; PULSE 58–78; RESP 20–32; TEMP 36.9–37.9; O2SAT 100; BMI 51.4
--- NOTE | 2021-06-29 06:00 | XR_ITS ---
PROCEDURE INFORMATION: Exam: XR Chest Exam date and time: 06/29/2021 6:05 AM Age: 71 years old Clinical indication: Device placement; Ett placement (vent status); Additional info: Daily while intubated TECHNIQUE: Imaging protocol: XR of the chest. Views: 1 view. COMPARISON: CR XR CHEST PORTABLE 06/28/2021 9:00 AM FINDINGS: Tubes, catheters and devices: ET tube is unchanged. The nasogastric tube is also unchanged. Lungs: Bibasilar airspace disease is present not significantly changed from the prior examination. Pleural spaces: Unremarkable. No pleural effusion. No pneumothorax. Heart/Mediastinum: Unremarkable. No cardiomegaly. Bones/joints: Unremarkable. IMPRESSION: Stable exam as described.
--- NOTE | 2021-06-29 06:31 | P.PN_ITS ---
Subjective Narrative: Patient tolerating spontaneous breathing trials for 2 hours at a time yesterday. She had been started on low-dose tube feeding but then had vomiting so they were discontinued. However, subsequently she has had numerous bowel movements. She is following some commands. Progress Note: A&P (1) Small bowel obstruction Status: Acute (2) Abdominal pain Status: Acute (3) Paroxysmal atrial fibrillation with rapid ventricular response Status: Acute (4) Obesity, morbid, BMI 40.0-49.9 Status: Acute (5) Anemia Status: Acute (6) Acute kidney injury Status: Acute (7) Atrial flutter with controlled response Status: Acute (8) Hyperbilirubinemia Status: Acute (9) Respiratory failure Status: Acute (10) Altered mental status Status: Acute Assessment and Plan for All Diagnoses:: Continue to work toward extubating. Should be able to restart tube feeds. Continue wound care. Monitor hemoglobin/hematocrit, possible transfusion if needed. Creatinine slowly improving. Exam Vital signs and Labs for Last 24 Hours: Temp Pulse Resp BP Pulse Ox 100.3 F H 68 28 H 145/68 H 100 06/29/21 04:00 06/29/21 05:00 06/29/21 05:00 06/29/21 05:00 06/29/21 05:00 Laboratory Results - last 24 hr 06/28/21 06:40: WBC 12.8 H, RBC 2.54 L, Hgb 8.1 L, Hct 25.5 L, MCV 100.3 H, MCH 31.8 H, MCHC 31.7 L, RDW 17.1, Plt Count 302, MPV 10.9 H, Neut % (Auto) 80.1 H, Lymph % (Auto) 11.1, [place] % (Auto) 6.7, Eos % (Auto) 0.9, Baso % (Auto) 1.2, Neut # (Auto) 14.6 H, Lymph # (Auto) 2.0, [place] # (Auto) 1.2 H, Eos # (Auto) 0.2, Baso # (Auto) 0.2 06/28/21 06:40: Sodium 145, Potassium 4.0 D, Chloride 123 H, Carbon Dioxide 18 L, Anion Gap 8.0, BUN 25 H, Creatinine 2.20 H, Estimated Creat Clear 19, Estimated GFR 22 L, Est GFR ( Amer) 27 L, Glucose 112 H, Calcium 7.3 L, Total Bilirubin 4.2 H, AST 240 H, ALT 103 H, Alkaline Phosphatase 110, Total Protein 5.3 L, Albumin 2.1 L, Globulin 3.2, Albumin/Globulin Ratio 0.7 L 06/28/21 10:08: Specimen Source Left radial, O2 % 40%, ABG pH 7.40, ABG pCO2 29.1 L, ABG pO2 68.1 L, ABG HCO3 17.5 L, ABG Total CO2 18.4 L, ABG O2 Saturation 93, ABG Base Excess -7.3 L, Aaron Test acceptable, PEEP 8 I & O for Last 24 hours: Intake & Output 06/26/21 06/27/21 06/28/21 06/29/21 11:59 11:59 11:59 11:59 Intake Total 4618.408 / 5639.408 3806 / 3806 3996 / 3996 1674 / 1674 Output Total 2235 / 2295 1775 / 1850 1850 / 1895 1055 / 1055 Balance 2383.408 / 3344.408 2030 / 1956 2146 / 2101 619 / 619 Weight 278 lb 6.4 oz 293 lb 1.6 oz 288 lb 4.8 oz 290 lb 4.8 oz Microbiology Reports for the Last 24 Hours: Microbiology 06/23/21 15:25 Blood Blood Culture - Final NO GROWTH AFTER 5 DAYS 06/23/21 15:25 Blood Blood Culture - Final NO GROWTH AFTER 5 DAYS 06/23/21 10:45 Abdomen - Final 06/23/21 10:45 Abdomen Gram Stain - Final 06/23/21 10:45 Abdomen Wound Culture - Final Aeromonas hydrophila - *Routine Abdominal Exam Present: soft Comments: Wound clean. Fascia intact.
[2021-06-29 07:07] LABS: Basophils # 0.1 K/mm3 (0-0.2); Basophils % 1.3 % (0.1-2.0); Eosinophils # 0.1 K/mm3 (0.0-0.4); Eosinophils % 1.3 % (0.1-12.0); Hematocrit 24.6 % (37.0-47.0); Hemoglobin 7.8 g/dL (12.2-16.2); Lymphocytes # 1.5 K/mm3 (0.7-4.5); Lymphocytes % 15.8 % (10-50); Mean Corpuscular HGB Conc 31.6 g/dL (31.8-35.4); Mean Corpuscular Hemoglobin 31.5 pg (27.0-31.2); Mean Corpuscular Volume 99.8 fl (81-99); Mean Platelet Volume 11.5 fl (7.4-10.4); Monocytes % 10.8 % (1.7-9.3); Neutrophils # 6.7 K/mm3 (1.8-7.8); Neutrophils % 70.8 % (37.0-80.0); Platelet Count 325 K/mm3 (142-424); Red Blood Count 2.46 M/mm3 (4.20-5.40); Red Cell Distribution Width 17.2 % (11.5-17.5); White Blood Count 9.5 K/mm3 (4.8-10.8)
[2021-06-29 07:15] LABS: Chloride 120 mmol/L (98-107); Sodium 143 mmol/L (136-145)
[2021-06-29 07:18] LABS: Alanine Aminotransferase 120 U/L (12-78); Alkaline Phosphatase 172 U/L (38-126); Aspartate Amino Transferase 201 U/L (14-36); Bilirubin,Total 5.2 mg/dl (0.2-1.3); Blood Urea Nitrogen 22 mg/dl (7-17); Calcium 6.9 mg/dl (8.4-10.2); Carbon Dioxide 19 mmol/L (22.0-30.0); Creatinine Clearance Estimated 21 mL/min (50-200); Estimated Glomerular Filt Rate 25 ml/min (>60); GFR (African American) 30 ML/MIN (>60); Glucose 114 mg/dl (74-100)
[2021-06-29 07:30] LABS: Anion Gap 7.4 mEq/L (5-15); Potassium 3.4 mmoL/L (3.5-5.1)
[2021-06-29 07:32] LABS: Albumin Level 2.3 g/dl (3.5-5.0); Albumin/Globulin Ratio 0.7 (1.1-1.8); Globulin 3.4 g/dL (1.3-3.2); Total Protein,Serum 5.7 g/dl (6.3-8.2)
--- NOTE | 2021-06-29 09:12 | HMH.PNCARD ---
Subjective Date: 06/29/21 Time: 09:12 Principal diagnosis: PAF, SBO surgery Interval history: 71 yo WF in Bed in NAD. REmains on vent but weaning in progress. Telemetry continues to shows NSR. Exam Vital signs and Labs for Last 24 Hours: Temp Pulse Resp BP Pulse Ox 99.6 F 64 31 H 161/59 H 100 06/29/21 08:00 06/29/21 08:00 06/29/21 08:00 06/29/21 08:00 06/29/21 08:00 Laboratory Results - last 24 hr 06/28/21 10:08: Specimen Source Left radial, O2 % 40%, ABG pH 7.40, ABG pCO2 29.1 L, ABG pO2 68.1 L, ABG HCO3 17.5 L, ABG Total CO2 18.4 L, ABG O2 Saturation 93, ABG Base Excess -7.3 L, Aaron Test acceptable, PEEP 8 06/29/21 06:45: WBC 9.5 D, RBC 2.46 L, Hgb 7.8 L, Hct 24.6 L, MCV 99.8 H, MCH 31.5 H, MCHC 31.6 L, RDW 17.2, Plt Count 325, MPV 11.5 H, Neut % (Auto) 70.8, Lymph % (Auto) 15.8, [place] % (Auto) 10.8 H, Eos % (Auto) 1.3, Baso % (Auto) 1.3, Neut # (Auto) 6.7, Lymph # (Auto) 1.5, [place] # (Auto) 1.0, Eos # (Auto) 0.1, Baso # (Auto) 0.1 06/29/21 06:45: Sodium 143, Potassium 3.4 L, Chloride 120 H, Carbon Dioxide 19 L, Anion Gap 7.4, BUN 22 H, Creatinine 2.00 H, Estimated Creat Clear 21, Estimated GFR 25 L, Est GFR ( Amer) 30 L, Glucose 114 H, Calcium 6.9 L, Total Bilirubin 5.2 H, AST 201 H, ALT 120 H, Alkaline Phosphatase 172 H, Total Protein 5.7 L, Albumin 2.3 L, Globulin 3.4 H, Albumin/Globulin Ratio 0.7 L I & O for Last 24 hours: Intake & Output 04/11/0906/27/21 06/28/21 06/29/21 11:59 11:59 11:59 11:59 Intake Total 4618.408 / 5639.408 3806 / 3806 3996 / 3996 1674 / 1674 Output Total 2235 / 2295 1775 / 1850 1850 / 1895 1330 / 1330 Balance 2383.408 / 3344.408 2030 / 1955 2146 / 210 344 / 344 Weight 278 lb 6.4 oz 293 lb 1.6 oz 288 lb 4.8 oz 290 lb 4.8 oz Microbiology Reports for the Last 24 Hours: Microbiology 06/16/21 22:58 Blood Blood Culture - Final Streptococcus salivarius 06/23/21 15:25 Blood Blood Culture - Final NO GROWTH AFTER 5 DAYS 06/23/21 15:25 Blood Blood Culture - Final NO GROWTH AFTER 5 DAYS 06/23/21 10:45 Abdomen - Final 06/23/21 10:45 Abdomen Gram Stain - Final 06/23/21 10:45 Abdomen Wound Culture - Final Aeromonas hydrophila - *Routine Respiratory Exam Present: CTA bilaterally - *Routine Cardiovascular Exam Present: RRR Progress Note: A&P (1) Small bowel obstruction Status: Acute (2) Abdominal pain Status: Acute (3) Paroxysmal atrial fibrillation with rapid ventricular response Status: Acute (4) Obesity, morbid, BMI 40.0-49.9 Status: Acute (5) Anemia Status: Acute (6) Acute kidney injury Status: Acute (7) Atrial flutter with controlled response Status: Acute (8) Hyperbilirubinemia Status: Acute (9) Respiratory failure Status: Acute (10) Altered mental status Status: Acute Assessment and Plan for All Diagnoses:: 1. Small bowel obstruction, status post surgical correction. CLinically improved. 2. Paroxysmal atrial fibrillation/flutter cardioverted to NSR, rate/rhythm controlled on IV amiodarone which we will switch to oral when able. Echo EF 55-60%. On Lovenox, renal dosed. 3. Chronic Ativan use 4. Hypokalemia, continue potassium supplementation 5. Anemia, 7.8 today, continue to monitor and consider blood transfusion 6. ALISA, Cr 2.0 with GFR 25, improving. 7. elevated LFT's, improving.
--- NOTE | 2021-06-29 09:34 | HMH.ACPN2 ---
Internal Medicine - PN: Subj *Date: 06/29/21 *Time: 08:50 Interval history: pt awake on breathing trial vent settings vc spont, fio2,40%,tv 440,rate 16,ps5,peep5 Exam Vital signs and Labs for Last 24 Hours: Temp Pulse Resp BP Pulse Ox 99.6 F 64 31 H 161/59 H 100 06/29/21 08:00 06/29/21 08:00 06/29/21 08:00 06/29/21 08:00 06/29/21 08:00 Laboratory Results - last 24 hr 06/28/21 10:08: Specimen Source Left radial, O2 % 40%, ABG pH 7.40, ABG pCO2 29.1 L, ABG pO2 68.1 L, ABG HCO3 17.5 L, ABG Total CO2 18.4 L, ABG O2 Saturation 93, ABG Base Excess -7.3 L, Aaron Test acceptable, PEEP 8 06/29/21 06:45: WBC 9.5 D, RBC 2.46 L, Hgb 7.8 L, Hct 24.6 L, MCV 99.8 H, MCH 31.5 H, MCHC 31.6 L, RDW 17.2, Plt Count 325, MPV 11.5 H, Neut % (Auto) 70.8, Lymph % (Auto) 15.8, [place] % (Auto) 10.8 H, Eos % (Auto) 1.3, Baso % (Auto) 1.3, Neut # (Auto) 6.7, Lymph # (Auto) 1.5, [place] # (Auto) 1.0, Eos # (Auto) 0.1, Baso # (Auto) 0.1 06/29/21 06:45: Sodium 143, Potassium 3.4 L, Chloride 120 H, Carbon Dioxide 19 L, Anion Gap 7.4, BUN 22 H, Creatinine 2.00 H, Estimated Creat Clear 21, Estimated GFR 25 L, Est GFR ( Amer) 30 L, Glucose 114 H, Calcium 6.9 L, Total Bilirubin 5.2 H, AST 201 H, ALT 120 H, Alkaline Phosphatase 172 H, Total Protein 5.7 L, Albumin 2.3 L, Globulin 3.4 H, Albumin/Globulin Ratio 0.7 L I & O for Last 24 hours: Intake & Output 0406/27/21 06/28/21 06/29/21 11:59 11:59 11:59 11:59 Intake Total 4618.408 / 5639.408 3806 / 3806 3996 / 3996 1674 / 1674 Output Total 2235 / 2295 1775 / 1850 1850 / 1895 1505 / 1505 Balance 2383.408 / 3344.408 2030 / 1955 2146 / 2101 169 / 169 Weight 278 lb 6.4 oz 293 lb 1.6 oz 288 lb 4.8 oz 290 lb 4.8 oz Microbiology Reports for the Last 24 Hours: Microbiology 06/16/21 22:58 Blood Blood Culture - Final Streptococcus salivarius 06/23/21 15:25 Blood Blood Culture - Final NO GROWTH AFTER 5 DAYS 06/23/21 15:25 Blood Blood Culture - Final NO GROWTH AFTER 5 DAYS 06/23/21 10:45 Abdomen - Final 06/23/21 10:45 Abdomen Gram Stain - Final 06/23/21 10:45 Abdomen Wound Culture - Final Aeromonas hydrophila - Constitutional no acute distress - *Routine HEENT Exam Head: Present: normocephalic Eye: Present: PERRL, conjunctival icterus ENT: Present: mucous membranes moist - *Routine Neck Exam Present: supple. Absent: lymphadenopathy - *Routine Respiratory Exam Present: patient mechanically ventilated - *Routine Cardiovascular Exam Present: other Comments: aflutter - *Routine Abdominal Exam Present: soft, wound. Absent: tenderness - *Routine Extremities Exam Absent: cyanosis, clubbing, edema - *Routine Skin Exam Present: warm, wounds. Absent: rash Comments: dressing to midline c/d/i - *Routine Neurological Exam Present: alert, oriented X3 Assessment and Plan (1) Small bowel obstruction Status: Acute Category: Medical Code(s): K56.609 - Unspecified intestinal obstruction, unspecified as to partial versus complete obstruction (2) Abdominal pain Status: Acute Category: Medical Code(s): R10.9 - Unspecified abdominal pain (3) Paroxysmal atrial fibrillation with rapid ventricular response Status: Acute Category: Medical Code(s): I48.0 - Paroxysmal atrial fibrillation (4) Obesity, morbid, BMI 40.0-49.9 Status: Acute Category: Medical Code(s): E66.01 - Morbid (severe) obesity due to excess calories (5) Anemia Status: Acute Category: Medical Code(s): D64.9 - Anemia, unspecified (6) Acute kidney injury Status: Acute Category: Medical Code(s): N17.9 - Acute kidney failure, unspecified (7) Atrial flutter with controlled response Status: Acute Category: Medical Code(s): I48.92 - Unspecified atrial flutter (8) Hyperbilirubinemia Status: Acute Category: Medical Code(s):
--- NOTE | 2021-06-29 09:40 | XR_ITS ---
FINAL REPORT TECHNIQUE: Single view chest CLINICAL HISTORY: Confirm PICC line placement COMPARISON: 06/29/2021 FINDINGS: A single view of the chest was obtained. The heart and mediastinum are within normal limits. There is an NG tube in the stomach. ET tube has been removed. There is a right PICC with tip in the SVC. There are small bilateral pleural effusions and right lower lobe atelectasis. There is no pneumothorax. Osseous structures are unremarkable. IMPRESSION: Interval extubation. Interstitial opacities with small pleural effusions. Reviewed, Interpreted and Dictated by Valdez Church MD Transcribed by Lady Franco Authenticated by Valdez Church MD on 06/29/2021 02:41:40 PM [facility]
[2021-06-29 10:10] LABS: ABG Base Excess -6.9 mmol/L (-2.4-2.3); ABG HCO3 17.5 mmhg (22.0-26.0); ABG Oxygen Saturation 98 % (90-100); ABG PCO2 27.5 mmhg (35.0-45.0); ABG PH 7.42 mmol/L (7.35-7.45); ABG PO2 95.1 mmhg (80-100); ABG TCO2 18.4 mmhg (23-27)
[2021-06-29 10:13] LABS: Allen's Test Acceptable; Oxygen 40 %; PEEP 5; Pressure Support 5
[2021-06-29 10:14] LABS: Source Left Femoral
--- NOTE | 2021-06-29 10:36 | PC.NURSE ---
pt extubated to 5L NC
--- NOTE | 2021-06-29 11:04 | DIET.NUTRFU ---
Reviewed POC with provider and nursing during rounds today, plan is to extubate. Appears like that has happened and determine appropriate oral diet when feasible. She had been on TF over weekend but on hold d/t vomiting. Was going to restart toady if was not extubated. Provider plans to provide some lasix today and blood transfusion. She was receiving fluid mixed with her medications plus the potassium dextrose in place. Labs reviewed from 06/29: Na 143, K 3.4L, BUN 22H, Cr 2.0H and glucose 114H. Continue to watch labs and diet advancement. She will need a cardiac and diabetic diet when appropriate.
--- NOTE | 2021-06-29 12:04 | PC.NURSE ---
Carson Valdez RN and Madina Nuñez RN @ BS attempting to insert PICC line. Will start blood products when PICC line inserted and cleared to use.
--- NOTE | 2021-06-29 13:20 | PC.NURSE ---
pt now has RUE dual PICC line
--- NOTE | 2021-06-29 14:45 | PC.NURSE ---
received call from forwarder operator that PICC line is good to use. Will obtain blood for transfusion.
[2021-06-29 15:04] LABS: Vancomycin,Trough 16.1 ug/mL (5.0-10.0)
--- NOTE | 2021-06-29 15:21 | HMH.PHACONS ---
- Pharmacy Consult Date: 06/29/21 Time: 15:21 Referring provider: DR. RODRIGUEZ Reason for Consult:: VANCOMYCIN TROUGH LEVEL Allergies and ADEs:: Allergies Allergy/AdvReac Type Severity Reaction Status Date / Time NSAIDS (Non-Steroidal AdvReac EFFECTS Verified 06/17/21 00:55 Anti-Inflamma KIDNEYS Home Medications:: Home Medications Medication Instructions Recorded Confirmed Type Atorvastatin Calcium [Lipitor 20mg 20 mg PO HS 06/18/17 06/17/21 History Tab] Esomeprazole Magnesium 40 mg PO DAILY 06/18/17 06/17/21 History Furosemide [Furosemide 40MG tAB*] 40 mg PO BID 06/18/17 06/17/21 History LORazepam [Ativan 0.5mg 0.5 mg PO Q8HP PRN 06/18/17 06/17/21 History tablet] Oxybutynin Chloride [Oxybutynin 5 mg PO DAILY 06/18/17 06/17/21 History Chloride ER] Potassium Chloride [K-Tab ER 10 10 meq PO BID 06/18/17 06/17/21 History mEq] Sertraline HCl [Zoloft 50mg tablet] 50 mg PO DAILY 06/18/17 06/17/21 History Tizanidine HCl [Zanaflex] 4 mg PO HS 06/18/17 06/17/21 History allopurinoL [Allopurinol 300mg 300 mg PO DAILY 06/18/17 06/17/21 History tablet] Spironolactone [Spironolactone 25 mg PO DAILY 03/31/19 06/17/21 History 25mg Tablet] Fexofenadine HCl 180 mg PO DAILY 06/03/21 06/17/21 History Hydrocodone/Acetaminophen 1 tab PO Q4H 06/03/21 06/17/21 History [Hydrocodone-Acetamin 10-325 mg] Propranolol HCl [Inderal 20mg 20 mg PO BID 06/16/21 06/17/21 History tablet] Dextran 70/Hypromellose/Pf 1 drp EYE-BOTH NEEDED PRN 06/17/21 06/17/21 History [Artificial Tears Drops] Empagliflozin [Jardiance] 25 mg PO DAILY 06/17/21 06/17/21 History Fluticasone Propionate [Flovent 50 mcg IH DAILY 06/17/21 06/17/21 History Diskus] Metformin HCl [Metformin ER 500 mg PO DAILY 06/17/21 06/17/21 History Gastric] ondansetron HCL [Ondansetron 4mg 4 mg PO Q6 PRN 06/17/21 06/17/21 History tab*] predniSONE [Prednisone 5mg 5 mg PO DAILY 06/17/21 06/17/21 History Tab] Height: 1.6 m Weight: 131.678 kg Laboratory Results:: Laboratory Results - last 24 hr 06/29/21 06:00: Specimen Source Left femoral, O2 % 40, ABG pH 7.42, ABG pCO2 27.5 L, ABG pO2 95.1, ABG HCO3 17.5 L, ABG Total CO2 18.4 L, ABG O2 Saturation 98, ABG Base Excess -6.9 L, Aaron Test Acceptable, PEEP 5 06/29/21 06:45: WBC 9.5 D, RBC 2.46 L, Hgb 7.8 L, Hct 24.6 L, MCV 99.8 H, MCH 31.5 H, MCHC 31.6 L, RDW 17.2, Plt Count 325, MPV 11.5 H, Neut % (Auto) 70.8, Lymph % (Auto) 15.8, [place] % (Auto) 10.8 H, Eos % (Auto) 1.3, Baso % (Auto) 1.3, Neut # (Auto) 6.7, Lymph # (Auto) 1.5, [place] # (Auto) 1.0, Eos # (Auto) 0.1, Baso # (Auto) 0.1 06/29/21 06:45: Sodium 143, Potassium 3.4 L, Chloride 120 H, Carbon Dioxide 19 L, Anion Gap 7.4, BUN 22 H, Creatinine 2.00 H, Estimated Creat Clear 21, Estimated GFR 25 L, Est GFR ( Amer) 30 L, Glucose 114 H, Calcium 6.9 L, Total Bilirubin 5.2 H, AST 201 H, ALT 120 H, Alkaline Phosphatase 172 H, Total Protein 5.7 L, Albumin 2.3 L, Globulin 3.4 H, Albumin/Globulin Ratio 0.7 L 06/29/21 06:45: Blood Type Confirm O Positive 06/29/21 10:28: Blood Type O Positive, Antibody Screen Negative, Crossmatch (AHG) See Detail 06/29/21 14:05: Vancomycin Trough 16.1 H Medical History: Reports:: Anxiety, Asthma, Depression, Diabetes Mellitus Type 2, Gastroesophageal Reflux Disease(GERD), Hyperlipidemia, Migraine, Renal Insufficiency Denies:: Cancer, Diabetes Mellitus Type 1, MRSA Assessment and Plan (1) Small bowel obstruction Status: Acute Category: Medical Code(s): K56.609 - Unspecified intestinal obstruction, unspecified as to partial versus complete obstruction (2) Abdominal pain Status: Acute Category: Medical Code(s): R10.9 - Unspecified abdominal pain (3) Paroxysmal atrial fibrillation with rapid ventricular response Status: Acute Category: Medical Code(s): I48.0 - Paroxysmal atrial fibrillation (4) Obesity, morbid, BMI 40.0-49.9 Status: Acute Category: Medical Code(s): E66.01
[2021-06-29 22:46] LABS: Hematocrit 25.9 % (37.0-47.0)
[2021-06-30] VITALS (23 sets, daily range): BP systolic 130–175; BP diastolic 53–78; PULSE 62–80; RESP 23–33; TEMP 36.5–37.2; O2SAT 95–100; BMI 51.4
--- NOTE | 2021-06-30 06:00 | XR_ITS ---
PROCEDURE INFORMATION: Exam: XR Chest Exam date and time: 06/30/2021 5:22 AM Age: 71 years old Clinical indication: Device placement; Ett placement (vent status); Patient HX: Extubated 06/29/21; Additional info: Daily while intubated TECHNIQUE: Imaging protocol: XR of the chest. Views: 1 view. COMPARISON: CR XR CHEST PORTABLE PICC PLAC 06/29/2021 1:18 PM FINDINGS: Tubes, catheters and devices: Similar appearance of the visualized enteric tube and right PICC, which project over satisfactory position. Lungs: Moderate pulmonary vascular congestion. [id number] bibasilar interstitial/alveolar opacities. Findings may be in part related to pleural effusions and passive atelectasis; however, consider pulmonary edema and/or pneumonia could have a similar appearance. Pleural spaces: There are at least small bilateral pleural effusions. No pneumothorax. Heart/Mediastinum: Cardiomegaly. Diaphragm: Stable elevation of the right hemidiaphragm. Bones/joints: Unremarkable. IMPRESSION: 1. Similar appearance to previous. 2. Cardiomegaly with pulmonary vascular congestion and probable small bilateral pleural effusions. 3. [id number] bibasilar interstitial/alveolar opacities. Findings may be in part related to pleural effusions and passive atelectasis; however, consider pulmonary edema and/or pneumonia could have a similar appearance.
[2021-06-30 07:05] LABS: Chloride 121 mmol/L (98-107); Potassium 3.4 mmoL/L (3.5-5.1); Sodium 143 mmol/L (136-145)
[2021-06-30 07:08] LABS: Alanine Aminotransferase 98 U/L (12-78); Albumin Level 2.3 g/dl (3.5-5.0); Albumin/Globulin Ratio 0.7 (1.1-1.8); Alkaline Phosphatase 190 U/L (38-126); Anion Gap 8.4 mEq/L (5-15); Aspartate Amino Transferase 134 U/L (14-36); Bilirubin,Total 3.8 mg/dl (0.2-1.3); Blood Urea Nitrogen 22 mg/dl (7-17); Calcium 6.9 mg/dl (8.4-10.2); Carbon Dioxide 17 mmol/L (22.0-30.0); Creatinine Clearance Estimated 22 mL/min (50-200); Estimated Glomerular Filt Rate 26 ml/min (>60); GFR (African American) 32 ML/MIN (>60); Globulin 3.4 g/dL (1.3-3.2); Glucose 113 mg/dl (74-100); Total Protein,Serum 5.7 g/dl (6.3-8.2)
[2021-06-30 07:40] LABS: Basophils # 0.2 K/mm3 (0-0.2); Eosinophils # 0.1 K/mm3 (0.0-0.4); Hematocrit 30.8 % (37.0-47.0); Lymphocytes # 1.6 K/mm3 (0.7-4.5); Lymphocytes % 16.1 % (10-50); Mean Corpuscular HGB Conc 31.5 g/dL (31.8-35.4); Mean Corpuscular Hemoglobin 30.1 pg (27.0-31.2); Mean Corpuscular Volume 95.6 fl (81-99); Mean Platelet Volume 10.7 fl (7.4-10.4); Monocytes # 0.6 K/mm3 (0.1-1.0); Monocytes % 5.6 % (1.7-9.3); Neutrophils # 7.4 K/mm3 (1.8-7.8); Neutrophils % 75.3 % (37.0-80.0); Platelet Count 470 K/mm3 (142-424); Red Blood Count 3.22 M/mm3 (4.20-5.40); Red Cell Distribution Width 17.9 % (11.5-17.5); White Blood Count 9.9 K/mm3 (4.8-10.8)
[2021-06-30 07:59] LABS: Hemoglobin 9.7 g/dL (12.2-16.2)
--- NOTE | 2021-06-30 08:17 | HMH.GSPN ---
Subjective Narrative: Patient extubated yesterday. Currently on room air. Taking minimal tube feeds. PICC line placed yesterday. Received 2 units packed red blood cells. Progress Note: A&P (1) Small bowel obstruction Status: Acute (2) Abdominal pain Status: Acute (3) Paroxysmal atrial fibrillation with rapid ventricular response Status: Acute (4) Obesity, morbid, BMI 40.0-49.9 Status: Acute (5) Anemia Status: Acute Assessment and plan: Transfused (6) Acute kidney injury Status: Acute Assessment and plan: Renal function improving (7) Atrial flutter with controlled response Status: Acute (8) Hyperbilirubinemia Status: Acute (9) Respiratory failure Status: Acute (10) Altered mental status Status: Acute Assessment and Plan for All Diagnoses:: May be able to increase her tube feeds. If her mental status improves may be able to initiate diet. However at this time she is still quite somnolent. Monitor hemoglobin hematocrit. Exam Vital signs and Labs for Last 24 Hours: Temp Pulse Resp BP Pulse Ox 98.4 F 75 33 H 170/63 H 96 06/29/21 21:30 06/30/21 07:00 06/30/21 07:00 06/30/21 07:00 06/30/21 07:00 Laboratory Results - last 24 hr 06/29/21 06:00: Specimen Source Left femoral, O2 % 40, ABG pH 7.42, ABG pCO2 27.5 L, ABG pO2 95.1, ABG HCO3 17.5 L, ABG Total CO2 18.4 L, ABG O2 Saturation 98, ABG Base Excess -6.9 L, Aaron Test Acceptable, PEEP 5 06/29/21 06:45: Blood Type Confirm O Positive 06/29/21 10:28: Blood Type O Positive, Antibody Screen Negative, Crossmatch (AHG) See Detail 06/29/21 14:05: Vancomycin Trough 16.1 H 06/29/21 21:35: Hgb 8.0 L, Hct 25.9 L 06/30/21 06:45: WBC 9.9, RBC 3.22 L D, Hgb 9.7 L D, Hct 30.8 L, MCV 95.6, MCH 30.1, MCHC 31.5 L, RDW 17.9 H, Plt Count 470 H D, MPV 10.7 H, Neut % (Auto) 75.3, Lymph % (Auto) 16.1, [place] % (Auto) 5.6, Eos % (Auto) 1.0, Baso % (Auto) 2.0, Neut # (Auto) 7.4, Lymph # (Auto) 1.6, [place] # (Auto) 0.6, Eos # (Auto) 0.1, Baso # (Auto) 0.2 06/30/21 06:45: Sodium 143, Potassium 3.4 L, Chloride 121 H, Carbon Dioxide 17 L, Anion Gap 8.4, BUN 22 H, Creatinine 1.90 H, Estimated Creat Clear 22, Estimated GFR 26 L, Est GFR ( Amer) 32 L, Glucose 113 H, Calcium 6.9 L, Total Bilirubin 3.8 H, AST 134 H D, ALT 98 H, Alkaline Phosphatase 190 H, Total Protein 5.7 L, Albumin 2.3 L, Globulin 3.4 H, Albumin/Globulin Ratio 0.7 L I & O for Last 24 hours: Intake & Output 06/27/21 06/28/21 06/29/21 06/30/21 11:59 11:59 11:59 11:59 Intake Total 3806 / 3806 3996 / 3996 1674 / 1674 3959 / 3959 Output Total 1775 / 1850 1850 / 1895 1665 / 1765 3670 / 3670 Balance 2030 / 1955 2146 / 2101 9 / -91 289 / 289 Weight 293 lb 1.6 oz 288 lb 4.8 oz 290 lb 4.8 oz 290 lb 5 oz Microbiology Reports for the Last 24 Hours: Microbiology 06/23/21 10:45 Abdomen - Preliminary 06/23/21 10:45 Abdomen - Final 06/16/21 22:58 Blood Blood Culture - Final Streptococcus salivarius - Constitutional somnolent - *Routine Abdominal Exam Present: soft Comments: Wound relatively clean. Some drainage. Fascia appears intact.
--- NOTE | 2021-06-30 09:07 | HMH.ACPN2 ---
Internal Medicine - PN: Subj *Date: 06/30/21 *Time: 20:05 Interval history: 71-year-old female patient resting quietly in bed, she does not respond to verbal stimuli. She was extubated yesterday and received 2 units of packed blood cells for a hemoglobin of 7.8 currently this morning hemoglobin is 9.7. Amiodarone infusing and currently oxygenation 98% on room air Exam Vital signs and Labs for Last 24 Hours: Temp Pulse Resp BP Pulse Ox 97.7 F 75 33 H 170/63 H 96 06/30/21 08:00 06/30/21 07:00 06/30/21 07:00 06/30/21 07:00 06/30/21 07:00 Laboratory Results - last 24 hr 06/29/21 06:00: Specimen Source Left femoral, O2 % 40, ABG pH 7.42, ABG pCO2 27.5 L, ABG pO2 95.1, ABG HCO3 17.5 L, ABG Total CO2 18.4 L, ABG O2 Saturation 98, ABG Base Excess -6.9 L, Aaron Test Acceptable, PEEP 5 06/29/21 06:45: Blood Type Confirm O Positive 06/29/21 10:28: Blood Type O Positive, Antibody Screen Negative, Crossmatch (AHG) See Detail 06/29/21 14:05: Vancomycin Trough 16.1 H 06/29/21 21:35: Hgb 8.0 L, Hct 25.9 L 06/30/21 06:45: WBC 9.9, RBC 3.22 L D, Hgb 9.7 L D, Hct 30.8 L, MCV 95.6, MCH 30.1, MCHC 31.5 L, RDW 17.9 H, Plt Count 470 H D, MPV 10.7 H, Neut % (Auto) 75.3, Lymph % (Auto) 16.1, [place] % (Auto) 5.6, Eos % (Auto) 1.0, Baso % (Auto) 2.0, Neut # (Auto) 7.4, Lymph # (Auto) 1.6, [place] # (Auto) 0.6, Eos # (Auto) 0.1, Baso # (Auto) 0.2 06/30/21 06:45: Sodium 143, Potassium 3.4 L, Chloride 121 H, Carbon Dioxide 17 L, Anion Gap 8.4, BUN 22 H, Creatinine 1.90 H, Estimated Creat Clear 22, Estimated GFR 26 L, Est GFR ( Amer) 32 L, Glucose 113 H, Calcium 6.9 L, Total Bilirubin 3.8 H, AST 134 H D, ALT 98 H, Alkaline Phosphatase 190 H, Total Protein 5.7 L, Albumin 2.3 L, Globulin 3.4 H, Albumin/Globulin Ratio 0.7 L I & O for Last 24 hours: Intake & Output 06/27/21 06/28/21 06/29/21 06/30/21 23:59 23:59 23:59 23:59 Intake Total 3404 / 3404 3394 / 3394 3959 / 3959 Output Total 1825 / 1900 1475 / 1525 3755 / 3955 975 / 975 Balance 1579 / 1504 1919 / 1869 204 / 4 -975 / -975 Weight 293 lb 1.6 oz 288 lb 4.8 oz 290 lb 4.8 oz 290 lb 5 oz Microbiology Reports for the Last 24 Hours: Microbiology 06/23/21 10:45 Abdomen - Preliminary 06/23/21 10:45 Abdomen - Final 06/16/21 22:58 Blood Blood Culture - Final Streptococcus salivarius - Constitutional no acute distress, chronically ill appearing - *Routine Neck Exam Present: trachea midline. Absent: tracheal deviation - *Routine Respiratory Exam Present: rhonchi. Absent: accessory muscle use - *Routine Cardiovascular Exam Present: irregularly irregular - *Routine Abdominal Exam Present: soft, normoactive bowel sounds, tenderness. Absent: firm - *Routine Extremities Exam Present: cyanosis, edema, pulses intact. Absent: clubbing Comments: Bilat toes discolored - *Routine Skin Exam Present: dry, wounds. Absent: intact, erythema Comments: Midline abdominal dressing clean/dry/intact - *Routine Neurological Exam Present: altered mental status - Routine Psychiatric Exam Present: unable to assess Assessment and Plan (1) Small bowel obstruction Status: Acute Category: Medical Code(s): K56.609 - Unspecified intestinal obstruction, unspecified as to partial versus complete obstruction (2) Abdominal pain Status: Acute Category: Medical Code(s): R10.9 - Unspecified abdominal pain (3) Paroxysmal atrial fibrillation with rapid ventricular response Status: Acute Category: Medical Code(s): I48.0 - Paroxysmal atrial fibrillation (4) Obesity, morbid, BMI 40.0-49.9 Status: Acute Category: Medical Code(s): E66.01 - Morbid (severe) obesity due to excess calories (5) Anemia Status: Acute Category: Medical Code(s): D64.9 - Anemia, unspecified (6) Acute kidney injury Status: Acute Category: Medical Code(s): N17.9 - Acute kidney failure, unspecified (7) Atrial flutter with controlled
--- NOTE | 2021-06-30 11:19 | HMH.GSPN ---
Subjective Narrative: No new issues. At the bedside for planned VAC dressing placement. Progress Note: A&P (1) Small bowel obstruction Status: Acute (2) Abdominal pain Status: Acute (3) Paroxysmal atrial fibrillation with rapid ventricular response Status: Acute (4) Obesity, morbid, BMI 40.0-49.9 Status: Acute (5) Anemia Status: Acute (6) Acute kidney injury Status: Acute (7) Atrial flutter with controlled response Status: Acute (8) Hyperbilirubinemia Status: Acute (9) Respiratory failure Status: Acute (10) Altered mental status Status: Acute Assessment and Plan for All Diagnoses:: I removed the skin sutures from the wound. Collaborated with physical therapy and plan is for negative pressure wound therapy dressing placement. Exam Vital signs and Labs for Last 24 Hours: Temp Pulse Resp BP Pulse Ox 97.7 F 72 25 H 154/66 H 100 06/30/21 08:00 06/30/21 10:56 06/30/21 10:00 06/30/21 10:00 06/30/21 10:56 Laboratory Results - last 24 hr 06/29/21 06:45: Blood Type Confirm O Positive 06/29/21 10:28: Blood Type O Positive, Antibody Screen Negative, Crossmatch (AHG) See Detail 06/29/21 14:05: Vancomycin Trough 16.1 H 06/29/21 21:35: Hgb 8.0 L, Hct 25.9 L 06/30/21 06:45: WBC 9.9, RBC 3.22 L D, Hgb 9.7 L D, Hct 30.8 L, MCV 95.6, MCH 30.1, MCHC 31.5 L, RDW 17.9 H, Plt Count 470 H D, MPV 10.7 H, Neut % (Auto) 75.3, Lymph % (Auto) 16.1, [place] % (Auto) 5.6, Eos % (Auto) 1.0, Baso % (Auto) 2.0, Neut # (Auto) 7.4, Lymph # (Auto) 1.6, [place] # (Auto) 0.6, Eos # (Auto) 0.1, Baso # (Auto) 0.2 06/30/21 06:45: Sodium 143, Potassium 3.4 L, Chloride 121 H, Carbon Dioxide 17 L, Anion Gap 8.4, BUN 22 H, Creatinine 1.90 H, Estimated Creat Clear 22, Estimated GFR 26 L, Est GFR ( Amer) 32 L, Glucose 113 H, Calcium 6.9 L, Total Bilirubin 3.8 H, AST 134 H D, ALT 98 H, Alkaline Phosphatase 190 H, Total Protein 5.7 L, Albumin 2.3 L, Globulin 3.4 H, Albumin/Globulin Ratio 0.7 L I & O for Last 24 hours: Intake & Output 06/27/21 06/28/21 06/29/21 06/30/21 11:59 11:59 11:59 11:59 Intake Total 3806 / 3806 3996 / 3996 1674 / 1674 3959 / 3959 Output Total 1775 / 1850 1850 / 1895 1665 / 1765 3670 / 3670 Balance 2030 / 1955 2146 / 2100 9 / -91 289 / 289 Weight 293 lb 1.6 oz 288 lb 4.8 oz 290 lb 4.8 oz 290 lb 5 oz Microbiology Reports for the Last 24 Hours: Microbiology 06/23/21 10:45 Abdomen - Preliminary 06/23/21 10:45 Abdomen - Final 06/16/21 22:58 Blood Blood Culture - Final Streptococcus salivarius - Constitutional Comments: Patient quite alert. - *Routine Abdominal Exam Comments: Wound with some necrotic fascia in the base. No definite dehiscence.
--- NOTE | 2021-06-30 11:38 | P.PN_ITS ---
Subjective Date: 06/30/21 Time: 11:38 Principal diagnosis: PAF, SBO surgery Interval history: 71 yo WF in bed in NAD. Off the vent. Telemetry shows NSR. Exam Vital signs and Labs for Last 24 Hours: Temp Pulse Resp BP Pulse Ox 97.7 F 72 25 H 154/66 H 100 06/30/21 08:00 06/30/21 10:56 06/30/21 10:00 06/30/21 10:00 06/30/21 10:56 Laboratory Results - last 24 hr 06/29/21 10:28: Blood Type O Positive, Antibody Screen Negative, Crossmatch (AHG) See Detail 06/29/21 14:05: Vancomycin Trough 16.1 H 06/29/21 21:35: Hgb 8.0 L, Hct 25.9 L 06/30/21 06:45: WBC 9.9, RBC 3.22 L D, Hgb 9.7 L D, Hct 30.8 L, MCV 95.6, MCH 30.1, MCHC 31.5 L, RDW 17.9 H, Plt Count 470 H D, MPV 10.7 H, Neut % (Auto) 75.3, Lymph % (Auto) 16.1, [place] % (Auto) 5.6, Eos % (Auto) 1.0, Baso % (Auto) 2.0, Neut # (Auto) 7.4, Lymph # (Auto) 1.6, [place] # (Auto) 0.6, Eos # (Auto) 0.1, Baso # (Auto) 0.2 06/30/21 06:45: Sodium 143, Potassium 3.4 L, Chloride 121 H, Carbon Dioxide 17 L , Anion Gap 8.4, BUN 22 H, Creatinine 1.90 H, Estimated Creat Clear 22, Estimated GFR 26 L, Est GFR ( Amer) 32 L, Glucose 113 H, Calcium 6.9 L, Total Bilirubin 3.8 H, AST 134 H D, ALT 98 H, Alkaline Phosphatase 190 H, Total Protein 5.7 L, Albumin 2.3 L, Globulin 3.4 H, Albumin/Globulin Ratio 0.7 L I & O for Last 24 hours: Intake & Output 06/27/21 06/28/21 06/29/21 06/30/21 11:59 11:59 11:59 11:59 Intake Total 3806 / 3806 3996 / 3996 1674 / 1674 3959 / 3959 Output Total 1775 / 1850 1850 / 1895 1665 / 1765 3670 / 3670 Balance 2030 214 / 210 9 / -91 289 / 289 Weight 293 lb 1.6 oz 288 lb 4.8 oz 290 lb 4.8 oz 290 lb 5 oz Microbiology Reports for the Last 24 Hours: Microbiology 06/23/21 10:45 Abdomen - Preliminary 06/23/21 10:45 Abdomen - Final 06/16/21 22:58 Blood Blood Culture - Final Streptococcus salivarius - *Routine Respiratory Exam Present: CTA bilaterally - *Routine Cardiovascular Exam Present: RRR Progress Note: A&P (1) Small bowel obstruction Status: Acute (2) Abdominal pain Status: Acute (3) Paroxysmal atrial fibrillation with rapid ventricular response Status: Acute (4) Obesity, morbid, BMI 40.0-49.9 Status: Acute (5) Anemia Status: Acute (6) Acute kidney injury Status: Acute (7) Atrial flutter with controlled response Status: Acute (8) Hyperbilirubinemia Status: Acute (9) Respiratory failure Status: Acute (10) Altered mental status Status: Acute Assessment and Plan for All Diagnoses:: 1. Small bowel obstruction, status post surgical correction. CLinically improved. 2. Paroxysmal atrial fibrillation/flutter cardioverted to NSR, rate/rhythm controlled on IV amiodarone which we will switch to oral today. Echo EF 55- 60%. On Lovenox, renal dosed. 3. Chronic Ativan use 4. Hypokalemia, continue potassium supplementation 5. Anemia, 9.7 after 2 untis PRBC's 6. ALISA, Cr 1.9 with GFR 26, improving. 7. elevated LFT's, improving. 8. HTN, propranolol on hold. Consider restarting if BP remains elevated.
--- NOTE | 2021-06-30 11:51 | DIET.NUTRFU ---
Addendum entered by Fanny Mendosa RD, LD 06/30/21 15:48: speech eval today, recommended to continue TF at this time with ice chips only. Was at risk for aspiration with all consistences today, they will re-eval tomorrow. Original Note: RD rounded with provider today, nursing updated condition. Patient was extubated yesterday, receiving TF via NG tube at 10ml/hr of pulmocare. She was not alert during rounds. Difficult to follow commands per nursing and unable to start oral diet. If tolerates TF will need to start increasing to better meet her needs. Labs reviewed: Na 143, K 3.4L, BUN 22H, Cr 1.9 and glucose 113. Liver enzymes showing improvement and total bilirubin. Continues on dextrose/potassium IVF for repletion. Pulmocare at 10ml/hr this will not meet nutritional needs at 345kcal, 14gm protein and 180ml free water. Flush with 50ml Q4H, may need additional IV fluids to meet needs, fluid provided per tube is 480ml/day. If tolerated increase to rate rate of 70ml/hr to provide 1610kcal/100gm protein and 1263ml free water+minumal flushes of 50ml TID while still on IVF.
--- NOTE | 2021-06-30 11:55 | PC.NURSE ---
dressing to midline incision was changed with Dr kim this am at approx 0730. wound packed with dry kerlix, covered with 4x4 and abd pad. at approx 1130, dr kim removed dressing to midline incision, sutures removed and wound vac applied by Ruth leger and Alesia Rod.
--- NOTE | 2021-06-30 13:22 | HMH.SLDYSPHA ---
Speech & Language Evaluation Speech/Language Dysphagia Evaluation Start: 06/30/21 13:12 Freq: ONCE Status: Active Protocol: Document 06/30/21 13:12 MELITON (Rec: 06/30/21 13:22 MELITON [id number]) Dysphagia Assess/Goals/Plan Assessment Date of Evaluation: 06/30/21 Evaluation Type Initial Certification Assessment/Problems Dysphagia eval Does Patient Qualify for Service No Qualify/Failure Comment Services pending reassessment tomorrow. Recommendations PHYSICIAN CERTIFICATION: The specified therapy services are required, authorized, and reviewed every 30 days. Diet Recommendations Ice chips Dysphagia Swallow Precautions/Strategies Sitting Upright (90 deg) Plan Pt/Guardian verbally ack understanding Yes of dx/prognosis/goals G -code Required No Speech & Language HPI Language Primary Language [place] General Information General Current Food Consistancy NPO Oxygen Status Nasal Cannula Facial Symmetry Symmetrical Ability to Follow Directions Good Communication Ability Moderate Impairment Dysphagia:Food Presentation Evaluation Food Type Liquid,Pudding Normal/Thin Liquid Response Absent laryngeal elevate, Coughing after swallow,Clears throat,Wet voice [place] Consistency Liquid Response Absent laryngeal elevate, Coughing after swallow,Clears throat,Wet voice Honey Consistency Liquid Response Absent laryngeal elevate, Coughing after swallow,Clears throat,Wet voice Pudding Consistency Liquid Response Absent laryngeal elevate, Coughing after swallow,Clears throat,Wet voice Dysphagia Evaluation Summary Ms. Gongora was given the following consistencies, thins , nectar and honey via open cup and spoon. Ms. Gongora displayed symptoms of dysphagia with all consistencies. It is recommended patient remain on tube feedings with ice chips only at this time. Reassessment to be completed tomorrow to rule out risk of aspiration and modify diet. Stroke Dysphagia Assessment PHYSICIAN CERTIFICATION: I certify the specified therapy services for Summer Gongora are required, authorized, and reviewed every 30 days.
--- NOTE | 2021-06-30 16:46 | PC.NURSE ---
1529 notified Michelle Chang of pt tachypnea. pt received lorazepam and has been resting. pt breaths remain labored and fast, pt is experiencing third spacing at this time. may fluid rate be decreased, and would provider be interested in ordering a dose of lasix for pt.
--- NOTE | 2021-06-30 18:26 | PC.NURSE ---
1800 ok per d candelario to change route of tylenol from HI to NG . also order given for lasix 40mg iv x 1 dose now.
--- NOTE | 2021-06-30 18:44 | ECG_ITS ---
APPROVED REPORT Exam: Resting ECG HR:76 bpm ECG Measurements Heart Rate 76 AXES NH 185 P 69 QRSd 77 QRS 17 QT 314 T 55 QTc 344 Conclusion SINUS RHYTHM WITH OCCASIONAL SUPRAVENTRICULAR PREMATURE COMPLEXES Old anteroseptal changes BORDERLINE ECG INTERPRETATION BASED ON A DEFAULT AGE OF 41 YEARS UNCONFIRMED REPORT Electronically signed by : Edgar Mccarty MD 07/02/2021 17:43:47
[2021-06-30 22:36] LABS: POC Glucose,Bedside 119 (70-110)
[2021-07-01] VITALS (14 sets, daily range): BP systolic 135–181; BP diastolic 61–82; PULSE 56–74; RESP 18–24; TEMP 36.4–37.5; O2SAT 90–100; BMI 49.5
--- NOTE | 2021-07-01 04:23 | PC.NURSE ---
Pt off amiodarone gtt. She remains NSR with frequent PVCs this am. Has c/o discomfort to leg. Medicated per may. Wound Vac is in position. Pt has slept at intervals this shift. Turned Q2 hr. Oral care provided. Pulmocare infusing @ 10 ml/hr. Residuals have ranged between 40- 60 ml.. Pt has 3+ edema with weeping to BUE. F/C draining to bedside with clear, yellow urine. Pt has had a BM this shift. No other concerns at this time. Will continue to monitor.
--- NOTE | 2021-07-01 06:00 | XR_ITS ---
PROCEDURE INFORMATION: Exam: XR Chest Exam date and time: 07/01/2021 4:21 AM Age: 71 years old Clinical indication: Device placement; Ett placement (vent status); Patient HX: Extubated; Additional info: Daily while intubated TECHNIQUE: Imaging protocol: XR of the chest. Views: 1 view. COMPARISON: CR XR CHEST PORTABLE 06/30/2021 5:22 AM FINDINGS: Tubes, catheters and devices: Central venous catheters in good position. The nasogastric tube is unchanged. Lungs: The lung volumes are low. Bibasilar opacities are unchanged Pleural spaces: Unremarkable. No pleural effusion. No pneumothorax. Heart/Mediastinum: Unremarkable. No cardiomegaly. Bones/joints: Unremarkable. IMPRESSION: Stable exam.
[2021-07-01 06:15] LABS: Basophils # 0.1 K/mm3 (0-0.2); Basophils % 0.6 % (0.1-2.0); Eosinophils # 0.2 K/mm3 (0.0-0.4); Eosinophils % 1.7 % (0.1-12.0); Hematocrit 29.6 % (37.0-47.0); Hemoglobin 9.4 g/dL (12.2-16.2); Lymphocytes # 1.1 K/mm3 (0.7-4.5); Mean Corpuscular HGB Conc 31.8 g/dL (31.8-35.4); Mean Corpuscular Hemoglobin 30.2 pg (27.0-31.2); Mean Corpuscular Volume 94.9 fl (81-99); Mean Platelet Volume 9.7 fl (7.4-10.4); Monocytes # 0.5 K/mm3 (0.1-1.0); Neutrophils # 7.8 K/mm3 (1.8-7.8); Neutrophils % 81.6 % (37.0-80.0); Platelet Count 487 K/mm3 (142-424); Red Blood Count 3.12 M/mm3 (4.20-5.40); Red Cell Distribution Width 18.1 % (11.5-17.5); White Blood Count 9.6 K/mm3 (4.8-10.8)
[2021-07-01 06:34] LABS: Anion Gap 7.4 mEq/L (5-15); Blood Urea Nitrogen 21 mg/dl (7-17); Calcium 6.9 mg/dl (8.4-10.2); Carbon Dioxide 18 mmol/L (22.0-30.0); Chloride 120 mmol/L (98-107); Creatinine Clearance Estimated 23 mL/min (50-200); Estimated Glomerular Filt Rate 28 ml/min (>60); GFR (African American) 34 ML/MIN (>60); Glucose 107 mg/dl (74-100); Potassium 3.4 mmoL/L (3.5-5.1); Sodium 142 mmol/L (136-145)
[2021-07-01 06:51] LABS: POC Glucose,Bedside 118 (70-110)
--- NOTE | 2021-07-01 08:13 | HMH.GSPN ---
Subjective Narrative: Per nursing, the patient has had fairly significant residual noted even with trophic feeds . Progress Note: A&P (1) Small bowel obstruction Status: Acute Assessment and plan: Very slow resolution of ileus. Fairly significant residual with trophic feeds noted per nursing staff. Continue with trophic feeds for now (hold on advancing until residual minimized) (2) Abdominal pain Status: Acute (3) Paroxysmal atrial fibrillation with rapid ventricular response Status: Acute (4) Obesity, morbid, BMI 40.0-49.9 Status: Acute (5) Anemia Status: Acute (6) Acute kidney injury Status: Acute (7) Atrial flutter with controlled response Status: Acute (8) Hyperbilirubinemia Status: Acute (9) Respiratory failure Status: Acute (10) Altered mental status Status: Acute Exam Vital signs and Labs for Last 24 Hours: Temp Pulse Resp BP Pulse Ox 99.1 F 66 22 149/71 H 100 07/01/21 04:00 07/01/21 06:01 07/01/21 05:58 07/01/21 05:58 07/01/21 06:01 Laboratory Results - last 24 hr 06/30/21 22:03: POC Glucose 119 H 07/01/21 05:42: WBC 9.6, RBC 3.12 L, Hgb 9.4 L, Hct 29.6 L, MCV 94.9, MCH 30.2, MCHC 31.8, RDW 18.1 H, Plt Count 487 H, MPV 9.7, Neut % (Auto) 81.6 H, Lymph % (Auto) 11.0, [place] % (Auto) 5.0, Eos % (Auto) 1.7, Baso % (Auto) 0.6, Neut # (Auto) 7.8, Lymph # (Auto) 1.1, [place] # (Auto) 0.5, Eos # (Auto) 0.2, Baso # (Auto) 0.1 07/01/21 05:42: Sodium 142, Potassium 3.4 L, Chloride 120 H, Carbon Dioxide 18 L, Anion Gap 7.4, BUN 21 H, Creatinine 1.80 H, Estimated Creat Clear 23, Estimated GFR 28 L, Est GFR ( Amer) 34 L, Glucose 107 H, Calcium 6.9 L 07/01/21 05:51: POC Glucose 118 H I & O for Last 24 hours: Intake & Output 04/10/22 04/11/22 04/12/22 04/13/22 11:59 11:59 11:59 11:59 Intake Total 3996 / 3996 1674 / 1674 3959 / 3959 3827 / 3827 Output Total 1850 / 1895 1665 / 1765 3670 / 3670 2375 / 2375 Balance 2146 / 2101 9 / 91 289 / 289 1452 / 1452 Weight 288 lb 4.8 oz 290 lb 4.8 oz 290 lb 5 oz 279 lb 11.2 oz - Constitutional no acute distress - *Routine Cardiovascular Exam Absent: tachycardia - *Routine Abdominal Exam Comments: VAC in place
--- NOTE | 2021-07-01 10:00 | DIET.NUTRFU ---
Rounded with provider today, nursing reviewed POC. Patient continues on pulmocare at 10ml/hr, had residual of 90ml. not appropriate to increase. Started reglan this AM to help with residuals. [employer]ING RO[employer] WORKER to see patient this AM for repeat swallow study. Patient is responding and following commands better today. Anticipate oral diet at safest consistency today. Labs reviewed: BUN 21H, Cr 1.8H. Lasix ordered again for today, +3 edema. Nursing also reported some diarrhea. Continues to have good urine output, possibly d/t diuretic tx. Skin remains intact with reddened area to coccyx, preventive tx in place. Will continue to monitor TF tolerance and [employer]ER recommendations
--- NOTE | 2021-07-01 10:11 | P.PN_ITS ---
Subjective Date: 07/01/21 Time: 10:11 Principal diagnosis: PAF, SBO surgery Interval history: 71-year-old white female in bed in no acute distress. Complains of mouth being dry but is on NG suction due to retained gastric contents. Telemetry continues to show sinus rhythm with one 5 beat run of V. tach overnight. Patient's edema/third spacing has improved with IV Lasix over the last 2 days. Exam Vital signs and Labs for Last 24 Hours: Temp Pulse Resp BP Pulse Ox 99.1 F 66 22 149/71 H 100 07/01/21 04:00 07/01/21 06:01 07/01/21 05:58 07/01/21 05:58 07/01/21 06:01 Laboratory Results - last 24 hr 06/30/21 22:03: POC Glucose 119 H 07/01/21 05:42: WBC 9.6, RBC 3.12 L, Hgb 9.4 L, Hct 29.6 L, MCV 94.9, MCH 30.2, MCHC 31.8, RDW 18.1 H, Plt Count 487 H, MPV 9.7, Neut % (Auto) 81.6 H, Lymph % (Auto) 11.0, [place] % (Auto) 5.0, Eos % (Auto) 1.7, Baso % (Auto) 0.6, Neut # (Auto) 7.8, Lymph # (Auto) 1.1, [place] # (Auto) 0.5, Eos # (Auto) 0.2, Baso # (Auto) 0.1 07/01/21 05:42: Sodium 142, Potassium 3.4 L, Chloride 120 H, Carbon Dioxide 18 L , Anion Gap 7.4, BUN 21 H, Creatinine 1.80 H, Estimated Creat Clear 23, Estimated GFR 28 L, Est GFR ( Amer) 34 L, Glucose 107 H, Calcium 6.9 L 07/01/21 05:51: POC Glucose 118 H I & O for Last 24 hours: Intake & Output 06/28/21 06/29/21 06/30/21 07/01/21 11:59 11:59 11:59 11:59 Intake Total 3996 / 3996 1674 / 1674 3959 / 3959 3827 / 3827 Output Total 1850 / 1895 1665 / 1765 3670 / 3670 2375 / 2375 Balance 2146 / 2101 / 91 289 / 289 1452 / 1452 Weight 288 lb 4.8 oz 290 lb 4.8 oz 290 lb 5 oz 279 lb 11.2 oz - *Routine Respiratory Exam Present: CTA bilaterally - *Routine Cardiovascular Exam Present: RRR - *Routine Extremities Exam Present: edema. Absent: cyanosis, clubbing Progress Note: A&P (1) Small bowel obstruction Status: Acute (2) Abdominal pain Status: Acute (3) Paroxysmal atrial fibrillation with rapid ventricular response Status: Acute (4) Obesity, morbid, BMI 40.0-49.9 Status: Acute (5) Anemia Status: Acute (6) Acute kidney injury Status: Acute (7) Atrial flutter with controlled response Status: Acute (8) Hyperbilirubinemia Status: Acute (9) Respiratory failure Status: Acute (10) Altered mental status Status: Acute Assessment and Plan for All Diagnoses:: 1. Small bowel obstruction, status post surgical correction. CLinically improved. 2. Paroxysmal atrial fibrillation/flutter cardioverted to NSR, rate/rhythm controlled on amiodarone. Echo EF 55-60%. On Lovenox, renal dosed. 3. Chronic Ativan use 4. Hypokalemia, continue potassium supplementation 5. Anemia, 9.4 after 2 untis PRBC's 6. ALISA, Cr 1.8 with GFR 28, improving. 7. elevated LFT's, improving. 8. HTN, restart propranolol which should help maintain sinus rhythm.
--- NOTE | 2021-07-01 10:13 | HMH.ACPN2 ---
Internal Medicine - PN: Subj *Date: 07/01/21 *Time: 08:15 Interval history: pt alert and states room cold Exam Vital signs and Labs for Last 24 Hours: Temp Pulse Resp BP Pulse Ox 99.1 F 66 22 149/71 H 100 07/01/21 04:00 07/01/21 06:01 07/01/21 05:58 07/01/21 05:58 07/01/21 06:01 Laboratory Results - last 24 hr 06/30/21 22:03: POC Glucose 119 H 07/01/21 05:42: WBC 9.6, RBC 3.12 L, Hgb 9.4 L, Hct 29.6 L, MCV 94.9, MCH 30.2, MCHC 31.8, RDW 18.1 H, Plt Count 487 H, MPV 9.7, Neut % (Auto) 81.6 H, Lymph % (Auto) 11.0, [place] % (Auto) 5.0, Eos % (Auto) 1.7, Baso % (Auto) 0.6, Neut # (Auto) 7.8, Lymph # (Auto) 1.1, [place] # (Auto) 0.5, Eos # (Auto) 0.2, Baso # (Auto) 0.1 07/01/21 05:42: Sodium 142, Potassium 3.4 L, Chloride 120 H, Carbon Dioxide 18 L, Anion Gap 7.4, BUN 21 H, Creatinine 1.80 H, Estimated Creat Clear 23, Estimated GFR 28 L, Est GFR ( Amer) 34 L, Glucose 107 H, Calcium 6.9 L 07/01/21 05:51: POC Glucose 118 H I & O for Last 24 hours: Intake & Output 06/28/21 06/29/21 06/30/21 07/01/21 11:59 11:59 11:59 11:59 Intake Total 3996 / 3996 1674 / 1674 3959 / 3959 3827 / 3827 Output Total 1850 / 1895 1665 / 1765 3670 / 3670 2375 / 2375 Balance 2146 / 2101 9 / -91 289 / 289 1452 / 1452 Weight 288 lb 4.8 oz 290 lb 4.8 oz 290 lb 5 oz 279 lb 11.2 oz - Constitutional no acute distress - *Routine HEENT Exam Head: Present: normocephalic Eye: Present: PERRL, conjunctival icterus ENT: Present: mucous membranes moist - *Routine Neck Exam Present: supple. Absent: lymphadenopathy - *Routine Respiratory Exam Present: CTA bilaterally - *Routine Cardiovascular Exam Present: RRR - *Routine Abdominal Exam Present: soft, wound. Absent: tenderness Comments: wound vac to abd - *Routine Extremities Exam Absent: cyanosis, clubbing, edema - *Routine Skin Exam Present: warm, wounds. Absent: rash Comments: wound vac in place - *Routine Neurological Exam Present: alert Assessment and Plan (1) Small bowel obstruction Status: Acute Category: Medical Code(s): K56.609 - Unspecified intestinal obstruction, unspecified as to partial versus complete obstruction (2) Abdominal pain Status: Acute Category: Medical Code(s): R10.9 - Unspecified abdominal pain (3) Paroxysmal atrial fibrillation with rapid ventricular response Status: Acute Category: Medical Code(s): I48.0 - Paroxysmal atrial fibrillation (4) Obesity, morbid, BMI 40.0-49.9 Status: Acute Category: Medical Code(s): E66.01 - Morbid (severe) obesity due to excess calories (5) Anemia Status: Acute Category: Medical Code(s): D64.9 - Anemia, unspecified (6) Acute kidney injury Status: Acute Category: Medical Code(s): N17.9 - Acute kidney failure, unspecified (7) Atrial flutter with controlled response Status: Acute Category: Medical Code(s): I48.92 - Unspecified atrial flutter (8) Hyperbilirubinemia Status: Acute Category: Medical Code(s): E80.6 - Other disorders of bilirubin metabolism (9) Respiratory failure Status: Acute Category: Medical Code(s): J96.90 - Respiratory failure, unspecified, unspecified whether with hypoxia or hypercapnia (10) Altered mental status Status: Acute Category: Medical Code(s): R41.82 - Altered mental status, unspecified - Assessment and plan all Dx Assessment and Plan for all problems:: rounded with dr sawyer all orders per dr sawyer surgery to follow cardiology to follow
--- NOTE | 2021-07-01 11:14 | PC.NURSE ---
spoke with adri gage at 0930, ok to transfer patient out of stepdown at this time. has been off of amiodarone drip since 06/30.
--- NOTE | 2021-07-01 13:26 | DIET.NUTRFU ---
Spoke to speech today, completed eval and determined at this time puree with thin liquids is the safest oral diet. She will need total assistance with all intake based on her weakness unable to hold her own cup. PASTER SUPERVISOR will continue to follow and advance as feasible.
--- NOTE | 2021-07-01 16:26 | PC.NURSE ---
pt skin condition has much improved since previous day shift. pt weeping has decreased, pt is a/ox4 and is interactive with staff. pt does have occasional wheeze noted throughout. nad noted. wound vac in place and draining. ble noted to still have 2+ edema and warm to touch. fingertips and toes still noted to be purple. (this was addressed with Dr Hair and aCrter Paredes during am rounds. nno ). bowel sounds hypoactive. pt was advanced to thin liquid diet, and pureed. family aware. pt does not endorse pain at this time.
--- NOTE | 2021-07-01 21:05 | PC.NURSE ---
pt ng tube was dc at approx 1700.pt was able to swallow eval and was approved for a diet.
[2021-07-02] VITALS (10 sets, daily range): BP systolic 140–177; BP diastolic 26–73; PULSE 50–65; RESP 17–24; TEMP 36.4–37.4; O2SAT 94–100; BMI 50.9
--- NOTE | 2021-07-02 07:26 | HMH.GSPN ---
Subjective Narrative: Patient alert and following commands. Nasogastric tube out. Started on diet of pur?ed with nectar. White blood cell count normal. VAC dressing in place. Progress Note: A&P (1) Small bowel obstruction Status: Acute (2) Abdominal pain Status: Acute (3) Paroxysmal atrial fibrillation with rapid ventricular response Status: Acute (4) Obesity, morbid, BMI 40.0-49.9 Status: Acute (5) Anemia Status: Acute (6) Acute kidney injury Status: Acute (7) Atrial flutter with controlled response Status: Acute (8) Hyperbilirubinemia Status: Acute (9) Respiratory failure Status: Acute (10) Altered mental status Status: Acute Assessment and Plan for All Diagnoses:: Continue current progressive therapy and rehab. VAC change tomorrow. Exam Vital signs and Labs for Last 24 Hours: Temp Pulse Resp BP Pulse Ox 99.3 F 56 L 20 177/26 H 99 07/02/21 04:00 07/02/21 06:17 07/02/21 04:00 07/02/21 04:00 07/02/21 04:00 I & O for Last 24 hours: Intake & Output 06/29/21 06/30/21 07/01/21 07/02/21 11:59 11:59 11:59 11:59 Intake Total 1674 / 1674 3959 / 3959 3827 / 3827 1408 / 1408 Output Total 1665 / 1765 3670 / 3670 2375 / 2375 1925 / 1925 Balance 9 / -91 289 / 289 1452 / 1452 -517 / -517 Weight 290 lb 4.8 oz 290 lb 5 oz 279 lb 11.2 oz 287 lb 4.8 oz - *Routine Abdominal Exam Present: soft Comments: VAC dressing in place.
[2021-07-02 07:36] LABS: Chloride 119 mmol/L (98-107); Potassium 3.3 mmoL/L (3.5-5.1); Sodium 141 mmol/L (136-145)
[2021-07-02 07:39] LABS: Anion Gap 8.3 mEq/L (5-15); Blood Urea Nitrogen 22 mg/dl (7-17); Carbon Dioxide 17 mmol/L (22.0-30.0); Creatinine Clearance Estimated 24 mL/min (50-200); Estimated Glomerular Filt Rate 30 ml/min (>60); GFR (African American) 36 ML/MIN (>60)
[2021-07-02 07:40] LABS: Calcium 6.8 mg/dl (8.4-10.2); Glucose 103 mg/dl (74-100)
--- NOTE | 2021-07-02 08:19 | P.PN_ITS ---
Subjective Date: 07/02/21 Time: 08:19 Principal diagnosis: PAF, SBO surgery Interval history: 71-year-old white female in bed eating breakfast in no acute distress. Attempts to respond to questions but is nonverbal. Continues to intermittently raise her right arm up over her head as if trying to exercise it. Telemetry shows sinus rhythm with controlled ventricular rate. Exam Vital signs and Labs for Last 24 Hours: Temp Pulse Resp BP Pulse Ox 99.3 F 56 L 20 177/26 H 99 07/02/21 04:00 07/02/21 06:17 07/02/21 04:00 07/02/21 04:00 07/02/21 04:00 Laboratory Results - last 24 hr 07/02/21 06:50: Sodium 141, Potassium 3.3 L, Chloride 119 H, Carbon Dioxide 17 L , Anion Gap 8.3, BUN 22 H, Creatinine 1.70 H, Estimated Creat Clear 24, Estimated GFR 30 L, Est GFR ( Amer) 36 L, Glucose 103 H, Calcium 6.8 L I & O for Last 24 hours: Intake & Output 06/29/21 06/30/21 07/01/21 07/02/21 11:59 11:59 11:59 11:59 Intake Total 1674 / 1674 3959 / 3959 3827 / 3827 1408 / 1408 Output Total 1665 / 1765 3670 / 3670 2375 / 2375 1925 / 1925 Balance 9 / -91 289 / 289 1452 / 1452 -517 / -517 Weight 290 lb 4.8 oz 290 lb 5 oz 279 lb 11.2 oz 287 lb 4.8 oz - *Routine Respiratory Exam Present: rhonchi - *Routine Cardiovascular Exam Present: RRR - *Routine Extremities Exam Present: edema. Absent: cyanosis, clubbing Progress Note: A&P (1) Small bowel obstruction Status: Acute (2) Abdominal pain Status: Acute (3) Paroxysmal atrial fibrillation with rapid ventricular response Status: Acute (4) Obesity, morbid, BMI 40.0-49.9 Status: Acute (5) Anemia Status: Acute (6) Acute kidney injury Status: Acute (7) Atrial flutter with controlled response Status: Acute (8) Hyperbilirubinemia Status: Acute (9) Respiratory failure Status: Acute (10) Altered mental status Status: Acute (11) Diabetes mellitus Status: Acute Assessment and Plan for All Diagnoses:: 1. Small bowel obstruction, status post surgical correction. Continues to impr ove. 2. Paroxysmal atrial fibrillation/flutter cardioverted to NSR, rate/rhythm controlled on amiodarone. Echo EF 55-60%. On Lovenox, renal dosed. Propranolol restarted to help maintain sinus rhythm. 3. Chronic Ativan use 4. Hypokalemia, continue potassium supplementation 5. Anemia, 9.4 after 2 units PRBC's 6. ALISA, Cr 1.7 with GFR 30, improving. 7. elevated LFT's, improving. 8. HTN, fluctuates between 130 systolic and 170 systolic. Propranolol just restarted yesterday. If blood pressure continues to be labile then may consider switching propranolol to carvedilol in this diabetic patient for better blood pressure response. 9. DM, per PCP
--- NOTE | 2021-07-02 08:52 | HMH.PULMPN ---
Internal Medicine - PN: Subj *Date: 07/02/21 *Time: 09:49 Interval history: No acute respiratory concerns patient was last seen by pulmonary. Patient successfully extubated over the weekend and weaned to room air. Exam - Constitutional Constitutional:: Absent: no acute distress, comfortable - HENMT Exam HENMT: Present: normocephalic - Eye Exam Eyes:: Present: normal appearance both eyes and related structures - Neck Exam Neck:: Present: normal visual inspection - Respiratory Exam Respiratory:: Present: no respiratory distress, rhonchi, wheezing - Cardiovascular Exam Cardiac:: Present: S1, S2 - GI Exam GI:: Absent: normal to inspection - Skin Exam Skin: Present: warm - Neurological Exam Neurological: Present: awake - Extremities Exam Extremities: Present: no cyanosis, no clubbing, edema Assessment and Plan (1) Small bowel obstruction Status: Acute Category: Medical Code(s): K56.609 - Unspecified intestinal obstruction, unspecified as to partial versus complete obstruction (2) Abdominal pain Status: Acute Category: Medical Code(s): R10.9 - Unspecified abdominal pain (3) Paroxysmal atrial fibrillation with rapid ventricular response Status: Acute Category: Medical Code(s): I48.0 - Paroxysmal atrial fibrillation (4) Obesity, morbid, BMI 40.0-49.9 Status: Acute Category: Medical Code(s): E66.01 - Morbid (severe) obesity due to excess calories (5) Anemia Status: Acute Category: Medical Code(s): D64.9 - Anemia, unspecified (6) Acute kidney injury Status: Acute Category: Medical Code(s): N17.9 - Acute kidney failure, unspecified (7) Atrial flutter with controlled response Status: Acute Category: Medical Code(s): I48.92 - Unspecified atrial flutter (8) Hyperbilirubinemia Status: Acute Category: Medical Code(s): E80.6 - Other disorders of bilirubin metabolism (9) Respiratory failure Status: Acute Category: Medical Code(s): J96.90 - Respiratory failure, unspecified, unspecified whether with hypoxia or hypercapnia (10) Altered mental status Status: Acute Category: Medical Code(s): R41.82 - Altered mental status, unspecified (11) Diabetes mellitus Status: Acute Category: Medical Code(s): E11.9 - Type 2 diabetes mellitus without complications - Assessment and plan all Dx Assessment and Plan for all problems:: # Acute on chronic hypoxic respiratory failure needing mechanical ventilatory support : #HAP: Ms. Gongora is a 71-year-old female presented to the hospital on 06/16/2021 complaining of abdominal pain post laparotomy with small bowel resection for obstruction has been doing fairly well up until today where patient noted to have worsening abdominal pain nausea and febrile episodes and was taken to the OR for wound washout with possible reexploration eventually remain on ventilator pulmonary was called for further management. Upon chart review patient respiratory status has been relatively stable since admission needing 2 to 4 L nasal cannula saturations maintained at 90% and above. CTA performed on 06/22/2021 did not show any evidence of dense consolidation. Bilateral lower lobe atelectasis noted. No evidence of pulmonary embolism noted. Home inhalers medications include Flovent discus. Patient respiratory status and mentation gradually improved also eventually extubated over the weekend and has been successfully weaned to room air. Sputum growing E. coli. Completed 7 days of cefepime. She also completed 14 days of vancomycin for her Streptococcus bacteremia. Most recent blood cultures from 06/23/2021. Cardiology also follows patient for her paroxysmal A. fib, flutter s/p cardioversion Renal function improving. Continue to have mild hyperkalemia. Mild transaminitis also noted. Patient wound culture growing Aeromonas hydrophilia. CXR-ray from 07/01right lower lobe airspace disease atelectasis. Afebrile. No evidence of leukocytosis. A
--- NOTE | 2021-07-02 09:47 | HMH.ACPN2 ---
Internal Medicine - PN: Subj *Date: 07/02/21 *Time: 10:45 Interval history: Patient sitting up in bed denies any needs at present, denies pain. BUN 22 creatinine 1.7. Current oxygenation 100% on room air Exam Vital signs and Labs for Last 24 Hours: Temp Pulse Resp BP Pulse Ox 98.4 F 60 18 165/73 H 100 07/02/21 08:00 07/02/21 08:00 07/02/21 08:00 07/02/21 08:00 07/02/21 08:00 Laboratory Results - last 24 hr 07/02/21 06:50: Sodium 141, Potassium 3.3 L, Chloride 119 H, Carbon Dioxide 17 L, Anion Gap 8.3, BUN 22 H, Creatinine 1.70 H, Estimated Creat Clear 24, Estimated GFR 30 L, Est GFR ( Amer) 36 L, Glucose 103 H, Calcium 6.8 L I & O for Last 24 hours: Intake & Output 06/29/21 06/30/21 07/01/21 07/02/21 23:59 23:59 23:59 23:59 Intake Total 3959 / 3959 3209 / 3209 1975 50 / 50 Output Total 3755 / 3955 1350 / 1350 2700 / 3300 1225 / 1225 Balance 204 / 4 1859 / 1859 -724 / -1274 -1175 / -1175 Weight 290 lb 4.8 oz 290 lb 5 oz 279 lb 11.2 oz 287 lb 4.8 oz - Constitutional no acute distress, chronically ill appearing - *Routine HEENT Exam Head: Present: normocephalic Eye: Present: EOMI ENT: Present: mucous membranes moist - *Routine Neck Exam Present: trachea midline. Absent: tracheal deviation - *Routine Respiratory Exam Present: rhonchi. Absent: accessory muscle use - *Routine Cardiovascular Exam Present: RRR - *Routine Abdominal Exam Present: soft, normoactive bowel sounds, tenderness, wound Comments: Wound VAC intact to midline abdominal incision - *Routine Extremities Exam Present: cyanosis, edema, full ROM, pulses intact Comments: Bilateral toes and left fingers with discoloration - *Routine Skin Exam Present: dry, wounds. Absent: intact, cyanosis Comments: Wound VAC to midline abdominal incision clean/dry/intact - *Routine Neurological Exam Present: alert Patient follows simple commands and shakes head no when asked about pain - Routine Psychiatric Exam Present: normal affect, unable to assess Assessment and Plan (1) Small bowel obstruction Status: Acute Category: Medical Code(s): K56.609 - Unspecified intestinal obstruction, unspecified as to partial versus complete obstruction (2) Abdominal pain Status: Acute Category: Medical Code(s): R10.9 - Unspecified abdominal pain (3) Paroxysmal atrial fibrillation with rapid ventricular response Status: Acute Category: Medical Code(s): I48.0 - Paroxysmal atrial fibrillation (4) Obesity, morbid, BMI 40.0-49.9 Status: Acute Category: Medical Code(s): E66.01 - Morbid (severe) obesity due to excess calories (5) Anemia Status: Acute Category: Medical Code(s): D64.9 - Anemia, unspecified (6) Acute kidney injury Status: Acute Category: Medical Code(s): N17.9 - Acute kidney failure, unspecified (7) Atrial flutter with controlled response Status: Acute Category: Medical Code(s): I48.92 - Unspecified atrial flutter (8) Hyperbilirubinemia Status: Acute Category: Medical Code(s): E80.6 - Other disorders of bilirubin metabolism (9) Respiratory failure Status: Acute Category: Medical Code(s): J96.90 - Respiratory failure, unspecified, unspecified whether with hypoxia or hypercapnia (10) Altered mental status Status: Acute Category: Medical Code(s): R41.82 - Altered mental status, unspecified (11) Diabetes mellitus Status: Acute Category: Medical Code(s): E11.9 - Type 2 diabetes mellitus without complications - Assessment and plan all Dx Assessment and Plan for all problems:: Rounded with Dr. Quiroz, all orders per Dr. Quiorz: 1. Continue current medical regimen 2. Tolerating diet
[2021-07-02 10:18] LABS: Hematocrit 27.3 % (37.0-47.0); Hemoglobin 9.2 g/dL (12.2-16.2); Mean Corpuscular HGB Conc 33.7 g/dL (31.8-35.4); Mean Corpuscular Hemoglobin 30.6 pg (27.0-31.2); Mean Corpuscular Volume 90.7 fl (81-99); Platelet Count 534 K/mm3 (142-424); Red Blood Count 3.01 M/mm3 (4.20-5.40); Red Cell Distribution Width 18.3 % (11.5-17.5); White Blood Count 9.6 K/mm3 (4.8-10.8)
[2021-07-02 10:19] LABS: Mean Platelet Volume 11.7 fl (7.4-10.4)
--- NOTE | 2021-07-02 12:43 | DIET.NUTRFU ---
RD was informed during rounds this AM, patient had some difficulties with the thin liquids last night and used nectar thick with breakfast. For breakfast nursing reported she consumed 50% of eggs and 50% of gravy, requires total assistance with meals. Nursing also reports she has been drinking lots of water. MACHINE ERECTOR saw her again today before lunch and patient was having more fatigue. Changed to pureed with honey thick liquids. Labs reviewed. Continue to monitor, may need supplements to meet nutritional needs. Will continue to monitor intake
[2021-07-02 13:14] LABS: Basophils # 0.1 K/mm3 (0-0.2); Basophils % 0.5 % (0.1-2.0); Eosinophils # 0.2 K/mm3 (0.0-0.4); Lymphocytes # 1.4 K/mm3 (0.7-4.5); Lymphocytes % 14.4 % (10-50); Monocytes # 0.7 K/mm3 (0.1-1.0); Monocytes % 7.5 % (1.7-9.3); Neutrophils % 71.7 % (37.0-80.0)
--- NOTE | 2021-07-02 14:15 | HMH.PTEV ---
Physical Therapy Evaluation Rehab PT IP Evaluation Start: 06/19/21 10:01 Freq: ONCE Status: Complete Protocol: Document 06/19/21 10:51 [facility]ORNE (Rec: 06/19/21 10:55 PH[facility]NE [id number]) Subjective/History History History 71 yowf adm to [facility] with abd pain, now S/P lap SB resection . She reports she lives with daughter, 1 step to enter the home and uses a cane sometimes for ambulation. Subjective Subjective Pt c/o pain in the abdomen, worse with all movement. Rehab PT IP Eval Objective Appearance Patient Behavior Appropriate,Belligerent Patient Orientation Person,Place,Time Difficulty following instructions none Speech Pattern Clear Ambulation Patient Able to Ambulate Yes Ambulation Observation IP General Gait Pattern Observation Shuffling Step Ambulation Distance (feet) 3 Ambulation Ability Moderate x 1 (50% assist) Balance Ability to Arise Able, uses arms to help Sitting Balance Leans or slides in chair Standing Balance Unsteady Dynamic Sitting Balance Ability Fair Dynamic Standing Balance Ability Poor Transfers Bed Transfer Ability Maximum x 1 (75% assist) Chair Transfer Ability Moderate x 1 (50% assist) Sit to Stand Bed Transfer Ability Moderate x 1 (50% assist) Sit to Stand Chair Transfer Ability Moderate x 1 (50% assist) Rehab PT IP prob,goals,plan Problems Date of Evaluation: 06/19/21 PT IP Problems Bed Mobility,Transfers,Gait Rehab Potential Rehab Potential Good Plan PT Intervention Plan Bed Mobility,Transfers,Gait, Self care,Therapeutic Exercise PT Plan Frequency BID Duration LOS Discharge Goals Bed Transfer Ability Moderate x 1 (50% assist) Sit to Stand Chair Transfer Ability Minimal x 1 (25% assist) Ambulation Assistive Device Straight Cane Ambulation Distance (feet) 25 Discharge Plan PT Discharge Plan Pt is currently most appropriate for rehab placement once medically stable. She may be able to retrun home if she cooperates with care and improves mobility. G -code Required No Eval Complexity Eval Charge Codes 52143 - Moderate Complexity Rehab PT IP Evaluation Start: 07/02/21 10:43 Freq: .once Status: Active Protocol:
--- NOTE | 2021-07-02 16:41 | HMH.OTEV ---
OT Inpatient Evaluation Rehab OT IP Evaluation Start: 06/19/21 10:01 Freq: ONCE Status: Complete Protocol: Document 06/19/21 10:[address] [facility] (Rec: 06/19/21 10:[address] [facility] [id number]) Rehab OT IP Assessment Subjective History Pt oriented x 3 on arrival. Pt agreeable to engage in therapy evaluation. Pt was admitted on 06/16/21 due to small bowel obstruction. Pt required surgery on 06/17/21 to complete laparotomy with small bowel resection. Prior to becoming ill, pt lived with her daugther. Daugther was present during therapy evaluation and was supportive. Pt claims she was able to completed all ADLs and IADLs independently. Pt was also still driving. Pt used a cane when out in public for safety . The following information was copied from history and physcial report: 71-year-old female presented to ed with c/o of abd pain. She had been admitted to the hospital on 06/03/2021 until with findings of partial small bowel obstruction. At that time it was managed nonoperatively. She had previously undergone apparent laparoscopic umbilical hernia repair about 2 years ago in [facility]. Patinet states the symptoms returned a few days ago and worsened woth nausea and vomiting. CT scan shows findings of persistent incarcerated umbilical hernia with worsening proximal small bowel obstruction associated with second transition point proximally, consistent with closed-loop obstruction. Patient was admitted and surgery consult placed. Subjective I
[2021-07-03] VITALS (10 sets, daily range): BP systolic 138–184; BP diastolic 64–83; PULSE 50–74; RESP 18–30; TEMP 36.6–37.7; O2SAT 94–100; BMI 50.8
--- NOTE | 2021-07-03 07:10 | P.PN_ITS ---
Subjective Narrative: Patient has been taking pur?ed diet. Large bowel movement overnight. Placed on nasal cannula Progress Note: A&P (1) Small bowel obstruction Status: Acute (2) Abdominal pain Status: Acute (3) Paroxysmal atrial fibrillation with rapid ventricular response Status: Acute (4) Obesity, morbid, BMI 40.0-49.9 Status: Acute (5) Anemia Status: Acute (6) Acute kidney injury Status: Acute (7) Atrial flutter with controlled response Status: Acute (8) Hyperbilirubinemia Status: Acute (9) Respiratory failure Status: Acute (10) Altered mental status Status: Acute (11) Diabetes mellitus Status: Acute Assessment and Plan for All Diagnoses:: VAC dressing change today. Exam Vital signs and Labs for Last 24 Hours: Temp Pulse Resp BP Pulse Ox 97.9 F 63 18 146/70 H 96 07/03/21 04:00 07/03/21 06:22 07/03/21 04:00 07/03/21 04:00 07/03/21 04:00 Laboratory Results - last 24 hr 07/02/21 06:50: WBC 9.6, RBC 3.01 L, Hgb 9.2 L, Hct 27.3 L, MCV 90.7, MCH 30.6, MCHC 33.7, RDW 18.3 H, Plt Count 534 H, MPV 11.7 H, Neut % (Auto) 71.7, Lymph % (Auto) 14.4, [place] % (Auto) 7.5, Eos % (Auto) 2.0, Baso % (Auto) 0.5, Neut # (Auto) 7.0, Lymph # (Auto) 1.4, [place] # (Auto) 0.7, Eos # (Auto) 0.2, Baso # (Auto) 0.1 07/02/21 06:50: Sodium 141, Potassium 3.3 L, Chloride 119 H, Carbon Dioxide 17 L , Anion Gap 8.3, BUN 22 H, Creatinine 1.70 H, Estimated Creat Clear 24, Estimated GFR 30 L, Est GFR ( Amer) 36 L, Glucose 103 H, Calcium 6.8 L I & O for Last 24 hours: Intake & Output 06/30/21 07/01/21 07/02/21 07/03/21 11:59 11:59 11:59 11:59 Intake Total 3959 / 3959 3827 / 3827 1408 / 1408 985 / 985 Output Total 3670 / 3670 2375 / 2375 1925 / 1925 2950 / 2950 Balance 289 / 289 1452 / 1452 -517 / -517 -1964 / -1964 Weight 290 lb 5 oz 279 lb 11.2 oz 287 lb 4.8 oz 287 lb 4 oz Microbiology Reports for the Last 24 Hours: Microbiology 06/23/21 10:45 Abdomen - Final 06/23/21 10:45 Abdomen - Final - Constitutional no acute distress
[2021-07-03 08:41] LABS: Basophils # 0.1 K/mm3 (0-0.2); Basophils % 0.7 % (0.1-2.0); Eosinophils # 0.2 K/mm3 (0.0-0.4); Eosinophils % 1.8 % (0.1-12.0); Hematocrit 28.9 % (37.0-47.0); Hemoglobin 8.9 g/dL (12.2-16.2); Lymphocytes # 1.4 K/mm3 (0.7-4.5); Lymphocytes % 15.9 % (10-50); Mean Corpuscular HGB Conc 30.7 g/dL (31.8-35.4); Mean Corpuscular Hemoglobin 30.3 pg (27.0-31.2); Mean Corpuscular Volume 98.7 fl (81-99); Mean Platelet Volume 9.6 fl (7.4-10.4); Monocytes # 0.4 K/mm3 (0.1-1.0); Neutrophils # 6.7 K/mm3 (1.8-7.8); Neutrophils % 76.6 % (37.0-80.0); Platelet Count 647 K/mm3 (142-424); Red Blood Count 2.93 M/mm3 (4.20-5.40); Red Cell Distribution Width 18.1 % (11.5-17.5); White Blood Count 8.8 K/mm3 (4.8-10.8)
[2021-07-03 08:43] LABS: Chloride 118 mmol/L (98-107); Sodium 135 mmol/L (136-145)
[2021-07-03 08:44] LABS: Potassium 5.2 mmoL/L (3.5-5.1)
[2021-07-03 08:46] LABS: Blood Urea Nitrogen 18 mg/dl (7-17); Creatinine Clearance Estimated 28 mL/min (50-200); Estimated Glomerular Filt Rate 34 ml/min (>60); GFR (African American) 42 ML/MIN (>60)
[2021-07-03 08:47] LABS: Anion Gap 8.2 mEq/L (5-15); Calcium 6.3 mg/dl (8.4-10.2); Carbon Dioxide 14 mmol/L (22.0-30.0)
--- NOTE | 2021-07-03 08:53 | PC.NURSE ---
received call from lab reporting glucose 422. Name and verified. Dr. Hair rounding and has been notified.
[2021-07-03 08:54] LABS: Glucose 422 mg/dl (74-100)
--- NOTE | 2021-07-03 09:08 | HMH.ACPN2 ---
Internal Medicine - PN: Subj *Date: 07/03/21 *Time: 09:08 Interval history: pt mouthing needs Exam Vital signs and Labs for Last 24 Hours: Temp Pulse Resp BP Pulse Ox 97.9 F 57 L 18 162/83 H 97 07/03/21 08:00 07/03/21 08:00 07/03/21 08:00 07/03/21 08:00 07/03/21 08:00 Laboratory Results - last 24 hr 07/02/21 06:50: WBC 9.6, RBC 3.01 L, Hgb 9.2 L, Hct 27.3 L, MCV 90.7, MCH 30.6, MCHC 33.7, RDW 18.3 H, Plt Count 534 H, MPV 11.7 H, Neut % (Auto) 71.7, Lymph % (Auto) 14.4, Walton % (Auto) 7.5, Eos % (Auto) 2.0, Baso % (Auto) 0.5, Neut # (Auto) 7.0, Lymph # (Auto) 1.4, Walton # (Auto) 0.7, Eos # (Auto) 0.2, Baso # (Auto) 0.1 07/03/21 08:20: WBC 8.8, RBC 2.93 L, Hgb 8.9 L, Hct 28.9 L, MCV 98.7, MCH 30.3, MCHC 30.7 L, RDW 18.1 H, Plt Count 647 H, MPV 9.6, Neut % (Auto) 76.6, Lymph % (Auto) 15.9, Walton % (Auto) 5.0, Eos % (Auto) 1.8, Baso % (Auto) 0.7, Neut # (Auto) 6.7, Lymph # (Auto) 1.4, Walton # (Auto) 0.4, Eos # (Auto) 0.2, Baso # (Auto) 0.1 07/03/21 08:20: Sodium 135 L, Potassium 5.2 H D, Chloride 118 H, Carbon Dioxide 14 L, Anion Gap 8.2, BUN 18 H, Creatinine 1.50 H, Estimated Creat Clear 28, Estimated GFR 34 L, Est GFR ( Amer) 42 L, Glucose 422 H*, Calcium 6.3 L I & O for Last 24 hours: Intake & Output 06/30/21 07/01/21 07/02/21 07/03/21 11:59 11:59 11:59 11:59 Intake Total 3959 / 3959 3827 / 3827 1408 / 1408 985 / 985 Output Total 3670 / 3670 2375 / 2375 1925 / 1925 2950 / 2950 Balance 289 / 289 1452 / 1452 -517 / -517 -1965 / -1964 Weight 290 lb 5 oz 279 lb 11.2 oz 287 lb 4.8 oz 287 lb 4 oz Microbiology Reports for the Last 24 Hours: Microbiology 06/23/21 10:45 Abdomen - Final 06/23/21 10:45 Abdomen - Final - Constitutional no acute distress - *Routine HEENT Exam Head: Present: normocephalic Eye: Present: PERRL ENT: Present: mucous membranes moist - *Routine Neck Exam Present: supple. Absent: lymphadenopathy - *Routine Respiratory Exam Present: CTA bilaterally - *Routine Cardiovascular Exam Present: RRR - *Routine Abdominal Exam Present: soft, normoactive bowel sounds, wound. Absent: tenderness Comments: wound vac in place - *Routine Extremities Exam Present: edema. Absent: cyanosis, clubbing - *Routine Skin Exam Present: warm, wounds. Absent: rash - *Routine Neurological Exam Present: alert, oriented X3 Assessment and Plan (1) Small bowel obstruction Status: Acute Category: Medical Code(s): K56.609 - Unspecified intestinal obstruction, unspecified as to partial versus complete obstruction (2) Abdominal pain Status: Acute Category: Medical Code(s): R10.9 - Unspecified abdominal pain (3) Paroxysmal atrial fibrillation with rapid ventricular response Status: Acute Category: Medical Code(s): I48.0 - Paroxysmal atrial fibrillation (4) Obesity, morbid, BMI 40.0-49.9 Status: Acute Category: Medical Code(s): E66.01 - Morbid (severe) obesity due to excess calories (5) Anemia Status: Acute Category: Medical Code(s): D64.9 - Anemia, unspecified (6) Acute kidney injury Status: Acute Category: Medical Code(s): N17.9 - Acute kidney failure, unspecified (7) Atrial flutter with controlled response Status: Acute Category: Medical Code(s): I48.92 - Unspecified atrial flutter (8) Hyperbilirubinemia Status: Acute Category: Medical Code(s): E80.6 - Other disorders of bilirubin metabolism (9) Respiratory failure Status: Acute Category: Medical Code(s): J96.90 - Respiratory failure, unspecified, unspecified whether with hypoxia or hypercapnia (10) Altered mental status Status: Acute Category: Medical Code(s): R41.82 - Altered mental status, unspecified (11) Diabetes mellitus Status: Acute Category: Medical Code(s): E11.9 - Type 2 diabetes mellitus without complications - Assessment and plan all Dx Assessment and Plan for all problems:: rounded with dr sawyer all orders per
--- NOTE | 2021-07-03 09:28 | XR_ITS ---
FINAL REPORT CLINICAL HISTORY: hypoxia COMPARISON: July 01, 2021 FINDINGS: A right-sided PICC line terminates in the SVC. The nasogastric tube is been removed. The heart is mildly enlarged. The mediastinum is normal. There is bibasilar atelectasis, right greater than left. There are small bilateral pleural effusions. There is no pneumothorax. There is no osseous abnormality. IMPRESSION: Small bilateral pleural effusions with right greater than left basilar atelectasis. Reviewed, Interpreted and Dictated by Valdez Church MD Transcribed by Ron Anderson Authenticated by Valdez Church MD on 07/03/2021 11:58:[address] [facility]
[2021-07-03 09:43] LABS: ABG Base Excess -9.4 mmol/L (-2.4-2.3); ABG HCO3 15.3 mmhg (22.0-26.0); ABG Oxygen Saturation 94 % (90-100); ABG PCO2 24.5 mmhg (35.0-45.0); ABG PH 7.41 mmol/L (7.35-7.45); ABG PO2 69.6 mmhg (80-100)
[2021-07-03 09:46] LABS: Chloride, Arterial 118 mmol/L (98-107); Potassium, Arterial 3.4 mmoL/L (3.5-5.1); Sodium Arterial 139 mmol/L (137-145)
[2021-07-03 09:48] LABS: Allen's Test acceptable; Oxygen room air %
--- NOTE | 2021-07-03 09:53 | SW/DCPLANNER ---
Addendum entered by [facility] 07/13/21 12:40: This patient has been approved for [facility] level of care today. I will call and update patient's family. Addendum entered by [facility] 07/13/21 08:48: I am currently waiting to hear back from Dinorah persaud/ Roe Velásquez regarding precert for this patient. Addendum entered by [facility] 07/10/21 14:25: I have faxed updates to Dinorah persaudMacario Roe Velásquez. I am currently waiting on precert at this time. Addendum entered by [facility] 07/09/21 13:34: Family has been updated on plan to discharge to [facility] pending precert. Addendum entered by [facility] 07/09/21 13:29: Per Dinorah Ellington a precert has been started on this patient for [facility] level of care. I will contact this patient's family with an update. Addendum entered by [facility] 07/09/21 09:40: [facility] has [facility]. Patient information has been faxed to [facility] and [facility]. I will also call and update patient's daughter. Addendum entered by [facility] 07/08/21 10:28: Updated information has been faxed to [place] and [facility]. [facility] does not have any beds available at this time. Addendum entered by [facility] 07/07/21 14:14: Updated patient information has been faxed to the following facilities: [facility] and [facility] in [place]. Addendum entered by [facility] 07/06/21 13:59: [facility]. Patient is not medically stable for discharge at this time. Addendum entered by [facility] 07/06/21 11:38: Updated [facility] and Rachel persaud/ Yaya Weiss. [facility] [place] has called stating that she has a female bed open: patient information has been faxed to [place]. I attempted to contact patient's daughter (Xiomara): no answer/VM left at this time. Addendum entered by Gabriela Sutherland 07/03/21 12:17: [facility] has called back stating that they are interested in [place] at time of discharge. Xiomara stated that she would also be agreeable for me to reach out to [facility] and [facility] in [place]. I have faxed patient information to all three facilities. Discharge date is unknown at this time. Addendum entered by Gabriela Sutherland 07/03/21 12:00: Francoise with [facility] [place] [facility]) has reviewed patient information and stated that she is not a candidate for their facility (could use lower level of care). I am waiting for patient's family to contact me back. Original Note: I have attempted to contact this patient's POA (Xiomara/daughter) regarding discharge plans. No answer/VM left at this time.
--- NOTE | 2021-07-03 10:20 | HMH.PNCARD ---
Subjective Date: 07/03/21 Time: 10:20 Principal diagnosis: PAF, SBO surgery Interval history: 71 yo WF in bed in NAD. Telemetry shows NSR. Attempts to answer questions but only mouths the words. Exam Vital signs and Labs for Last 24 Hours: Temp Pulse Resp BP Pulse Ox 97.9 F 57 L 18 162/83 H 97 07/03/21 08:00 07/03/21 08:00 07/03/21 08:00 07/03/21 08:00 07/03/21 08:00 Laboratory Results - last 24 hr 07/02/21 06:50: WBC 9.6, RBC 3.01 L, Hgb 9.2 L, Hct 27.3 L, MCV 90.7, MCH 30.6, MCHC 33.7, RDW 18.3 H, Plt Count 534 H, MPV 11.7 H, Neut % (Auto) 71.7, Lymph % (Auto) 14.4, [place] % (Auto) 7.5, Eos % (Auto) 2.0, Baso % (Auto) 0.5, Neut # (Auto) 7.0, Lymph # (Auto) 1.4, [place] # (Auto) 0.7, Eos # (Auto) 0.2, Baso # (Auto) 0.1 07/03/21 08:20: WBC 8.8, RBC 2.93 L, Hgb 8.9 L, Hct 28.9 L, MCV 98.7, MCH 30.3, MCHC 30.7 L, RDW 18.1 H, Plt Count 647 H, MPV 9.6, Neut % (Auto) 76.6, Lymph % (Auto) 15.9, [place] % (Auto) 5.0, Eos % (Auto) 1.8, Baso % (Auto) 0.7, Neut # (Auto) 6.7, Lymph # (Auto) 1.4, [place] # (Auto) 0.4, Eos # (Auto) 0.2, Baso # (Auto) 0.1 07/03/21 08:20: Sodium 135 L, Potassium 5.2 H D, Chloride 118 H, Carbon Dioxide 14 L, Anion Gap 8.2, BUN 18 H, Creatinine 1.50 H, Estimated Creat Clear 28, Estimated GFR 34 L, Est GFR ( Amer) 42 L, Glucose 422 H*, Calcium 6.3 L 07/03/21 09:28: ABG Sodium 139, ABG Potassium 3.4 L, ABG Chloride 118 H, ABG Lactate 1.0, Arterial Blood Potassium 3.4 L, Arterial Blood Chloride 118 H 07/03/21 09:28: Specimen Source r radial, O2 % room air, ABG pH 7.41, ABG pCO2 24.5 L, ABG pO2 69.6 L, ABG HCO3 15.3 L, ABG Total CO2 16.0 L, ABG O2 Saturation 94, ABG Base Excess -9.4 L, Aaron Test acceptable I & O for Last 24 hours: Intake & Output 06/30/21 07/01/21 07/02/21 07/03/21 11:59 11:59 11:59 11:59 Intake Total 3959 / 3959 3827 / 3827 1408 / 1408 1225 / 1225 Output Total 3670 / 3670 2375 / 2375 1925 / 1925 2950 / 2950 Balance 289 / 289 1452 / 1452 -517 / -517 -1725 / -1725 Weight 290 lb 5 oz 279 lb 11.2 oz 287 lb 4.8 oz 287 lb 4 oz Microbiology Reports for the Last 24 Hours: Microbiology 06/23/21 10:45 Abdomen - Final 06/23/21 10:45 Abdomen - Final - Constitutional no acute distress - *Routine Respiratory Exam Present: rhonchi, diminished air movement - *Routine Cardiovascular Exam Present: RRR Progress Note: A&P (1) Small bowel obstruction Status: Acute (2) Abdominal pain Status: Acute (3) Paroxysmal atrial fibrillation with rapid ventricular response Status: Acute (4) Obesity, morbid, BMI 40.0-49.9 Status: Acute (5) Anemia Status: Acute (6) Acute kidney injury Status: Acute (7) Atrial flutter with controlled response Status: Acute (8) Hyperbilirubinemia Status: Acute (9) Respiratory failure Status: Acute (10) Altered mental status Status: Acute (11) Diabetes mellitus Status: Acute Assessment and Plan for All Diagnoses:: 1. Small bowel obstruction, status post surgical correction. Continues to improve. Large BM last evening. Tolerating pureed diet. 2. Paroxysmal atrial fibrillation/flutter, cardioverted to NSR, rate/rhythm controlled on amiodarone. Echo EF 55-60%. On Lovenox, renal dosed. Propranolol restarted to help maintain sinus rhythm. 3. Chronic Ativan use 4. Hypokalemia, resolved. K 5.2 today. 5. Anemia, 8.9 after 2 units PRBC's 6. ALISA, Cr 1.4 with GFR 34, improving. 7. elevated LFT's, improving. 8. HTN, on propranolol. If blood pressure continues to be labile then may consider switching propranolol to carvedilol in this diabetic patient for better blood pressure response. 9. DM, per PCP Nothing further to add at this time. Please call if needed.
--- NOTE | 2021-07-03 12:20 | PC.NURSE ---
Pt will open eyes to sternal rub. Will not follow commands. This assessment is worse than 0800 assessment when PCP rounding. Caryn Paredes APRN notified. New orders entered for CTA and CT head. Dr. Troncoso notified and entered orders.
--- NOTE | 2021-07-03 12:53 | CT_ITS ---
FINAL REPORT TECHNIQUE: Axial CT images were performed through the head. Coronal reformatted images were submitted. This study was performed with techniques to keep radiation doses as low as reasonably achievable (ALARA). Individualized dose reduction techniques using automated exposure control or adjustment of mA and/or kV according to the patient's size were employed. CLINICAL HISTORY: AMS COMPARISON: June 25, 2021 FINDINGS: The ventricles are normal in size. There is no evidence of hemorrhage. There is no mass or edema identified. There is no abnormal extra-axial fluid seen. There is calcification of the pineal gland. There is lobular mucoperiosteal thickening in the right maxillary sinus consistent with chronic sinusitis. IMPRESSION: No acute intracranial process. Reviewed, Interpreted and Dictated by Valdez Church MD Transcribed by Ron Anderson Authenticated by Valdez Church MD on 07/03/2021 02:40:37 PM [facility]
--- NOTE | 2021-07-03 13:07 | CT_ITS ---
FINAL REPORT TECHNIQUE: Thin section axial CT images were obtained from the lung apices to the upper abdomen. IV contrast was administered. MIP 3-D reformats were obtained. This study was performed with techniques to keep radiation doses as low as reasonably achievable (ALARA). Individualized dose reduction techniques using automated exposure control or adjustment of mA and/or kV according to the patient's size were employed. CLINICAL HISTORY: rule out PE, hypoxia FINDINGS: There is asymmetric enlargement of the left lobe of the thyroid. A central venous catheter terminates in the SVC. The heart size is normal. There is no adenopathy. There is no filling defect to suggest PE. There is no aortic dissection. There is no pericardial effusion. There is dense bibasilar consolidation with small pleural effusions. There is scarring in the right upper lobe. Limited images of the upper abdomen demonstrate no acute abnormality. IMPRESSION: No pulmonary embolism or aortic dissection. Dense bibasilar consolidation. Reviewed, Interpreted and Dictated by Valdez Church MD Transcribed by Ron Anderson Authenticated by Valdez Church MD on 07/03/2021 02:40:37 PM [facility]
[2021-07-03 13:10] LABS: ABG Base Excess -8.9 mmol/L (-2.4-2.3); ABG HCO3 15.7 mmhg (22.0-26.0); ABG Oxygen Saturation 92 % (90-100); ABG PCO2 25.2 mmhg (35.0-45.0); ABG PH 7.41 mmol/L (7.35-7.45); ABG PO2 63.2 mmhg (80-100); ABG TCO2 16.5 mmhg (23-27)
[2021-07-03 13:11] LABS: Allen's Test ACCEPTABLE; Oxygen ROOM AIR %; Source R RADIAL
[2021-07-03 13:12] LABS: Chloride, Arterial 118 mmol/L (98-107); Potassium, Arterial 3.5 mmoL/L (3.5-5.1); Sodium Arterial 139 mmol/L (137-145)
[2021-07-03 13:13] LABS: Lactate Arterial 0.9 mmol/L (0.4-2.0)
--- NOTE | 2021-07-03 13:15 | HMH.PULMPN ---
Internal Medicine - PN: Subj *Date: 07/03/21 *Time: 13:15 Interval history: No acute respiratory events overnight. Patient unable to arouse. Exam - Constitutional Constitutional:: Absent: no acute distress, comfortable - HENMT Exam HENMT: Present: normocephalic - Eye Exam Eyes:: Present: normal appearance both eyes and related structures - Neck Exam Neck:: Present: normal visual inspection - Respiratory Exam Respiratory:: Present: respiratory distress, wheezing. Absent: accessory muscle use - Cardiovascular Exam Cardiac:: Present: S1, S2 - GI Exam GI:: Absent: normal to inspection - Skin Exam Skin: Present: warm - Neurological Exam Neurological: Absent: alert, awake, normal cognition - Extremities Exam Extremities: Present: no cyanosis, no clubbing, edema Assessment and Plan (1) Small bowel obstruction Status: Acute Category: Medical Code(s): K56.609 - Unspecified intestinal obstruction, unspecified as to partial versus complete obstruction (2) Abdominal pain Status: Acute Category: Medical Code(s): R10.9 - Unspecified abdominal pain (3) Paroxysmal atrial fibrillation with rapid ventricular response Status: Acute Category: Medical Code(s): I48.0 - Paroxysmal atrial fibrillation (4) Obesity, morbid, BMI 40.0-49.9 Status: Acute Category: Medical Code(s): E66.01 - Morbid (severe) obesity due to excess calories (5) Anemia Status: Acute Category: Medical Code(s): D64.9 - Anemia, unspecified (6) Acute kidney injury Status: Acute Category: Medical Code(s): N17.9 - Acute kidney failure, unspecified (7) Atrial flutter with controlled response Status: Acute Category: Medical Code(s): I48.92 - Unspecified atrial flutter (8) Hyperbilirubinemia Status: Acute Category: Medical Code(s): E80.6 - Other disorders of bilirubin metabolism (9) Respiratory failure Status: Acute Category: Medical Code(s): J96.90 - Respiratory failure, unspecified, unspecified whether with hypoxia or hypercapnia (10) Altered mental status Status: Acute Category: Medical Code(s): R41.82 - Altered mental status, unspecified (11) Diabetes mellitus Status: Acute Category: Medical Code(s): E11.9 - Type 2 diabetes mellitus without complications - Assessment and plan all Dx Assessment and Plan for all problems:: # Acute on chronic hypoxic respiratory failure: #HAP s/p Rx: Ms. Gongora is a 71-year-old female presented to the hospital on 06/16/2021 complaining of abdominal pain post laparotomy with small bowel resection for obstruction has been doing fairly well up until today where patient noted to have worsening abdominal pain nausea and febrile episodes and was taken to the OR for wound washout with possible reexploration eventually remain on ventilator pulmonary was called for further management. Upon chart review patient respiratory status has been relatively stable since admission needing 2 to 4 L nasal cannula saturations maintained at 90% and above. CTA performed on 06/22/2021 did not show any evidence of dense consolidation. Bilateral lower lobe atelectasis noted. No evidence of pulmonary embolism noted. Home inhalers medications include Flovent discus. Patient respiratory status and mentation gradually improved also eventually extubated over the weekend and has been successfully weaned to room air. Sputum growing E. coli. Completed 7 days of cefepime. She also completed 14 days of vancomycin for her Streptococcus bacteremia. Most recent blood cultures from 06/23/2021. Cardiology also follows patient for her paroxysmal A. fib, flutter s/p cardioversion Patient wound culture growing Aeromonas hydrophilia. Interval update: More lethargic than yesterday, unable to arouse. No acute respiratory vents overnight. Patient continues to remain on room air. Patient appears more labored breathing this morning. Repeat chest x-ray no acute airspace disease on continue to show kris
--- NOTE | 2021-07-03 14:47 | HMH.GSPN ---
Subjective Narrative: Patient had decreased arousal and was somnolent earlier. Arterial blood gases did not reveal evidence of hypercarbia. She underwent CT scan of the head and CTA of the chest. CT scan of the head reveals no evidence of any acute intracranial process. CTA of the chest reveals no evidence of any pulmonary emboli with bilateral dense consolidations. Patient is much more alert this afternoon since returning from her CT scans. Progress Note: A&P (1) Small bowel obstruction Status: Acute (2) Abdominal pain Status: Acute (3) Paroxysmal atrial fibrillation with rapid ventricular response Status: Acute (4) Obesity, morbid, BMI 40.0-49.9 Status: Acute (5) Anemia Status: Acute (6) Acute kidney injury Status: Acute (7) Atrial flutter with controlled response Status: Acute (8) Hyperbilirubinemia Status: Acute (9) Respiratory failure Status: Acute (10) Altered mental status Status: Acute (11) Diabetes mellitus Status: Acute Assessment and Plan for All Diagnoses:: Wound VAC change at bedside. Next wound VAC changed 72 hours. Exam Vital signs and Labs for Last 24 Hours: Temp Pulse Resp BP Pulse Ox 99.8 F H 58 L 22 152/64 H 100 07/03/21 12:00 07/03/21 12:00 07/03/21 12:00 07/03/21 12:00 07/03/21 12:00 Laboratory Results - last 24 hr 07/03/21 08:20: WBC 8.8, RBC 2.93 L, Hgb 8.9 L, Hct 28.9 L, MCV 98.7, MCH 30.3, MCHC 30.7 L, RDW 18.1 H, Plt Count 647 H, MPV 9.6, Neut % (Auto) 76.6, Lymph % (Auto) 15.9, [place] % (Auto) 5.0, Eos % (Auto) 1.8, Baso % (Auto) 0.7, Neut # (Auto) 6.7, Lymph # (Auto) 1.4, [place] # (Auto) 0.4, Eos # (Auto) 0.2, Baso # (Auto) 0.1 07/03/21 08:20: Sodium 135 L, Potassium 5.2 H D, Chloride 118 H, Carbon Dioxide 14 L, Anion Gap 8.2, BUN 18 H, Creatinine 1.50 H, Estimated Creat Clear 28, Estimated GFR 34 L, Est GFR ( Amer) 42 L, Glucose 422 H*, Calcium 6.3 L 07/03/21 09:28: ABG Sodium 139, ABG Potassium 3.4 L, ABG Chloride 118 H, ABG Lactate 1.0, Arterial Blood Potassium 3.4 L, Arterial Blood Chloride 118 H 07/03/21 09:28: Specimen Source r radial, O2 % room air, ABG pH 7.41, ABG pCO2 24.5 L, ABG pO2 69.6 L, ABG HCO3 15.3 L, ABG Total CO2 16.0 L, ABG O2 Saturation 94, ABG Base Excess -9.4 L, Aaron Test acceptable 07/03/21 12:53: Specimen Source R radial, O2 % Room air, ABG pH 7.41, ABG pCO2 25.2 L, ABG pO2 63.2 L, ABG HCO3 15.7 L, ABG Total CO2 16.5 L, ABG O2 Saturation 92, ABG Base Excess -8.9 L, Aaron Test Acceptable 07/03/21 12:53: ABG Sodium 139, ABG Potassium 3.5, ABG Chloride 118 H, ABG Lactate 0.9, Arterial Blood Potassium 3.5, Arterial Blood Chloride 118 H I & O for Last 24 hours: Intake & Output 07/01/21 07/02/21 07/03/21 07/04/21 11:59 11:59 11:59 11:59 Intake Total 3827 / 3827 1408 / 1408 1225 / 1225 Output Total 2375 / 2375 1925 / 1925 2950 / 2950 1500 / 1500 Balance 1452 / 1452 -517 / -517 -1725 / -1725 -1500 / -1500 Weight 279 lb 11.2 oz 287 lb 4.8 oz 287 lb 4 oz Microbiology Reports for the Last 24 Hours: Microbiology 06/23/21 10:45 Abdomen - Final 06/23/21 10:45 Abdomen - Final - *Routine Abdominal Exam Comments: Her abdominal wound is relatively clean granulation edges. There is some necrotic fascia in the base. No evidence of any definite dehiscence.
--- NOTE | 2021-07-03 14:54 | PC.NURSE ---
Dr. Klein changed abd wound vac dressing. It's being changed every 3 days. Next dressing change will be on Thursday 07/06.
[2021-07-03 16:03] LABS: Alanine Aminotransferase 57 U/L (12-78); Aspartate Amino Transferase 78 U/L (14-36); Bilirubin,Unconjugated 0.4 mg/dL (0.0-1.1)
[2021-07-03 16:04] LABS: Albumin Level 2.1 g/dl (3.5-5.0); Alkaline Phosphatase 185 U/L (38-126); Bilirubin,Direct 1.6 mg/dl (0.0-0.4); Bilirubin,Indirect 0.4 mg/dL (0.0-0.9); Total Protein,Serum 5.5 g/dl (6.3-8.2)
[2021-07-03 16:05] LABS: Ammonia < 9 umol/L (9-30)
[2021-07-03 16:22] LABS: T4 (Thyroxine) 8.5 ug/dl (5.53-11.0)
[2021-07-03 16:35] LABS: Thyroid Stimulating Hormone 3.54 uIU/mL (0.465-4.68)
--- NOTE | 2021-07-03 17:21 | ECG_ITS ---
APPROVED REPORT Exam: Resting ECG HR:53 bpm ECG Measurements Heart Rate 53 AXES PA 183 P 73 QRSd 81 QRS 26 QT 443 T 30 QTc 427 Conclusion SINUS BRADYCARDIA LOW QRS VOLTAGE IN PRECORDIAL LEADS [QRS DEFLECTION < 1.0 mV IN CHEST LEADS] Old anteroseptal changes ABNORMAL ECG UNCONFIRMED REPORT Electronically signed by : Edgar Mccarty MD 07/04/2021 08:09:55
--- NOTE | 2021-07-03 17:28 | PC.NURSE ---
tele rhythm looks like Aflutter with V rate in the 50-60s. Obtained EKG, which reveals sinus dereck.
--- NOTE | 2021-07-03 20:36 | PC.NURSE ---
MD Dubon consulted over PM cardiac medications due to HR. OK to give Amiodarone and propranolol.
[2021-07-04] VITALS (9 sets, daily range): BP systolic 148–175; BP diastolic 68–77; PULSE 51–64; RESP 18–24; TEMP 36.5–37.1; O2SAT 91–100; BMI 47.9
[2021-07-04 06:38] LABS: Basophils % 0.5 % (0.1-2.0); Eosinophils % 0.1 % (0.1-12.0); Hematocrit 30.4 % (37.0-47.0); Hemoglobin 9.3 g/dL (12.2-16.2); Lymphocytes # 1.4 K/mm3 (0.7-4.5); Lymphocytes % 15.5 % (10-50); Mean Corpuscular HGB Conc 30.7 g/dL (31.8-35.4); Mean Corpuscular Hemoglobin 30.4 pg (27.0-31.2); Mean Corpuscular Volume 98.9 fl (81-99); Monocytes # 0.4 K/mm3 (0.1-1.0); Neutrophils # 6.9 K/mm3 (1.8-7.8); Neutrophils % 78.9 % (37.0-80.0); Platelet Count 745 K/mm3 (142-424); Red Blood Count 3.07 M/mm3 (4.20-5.40); Red Cell Distribution Width 18.1 % (11.5-17.5); White Blood Count 8.8 K/mm3 (4.8-10.8)
[2021-07-04 06:49] LABS: Chloride 117 mmol/L (98-107); Potassium 3.3 mmoL/L (3.5-5.1); Sodium 139 mmol/L (136-145)
--- NOTE | 2021-07-04 06:49 | PC.NURSE ---
Pt is A&O x3. Has slept at intervals this shift. She has had a good appetite. Pt has had pudding, apple sauce and jello this shift. She has drank water. Pt has had 3 loose stools. Light brown in color. F/C draining to bedside with clear, yellow urine. DSG/Wound Vac in place to abdominal incision. VSS. Pt turned and repositioned. No other concerns. Will continue to monitor.
[2021-07-04 06:52] LABS: Anion Gap 9.3 mEq/L (5-15); Blood Urea Nitrogen 21 mg/dl (7-17); Calcium 7.2 mg/dl (8.4-10.2); Carbon Dioxide 16 mmol/L (22.0-30.0); Creatinine Clearance Estimated 24 mL/min (50-200); Estimated Glomerular Filt Rate 30 ml/min (>60); GFR (African American) 36 ML/MIN (>60); Glucose 132 mg/dl (74-100)
--- NOTE | 2021-07-04 08:54 | HMH.ACPN2 ---
Internal Medicine - PN: Subj *Date: 07/05/21 *Time: 06:54 Interval history: more alert and dysphonia improved - labs reviewed Exam Vital signs and Labs for Last 24 Hours: Temp Pulse Resp BP Pulse Ox 98.1 F 62 22 175/68 H 100 07/04/21 08:00 07/04/21 08:00 07/04/21 08:00 07/04/21 08:00 07/04/21 08:00 Laboratory Results - last 24 hr 07/03/21 09:28: ABG Sodium 139, ABG Potassium 3.4 L, ABG Chloride 118 H, ABG Lactate 1.0, Arterial Blood Potassium 3.4 L, Arterial Blood Chloride 118 H 07/03/21 09:28: Specimen Source r radial, O2 % room air, ABG pH 7.41, ABG pCO2 24.5 L, ABG pO2 69.6 L, ABG HCO3 15.3 L, ABG Total CO2 16.0 L, ABG O2 Saturation 94, ABG Base Excess -9.4 L, Aaron Test acceptable 07/03/21 12:53: Specimen Source R radial, O2 % Room air, ABG pH 7.41, ABG pCO2 25.2 L, ABG pO2 63.2 L, ABG HCO3 15.7 L, ABG Total CO2 16.5 L, ABG O2 Saturation 92, ABG Base Excess -8.9 L, Aaron Test Acceptable 07/03/21 12:53: ABG Sodium 139, ABG Potassium 3.5, ABG Chloride 118 H, ABG Lactate 0.9, Arterial Blood Potassium 3.5, Arterial Blood Chloride 118 H 07/03/21 15:35: Total Bilirubin 2.0 H, Direct Bilirubin 1.6 H, Conjugated Bilirubin 0.0, Indirect Bilirubin 0.4, Unconjugated Bilirubin 0.4, AST 78 H, ALT 57, Alkaline Phosphatase 185 H, Total Protein 5.5 L, Albumin 2.1 L, TSH 3.54, Thyroxine (T4) 8.5 07/03/21 15:35: Ammonia < 9 L 07/04/21 06:20: WBC 8.8, RBC 3.07 L, Hgb 9.3 L, Hct 30.4 L, MCV 98.9, MCH 30.4, MCHC 30.7 L, RDW 18.1 H, Plt Count 745 H, MPV 9.0, Neut % (Auto) 78.9, Lymph % (Auto) 15.5, [place] % (Auto) 5.0, Eos % (Auto) 0.1, Baso % (Auto) 0.5, Neut # (Auto) 6.9, Lymph # (Auto) 1.4, [place] # (Auto) 0.4, Eos # (Auto) 0.0, Baso # (Auto) 0.0 07/04/21 06:20: Sodium 139, Potassium 3.3 L D, Chloride 117 H, Carbon Dioxide 16 L, Anion Gap 9.3, BUN 21 H, Creatinine 1.70 H, Estimated Creat Clear 24, Estimated GFR 30 L, Est GFR ( Amer) 36 L, Glucose 132 H D, Calcium 7.2 L I & O for Last 24 hours: Intake & Output 07/01/21 07/02/21 07/03/21 07/04/21 11:59 11:59 11:59 11:59 Intake Total 3827 / 3827 1408 / 1408 1225 / 1225 2092 / 2092 Output Total 2375 / 2375 1925 / 1925 2950 / 2950 5020 / 5020 Balance 1452 / 1452 -517 / -517 -1725 / -1725 -2928 / -2928 Weight 279 lb 11.2 oz 287 lb 4.8 oz 287 lb 4 oz 270 lb 8 oz - Constitutional no acute distress, obese - *Routine HEENT Exam Head: Present: normocephalic Eye: Present: EOMI, PERRL ENT: Present: mucous membranes dry - *Routine Neck Exam Absent: JVD - *Routine Respiratory Exam Present: decreased breath sounds - *Routine Cardiovascular Exam Present: RRR, murmur, S4 - *Routine Abdominal Exam Present: soft, wound, drain - *Routine Extremities Exam Present: edema Comments: distal ecchymosis feet noted - unchanged - *Routine Skin Exam Present: pallor - *Routine Neurological Exam Present: alert, CN II-XII intact - Routine Psychiatric Exam Present: cooperative Assessment and Plan (1) Small bowel obstruction Status: Acute Category: Medical Code(s): K56.609 - Unspecified intestinal obstruction, unspecified as to partial versus complete obstruction (2) Abdominal pain Status: Acute Category: Medical Code(s): R10.9 - Unspecified abdominal pain (3) Paroxysmal atrial fibrillation with rapid ventricular response Status: Acute Category: Medical Code(s): I48.0 - Paroxysmal atrial fibrillation (4) Obesity, morbid, BMI 40.0-49.9 Status: Acute Category: Medical Code(s): E66.01 - Morbid (severe) obesity due to excess calories (5) Anemia Status: Acute Category: Medical Code(s): D64.9 - Anemia, unspecified (6) Acute kidney injury Status: Acute Category: Medical Code(s): N17.9 - Acute kidney failure, unspecified (7) Atrial flutter with controlled response Status: Acute Category: Medical Code(s): I48.92 - Unspecified atrial flutter (8) Hyperbilirubinemia Status: Acute Category: Medical Code(s): E80.6 - Other disor
--- NOTE | 2021-07-04 11:19 | PC.NURSE ---
cath care performed by Nicole Jacques 07/04/2021 112
--- NOTE | 2021-07-04 16:50 | HMH.GSPN ---
Subjective Patient reports: no new complaints Narrative: Ms. Gongora is a 71-year-old female with complicated ventral hernia repair. Followed by fascial dehiscence. Return to the operating room for small bowel obstruction and repair fascial dehiscence. Negative pressure wound dressing applied. Negative pressure wound dressing remains with adequate seal. Progress Note: A&P (1) Small bowel obstruction Status: Acute (2) Abdominal pain Status: Acute (3) Paroxysmal atrial fibrillation with rapid ventricular response Status: Acute (4) Obesity, morbid, BMI 40.0-49.9 Status: Acute (5) Anemia Status: Acute (6) Acute kidney injury Status: Acute (7) Atrial flutter with controlled response Status: Acute (8) Hyperbilirubinemia Status: Acute (9) Respiratory failure Status: Acute (10) Altered mental status Status: Acute (11) Diabetes mellitus Status: Acute Assessment and Plan for All Diagnoses:: 1. Small bowel obstruction. Followed ventral hernia repair. Fascial dehiscence noted with fascial debridement required. Continue negative pressure wound dressing. Anticipate negative pressure wound dressing change on Tuesday, July 06, 2021. Exam Vital signs and Labs for Last 24 Hours: Temp Pulse Resp BP Pulse Ox 97.8 F 55 L 22 173/69 H 100 07/04/21 12:00 07/04/21 12:42 07/04/21 12:00 07/04/21 12:00 07/04/21 12:42 Laboratory Results - last 24 hr 07/04/21 06:20: WBC 8.8, RBC 3.07 L, Hgb 9.3 L, Hct 30.4 L, MCV 98.9, MCH 30.4, MCHC 30.7 L, RDW 18.1 H, Plt Count 745 H, MPV 9.0, Neut % (Auto) 78.9, Lymph % (Auto) 15.5, [place] % (Auto) 5.0, Eos % (Auto) 0.1, Baso % (Auto) 0.5, Neut # (Auto) 6.9, Lymph # (Auto) 1.4, [place] # (Auto) 0.4, Eos # (Auto) 0.0, Baso # (Auto) 0.0 07/04/21 06:20: Sodium 139, Potassium 3.3 L D, Chloride 117 H, Carbon Dioxide 16 L, Anion Gap 9.3, BUN 21 H, Creatinine 1.70 H, Estimated Creat Clear 24, Estimated GFR 30 L, Est GFR ( Amer) 36 L, Glucose 132 H D, Calcium 7.2 L I & O for Last 24 hours: Intake & Output 07/02/21 07/03/21 07/04/21 07/05/21 11:59 11:59 11:59 11:59 Intake Total 1408 / 1408 1225 / 1225 2332 / 2332 60 / 60 Output Total 1925 / 1925 2950 / 2950 5370 / 5370 Balance -517 / -517 -1725 / -1725 -3038 / -3038 60 / 60 Weight 130.317 kg 130.294 kg 122.697 kg - Constitutional no acute distress - *Routine Abdominal Exam Present: soft
[2021-07-05] VITALS (12 sets, daily range): BP systolic 141–171; BP diastolic 56–77; PULSE 50–68; RESP 18–20; TEMP 36.4–37.1; O2SAT 91–100; BMI 47.9
--- NOTE | 2021-07-05 04:51 | PC.NURSE ---
Pt A&O x3. Has slept at intervals this shift. C/O discomfort x1. Medicated per may. Has coughed some this shift. Pt was noted to have coughing episode early in shift. Family was educated about aspiration precautions and thickened liquids. She remains on RA. Other VSS also. Pt bathed and hair was washed. F/C draining to bedside. Pt has had liquid stools this shift. Wound vac container changed this shift. No other concerns. Will continue to monitor.
[2021-07-05 05:47] LABS: Basophils # 0.1 K/mm3 (0-0.2); Eosinophils # 0.1 K/mm3 (0.0-0.4); Hemoglobin 9.3 g/dL (12.2-16.2); Lymphocytes # 1.7 K/mm3 (0.7-4.5); Lymphocytes % 19.7 % (10-50); Mean Corpuscular HGB Conc 31.9 g/dL (31.8-35.4); Mean Corpuscular Hemoglobin 30.6 pg (27.0-31.2); Mean Corpuscular Volume 95.9 fl (81-99); Mean Platelet Volume 8.6 fl (7.4-10.4); Monocytes # 0.6 K/mm3 (0.1-1.0); Monocytes % 6.8 % (1.7-9.3); Neutrophils # 6.1 K/mm3 (1.8-7.8); Neutrophils % 71.4 % (37.0-80.0); Red Blood Count 3.06 M/mm3 (4.20-5.40); Red Cell Distribution Width 17.9 % (11.5-17.5); White Blood Count 8.6 K/mm3 (4.8-10.8)
[2021-07-05 05:48] LABS: Hematocrit 29.3 % (37.0-47.0); Platelet Count 729 K/mm3 (142-424)
[2021-07-05 05:56] LABS: Anion Gap 7.9 mEq/L (5-15); Blood Urea Nitrogen 23 mg/dl (7-17); Calcium 7.6 mg/dl (8.4-10.2); Carbon Dioxide 21 mmol/L (22.0-30.0); Chloride 114 mmol/L (98-107); Creatinine Clearance Estimated 26 mL/min (50-200); Estimated Glomerular Filt Rate 32 ml/min (>60); GFR (African American) 39 ML/MIN (>60); Glucose 109 mg/dl (74-100); Sodium 140 mmol/L (136-145)
[2021-07-05 06:10] LABS: Potassium 2.9 mmoL/L (3.5-5.1)
--- NOTE | 2021-07-05 06:13 | PC.NURSE ---
notified of critical lab values.
--- NOTE | 2021-07-05 08:32 | HMH.ACPN2 ---
Internal Medicine - PN: Subj *Date: 07/05/21 *Time: 08:32 Interval history: more alert today - vital signs reviewed - Exam Vital signs and Labs for Last 24 Hours: Temp Pulse Resp BP Pulse Ox 97.6 F 57 L 20 171/71 H 100 07/05/21 04:00 07/05/21 06:22 07/05/21 04:00 07/05/21 04:00 07/05/21 06:22 Laboratory Results - last 24 hr 07/05/21 05:40: WBC 8.6, RBC 3.06 L, Hgb 9.3 L, Hct 29.3 L, MCV 95.9, MCH 30.6, MCHC 31.9, RDW 17.9 H, Plt Count 729 H, MPV 8.6, Neut % (Auto) 71.4, Lymph % (Auto) 19.7, [place] % (Auto) 6.8, Eos % (Auto) 1.0, Baso % (Auto) 1.0, Neut # (Auto) 6.1, Lymph # (Auto) 1.7, [place] # (Auto) 0.6, Eos # (Auto) 0.1, Baso # (Auto) 0.1 07/05/21 05:40: Sodium 140, Potassium 2.9 L*, Chloride 114 H, Carbon Dioxide 21 L, Anion Gap 7.9, BUN 23 H, Creatinine 1.60 H, Estimated Creat Clear 26, Estimated GFR 32 L, Est GFR ( Amer) 39 L, Glucose 109 H, Calcium 7.6 L I & O for Last 24 hours: Intake & Output 07/02/21 07/03/21 07/04/21 07/05/21 11:59 11:59 11:59 11:59 Intake Total 1408 / 1408 1225 / 1225 2332 / 2332 1120 / 1120 Output Total 1925 / 1925 2950 / 2950 5370 / 5370 5675 / 5675 Balance -517 / -517 -1725 / -1725 -3038 / -3038 -6435 / -4555 Weight 287 lb 4.8 oz 287 lb 4 oz 270 lb 8 oz 270 lb 8 oz - Constitutional no acute distress - *Routine HEENT Exam Head: Present: normocephalic Eye: Present: EOMI, PERRL ENT: Present: mucous membranes dry - *Routine Neck Exam Absent: JVD - *Routine Respiratory Exam Present: decreased breath sounds - *Routine Cardiovascular Exam Present: RRR - *Routine Abdominal Exam Present: soft, drain - *Routine Extremities Exam Present: edema Comments: no sig change from yesterday - *Routine Skin Exam Absent: rash - *Routine Neurological Exam Absent: motor deficit - Routine Psychiatric Exam Present: cooperative Assessment and Plan (1) Small bowel obstruction Status: Acute Category: Medical Code(s): K56.609 - Unspecified intestinal obstruction, unspecified as to partial versus complete obstruction (2) Abdominal pain Status: Acute Category: Medical Code(s): R10.9 - Unspecified abdominal pain (3) Paroxysmal atrial fibrillation with rapid ventricular response Status: Acute Category: Medical Code(s): I48.0 - Paroxysmal atrial fibrillation (4) Obesity, morbid, BMI 40.0-49.9 Status: Acute Category: Medical Code(s): E66.01 - Morbid (severe) obesity due to excess calories (5) Anemia Status: Acute Category: Medical Code(s): D64.9 - Anemia, unspecified (6) Acute kidney injury Status: Acute Category: Medical Code(s): N17.9 - Acute kidney failure, unspecified (7) Atrial flutter with controlled response Status: Acute Category: Medical Code(s): I48.92 - Unspecified atrial flutter (8) Hyperbilirubinemia Status: Acute Category: Medical Code(s): E80.6 - Other disorders of bilirubin metabolism (9) Respiratory failure Status: Acute Category: Medical Code(s): J96.90 - Respiratory failure, unspecified, unspecified whether with hypoxia or hypercapnia (10) Altered mental status Status: Acute Category: Medical Code(s): R41.82 - Altered mental status, unspecified (11) Diabetes mellitus Status: Acute Category: Medical Code(s): E11.9 - Type 2 diabetes mellitus without complications (12) Hypokalemia Status: Acute Category: Medical Code(s): E87.6 - Hypokalemia
--- NOTE | 2021-07-05 16:22 | PC.NURSE ---
PT IS RESTING IN BED WITH FAMILY AT BEDSIDE. PT HAS BEEN VERY DROWSY THIS SHIFT. ALERT AND ORIENTED X3. SOFT SPOKEN WHEN ANSWERING QUESTIONS. MEDICATED PER MAR FOR DISCOMFORT. TURNED AND REPOSITIONED. PT HAS RESTED WELL ON HER LEFT SIDE. APPETITE HAS BEEN POOR. NEEDS ASSISTANCE WITH EATING. DRINKING FAIR. LUNG SOUNDS DIMINISHED. ABDOMEN SOFT/TENDER WITH MIDLINE INCISION (WOUND VAC NOTED). WILL CONTINUE MONITOR.
--- NOTE | 2021-07-05 17:42 | HMH.GSPN ---
Subjective Narrative: Ms. Gongora is a 71-year-old female with complicated ventral hernia repair. Followed by fascial dehiscence and small bowel obstruction. Return to the operating room. Negative pressure wound dressing applied. Negative pressure wound dressing remains with adequate seal. Suspected silent aspiration. Difficulty with sips of water. Occasional coughing with emesis. Progress Note: A&P (1) Small bowel obstruction Status: Acute (2) Abdominal pain Status: Acute (3) Paroxysmal atrial fibrillation with rapid ventricular response Status: Acute (4) Obesity, morbid, BMI 40.0-49.9 Status: Acute (5) Anemia Status: Acute (6) Acute kidney injury Status: Acute (7) Atrial flutter with controlled response Status: Acute (8) Hyperbilirubinemia Status: Acute (9) Respiratory failure Status: Acute (10) Altered mental status Status: Acute (11) Diabetes mellitus Status: Acute (12) Hypokalemia Status: Acute Assessment and Plan for All Diagnoses:: Small bowel obstruction. Status post return to the operating room for fascial dehiscence and leaf of obstruction. Now in a prolonged postoperative course with negative pressure wound dressing. Negative pressure wound dressing has an appropriate seal. Continue to follow dietary restrictions with thickened liquids based on suspected silent aspiration. Potential dressing change tomorrow. Exam Vital signs and Labs for Last 24 Hours: Temp Pulse Resp BP Pulse Ox 98.2 F 62 20 160/68 H 96 07/05/21 16:00 07/05/21 16:00 07/05/21 16:00 07/05/21 16:00 07/05/21 16:00 Laboratory Results - last 24 hr 07/05/21 05:40: WBC 8.6, RBC 3.06 L, Hgb 9.3 L, Hct 29.3 L, MCV 95.9, MCH 30.6, MCHC 31.9, RDW 17.9 H, Plt Count 729 H, MPV 8.6, Neut % (Auto) 71.4, Lymph % (Auto) 19.7, [place] % (Auto) 6.8, Eos % (Auto) 1.0, Baso % (Auto) 1.0, Neut # (Auto) 6.1, Lymph # (Auto) 1.7, [place] # (Auto) 0.6, Eos # (Auto) 0.1, Baso # (Auto) 0.1 07/05/21 05:40: Sodium 140, Potassium 2.9 L*, Chloride 114 H, Carbon Dioxide 21 L, Anion Gap 7.9, BUN 23 H, Creatinine 1.60 H, Estimated Creat Clear 26, Estimated GFR 32 L, Est GFR ( Amer) 39 L, Glucose 109 H, Calcium 7.6 L I & O for Last 24 hours: Intake & Output 07/03/21 07/04/21 07/05/21 07/06/21 11:59 11:59 11:59 11:59 Intake Total 1225 / 1225 2332 / 2332 1764 / 1764 611 / 611 Output Total 2950 / 2950 5370 / 5370 5675 / 5675 1950 / 1950 Balance -1725 / -1725 -3038 / -3038 -3911 / -3911 -1339 / -1339 Weight 130.294 kg 122.697 kg 122.697 kg - *Routine Abdominal Exam Comments: Soft. Nondistended. Negative pressure wound dressing with adequate seal.
[2021-07-06] VITALS (12 sets, daily range): BP systolic 141–166; BP diastolic 66–84; PULSE 50–70; RESP 14–23; TEMP 36.6–38; O2SAT 95–100; BMI 45.3
--- NOTE | 2021-07-06 05:53 | PC.NURSE ---
Pt has been awake at times t/o night night. She remains on RA. Pt noted to cough after liquids. Has had some behavior this shift. Pt was noted to have thrown cups of thickened water at the door. She has remained A&O x4 this shift. She is NSR to sinus dereck on telemetry. F/C draining to bedside with cloudy, yellow urine. DSG to abdomen with wound vac in place. VSS. No other concerns at this time. Will continue to monitor.
[2021-07-06 06:31] LABS: Basophils # 0.1 K/mm3 (0-0.2); Basophils % 0.6 % (0.1-2.0); Eosinophils # 0.1 K/mm3 (0.0-0.4); Eosinophils % 1.5 % (0.1-12.0); Hemoglobin 8.6 g/dL (12.2-16.2); Lymphocytes # 1.5 K/mm3 (0.7-4.5); Lymphocytes % 19.6 % (10-50); Mean Corpuscular HGB Conc 31.5 g/dL (31.8-35.4); Mean Corpuscular Hemoglobin 30.6 pg (27.0-31.2); Mean Corpuscular Volume 97.3 fl (81-99); Mean Platelet Volume 8.9 fl (7.4-10.4); Monocytes # 0.6 K/mm3 (0.1-1.0); Monocytes % 7.5 % (1.7-9.3); Neutrophils # 5.4 K/mm3 (1.8-7.8); Neutrophils % 70.7 % (37.0-80.0); Red Cell Distribution Width 18.1 % (11.5-17.5); White Blood Count 7.6 K/mm3 (4.8-10.8)
[2021-07-06 06:32] LABS: Hematocrit 27.2 % (37.0-47.0); Platelet Count 601 K/mm3 (142-424)
[2021-07-06 06:37] LABS: Chloride 111 mmol/L (98-107); Sodium 135 mmol/L (136-145)
[2021-07-06 06:40] LABS: Blood Urea Nitrogen 17 mg/dl (7-17); Calcium 6.6 mg/dl (8.4-10.2); Carbon Dioxide 21 mmol/L (22.0-30.0); Creatinine Clearance Estimated 30 mL/min (50-200); Estimated Glomerular Filt Rate 37 ml/min (>60); GFR (African American) 45 ML/MIN (>60); Glucose 394 mg/dl (74-100)
[2021-07-06 06:48] LABS: Anion Gap 6.6 mEq/L (5-15); Potassium 3.6 mmoL/L (3.5-5.1)
--- NOTE | 2021-07-06 07:12 | P.PN_ITS ---
Subjective Narrative: Patient reportedly had some behavioral problems overnight. Tolerating diet. Progress Note: A&P (1) Small bowel obstruction Status: Acute (2) Abdominal pain Status: Acute (3) Paroxysmal atrial fibrillation with rapid ventricular response Status: Acute (4) Obesity, morbid, BMI 40.0-49.9 Status: Acute (5) Anemia Status: Acute (6) Acute kidney injury Status: Acute (7) Atrial flutter with controlled response Status: Acute (8) Hyperbilirubinemia Status: Acute (9) Respiratory failure Status: Acute (10) Altered mental status Status: Acute (11) Diabetes mellitus Status: Acute (12) Hypokalemia Status: Acute Assessment and Plan for All Diagnoses:: NPWT dressing change today. Exam Vital signs and Labs for Last 24 Hours: Temp Pulse Resp BP Pulse Ox 98.9 F 57 L 14 150/84 H 100 07/06/21 04:00 07/06/21 06:05 07/06/21 04:00 07/06/21 04:00 07/06/21 06:05 Laboratory Results - last 24 hr 07/06/21 06:23: WBC 7.6, RBC 2.80 L, Hgb 8.6 L, Hct 27.2 L, MCV 97.3, MCH 30.6, MCHC 31.5 L, RDW 18.1 H, Plt Count 601 H, MPV 8.9, Neut % (Auto) 70.7, Lymph % (Auto) 19.6, [place] % (Auto) 7.5, Eos % (Auto) 1.5, Baso % (Auto) 0.6, Neut # (Auto) 5.4, Lymph # (Auto) 1.5, [place] # (Auto) 0.6, Eos # (Auto) 0.1, Baso # (Auto) 0.1 07/06/21 06:23: Sodium 135 L, Potassium 3.6 D, Chloride 111 H, Carbon Dioxide 21 L, Anion Gap 6.6, BUN 17 D, Creatinine 1.40 H, Estimated Creat Clear 30, Estimated GFR 37 L, Est GFR ( Amer) 45 L, Glucose 394 H, Calcium 6.6 L I & O for Last 24 hours: Intake & Output 07/03/21 07/04/21 07/05/21 07/06/21 11:59 11:59 11:59 11:59 Intake Total 1225 / 1225 2332 / 2332 1764 / 1764 731 / 731 Output Total 2950 / 2950 5370 / 5370 5675 / 5675 6050 / 6050 Balance -1725 / -1725 -3038 / -3038 -3911 / -3911 -5319 / -5319 Weight 287 lb 4 oz 270 lb 8 oz 270 lb 8 oz 255 lb 11.2 oz - *Routine Abdominal Exam Present: wound
--- NOTE | 2021-07-06 09:16 | HMH.ACPN2 ---
Internal Medicine - PN: Subj *Date: 07/06/21 *Time: 08:30 Interval history: pt laying in bed, states doing well, pt whispers when speaking Exam Vital signs and Labs for Last 24 Hours: Temp Pulse Resp BP Pulse Ox 97.8 F 60 18 158/74 H 95 07/06/21 08:00 07/06/21 08:00 07/06/21 08:00 07/06/21 08:00 07/06/21 08:00 Laboratory Results - last 24 hr 07/06/21 06:23: WBC 7.6, RBC 2.80 L, Hgb 8.6 L, Hct 27.2 L, MCV 97.3, MCH 30.6, MCHC 31.5 L, RDW 18.1 H, Plt Count 601 H, MPV 8.9, Neut % (Auto) 70.7, Lymph % (Auto) 19.6, [place] % (Auto) 7.5, Eos % (Auto) 1.5, Baso % (Auto) 0.6, Neut # (Auto) 5.4, Lymph # (Auto) 1.5, [place] # (Auto) 0.6, Eos # (Auto) 0.1, Baso # (Auto) 0.1 07/06/21 06:23: Sodium 135 L, Potassium 3.6 D, Chloride 111 H, Carbon Dioxide 21 L, Anion Gap 6.6, BUN 17 D, Creatinine 1.40 H, Estimated Creat Clear 30, Estimated GFR 37 L, Est GFR ( Amer) 45 L, Glucose 394 H, Calcium 6.6 L I & O for Last 24 hours: Intake & Output 07/03/21 07/04/21 07/05/21 07/06/21 11:59 11:59 11:59 11:59 Intake Total 1225 / 1225 2332 / 2332 1764 / 1764 1091 / 1091 Output Total 2950 / 2950 5370 / 5370 5675 / 5675 6050 / 6050 Balance -1725 / -1725 -3038 / -3038 -3911 / -391 -1311 / -4951 Weight 287 lb 4 oz 270 lb 8 oz 270 lb 8 oz 255 lb 11.2 oz - Constitutional no acute distress, obese - *Routine HEENT Exam Head: Present: normocephalic Eye: Present: PERRL ENT: Present: mucous membranes moist - *Routine Neck Exam Present: supple. Absent: lymphadenopathy - *Routine Respiratory Exam Present: CTA bilaterally - *Routine Cardiovascular Exam Present: RRR - *Routine Abdominal Exam Present: soft, normoactive bowel sounds. Absent: tenderness - *Routine Extremities Exam Absent: cyanosis, clubbing, edema - *Routine Skin Exam Present: intact, wounds Comments: wound vac in place goodwin in place - *Routine Neurological Exam Present: alert Assessment and Plan (1) Small bowel obstruction Status: Acute Category: Medical Code(s): K56.609 - Unspecified intestinal obstruction, unspecified as to partial versus complete obstruction (2) Abdominal pain Status: Acute Category: Medical Code(s): R10.9 - Unspecified abdominal pain (3) Paroxysmal atrial fibrillation with rapid ventricular response Status: Acute Category: Medical Code(s): I48.0 - Paroxysmal atrial fibrillation (4) Obesity, morbid, BMI 40.0-49.9 Status: Acute Category: Medical Code(s): E66.01 - Morbid (severe) obesity due to excess calories (5) Anemia Status: Acute Category: Medical Code(s): D64.9 - Anemia, unspecified (6) Acute kidney injury Status: Acute Category: Medical Code(s): N17.9 - Acute kidney failure, unspecified (7) Atrial flutter with controlled response Status: Acute Category: Medical Code(s): I48.92 - Unspecified atrial flutter (8) Hyperbilirubinemia Status: Acute Category: Medical Code(s): E80.6 - Other disorders of bilirubin metabolism (9) Respiratory failure Status: Acute Category: Medical Code(s): J96.90 - Respiratory failure, unspecified, unspecified whether with hypoxia or hypercapnia (10) Altered mental status Status: Acute Category: Medical Code(s): R41.82 - Altered mental status, unspecified (11) Diabetes mellitus Status: Acute Category: Medical Code(s): E11.9 - Type 2 diabetes mellitus without complications (12) Hypokalemia Status: Acute Category: Medical Code(s): E87.6 - Hypokalemia - Assessment and plan all Dx Assessment and Plan for all problems:: rounded with dr sawyer all orders oer dr sawyer surgery to follow pulm to follow look for rehab for dc
--- NOTE | 2021-07-06 12:14 | DIET.NUTRFU ---
Addendum entered by Fanny Mendosa RD, LD 07/06/21 14:05: spoke to [employer], they report that patient does not want to participate in trials with [employer]. Therefore unable to see if consistencies are safe to upgrade patient. Today for lunch she even refused the thickened jello and all pureed foods. Only wanted the beverages and then when she is done she throws the items on floor. Patient continues to want assistance with meals/beverages but staff today did see her bring her cup up to her month independently. She was up in chair for lunch today. Nursing staff did agree to try honey thick ensure with patient to help meet needs Original Note: RD rounded with provider today, patient continues on puree with honey thick liquids. She is still noted to have some coughing with liquids. She dislikes the thickened liquids, noted to have thrown some at the door over weekend. [employer] continues to follow with goal of the least restrictive diet that safe. Did not eat much for breakfast this AM, She does not seem to like the puree foods either, eats mostly pudding and applesauce. Maybe she would benefit from supplements to drink for additional calories and protein
--- NOTE | 2021-07-06 14:53 | HMH.PULMPN ---
Internal Medicine - PN: Subj *Date: 07/06/21 *Time: 14:54 Interval history: No acute events overnight. Continue to remain on room air. Exam - Constitutional Constitutional:: Present: no acute distress, comfortable - HENMT Exam HENMT: Present: normocephalic - Eye Exam Eyes:: Present: normal appearance both eyes and related structures - Neck Exam Neck:: Present: normal visual inspection - Respiratory Exam Respiratory:: Present: able to speak in complete sentences, no respiratory distress, decreased breath sounds, rhonchi - Cardiovascular Exam Cardiac:: Present: S1, S2 - GI Exam GI:: Present: soft - Skin Exam Skin: Present: warm - Neurological Exam Neurological: Present: alert, awake - Extremities Exam Extremities: Present: no cyanosis, no clubbing, edema Assessment and Plan (1) Small bowel obstruction Status: Acute Category: Medical Code(s): K56.609 - Unspecified intestinal obstruction, unspecified as to partial versus complete obstruction (2) Abdominal pain Status: Acute Category: Medical Code(s): R10.9 - Unspecified abdominal pain (3) Paroxysmal atrial fibrillation with rapid ventricular response Status: Acute Category: Medical Code(s): I48.0 - Paroxysmal atrial fibrillation (4) Obesity, morbid, BMI 40.0-49.9 Status: Acute Category: Medical Code(s): E66.01 - Morbid (severe) obesity due to excess calories (5) Anemia Status: Acute Category: Medical Code(s): D64.9 - Anemia, unspecified (6) Acute kidney injury Status: Acute Category: Medical Code(s): N17.9 - Acute kidney failure, unspecified (7) Atrial flutter with controlled response Status: Acute Category: Medical Code(s): I48.92 - Unspecified atrial flutter (8) Hyperbilirubinemia Status: Acute Category: Medical Code(s): E80.6 - Other disorders of bilirubin metabolism (9) Respiratory failure Status: Acute Category: Medical Code(s): J96.90 - Respiratory failure, unspecified, unspecified whether with hypoxia or hypercapnia (10) Altered mental status Status: Acute Category: Medical Code(s): R41.82 - Altered mental status, unspecified (11) Diabetes mellitus Status: Acute Category: Medical Code(s): E11.9 - Type 2 diabetes mellitus without complications (12) Hypokalemia Status: Acute Category: Medical Code(s): E87.6 - Hypokalemia - Assessment and plan all Dx Assessment and Plan for all problems:: # Acute on chronic hypoxic respiratory failure: #HAP s/p Rx: Ms. Gongora is a 71-year-old female presented to the hospital on 06/16/2021 complaining of abdominal pain post laparotomy with small bowel resection for obstruction has been doing fairly well up until today where patient noted to have worsening abdominal pain nausea and febrile episodes and was taken to the OR for wound washout with possible reexploration eventually remain on ventilator pulmonary was called for further management. Upon chart review patient respiratory status has been relatively stable since admission needing 2 to 4 L nasal cannula saturations maintained at 90% and above. CTA performed on 06/22/2021 did not show any evidence of dense consolidation. Bilateral lower lobe atelectasis noted. No evidence of pulmonary embolism noted. Home inhalers medications include Flovent discus. Patient respiratory status and mentation gradually improved also eventually extubated over the weekend and has been successfully weaned to room air. Sputum growing E. coli. Completed 7 days of cefepime. She also completed 14 days of vancomycin for her Streptococcus bacteremia. Most recent blood cultures from 06/23/2021. Cardiology also follows patient for her paroxysmal A. fib, flutter s/p cardioversion Patient wound culture growing Aeromonas hydrophilia. Interval update: Patient mentation improved. CT head and CT chest no acute findings from Tuesday. T chest bilateral lower lobe atelectasis right greater than left along with minimal ef
--- NOTE | 2021-07-06 16:41 | PC.NURSE ---
PICC dsg changed per sterile technique this shift, as well as abd midline incision per Dr. Klein w/ wound vac in place.
[2021-07-07] VITALS (10 sets, daily range): BP systolic 127–161; BP diastolic 61–70; PULSE 60–73; RESP 15–18; TEMP 36.8–37.6; O2SAT 93–100; BMI 43.4
--- NOTE | 2021-07-07 00:55 | PC.NURSE ---
Addendum entered by Eduarda Medrano RN 07/07/21 06:23: Less nausea and vomiting noted with limits of how much drinking allowed at one time. Pt encouraged only sips. And no further vomiting noted. goodwin cath remains in place. draining cloudy urine with sediment noted. Goodwin care provided. BM x1 this shift runny yellow. Incont of bowel. AAOx4. but soft spoken. Wound vac remains in place but only scant amount of drainage noted. Pt c/o pain and was given Dilaudid and was effective. Has call rios within reach. Original Note: Pt rang the call rios continuously during this shift. Pt would ask for water, repositioned etc. deed would be performed then Pt would be asked if she needed anything else before this nurse left. Pt would state no and would hit her call rios again within 5 min. of nurse leaving the room. For example, Pt was given water and asked if she wanted more. PT stated no. then would hit the call rios again within 5 min asking for more water. Pt became upset when this nurse handed her a cup to freely drink from instead of holding the cup for her. Pt was able to hold the cup and drink without difficulty. But she was visibly upset that she had to. Pt also noted to be gagging herself by forcing herself to cough and vomit. This occurred several times through out the shift.
--- NOTE | 2021-07-07 07:08 | HMH.GSPN ---
Subjective Narrative: Patient alert this morning. Apparently has had some nausea. On honey thickened liquids. Progress Note: A&P (1) Small bowel obstruction Status: Acute (2) Abdominal pain Status: Acute (3) Paroxysmal atrial fibrillation with rapid ventricular response Status: Acute (4) Obesity, morbid, BMI 40.0-49.9 Status: Acute (5) Anemia Status: Acute (6) Acute kidney injury Status: Acute (7) Atrial flutter with controlled response Status: Acute (8) Hyperbilirubinemia Status: Acute (9) Respiratory failure Status: Acute (10) Altered mental status Status: Acute (11) Diabetes mellitus Status: Acute (12) Hypokalemia Status: Acute Assessment and Plan for All Diagnoses:: Continue VAC dressing for wound. Continue progressive management. Exam Vital signs and Labs for Last 24 Hours: Temp Pulse Resp BP Pulse Ox 99.0 F 64 15 161/70 H 96 07/07/21 04:00 07/07/21 06:05 07/07/21 04:00 07/07/21 04:00 07/07/21 06:05 I & O for Last 24 hours: Intake & Output 07/04/21 07/05/21 07/06/21 07/07/21 11:59 11:59 11:59 11:59 Intake Total 2332 / 2332 1764 / 1764 1091 / 1091 660 / 660 Output Total 5370 / 5370 5675 / 5675 6050 / 6050 5950 / 5950 Balance -3038 / -3038 -3911 / -3911 -4959 / -4959 -5290 / -5290 Weight 270 lb 8 oz 270 lb 8 oz 255 lb 11.2 oz 245 lb 3.2 oz - *Routine Abdominal Exam Present: soft Comments: Negative pressure wound therapy dressing intact
[2021-07-07 07:16] LABS: Chloride 109 mmol/L (98-107); Potassium 3.2 mmoL/L (3.5-5.1); Sodium 138 mmol/L (136-145)
[2021-07-07 07:17] LABS: Basophils # 0.1 K/mm3 (0-0.2); Basophils % 0.8 % (0.1-2.0); Eosinophils # 0.1 K/mm3 (0.0-0.4); Eosinophils % 0.7 % (0.1-12.0); Hematocrit 28.6 % (37.0-47.0); Hemoglobin 8.9 g/dL (12.2-16.2); Lymphocytes # 1.6 K/mm3 (0.7-4.5); Lymphocytes % 18.3 % (10-50); Mean Corpuscular HGB Conc 31.2 g/dL (31.8-35.4); Mean Corpuscular Hemoglobin 30.4 pg (27.0-31.2); Mean Corpuscular Volume 97.3 fl (81-99); Mean Platelet Volume 8.9 fl (7.4-10.4); Monocytes # 0.7 K/mm3 (0.1-1.0); Monocytes % 7.5 % (1.7-9.3); Neutrophils # 6.4 K/mm3 (1.8-7.8); Neutrophils % 72.6 % (37.0-80.0); Platelet Count 531 K/mm3 (142-424); Red Blood Count 2.94 M/mm3 (4.20-5.40); White Blood Count 8.9 K/mm3 (4.8-10.8)
[2021-07-07 07:19] LABS: Anion Gap 6.2 mEq/L (5-15); Blood Urea Nitrogen 17 mg/dl (7-17); Carbon Dioxide 26 mmol/L (22.0-30.0); Creatinine Clearance Estimated 26 mL/min (50-200); Estimated Glomerular Filt Rate 32 ml/min (>60); GFR (African American) 39 ML/MIN (>60)
[2021-07-07 07:20] LABS: Calcium 6.9 mg/dl (8.4-10.2); Glucose 217 mg/dl (74-100)
--- NOTE | 2021-07-07 09:20 | DIET.NUTRFU ---
Addendum entered by Fanny Mendosa RD, LD 07/07/21 13:35: Diet upgraded to MSOFT ground with thin liquids per [employer] PROJECT MANAGER, anticipate her meal intake to improve. Will continue to monitor intake, may not need supplements Original Note: During rounds today, patient told staff she likes grits and milk. She continues on puree with honey thick liquids. She did not consume any of the solid puree yesterday for breakfast or lunch. Her intake this AM with oatmeal and gravy was good, still requiring 1:1 assistance with meals. Providers tired to encourage her to try trials with [employer] PROJECT MA[employer]GER on different consistencies. When asked if was afraid of choking she replied yes. It was explained to her it is just a small sample to determine if she can be upgraded. Provider consulted ENT for eval of her vocal cords and also ordered MRI for possible indication of a neurological event. Discharge plan, possibly a facility for rehab. Will add addition protein to grits to help meet needs. Glucerna also starts today with lunch and dinner to help meet needs. Labs reviewed: K 3.2L, Cr 1.6H, glucose elevated at 109-394. Continues on potassium/dextrose for replacement, protonix, reglan, lasix and jardiance. Will continue to follow meal intake and discharge plans
--- NOTE | 2021-07-07 11:46 | HMH.CONS ---
*Admission Date: 06/16/21 *Reason for consult:: Dysphonia *History of present illness: Ms. Gongora is a 71-year-old female presented to the hospital on 06/16/2021 complaining of abdominal pain post laparotomy with small bowel resection for obstruction has been doing fairly well up until today where patient noted to have worsening abdominal pain nausea and febrile episodes and was taken to the OR for wound washout with possible reexploration eventually remain on ventilator pulmonary was called for further management. Upon chart review patient respiratory status has been relatively stable since admission needing 2 to 4 L nasal cannula saturations maintained at 90% and above. CTA performed on 06/22/2021 did not show any evidence of dense consolidation. Bilateral lower lobe atelectasis noted. No evidence of pulmonary embolism noted. Home inhalers medications include Flovent discus She was eventually extubated on 06/29/2021 and initially, her voice was noted to be reasonably strong but in the past 48 to 72 hours, her voice has weakened. She is awake and oriented though drowsy. She does not complain of any problems or dysphagia. She also denies throat pain or discomfort. Past medical history and review of systems was reviewed as was her hospital chart. Bedside head and neck exam was performed She is awake and oriented but drowsy. Is in no distress. No stridor noted. She can whisper External canals and tympanic membranes are clear Nasal exam shows a large nasal septal perforation and dried blood and concretions almost completely obstructing her nasal cavity bilaterally. Oral exam unremarkable Pharyngeal exam unremarkable Neck exam unremarkable Impression and Plan: She has dysphonia of unknown cause. She had an extended intubation that could have caused laryngeal trauma and she may have vocal cord nodules or vocal cord granulomas. However, at bedside, it is difficult to determine if she has any significant laryngeal pathology particularly since she seems to be unwilling to try to project her voice more forcefully. Eventually, fiberoptic exam of her larynx should be performed. Because of her nasal anatomy, this cannot be done at the bedside and she should be scheduled to see me in outpatient clinic or we can safely clean her nose and then perform fiberoptic exam of nasopharynx hypopharynx and larynx. [facility] History Medical History: Reports:: Anxiety, Asthma, Depression, Diabetes Mellitus Type 2, Gastroesophageal Reflux Disease(GERD), Hyperlipidemia, Migraine, Renal Insufficiency Denies:: Cancer, Diabetes Mellitus Type 1, MRSA *Have you ever received a pneumonia vaccine?: Yes *Have you received a flu vaccine this season?: Yes Other Medical History: Reports: Arthritis, Thyroid Disease, Other (gout, allergic rhinitis, chronic back pain, chronic steroid use) Anesthesia experience/problems:: nac Other Surgeries: Yes: Hernia Repair, Tubal Ligation Amputation: No Fractures: No - *Social History Smoking Status: Never smoker Alcohol Intake: never Substance Use Type: denies use *Occupational Status:: retired Housing: house Household Members: children *Travel in the last 8 weeks: None - Psychiatric History Pschychiatric History:: Reports:: Anxiety, Depression Family Hx:: No significant family history Review of Systems - *Neurologic Denies abnormal hearing, Denies seizure-like activity Meds Home Medications Medication Instructions Recorded Confirmed Type Atorvastatin Calcium [Lipitor 20mg 20 mg PO HS 06/18/17 06/17/21 History Tab] Esomeprazole Magnesium 40 mg PO DAILY 06/18/17 06/17/21 History Furosemide [Furosemide 40MG tAB*] 40 mg PO BID 06/18/17 06/17/21 History LORazepam [Ativan 0.5mg 0.5 mg PO Q8HP PRN 06/18/17 06/17/21 History tablet] Oxybutynin Chloride [Oxybutynin 5 mg PO DAILY 06/18/17 06/17/21 History Chloride ER] Potassium Chloride [K-Tab ER 10 10 meq PO BID 06/18/17 06/17/21 History mEq] Sertraline HCl [Zo
--- NOTE | 2021-07-07 11:47 | HMH.ACPN2 ---
Internal Medicine - PN: Subj *Date: 07/07/21 *Time: 14:10 Interval history: 71-year-old female patient sitting up in the bed no respiratory distress or cardiac issues noted. She is on room air with oxygen saturation 97%. Patient will whisper when she talks encouraged to speak louder she will still only whisper, she says that she cannot speak any louder but does not display any visible effort. Nursing reports they will see patient hold cup up and drink from cup with only self strength, but will stop and ask nursing to to assist, when nursing explained she needs to do as much for self as she can she does become visibly upset. Discussed with her today attempting to advance her diet she refuses to participate in swallow reeval. We will consult ENT for dysphonia. Exam Vital signs and Labs for Last 24 Hours: Temp Pulse Resp BP Pulse Ox 99.7 F H 62 18 139/65 99 07/07/21 11:24 07/07/21 11:24 07/07/21 11:24 07/07/21 11:24 07/07/21 11:24 Laboratory Results - last 24 hr 07/07/21 06:30: WBC 8.9, RBC 2.94 L, Hgb 8.9 L, Hct 28.6 L, MCV 97.3, MCH 30.4, MCHC 31.2 L, RDW 18.0 H, Plt Count 531 H, MPV 8.9, Neut % (Auto) 72.6, Lymph % (Auto) 18.3, Winn % (Auto) 7.5, Eos % (Auto) 0.7, Baso % (Auto) 0.8, Neut # (Auto) 6.4, Lymph # (Auto) 1.6, Winn # (Auto) 0.7, Eos # (Auto) 0.1, Baso # (Auto) 0.1 07/07/21 06:30: Sodium 138, Potassium 3.2 L, Chloride 109 H, Carbon Dioxide 26, Anion Gap 6.2, BUN 17, Creatinine 1.60 H, Estimated Creat Clear 26, Estimated GFR 32 L, Est GFR ( Amer) 39 L, Glucose 217 H, Calcium 6.9 L I & O for Last 24 hours: Intake & Output 07/04/21 07/05/21 07/06/21 07/07/21 23:59 23:59 23:59 23:59 Intake Total 360 / 360 2375 / 2375 1020 / 1020 180 / 180 Output Total 3820 / 6820 8625 / 77927 7350 / 7350 1000 / 1000 Balance -3460 / -6460 -6250 / -8650 -6330 / -6330 -820 / -820 Weight 270 lb 8 oz 270 lb 8 oz 255 lb 11.2 oz 245 lb 3.2 oz - Constitutional no acute distress, obese, chronically ill appearing - *Routine HEENT Exam Head: Present: normocephalic Eye: Present: EOMI ENT: Present: mucous membranes moist - *Routine Respiratory Exam Present: CTA bilaterally. Absent: accessory muscle use - *Routine Cardiovascular Exam Present: RRR - *Routine Abdominal Exam Present: soft, normoactive bowel sounds, tenderness, drain. Absent: firm Comments: Wound VAC in place midline abdominal incision with serosanguineous drainage - *Routine Extremities Exam Present: edema, full ROM, pulses intact. Absent: cyanosis, clubbing - *Routine Skin Exam Present: dry, wounds. Absent: intact, cyanosis Comments: Wound VAC in place to midline abdominal incision with serosanguineous drainage - *Routine Neurological Exam Present: alert. Absent: motor deficit - Routine Psychiatric Exam Present: normal thought process Assessment and Plan (1) Small bowel obstruction Status: Acute Category: Medical Code(s): K56.609 - Unspecified intestinal obstruction, unspecified as to partial versus complete obstruction (2) Abdominal pain Status: Acute Category: Medical Code(s): R10.9 - Unspecified abdominal pain (3) Paroxysmal atrial fibrillation with rapid ventricular response Status: Acute Category: Medical Code(s): I48.0 - Paroxysmal atrial fibrillation (4) Obesity, morbid, BMI 40.0-49.9 Status: Acute Category: Medical Code(s): E66.01 - Morbid (severe) obesity due to excess calories (5) Anemia Status: Acute Category: Medical Code(s): D64.9 - Anemia, unspecified (6) Acute kidney injury Status: Acute Category: Medical Code(s): N17.9 - Acute kidney failure, unspecified (7) Atrial flutter with controlled response Status: Acute Category: Medical Code(s): I48.92 - Unspecified atrial flutter (8) Hyperbilirubinemia Status: Acute Category: Medical Code(s): E80.6 - Other disorders of bilirubin metabolism (9) Respiratory failure Status: Acute Category: Medical
--- NOTE | 2021-07-07 12:18 | PC.NURSE ---
Spoke with MRI pt refused mri
--- NOTE | 2021-07-07 17:30 | PC.NURSE ---
Paged Dr. Hair
--- NOTE | 2021-07-07 17:48 | PC.NURSE ---
Spoke with Dr. Hair he stated to start her and a medium intensity sliding scale.
[2021-07-07 19:51] LABS: POC Glucose,Bedside 114 (70-110)
[2021-07-08] VITALS (10 sets, daily range): BP systolic 134–170; BP diastolic 50–75; PULSE 60–72; RESP 16–19; TEMP 36.8–37.9; O2SAT 90–98; BMI 45.1
--- NOTE | 2021-07-08 06:27 | P.PN_ITS ---
Subjective Patient reports: no new complaints Progress Note: A&P (1) Small bowel obstruction Status: Acute (2) Abdominal pain Status: Acute (3) Paroxysmal atrial fibrillation with rapid ventricular response Status: Acute (4) Obesity, morbid, BMI 40.0-49.9 Status: Acute (5) Anemia Status: Acute (6) Acute kidney injury Status: Acute (7) Atrial flutter with controlled response Status: Acute (8) Hyperbilirubinemia Status: Acute (9) Respiratory failure Status: Acute (10) Altered mental status Status: Acute (11) Diabetes mellitus Status: Acute (12) Hypokalemia Status: Acute Assessment and Plan for All Diagnoses:: Continue progressive medical management. NPWT dressing change tomorrow Exam Vital signs and Labs for Last 24 Hours: Temp Pulse Resp BP Pulse Ox 99.3 F 60 16 159/55 H 93 L 07/08/21 04:00 07/08/21 04:00 07/08/21 04:00 07/08/21 04:00 07/08/21 04:00 Laboratory Results - last 24 hr 07/07/21 06:30: WBC 8.9, RBC 2.94 L, Hgb 8.9 L, Hct 28.6 L, MCV 97.3, MCH 30.4, MCHC 31.2 L, RDW 18.0 H, Plt Count 531 H, MPV 8.9, Neut % (Auto) 72.6, Lymph % (Auto) 18.3, Dougherty % (Auto) 7.5, Eos % (Auto) 0.7, Baso % (Auto) 0.8, Neut # (Auto) 6.4, Lymph # (Auto) 1.6, Dougherty # (Auto) 0.7, Eos # (Auto) 0.1, Baso # (Auto) 0.1 07/07/21 06:30: Sodium 138, Potassium 3.2 L, Chloride 109 H, Carbon Dioxide 26, Anion Gap 6.2, BUN 17, Creatinine 1.60 H, Estimated Creat Clear 26, Estimated GFR 32 L, Est GFR ( Amer) 39 L, Glucose 217 H, Calcium 6.9 L 07/07/21 19:41: POC Glucose 114 H I & O for Last 24 hours: Intake & Output 07/05/21 07/06/21 07/07/21 07/08/21 11:59 11:59 11:59 11:59 Intake Total 1764 / 1764 1091 / 1091 840 / 840 181 / 181 Output Total 5675 / 5675 6050 / 6050 5950 / 5950 300 / 300 Balance -3911 / -3911 -4959 / -4959 -5110 / -5110 -119 / -119 Weight 270 lb 8 oz 255 lb 11.2 oz 245 lb 3.2 oz 254 lb 8 oz - *Routine Abdominal Exam Present: soft, wound Comments: Negative pressure wound therapy dressing in place
[2021-07-08 07:00] LABS: Basophils # 0.1 K/mm3 (0-0.2); Basophils % 0.9 % (0.1-2.0); Chloride 106 mmol/L (98-107); Eosinophils # 0.1 K/mm3 (0.0-0.4); Eosinophils % 1.7 % (0.1-12.0); Hematocrit 30.6 % (37.0-47.0); Hemoglobin 9.7 g/dL (12.2-16.2); Lymphocytes # 1.5 K/mm3 (0.7-4.5); Lymphocytes % 18.5 % (10-50); Mean Corpuscular HGB Conc 31.7 g/dL (31.8-35.4); Mean Corpuscular Volume 97.8 fl (81-99); Mean Platelet Volume 8.9 fl (7.4-10.4); Monocytes # 0.7 K/mm3 (0.1-1.0); Monocytes % 8.1 % (1.7-9.3); Neutrophils # 5.7 K/mm3 (1.8-7.8); Neutrophils % 70.8 % (37.0-80.0); Platelet Count 422 K/mm3 (142-424); Red Blood Count 3.13 M/mm3 (4.20-5.40); Red Cell Distribution Width 17.9 % (11.5-17.5); Sodium 137 mmol/L (136-145)
[2021-07-08 07:03] LABS: Blood Urea Nitrogen 20 mg/dl (7-17); Creatinine Clearance Estimated 24 mL/min (50-200); Estimated Glomerular Filt Rate 30 ml/min (>60); GFR (African American) 36 ML/MIN (>60)
[2021-07-08 07:04] LABS: Anion Gap 7.7 mEq/L (5-15); Calcium 6.9 mg/dl (8.4-10.2); Carbon Dioxide 26 mmol/L (22.0-30.0); Glucose 99 mg/dl (74-100)
[2021-07-08 07:12] LABS: POC Glucose,Bedside 99 (70-110)
--- NOTE | 2021-07-08 07:43 | PC.NURSE ---
No acute changes. Pt has been awake majority of night. No complaints voiced to staff. Mcghee cath and wound vac in place. Call light within reach.
[2021-07-08 07:45] LABS: Potassium 2.7 mmoL/L (3.5-5.1)
--- NOTE | 2021-07-08 08:52 | HMH.ACPN2 ---
Internal Medicine - PN: Subj *Date: 07/08/21 *Time: 08:10 Interval history: pt laying in bed states she is good Exam Vital signs and Labs for Last 24 Hours: Temp Pulse Resp BP Pulse Ox 99.1 F 65 18 134/65 93 L 07/08/21 08:00 07/08/21 08:00 07/08/21 08:00 07/08/21 08:00 07/08/21 08:00 Laboratory Results - last 24 hr 07/07/21 19:41: POC Glucose 114 H 07/08/21 06:43: WBC 8.0, RBC 3.13 L, Hgb 9.7 L, Hct 30.6 L, MCV 97.8, MCH 31.0, MCHC 31.7 L, RDW 17.9 H, Plt Count 422, MPV 8.9, Neut % (Auto) 70.8, Lymph % (Auto) 18.5, Grayson % (Auto) 8.1, Eos % (Auto) 1.7, Baso % (Auto) 0.9, Neut # (Auto) 5.7, Lymph # (Auto) 1.5, Grayson # (Auto) 0.7, Eos # (Auto) 0.1, Baso # (Auto) 0.1 07/08/21 06:43: Sodium 137, Potassium 2.7 L*, Chloride 106, Carbon Dioxide 26, Anion Gap 7.7, BUN 20 H, Creatinine 1.70 H, Estimated Creat Clear 24, Estimated GFR 30 L, Est GFR ( Amer) 36 L, Glucose 99, Calcium 6.9 L 07/08/21 07:05: POC Glucose 99 I & O for Last 24 hours: Intake & Output 07/05/21 07/06/21 07/07/21 07/08/21 11:59 11:59 11:59 11:59 Intake Total 1764 / 1764 1091 / 1091 840 / 840 420 / 420 Output Total 5675 / 5675 6050 / 6050 5950 / 5950 300 / 300 Balance -3911 / -3911 -4959 / -4959 -5110 / -5110 120 / 120 Weight 270 lb 8 oz 255 lb 11.2 oz 245 lb 3.2 oz 254 lb 8 oz - Constitutional no acute distress, obese - *Routine HEENT Exam Head: Present: normocephalic Eye: Present: PERRL ENT: Present: mucous membranes moist - *Routine Neck Exam Present: supple. Absent: lymphadenopathy - *Routine Respiratory Exam Present: CTA bilaterally - *Routine Cardiovascular Exam Present: RRR - *Routine Abdominal Exam Present: soft, normoactive bowel sounds, wound. Absent: tenderness Comments: wound vac in place - *Routine Extremities Exam Absent: cyanosis, clubbing, edema - *Routine Skin Exam Present: warm, wounds. Absent: rash - *Routine Neurological Exam Present: alert, oriented X3 Assessment and Plan (1) Small bowel obstruction Status: Acute Category: Medical Code(s): K56.609 - Unspecified intestinal obstruction, unspecified as to partial versus complete obstruction (2) Abdominal pain Status: Acute Category: Medical Code(s): R10.9 - Unspecified abdominal pain (3) Paroxysmal atrial fibrillation with rapid ventricular response Status: Acute Category: Medical Code(s): I48.0 - Paroxysmal atrial fibrillation (4) Obesity, morbid, BMI 40.0-49.9 Status: Acute Category: Medical Code(s): E66.01 - Morbid (severe) obesity due to excess calories (5) Anemia Status: Acute Category: Medical Code(s): D64.9 - Anemia, unspecified (6) Acute kidney injury Status: Acute Category: Medical Code(s): N17.9 - Acute kidney failure, unspecified (7) Atrial flutter with controlled response Status: Acute Category: Medical Code(s): I48.92 - Unspecified atrial flutter (8) Hyperbilirubinemia Status: Acute Category: Medical Code(s): E80.6 - Other disorders of bilirubin metabolism (9) Respiratory failure Status: Acute Category: Medical Code(s): J96.90 - Respiratory failure, unspecified, unspecified whether with hypoxia or hypercapnia (10) Altered mental status Status: Acute Category: Medical Code(s): R41.82 - Altered mental status, unspecified (11) Diabetes mellitus Status: Acute Category: Medical Code(s): E11.9 - Type 2 diabetes mellitus without complications (12) Hypokalemia Status: Acute Category: Medical Code(s): E87.6 - Hypokalemia (13) Pneumonia due to E. coli Status: Acute Category: Medical Code(s): J15.5 - Pneumonia due to Escherichia coli - Assessment and plan all Dx Assessment and Plan for all problems:: rounded with dr sawyer all orders per dr sawyer low kcl- replace elissa goodwin pt refused mri of head
[2021-07-08 11:49] LABS: POC Glucose,Bedside 119 (70-110)
--- NOTE | 2021-07-08 11:53 | PC.NURSE ---
PT IS SITTING UP IN THE CHAIR. TOLERATED GETTING UP WITH PHYSICAL THERAPY WELL. PT WAS ABLE TO STAND AND TAKE A FEW STEPS TO GET TO THE CHAIR WITH ASSISTANCE. LUNG SOUNDS DIMINISHED. ABDOMEN SOFT/TENDER WITH WOUND VAC NOTED AT THE MIDLINE. PT HAS ON 2 ABDOMINAL BINDERS. PT STILL REQUIRES ASSISTANCE WITH FEEDING. 3+ EDEMA NOTED TO BLE. SPEECH CONTINUES TO BE VERY SOFT SPOKEN. WILL CONTINUE TO MONITOR.
--- NOTE | 2021-07-08 12:01 | HMH.PULMPN ---
Internal Medicine - PN: Subj *Date: 07/08/21 *Time: 12:02 Interval history: No acute respiratory events overnight. Exam - Constitutional Constitutional:: Present: no acute distress, comfortable - HENMT Exam HENMT: Present: normocephalic, atraumatic - Eye Exam Eyes:: Present: normal appearance both eyes and related structures - Neck Exam Neck:: Present: normal visual inspection - Respiratory Exam Respiratory:: Present: able to speak in complete sentences, crackles. Absent: wheezing - Cardiovascular Exam Cardiac:: Present: S1, S2 - GI Exam GI:: Present: soft - Skin Exam Skin: Present: warm, no rash - Neurological Exam Neurological: Present: alert, awake - Extremities Exam Extremities: Present: no cyanosis, no clubbing Assessment and Plan (1) Small bowel obstruction Status: Acute Category: Medical Code(s): K56.609 - Unspecified intestinal obstruction, unspecified as to partial versus complete obstruction (2) Abdominal pain Status: Acute Category: Medical Code(s): R10.9 - Unspecified abdominal pain (3) Paroxysmal atrial fibrillation with rapid ventricular response Status: Acute Category: Medical Code(s): I48.0 - Paroxysmal atrial fibrillation (4) Obesity, morbid, BMI 40.0-49.9 Status: Acute Category: Medical Code(s): E66.01 - Morbid (severe) obesity due to excess calories (5) Anemia Status: Acute Category: Medical Code(s): D64.9 - Anemia, unspecified (6) Acute kidney injury Status: Acute Category: Medical Code(s): N17.9 - Acute kidney failure, unspecified (7) Atrial flutter with controlled response Status: Acute Category: Medical Code(s): I48.92 - Unspecified atrial flutter (8) Hyperbilirubinemia Status: Acute Category: Medical Code(s): E80.6 - Other disorders of bilirubin metabolism (9) Respiratory failure Status: Acute Category: Medical Code(s): J96.90 - Respiratory failure, unspecified, unspecified whether with hypoxia or hypercapnia (10) Altered mental status Status: Acute Category: Medical Code(s): R41.82 - Altered mental status, unspecified (11) Diabetes mellitus Status: Acute Category: Medical Code(s): E11.9 - Type 2 diabetes mellitus without complications (12) Hypokalemia Status: Acute Category: Medical Code(s): E87.6 - Hypokalemia (13) Pneumonia due to E. coli Status: Acute Category: Medical Code(s): J15.5 - Pneumonia due to Escherichia coli - Assessment and plan all Dx Assessment and Plan for all problems:: # Acute on chronic hypoxic respiratory failure: #HAP s/p Rx: Ms. Gongora is a 71-year-old female presented to the hospital on 06/16/2021 complaining of abdominal pain post laparotomy with small bowel resection for obstruction has been doing fairly well up until today where patient noted to have worsening abdominal pain nausea and febrile episodes and was taken to the OR for wound washout with possible reexploration eventually remain on ventilator pulmonary was called for further management. Upon chart review patient respiratory status has been relatively stable since admission needing 2 to 4 L nasal cannula saturations maintained at 90% and above. CTA performed on 06/22/2021 did not show any evidence of dense consolidation. Bilateral lower lobe atelectasis noted. No evidence of pulmonary embolism noted. Home inhalers medications include Flovent discus. Patient respiratory status and mentation gradually improved also eventually extubated over the weekend and has been successfully weaned to room air. Sputum growing E. coli. Completed 7 days of cefepime. She also completed 14 days of vancomycin for her Streptococcus bacteremia. Most recent blood cultures from 06/23/2021. Cardiology also follows patient for her paroxysmal A. fib, flutter s/p cardioversion Patient wound culture growing Aeromonas hydrophilia. Interval update: No acute respiratory vents overnight. Patient continues to room air. Saturation
--- NOTE | 2021-07-08 16:06 | PC.NURSE ---
PT HAS A WOUND VAC WITH A 120 PRESSURE SETTING AT THE MIDLINE OF ABDOMEN THAT NEEDS CHANGED Q72H. DRESSING DUE TO BE CHANGED 07/09.
[2021-07-08 16:27] LABS: POC Glucose,Bedside 101 (70-110)
[2021-07-08 21:24] LABS: POC Glucose,Bedside 102 (70-110)
[2021-07-09 04:00] VITALS: BP 150/58; PULSE 63; RESP 14; TEMP 37.3; O2SAT 93
--- NOTE | 2021-07-09 04:54 | PC.NURSE ---
pt has rested intermittently t/o shift. Pt has had several loose bowel movements. Pt has not c/o pain or SOA. Remains on RA, O2 sats remain 93%. HR has remained 63-64.
[2021-07-09 05:00] VITALS: BMI 43.2
[2021-07-09 05:33] LABS: POC Glucose,Bedside 118 (70-110)
[2021-07-09 06:27] VITALS: PULSE 88
--- NOTE | 2021-07-09 07:08 | HMH.GSPN ---
Subjective Narrative: No new events overnight. Progress Note: A&P (1) Small bowel obstruction Status: Acute (2) Abdominal pain Status: Acute (3) Paroxysmal atrial fibrillation with rapid ventricular response Status: Acute (4) Obesity, morbid, BMI 40.0-49.9 Status: Acute (5) Anemia Status: Acute (6) Acute kidney injury Status: Acute (7) Atrial flutter with controlled response Status: Acute (8) Hyperbilirubinemia Status: Acute (9) Respiratory failure Status: Acute (10) Altered mental status Status: Acute (11) Diabetes mellitus Status: Acute (12) Hypokalemia Status: Acute (13) Pneumonia due to E. coli Status: Acute Assessment and Plan for All Diagnoses:: VAC changed today. Discharge planning in progress Exam Vital signs and Labs for Last 24 Hours: Temp Pulse Resp BP Pulse Ox 99.2 F 88 14 150/58 H 93 L 07/09/21 04:00 07/09/21 06:27 07/09/21 04:00 07/09/21 04:00 07/09/21 04:00 Laboratory Results - last 24 hr 07/08/21 06:43: Potassium 2.7 L*, Carbon Dioxide 26, Anion Gap 7.7, BUN 20 H, Creatinine 1.70 H, Estimated Creat Clear 24, Estimated GFR 30 L, Est GFR ( Amer) 36 L, Glucose 99, Calcium 6.9 L 07/08/21 07:05: POC Glucose 99 07/08/21 11:42: POC Glucose 119 H 07/08/21 16:18: POC Glucose 101 07/08/21 21:09: POC Glucose 102 07/09/21 05:17: POC Glucose 118 H I & O for Last 24 hours: Intake & Output 07/06/21 07/07/21 07/08/21 07/09/21 11:59 11:59 11:59 11:59 Intake Total 1091 / 1091 840 / 840 480 / 480 259 / 259 Output Total 6050 / 6050 5950 / 5950 1900 / 1900 1050 / 1050 Balance -4959 / -4959 -5110 / -5110 -1420 / -1420 -791 / -791 Weight 255 lb 11.2 oz 245 lb 3.2 oz 254 lb 8 oz 243 lb 11.2 oz - *Routine Abdominal Exam Present: soft Comments: NPWT dressing in place
[2021-07-09 07:33] LABS: Basophils # 0.1 K/mm3 (0-0.2); Basophils % 0.7 % (0.1-2.0); Eosinophils # 0.1 K/mm3 (0.0-0.4); Eosinophils % 1.2 % (0.1-12.0); Hematocrit 27.4 % (37.0-47.0); Lymphocytes # 1.8 K/mm3 (0.7-4.5); Lymphocytes % 21.1 % (10-50); Mean Corpuscular HGB Conc 31.5 g/dL (31.8-35.4); Mean Corpuscular Hemoglobin 30.8 pg (27.0-31.2); Mean Corpuscular Volume 97.9 fl (81-99); Mean Platelet Volume 10.8 fl (7.4-10.4); Monocytes # 0.9 K/mm3 (0.1-1.0); Monocytes % 10.2 % (1.7-9.3); Neutrophils # 5.7 K/mm3 (1.8-7.8); Neutrophils % 66.8 % (37.0-80.0); Platelet Count 374 K/mm3 (142-424); Red Cell Distribution Width 17.8 % (11.5-17.5); White Blood Count 8.5 K/mm3 (4.8-10.8)
[2021-07-09 07:38] LABS: Chloride 106 mmol/L (98-107); Sodium 136 mmol/L (136-145)
[2021-07-09 07:39] LABS: Hemoglobin 8.6 g/dL (12.2-16.2)
[2021-07-09 07:41] LABS: Anion Gap 8.9 mEq/L (5-15); Blood Urea Nitrogen 22 mg/dl (7-17); Calcium 6.9 mg/dl (8.4-10.2); Carbon Dioxide 24 mmol/L (22.0-30.0); Creatinine Clearance Estimated 24 mL/min (50-200); Estimated Glomerular Filt Rate 30 ml/min (>60); GFR (African American) 36 ML/MIN (>60); Glucose 101 mg/dl (74-100)
[2021-07-09 08:00] VITALS: BP 164/74; PULSE 63; RESP 18; TEMP 38.2; O2SAT 94
[2021-07-09 08:23] LABS: Potassium 2.9 mmoL/L (3.5-5.1)
--- NOTE | 2021-07-09 08:27 | PC.NURSE ---
critical potassium called verified name and date of . md notified immediately after
--- NOTE | 2021-07-09 11:40 | HMH.GSPN ---
Subjective Narrative: T = 100.8 Progress Note: A&P (1) Small bowel obstruction Status: Acute (2) Abdominal pain Status: Acute (3) Paroxysmal atrial fibrillation with rapid ventricular response Status: Acute (4) Obesity, morbid, BMI 40.0-49.9 Status: Acute (5) Anemia Status: Acute (6) Acute kidney injury Status: Acute (7) Atrial flutter with controlled response Status: Acute (8) Hyperbilirubinemia Status: Acute (9) Respiratory failure Status: Acute (10) Altered mental status Status: Acute (11) Diabetes mellitus Status: Acute (12) Hypokalemia Status: Acute (13) Pneumonia due to E. coli Status: Acute Assessment and Plan for All Diagnoses:: Negative pressure wound therapy dressing changed at the bedside. She will need dressing change every 72 hours. This needs to be done with the Hydrolight white foam cut to size in the base of the wound followed by placement of the taylor foam cut to size. Pressure maintained at 120 mmHg suction. Exam Vital signs and Labs for Last 24 Hours: Temp Pulse Resp BP Pulse Ox 100.8 F H 63 18 164/74 H 94 L 07/09/21 08:00 07/09/21 08:00 07/09/21 08:00 07/09/21 08:00 07/09/21 08:00 Laboratory Results - last 24 hr 07/08/21 11:42: POC Glucose 119 H 07/08/21 16:18: POC Glucose 101 07/08/21 21:09: POC Glucose 102 07/09/21 05:17: POC Glucose 118 H 07/09/21 06:40: WBC 8.5, RBC 2.80 L, Hgb 8.6 L D, Hct 27.4 L, MCV 97.9, MCH 30.8, MCHC 31.5 L, RDW 17.8 H, Plt Count 374, MPV 10.8 H, Neut % (Auto) 66.8, Lymph % (Auto) 21.1, [place] % (Auto) 10.2 H, Eos % (Auto) 1.2, Baso % (Auto) 0.7, Neut # (Auto) 5.7, Lymph # (Auto) 1.8, [place] # (Auto) 0.9, Eos # (Auto) 0.1, Baso # (Auto) 0.1 07/09/21 06:40: Sodium 136, Potassium 2.9 L*, Chloride 106, Carbon Dioxide 24, Anion Gap 8.9, BUN 22 H, Creatinine 1.70 H, Estimated Creat Clear 24, Estimated GFR 30 L, Est GFR ( Amer) 36 L, Glucose 101 H, Calcium 6.9 L I & O for Last 24 hours: Intake & Output 07/06/21 07/07/21 07/08/21 07/09/21 11:59 11:59 11:59 11:59 Intake Total 1091 / 1091 840 / 840 480 / 480 259 / 259 Output Total 6050 / 6050 5950 / 5950 1900 / 1900 1050 / 1050 Balance -4959 / -4959 -5110 / -5110 -1420 / -1420 -791 / -791 Weight 255 lb 11.2 oz 245 lb 3.2 oz 254 lb 8 oz 243 lb 11.2 oz - *Routine Abdominal Exam Present: soft Comments: VAC dressing changed at bedside. Wound has some granulation tissue on the edges. There is some expected fascial necrosis in the base. No definite dehiscence.
--- NOTE | 2021-07-09 11:42 | HMH.ACPN2 ---
Internal Medicine - PN: Subj *Date: 07/09/21 *Time: 20:21 Interval history: 71-year-old female patient resting in bed quietly with eyes open she denies any pain or respiratory distress during the night. Patient still refuses to talk above a whisper with encouragement will have normal voice. She denies painful/sore throat. Discussed with patient she needs to do more for self and the reason, she nods her head yes and whispers I will try more. Exam Vital signs and Labs for Last 24 Hours: Temp Pulse Resp BP Pulse Ox 100.8 F H 63 18 164/74 H 94 L 07/09/21 08:00 07/09/21 08:00 07/09/21 08:00 07/09/21 08:00 07/09/21 08:00 Laboratory Results - last 24 hr 07/08/21 11:42: POC Glucose 119 H 07/08/21 16:18: POC Glucose 101 07/08/21 21:09: POC Glucose 102 07/09/21 05:17: POC Glucose 118 H 07/09/21 06:40: WBC 8.5, RBC 2.80 L, Hgb 8.6 L D, Hct 27.4 L, MCV 97.9, MCH 30.8, MCHC 31.5 L, RDW 17.8 H, Plt Count 374, MPV 10.8 H, Neut % (Auto) 66.8, Lymph % (Auto) 21.1, [place] % (Auto) 10.2 H, Eos % (Auto) 1.2, Baso % (Auto) 0.7, Neut # (Auto) 5.7, Lymph # (Auto) 1.8, [place] # (Auto) 0.9, Eos # (Auto) 0.1, Baso # (Auto) 0.1 07/09/21 06:40: Sodium 136, Potassium 2.9 L*, Chloride 106, Carbon Dioxide 24, Anion Gap 8.9, BUN 22 H, Creatinine 1.70 H, Estimated Creat Clear 24, Estimated GFR 30 L, Est GFR ( Amer) 36 L, Glucose 101 H, Calcium 6.9 L I & O for Last 24 hours: Intake & Output 07/06/21 07/07/21 07/08/21 07/09/21 23:59 23:59 23:59 23:59 Intake Total 1020 / 1020 361 / 361 359 / 359 199 / 199 Output Total 7350 / 7350 1000 / 1300 2350 / 2950 600 / 600 Balance -6330 / -6330 -639 / -939 -1991 / -2591 -401 / -401 Weight 255 lb 11.2 oz 245 lb 3.2 oz 254 lb 8 oz 243 lb 11.2 oz - Constitutional no acute distress, chronically ill appearing - *Routine HEENT Exam Head: Present: normocephalic Eye: Present: EOMI ENT: Present: mucous membranes moist - *Routine Neck Exam Present: trachea midline. Absent: tracheal deviation - *Routine Respiratory Exam Present: CTA bilaterally. Absent: accessory muscle use - *Routine Cardiovascular Exam Present: RRR - *Routine Abdominal Exam Present: soft, normoactive bowel sounds, tenderness, drain. Absent: firm Comments: Wound Vac to Mid-line Abd - *Routine Extremities Exam Present: full ROM, pulses intact. Absent: cyanosis, clubbing - *Routine Skin Exam Present: dry, warm, wounds. Absent: intact, cyanosis, erythema Comments: Wound Vac intact to Mid-Line Abd - *Routine Neurological Exam Present: alert, moving all extremities. Absent: motor deficit - Routine Psychiatric Exam Present: unable to assess Assessment and Plan (1) Small bowel obstruction Status: Acute Category: Medical Code(s): K56.609 - Unspecified intestinal obstruction, unspecified as to partial versus complete obstruction (2) Abdominal pain Status: Acute Category: Medical Code(s): R10.9 - Unspecified abdominal pain (3) Paroxysmal atrial fibrillation with rapid ventricular response Status: Acute Category: Medical Code(s): I48.0 - Paroxysmal atrial fibrillation (4) Obesity, morbid, BMI 40.0-49.9 Status: Acute Category: Medical Code(s): E66.01 - Morbid (severe) obesity due to excess calories (5) Anemia Status: Acute Category: Medical Code(s): D64.9 - Anemia, unspecified (6) Acute kidney injury Status: Acute Category: Medical Code(s): N17.9 - Acute kidney failure, unspecified (7) Atrial flutter with controlled response Status: Acute Category: Medical Code(s): I48.92 - Unspecified atrial flutter (8) Hyperbilirubinemia Status: Acute Category: Medical Code(s): E80.6 - Other disorders of bilirubin metabolism (9) Respiratory failure Status: Acute Category: Medical Code(s): J96.90 - Respiratory failure, unspecified, unspecified whether with hypoxia or hypercapnia (10) Altered mental status Status: Acute Category: Medical Code(s): R
[2021-07-09 11:51] LABS: POC Glucose,Bedside 96 (70-110)
--- NOTE | 2021-07-09 12:06 | HMH.PULMPN ---
Internal Medicine - PN: Subj *Date: 07/09/21 *Time: 12:06 Interval history: No acute respiratory vents overnight. Continues to remain on room air. Exam - Constitutional Constitutional:: Present: no acute distress, comfortable - HENMT Exam HENMT: Present: normocephalic - Eye Exam Eyes:: Present: normal appearance both eyes and related structures - Respiratory Exam Respiratory:: Present: able to speak in complete sentences, no respiratory distress. Absent: wheezing - Cardiovascular Exam Cardiac:: Present: S1, S2 - GI Exam GI:: Present: soft - Skin Exam Skin: Present: warm, no rash - Neurological Exam Neurological: Present: alert, awake - Extremities Exam Extremities: Present: no cyanosis, no clubbing Assessment and Plan (1) Small bowel obstruction Status: Acute Category: Medical Code(s): K56.609 - Unspecified intestinal obstruction, unspecified as to partial versus complete obstruction (2) Abdominal pain Status: Acute Category: Medical Code(s): R10.9 - Unspecified abdominal pain (3) Paroxysmal atrial fibrillation with rapid ventricular response Status: Acute Category: Medical Code(s): I48.0 - Paroxysmal atrial fibrillation (4) Obesity, morbid, BMI 40.0-49.9 Status: Acute Category: Medical Code(s): E66.01 - Morbid (severe) obesity due to excess calories (5) Anemia Status: Acute Category: Medical Code(s): D64.9 - Anemia, unspecified (6) Acute kidney injury Status: Acute Category: Medical Code(s): N17.9 - Acute kidney failure, unspecified (7) Atrial flutter with controlled response Status: Acute Category: Medical Code(s): I48.92 - Unspecified atrial flutter (8) Hyperbilirubinemia Status: Acute Category: Medical Code(s): E80.6 - Other disorders of bilirubin metabolism (9) Respiratory failure Status: Acute Category: Medical Code(s): J96.90 - Respiratory failure, unspecified, unspecified whether with hypoxia or hypercapnia (10) Altered mental status Status: Acute Category: Medical Code(s): R41.82 - Altered mental status, unspecified (11) Diabetes mellitus Status: Acute Category: Medical Code(s): E11.9 - Type 2 diabetes mellitus without complications (12) Hypokalemia Status: Acute Category: Medical Code(s): E87.6 - Hypokalemia (13) Pneumonia due to E. coli Status: Acute Category: Medical Code(s): J15.5 - Pneumonia due to Escherichia coli - Assessment and plan all Dx Assessment and Plan for all problems:: # Acute on chronic hypoxic respiratory failure: #HAP s/p Rx: Ms. Gongora is a 71-year-old female presented to the hospital on 06/16/2021 complaining of abdominal pain post laparotomy with small bowel resection for obstruction has been doing fairly well up until today where patient noted to have worsening abdominal pain nausea and febrile episodes and was taken to the OR for wound washout with possible reexploration eventually remain on ventilator pulmonary was called for further management. Upon chart review patient respiratory status has been relatively stable since admission needing 2 to 4 L nasal cannula saturations maintained at 90% and above. CTA performed on 06/22/2021 did not show any evidence of dense consolidation. Bilateral lower lobe atelectasis noted. No evidence of pulmonary embolism noted. Home inhalers medications include Flovent discus. Patient respiratory status and mentation gradually improved also eventually extubated over the weekend and has been successfully weaned to room air. Sputum growing E. coli. Completed 7 days of cefepime. She also completed 14 days of vancomycin for her Streptococcus bacteremia. Most recent blood cultures from 06/23/2021. Cardiology also follows patient for her paroxysmal A. fib, flutter s/p cardioversion Patient wound culture growing Aeromonas hydrophilia. Interval update: No acute respiratory vents overnight. Patient continues to room air. Plan: Continue Combivent cristina
--- NOTE | 2021-07-09 13:07 | PC.NURSE ---
PT IS RESTING IN BED. NO COMPLAINTS OF DISCOMFORT. PT NEEDS CONSTANT ENCOURAGEMENT TO ATTEMPT FEEDING SELF. PT HAS BEEN TURNED AND REPOSITIONED FROM SIDE TO SIDE IN BED. PT HAS REDNESS/SHEARING NOTED TO THE BUTTOCKS. DRESSING APPLIED. PURWICK IN PLACE. PT HAS BEEN INCONTINENT OF BOWEL. WOUND VAC DRESSING CHANGED THIS SHIFT. PITTING EDEMA NOTED TO BUE/BLE. LUNG SOUNDS DIMINISHED. WILL CONTINUE TO MONITOR.
[2021-07-09 15:48] VITALS: BP 171/71; PULSE 61; RESP 18; TEMP 36.9; O2SAT 97
[2021-07-09 15:52] LABS: POC Glucose,Bedside 99 (70-110)
--- NOTE | 2021-07-09 16:20 | PC.WOUNDNOTE ---
REDNESS/SHEARING NOTED TO THE LEFT BUTTOCKS
[2021-07-09 19:54] VITALS: PULSE 85; PULSE 86
[2021-07-09 20:48] VITALS: BP 149/59; PULSE 61; RESP 18; TEMP 37.8; O2SAT 94
[2021-07-10] VITALS (7 sets, daily range): BP systolic 147–170; BP diastolic 44–77; PULSE 63–70; RESP 14–18; TEMP 37.3–37.6; O2SAT 93–99; BMI 42.3
[2021-07-10 07:09] LABS: Basophils # 0.1 K/mm3 (0-0.2); Basophils % 0.8 % (0.1-2.0); Eosinophils # 0.1 K/mm3 (0.0-0.4); Eosinophils % 0.9 % (0.1-12.0); Hematocrit 26.9 % (37.0-47.0); Hemoglobin 8.3 g/dL (12.2-16.2); Lymphocytes # 1.9 K/mm3 (0.7-4.5); Lymphocytes % 25.4 % (10-50); Mean Corpuscular HGB Conc 30.8 g/dL (31.8-35.4); Mean Corpuscular Volume 97.3 fl (81-99); Mean Platelet Volume 9.2 fl (7.4-10.4); Monocytes # 0.7 K/mm3 (0.1-1.0); Monocytes % 9.5 % (1.7-9.3); Neutrophils # 4.8 K/mm3 (1.8-7.8); Neutrophils % 63.4 % (37.0-80.0); Platelet Count 346 K/mm3 (142-424); Red Blood Count 2.76 M/mm3 (4.20-5.40); Red Cell Distribution Width 17.7 % (11.5-17.5); White Blood Count 7.6 K/mm3 (4.8-10.8)
[2021-07-10 07:11] LABS: Chloride 108 mmol/L (98-107); Sodium 137 mmol/L (136-145)
[2021-07-10 07:12] LABS: Potassium 3.2 mmoL/L (3.5-5.1)
[2021-07-10 07:14] LABS: Blood Urea Nitrogen 21 mg/dl (7-17); Creatinine Clearance Estimated 24 mL/min (50-200); Estimated Glomerular Filt Rate 30 ml/min (>60); GFR (African American) 36 ML/MIN (>60)
[2021-07-10 07:15] LABS: Anion Gap 9.2 mEq/L (5-15); Calcium 7.1 mg/dl (8.4-10.2); Carbon Dioxide 23 mmol/L (22.0-30.0); Glucose 96 mg/dl (74-100)
--- NOTE | 2021-07-10 09:20 | DIET.NUTRFU ---
Patient planning to discharge to [facility] when ready, she was able to fed self yesterday slowly. Still had poor intake. When interviewed yesterday she indicated she likes the shakes she is ordered ensure with lunch and dinner until her meal intake can better meet needs. Hydration labs almost stabilized. Wt continues to fluctuate CBW is 110kg, diuretic tx continues and potassium/dextrose in place to help meet hydration/Kcl needs. Remeron was started yesterday, may help to improve appetite. Will ana to follow meal intake and discharge plan
--- NOTE | 2021-07-10 09:30 | HMH.DCSUM ---
General - General Admission date:: 06/17/21 Discharge date: 07/13/21 HPI HPI: 71-year-old female presented to ed with c/o of abd pain. She had been admitted to the hospital on 06/03/2021 until 06/05/2021 with findings of partial small bowel obstruction. At that time it was managed nonoperatively. She had previously undergone apparent laparoscopic umbilical hernia repair about 2 years ago in [facility]. Patinet states the symptoms returned a few days ago and worsened woth nausea and vomiting. CT scan shows findings of persistent incarcerated umbilical hernia with worsening proximal small bowel obstruction associated with second transition point proximally, consistent with closed-loop obstruction. Patient was admitted and surgery consult placed. Hospital Course Hospital Course: Abnormal Lab Results 07/10/21 06:55: RBC 2.76 L, Hgb 8.3 L, Hct 26.9 L, MCHC 30.8 L, RDW 17.7 H, Reynolds % (Auto) 9.5 H 07/10/21 06:55: Potassium 3.2 L, Chloride 108 H, BUN 21 H, Creatinine 1.70 H, Estimated GFR 30 L, Est GFR ( Amer) 36 L, Calcium 7.1 L Microbiology 06/23/21 10:45 Abdomen - Final 06/23/21 10:45 Abdomen - Final 06/16/21 22:58 Blood Blood Culture - Final Streptococcus salivarius 06/23/21 15:25 Blood Blood Culture - Final NO GROWTH AFTER 5 DAYS 06/23/21 15:25 Blood Blood Culture - Final NO GROWTH AFTER 5 DAYS 06/23/21 10:45 Abdomen Gram Stain - Final 06/23/21 10:45 Abdomen Wound Culture - Final Aeromonas hydrophila 06/23/21 13:13 Sputum - Endotracheal Tube Aspirate Gram Stain - Final 06/23/21 13:13 Sputum - Endotracheal Tube Aspirate Sputum Culture - Final Escherichia coli 06/16/21 22:58 Blood Blood Culture - Final Dermacoccus francyensis - pulm consult: Assessment and plan all Dx Assessment and Plan for all problems:: # Acute on chronic hypoxic respiratory failure: #HAP s/p Rx: Ms. Gongora is a 71-year-old female presented to the hospital on 06/16/2021 complaining of abdominal pain post laparotomy with small bowel resection for obstruction has been doing fairly well up until today where patient noted to have worsening abdominal pain nausea and febrile episodes and was taken to the OR for wound washout with possible reexploration eventually remain on ventilator pulmonary was called for further management. Upon chart review patient respiratory status has been relatively stable since admission needing 2 to 4 L nasal cannula saturations maintained at 90% and above. CTA performed on 06/22/2021 did not show any evidence of dense consolidation. Bilateral lower lobe atelectasis noted. No evidence of pulmonary embolism noted. Home inhalers medications include Flovent discus. Patient respiratory status and mentation gradually improved also eventually extubated over the weekend and has been successfully weaned to room air. Sputum growing E. coli. Completed 7 days of cefepime. She also completed 14 days of vancomycin for her Streptococcus bacteremia. Most recent blood cultures from 06/23/2021. Cardiology also follows patient for her paroxysmal A. fib, flutter s/p cardioversion Patient wound culture growing Aeromonas hydrophilia. Interval update: No acute respiratory vents overnight. Patient continues to room air. Plan: Continue Combivent every 6 hours scheduled along with DuoNebs on as-needed basis. Recommend to , Continue incentive spirometry. Recommend at negative volume status Please schedule a 4 to 6-week follow-up appointment with pulmonary clinic upon discharge. surgery consult:Comments: VAC dressing changed at bedside. Wound has some granulation tissue on the edges. There is some expected fascial necrosis in the base. No definite dehiscence. cardiology consult: Assessment and Plan for All Diagnoses::
[2021-07-10 11:56] LABS: POC Glucose,Bedside 98 (70-110)
--- NOTE | 2021-07-10 15:44 | HMH.ACPN2 ---
Internal Medicine - PN: Subj *Date: 07/10/21 *Time: 08:10 Interval history: pt laying in bed Exam Vital signs and Labs for Last 24 Hours: Temp Pulse Resp BP Pulse Ox 99.2 F 63 14 170/61 H 94 L 07/10/21 08:00 07/10/21 08:00 07/10/21 08:00 07/10/21 08:00 07/10/21 10:08 Laboratory Results - last 24 hr 07/09/21 15:36: POC Glucose 99 07/10/21 06:55: WBC 7.6, RBC 2.76 L, Hgb 8.3 L, Hct 26.9 L, MCV 97.3, MCH 30.0, MCHC 30.8 L, RDW 17.7 H, Plt Count 346, MPV 9.2, Neut % (Auto) 63.4, Lymph % (Auto) 25.4, [place] % (Auto) 9.5 H, Eos % (Auto) 0.9, Baso % (Auto) 0.8, Neut # (Auto) 4.8, Lymph # (Auto) 1.9, [place] # (Auto) 0.7, Eos # (Auto) 0.1, Baso # (Auto) 0.1 07/10/21 06:55: Sodium 137, Potassium 3.2 L, Chloride 108 H, Carbon Dioxide 23, Anion Gap 9.2, BUN 21 H, Creatinine 1.70 H, Estimated Creat Clear 24, Estimated GFR 30 L, Est GFR ( Amer) 36 L, Glucose 96, Calcium 7.1 L 07/10/21 11:48: POC Glucose 98 I & O for Last 24 hours: Intake & Output 07/08/21 07/09/21 07/10/21 07/11/21 11:59 11:59 11:59 11:59 Intake Total 480 / 480 319 / 319 479 / 479 Output Total 1900 / 1900 1050 / 1050 1150 / 1150 Balance -1420 / -1420 -731 / -731 -671 / -671 Weight 254 lb 8 oz 243 lb 11.2 oz 238 lb 12.8 oz - Constitutional no acute distress - *Routine HEENT Exam Head: Present: normocephalic Eye: Present: PERRL ENT: Present: mucous membranes moist - *Routine Neck Exam Present: supple. Absent: lymphadenopathy - *Routine Respiratory Exam Present: CTA bilaterally - *Routine Cardiovascular Exam Present: RRR - *Routine Abdominal Exam Present: soft, normoactive bowel sounds, wound. Absent: tenderness Comments: wound vac in place - *Routine Extremities Exam Absent: cyanosis, clubbing, edema - *Routine Skin Exam Present: warm, wounds. Absent: rash - *Routine Neurological Exam Present: alert, oriented X3 Assessment and Plan (1) Small bowel obstruction Status: Acute Category: Medical Code(s): K56.609 - Unspecified intestinal obstruction, unspecified as to partial versus complete obstruction (2) Abdominal pain Status: Acute Category: Medical Code(s): R10.9 - Unspecified abdominal pain (3) Paroxysmal atrial fibrillation with rapid ventricular response Status: Acute Category: Medical Code(s): I48.0 - Paroxysmal atrial fibrillation (4) Obesity, morbid, BMI 40.0-49.9 Status: Acute Category: Medical Code(s): E66.01 - Morbid (severe) obesity due to excess calories (5) Anemia Status: Acute Category: Medical Code(s): D64.9 - Anemia, unspecified (6) Acute kidney injury Status: Acute Category: Medical Code(s): N17.9 - Acute kidney failure, unspecified (7) Atrial flutter with controlled response Status: Acute Category: Medical Code(s): I48.92 - Unspecified atrial flutter (8) Hyperbilirubinemia Status: Acute Category: Medical Code(s): E80.6 - Other disorders of bilirubin metabolism (9) Respiratory failure Status: Acute Category: Medical Code(s): J96.90 - Respiratory failure, unspecified, unspecified whether with hypoxia or hypercapnia (10) Altered mental status Status: Acute Category: Medical Code(s): R41.82 - Altered mental status, unspecified (11) Diabetes mellitus Status: Acute Category: Medical Code(s): E11.9 - Type 2 diabetes mellitus without complications (12) Hypokalemia Status: Acute Category: Medical Code(s): E87.6 - Hypokalemia (13) Pneumonia due to E. coli Status: Acute Category: Medical Code(s): J15.5 - Pneumonia due to Escherichia coli - Assessment and plan all Dx Assessment and Plan for all problems:: rounded with dr sunshine all orders per dr sawyer waiting on ins approval for [facility]
[2021-07-10 16:23] LABS: POC Glucose,Bedside 96 (70-110)
[2021-07-10 21:24] LABS: POC Glucose,Bedside 86 (70-110)
[2021-07-11] VITALS (8 sets, daily range): BP systolic 127–161; BP diastolic 58–67; PULSE 60–66; RESP 15–18; TEMP 37.1–37.8; O2SAT 92–98; BMI 42.4
[2021-07-11 06:06] LABS: POC Glucose,Bedside 111 (70-110)
[2021-07-11 06:11] LABS: Basophils # 0.1 K/mm3 (0-0.2); Basophils % 1.6 % (0.1-2.0); Eosinophils # 0.1 K/mm3 (0.0-0.4); Eosinophils % 1.4 % (0.1-12.0); Hemoglobin 8.4 g/dL (12.2-16.2); Lymphocytes # 2.1 K/mm3 (0.7-4.5); Lymphocytes % 24.9 % (10-50); Mean Corpuscular HGB Conc 31.2 g/dL (31.8-35.4); Mean Corpuscular Volume 96.3 fl (81-99); Mean Platelet Volume 8.8 fl (7.4-10.4); Monocytes # 0.6 K/mm3 (0.1-1.0); Monocytes % 7.6 % (1.7-9.3); Neutrophils # 5.3 K/mm3 (1.8-7.8); Neutrophils % 64.5 % (37.0-80.0); Platelet Count 352 K/mm3 (142-424); Red Cell Distribution Width 17.5 % (11.5-17.5); White Blood Count 8.2 K/mm3 (4.8-10.8)
[2021-07-11 06:16] LABS: Chloride 107 mmol/L (98-107); Sodium 135 mmol/L (136-145)
[2021-07-11 06:17] LABS: Potassium 3.2 mmoL/L (3.5-5.1)
[2021-07-11 06:19] LABS: Blood Urea Nitrogen 20 mg/dl (7-17); Creatinine Clearance Estimated 28 mL/min (50-200); Estimated Glomerular Filt Rate 34 ml/min (>60); GFR (African American) 42 ML/MIN (>60)
[2021-07-11 06:20] LABS: Anion Gap 8.2 mEq/L (5-15); Calcium 7.2 mg/dl (8.4-10.2); Carbon Dioxide 23 mmol/L (22.0-30.0); Glucose 93 mg/dl (74-100)
--- NOTE | 2021-07-11 06:30 | P.PN_ITS ---
Subjective Patient reports: no new complaints Progress Note: A&P (1) Small bowel obstruction Status: Acute (2) Abdominal pain Status: Acute (3) Paroxysmal atrial fibrillation with rapid ventricular response Status: Acute (4) Obesity, morbid, BMI 40.0-49.9 Status: Acute (5) Anemia Status: Acute (6) Acute kidney injury Status: Acute (7) Atrial flutter with controlled response Status: Acute (8) Hyperbilirubinemia Status: Acute (9) Respiratory failure Status: Acute (10) Altered mental status Status: Acute (11) Diabetes mellitus Status: Acute (12) Hypokalemia Status: Acute (13) Pneumonia due to E. coli Status: Acute Assessment and Plan for All Diagnoses:: Will need NPWT dressing change tomorrow. Exam Vital signs and Labs for Last 24 Hours: Temp Pulse Resp BP Pulse Ox 99.1 F 63 15 146/58 H 93 L 07/11/21 04:00 07/11/21 06:16 07/11/21 04:00 07/11/21 04:00 07/11/21 06:16 Laboratory Results - last 24 hr 07/10/21 06:55: WBC 7.6, RBC 2.76 L, Hgb 8.3 L, Hct 26.9 L, MCV 97.3, MCH 30.0, MCHC 30.8 L, RDW 17.7 H, Plt Count 346, MPV 9.2, Neut % (Auto) 63.4, Lymph % (Auto) 25.4, [place] % (Auto) 9.5 H, Eos % (Auto) 0.9, Baso % (Auto) 0.8, Neut # (Auto) 4.8, Lymph # (Auto) 1.9, [place] # (Auto) 0.7, Eos # (Auto) 0.1, Baso # (Auto) 0.1 07/10/21 06:55: Sodium 137, Potassium 3.2 L, Chloride 108 H, Carbon Dioxide 23, Anion Gap 9.2, BUN 21 H, Creatinine 1.70 H, Estimated Creat Clear 24, Estimated GFR 30 L, Est GFR ( Amer) 36 L, Glucose 96, Calcium 7.1 L 07/10/21 11:48: POC Glucose 98 07/10/21 16:09: POC Glucose 96 07/10/21 21:08: POC Glucose 86 07/11/21 05:58: POC Glucose 111 H 07/11/21 06:01: WBC 8.2, RBC 2.80 L, Hgb 8.4 L, Hct 27.0 L, MCV 96.3, MCH 30.0, MCHC 31.2 L, RDW 17.5, Plt Count 352, MPV 8.8, Neut % (Auto) 64.5, Lymph % (Auto) 24.9, [place] % (Auto) 7.6, Eos % (Auto) 1.4, Baso % (Auto) 1.6, Neut # (Auto) 5.3, Lymph # (Auto) 2.1, [place] # (Auto) 0.6, Eos # (Auto) 0.1, Baso # (Auto) 0.1 07/11/21 06:01: Sodium 135 L, Potassium 3.2 L, Chloride 107, Carbon Dioxide 23, Anion Gap 8.2, BUN 20 H, Creatinine 1.50 H, Estimated Creat Clear 28, Estimated GFR 34 L, Est GFR ( Amer) 42 L, Glucose 93, Calcium 7.2 L I & O for Last 24 hours: Intake & Output 07/08/21 07/09/21 07/10/21 07/11/21 11:59 11:59 11:59 11:59 Intake Total 480 / 480 319 / 319 539 / 539 542 / 542 Output Total 1900 / 1900 1050 / 1050 1150 / 1150 700 / 700 Balance -1420 / -1420 -731 / -731 -611 / -611 -158 / -158 Weight 254 lb 8 oz 243 lb 11.2 oz 238 lb 12.8 oz 239 lb 4.8 oz - Constitutional no acute distress Comments: Sleeping comfortably.
--- NOTE | 2021-07-11 10:00 | HMH.ACPN2 ---
Internal Medicine - PN: Subj *Date: 07/12/21 *Time: 01:48 Interval history: doing better - more alert Exam Vital signs and Labs for Last 24 Hours: Temp Pulse Resp BP Pulse Ox 100.0 F H 65 18 161/67 H 95 07/11/21 08:00 07/11/21 08:00 07/11/21 08:00 07/11/21 08:00 07/11/21 08:00 Laboratory Results - last 24 hr 07/10/21 11:48: POC Glucose 98 07/10/21 16:09: POC Glucose 96 07/10/21 21:08: POC Glucose 86 07/11/21 05:58: POC Glucose 111 H 07/11/21 06:01: WBC 8.2, RBC 2.80 L, Hgb 8.4 L, Hct 27.0 L, MCV 96.3, MCH 30.0, MCHC 31.2 L, RDW 17.5, Plt Count 352, MPV 8.8, Neut % (Auto) 64.5, Lymph % (Auto) 24.9, [place] % (Auto) 7.6, Eos % (Auto) 1.4, Baso % (Auto) 1.6, Neut # (Auto) 5.3, Lymph # (Auto) 2.1, [place] # (Auto) 0.6, Eos # (Auto) 0.1, Baso # (Auto) 0.1 07/11/21 06:01: Sodium 135 L, Potassium 3.2 L, Chloride 107, Carbon Dioxide 23, Anion Gap 8.2, BUN 20 H, Creatinine 1.50 H, Estimated Creat Clear 28, Estimated GFR 34 L, Est GFR ( Amer) 42 L, Glucose 93, Calcium 7.2 L I & O for Last 24 hours: Intake & Output 07/08/21 07/09/21 07/10/21 07/11/21 11:59 11:59 11:59 11:59 Intake Total 480 / 480 319 / 319 539 / 539 602 / 602 Output Total 1900 / 1900 1050 / 1050 1150 / 1150 700 / 700 Balance -1420 / -1420 -731 / -731 -611 / -611 -98 / -98 Weight 254 lb 8 oz 243 lb 11.2 oz 238 lb 12.8 oz 239 lb 4.8 oz - Constitutional no acute distress - *Routine HEENT Exam Head: Present: normocephalic Eye: Present: EOMI, PERRL ENT: Present: mucous membranes dry - *Routine Neck Exam Absent: JVD - *Routine Respiratory Exam Present: decreased breath sounds - *Routine Cardiovascular Exam Present: RRR, murmur - *Routine Abdominal Exam Present: soft, drain - *Routine Extremities Exam Present: edema - *Routine Skin Exam Absent: erythema - *Routine Neurological Exam Present: alert, CN II-XII intact - Routine Psychiatric Exam Present: normal affect Assessment and Plan (1) Small bowel obstruction Status: Acute Category: Medical Code(s): K56.609 - Unspecified intestinal obstruction, unspecified as to partial versus complete obstruction (2) Abdominal pain Status: Acute Category: Medical Code(s): R10.9 - Unspecified abdominal pain (3) Paroxysmal atrial fibrillation with rapid ventricular response Status: Acute Category: Medical Code(s): I48.0 - Paroxysmal atrial fibrillation (4) Obesity, morbid, BMI 40.0-49.9 Status: Acute Category: Medical Code(s): E66.01 - Morbid (severe) obesity due to excess calories (5) Anemia Status: Acute Category: Medical Code(s): D64.9 - Anemia, unspecified (6) Acute kidney injury Status: Acute Category: Medical Code(s): N17.9 - Acute kidney failure, unspecified (7) Atrial flutter with controlled response Status: Acute Category: Medical Code(s): I48.92 - Unspecified atrial flutter (8) Hyperbilirubinemia Status: Acute Category: Medical Code(s): E80.6 - Other disorders of bilirubin metabolism (9) Respiratory failure Status: Acute Category: Medical Code(s): J96.90 - Respiratory failure, unspecified, unspecified whether with hypoxia or hypercapnia (10) Altered mental status Status: Acute Category: Medical Code(s): R41.82 - Altered mental status, unspecified (11) Diabetes mellitus Status: Acute Category: Medical Code(s): E11.9 - Type 2 diabetes mellitus without complications (12) Hypokalemia Status: Acute Category: Medical Code(s): E87.6 - Hypokalemia (13) Pneumonia due to E. coli Status: Acute Category: Medical Code(s): J15.5 - Pneumonia due to Escherichia coli
[2021-07-11 12:05] LABS: POC Glucose,Bedside 111 (70-110)
--- NOTE | 2021-07-11 14:40 | PC.NURSE ---
PT HAS RESTED IN BED THIS SHIFT. INCONTINENT OF BOWEL AND BLADDER WITH PUREWICK IN PLACE. SHE CONTINUES TO HAVE DIARRHEA. REPOSITIONED Q2 HOURS.
[2021-07-11 21:31] LABS: POC Glucose,Bedside 91 (70-110)
[2021-07-11 21:31] LABS: POC Glucose,Bedside 106 (70-110)
[2021-07-12] VITALS (7 sets, daily range): BP systolic 130–164; BP diastolic 56–75; PULSE 60–89; RESP 17–20; TEMP 36.6–37.8; O2SAT 91–97; BMI 41.6
[2021-07-12 06:31] LABS: POC Glucose,Bedside 114 (70-110)
[2021-07-12 06:36] LABS: Basophils # 0.1 K/mm3 (0-0.2); Basophils % 1.1 % (0.1-2.0); Eosinophils # 0.2 K/mm3 (0.0-0.4); Eosinophils % 2.2 % (0.1-12.0); Hemoglobin 8.7 g/dL (12.2-16.2); Lymphocytes # 1.9 K/mm3 (0.7-4.5); Lymphocytes % 21.6 % (10-50); Mean Corpuscular HGB Conc 31.7 g/dL (31.8-35.4); Mean Corpuscular Hemoglobin 30.5 pg (27.0-31.2); Mean Platelet Volume 8.8 fl (7.4-10.4); Monocytes # 0.5 K/mm3 (0.1-1.0); Monocytes % 5.8 % (1.7-9.3); Neutrophils # 6.2 K/mm3 (1.8-7.8); Neutrophils % 69.3 % (37.0-80.0); Platelet Count 335 K/mm3 (142-424); Red Blood Count 2.84 M/mm3 (4.20-5.40); Red Cell Distribution Width 17.5 % (11.5-17.5)
[2021-07-12 06:37] LABS: Hematocrit 27.3 % (37.0-47.0)
[2021-07-12 06:47] LABS: Chloride 108 mmol/L (98-107); Sodium 137 mmol/L (136-145)
[2021-07-12 06:48] LABS: Potassium 3.4 mmoL/L (3.5-5.1)
[2021-07-12 06:50] LABS: Blood Urea Nitrogen 21 mg/dl (7-17); Creatinine Clearance Estimated 26 mL/min (50-200); Estimated Glomerular Filt Rate 32 ml/min (>60); GFR (African American) 39 ML/MIN (>60)
[2021-07-12 06:51] LABS: Anion Gap 11.4 mEq/L (5-15); Calcium 7.4 mg/dl (8.4-10.2); Carbon Dioxide 21 mmol/L (22.0-30.0); Glucose 107 mg/dl (74-100)
--- NOTE | 2021-07-12 10:13 | HMH.GSPN ---
Subjective Narrative: No new issues Progress Note: A&P (1) Small bowel obstruction Status: Acute (2) Abdominal pain Status: Acute (3) Paroxysmal atrial fibrillation with rapid ventricular response Status: Acute (4) Obesity, morbid, BMI 40.0-49.9 Status: Acute (5) Anemia Status: Acute (6) Acute kidney injury Status: Acute (7) Atrial flutter with controlled response Status: Acute (8) Hyperbilirubinemia Status: Acute (9) Respiratory failure Status: Acute (10) Altered mental status Status: Acute (11) Diabetes mellitus Status: Acute (12) Hypokalemia Status: Acute (13) Pneumonia due to E. coli Status: Acute Assessment and Plan for All Diagnoses:: Negative pressure wound therapy dressing changed at the bedside. 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 Wound measures approximately 8.5 cm wide and 16.5 cm in length Exam Vital signs and Labs for Last 24 Hours: Temp Pulse Resp BP Pulse Ox 97.8 F 60 18 144/71 H 97 07/12/21 08:00 07/12/21 08:00 07/12/21 08:00 07/12/21 08:00 07/12/21 08:00 Laboratory Results - last 24 hr 07/11/21 11:38: POC Glucose 111 H 07/11/21 15:54: POC Glucose 106 07/11/21 21:13: POC Glucose 91 07/12/21 06:22: POC Glucose 114 H 07/12/21 06:25: WBC 9.0, RBC 2.84 L, Hgb 8.7 L, Hct 27.3 L, MCV 96.0, MCH 30.5, MCHC 31.7 L, RDW 17.5, Plt Count 335, MPV 8.8, Neut % (Auto) 69.3, Lymph % (Auto) 21.6, [place] % (Auto) 5.8, Eos % (Auto) 2.2, Baso % (Auto) 1.1, Neut # (Auto) 6.2, Lymph # (Auto) 1.9, [place] # (Auto) 0.5, Eos # (Auto) 0.2, Baso # (Auto) 0.1 07/12/21 06:25: Sodium 137, Potassium 3.4 L, Chloride 108 H, Carbon Dioxide 21 L, Anion Gap 11.4, BUN 21 H, Creatinine 1.60 H, Estimated Creat Clear 26, Estimated GFR 32 L, Est GFR ( Amer) 39 L, Glucose 107 H, Calcium 7.4 L I & O for Last 24 hours: Intake & Output 07/09/21 07/10/21 07/11/21 07/12/21 11:59 11:59 11:59 11:59 Intake Total 319 / 319 539 / 539 662 / 662 660 / 660 Output Total 1050 / 1050 1150 / 1150 700 / 700 1475 / 1475 Balance -731 / -731 -611 / -611 -38 / -38 -815 / -815 Weight 243 lb 11.2 oz 238 lb 12.8 oz 239 lb 4.8 oz 235 lb 1.6 oz - *Routine Abdominal Exam Comments: Wound edges clean. 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 No obvious dehiscence.
--- NOTE | 2021-07-12 10:52 | PC.NURSE ---
wound vac dressing changed this am during rounds with dr kim
--- NOTE | 2021-07-12 11:03 | HMH.ACPN2 ---
Internal Medicine - PN: Subj *Date: 07/13/21 *Time: 06:51 Interval history: pt with no specific c/o this am - vital signs stable Exam Vital signs and Labs for Last 24 Hours: Temp Pulse Resp BP Pulse Ox 97.8 F 60 18 144/71 H 97 07/12/21 08:00 07/12/21 08:00 07/12/21 08:00 07/12/21 08:00 07/12/21 08:00 Laboratory Results - last 24 hr 07/11/21 11:38: POC Glucose 111 H 07/11/21 15:54: POC Glucose 106 07/11/21 21:13: POC Glucose 91 07/12/21 06:22: POC Glucose 114 H 07/12/21 06:25: WBC 9.0, RBC 2.84 L, Hgb 8.7 L, Hct 27.3 L, MCV 96.0, MCH 30.5, MCHC 31.7 L, RDW 17.5, Plt Count 335, MPV 8.8, Neut % (Auto) 69.3, Lymph % (Auto) 21.6, [place] % (Auto) 5.8, Eos % (Auto) 2.2, Baso % (Auto) 1.1, Neut # (Auto) 6.2, Lymph # (Auto) 1.9, [place] # (Auto) 0.5, Eos # (Auto) 0.2, Baso # (Auto) 0.1 07/12/21 06:25: Sodium 137, Potassium 3.4 L, Chloride 108 H, Carbon Dioxide 21 L, Anion Gap 11.4, BUN 21 H, Creatinine 1.60 H, Estimated Creat Clear 26, Estimated GFR 32 L, Est GFR ( Amer) 39 L, Glucose 107 H, Calcium 7.4 L I & O for Last 24 hours: Intake & Output 07/09/21 07/10/21 07/11/21 07/12/21 11:59 11:59 11:59 11:59 Intake Total 319 / 319 539 / 539 662 / 662 660 / 660 Output Total 1050 / 1050 1150 / 1150 700 / 700 1475 / 1475 Balance -731 / -731 -611 / -611 -38 / -38 -815 / -815 Weight 243 lb 11.2 oz 238 lb 12.8 oz 239 lb 4.8 oz 235 lb 1.6 oz - Constitutional no acute distress - *Routine HEENT Exam Head: Present: normocephalic Eye: Present: EOMI, PERRL ENT: Present: mucous membranes dry - *Routine Neck Exam Absent: JVD - *Routine Respiratory Exam Present: decreased breath sounds - *Routine Cardiovascular Exam Present: RRR, murmur - *Routine Abdominal Exam Present: soft - *Routine Extremities Exam Absent: calf tenderness - *Routine Skin Exam Absent: jaundice - *Routine Neurological Exam Present: alert, CN II-XII intact - Routine Psychiatric Exam Present: cooperative Assessment and Plan (1) Small bowel obstruction Status: Acute Category: Medical Code(s): K56.609 - Unspecified intestinal obstruction, unspecified as to partial versus complete obstruction (2) Abdominal pain Status: Acute Category: Medical Code(s): R10.9 - Unspecified abdominal pain (3) Paroxysmal atrial fibrillation with rapid ventricular response Status: Acute Category: Medical Code(s): I48.0 - Paroxysmal atrial fibrillation (4) Obesity, morbid, BMI 40.0-49.9 Status: Acute Category: Medical Code(s): E66.01 - Morbid (severe) obesity due to excess calories (5) Anemia Status: Acute Category: Medical Code(s): D64.9 - Anemia, unspecified (6) Acute kidney injury Status: Acute Category: Medical Code(s): N17.9 - Acute kidney failure, unspecified (7) Atrial flutter with controlled response Status: Acute Category: Medical Code(s): I48.92 - Unspecified atrial flutter (8) Hyperbilirubinemia Status: Acute Category: Medical Code(s): E80.6 - Other disorders of bilirubin metabolism (9) Respiratory failure Status: Acute Category: Medical Code(s): J96.90 - Respiratory failure, unspecified, unspecified whether with hypoxia or hypercapnia (10) Altered mental status Status: Acute Category: Medical Code(s): R41.82 - Altered mental status, unspecified (11) Diabetes mellitus Status: Acute Category: Medical Code(s): E11.9 - Type 2 diabetes mellitus without complications (12) Hypokalemia Status: Acute Category: Medical Code(s): E87.6 - Hypokalemia (13) Pneumonia due to E. coli Status: Acute Category: Medical Code(s): J15.5 - Pneumonia due to Escherichia coli
--- NOTE | 2021-07-12 15:30 | PC.NURSE ---
aox1. she is not very talkative and uses non-verbal methods of communication such as shaking her head and nodding to questions. she has been turned q2hrs. pills crushed and mixed with applesauce and she tolerates this well. shakes head no when asked if she wants to get out of bed. she is incontinent of bowel and bladder with purewick in place. wound vac was changed this am, patient tolerated well. she does not require o2 support.
[2021-07-12 16:11] LABS: POC Glucose,Bedside 93 (70-110)
[2021-07-12 16:30] LABS: POC Glucose,Bedside 138 (70-110)
[2021-07-12 21:21] LABS: POC Glucose,Bedside 108 (70-110)
[2021-07-13 05:00] VITALS: BMI 213.0
[2021-07-13 05:56] LABS: POC Glucose,Bedside 103 (70-110)
[2021-07-13 05:58] VITALS: PULSE 70; PULSE 77
[2021-07-13 06:03] LABS: Basophils # 0.1 K/mm3 (0-0.2); Basophils % 0.6 % (0.1-2.0); Eosinophils # 0.2 K/mm3 (0.0-0.4); Hemoglobin 8.4 g/dL (12.2-16.2); Lymphocytes # 2.2 K/mm3 (0.7-4.5); Lymphocytes % 27.5 % (10-50); Mean Corpuscular HGB Conc 31.3 g/dL (31.8-35.4); Mean Corpuscular Hemoglobin 30.4 pg (27.0-31.2); Mean Corpuscular Volume 97.1 fl (81-99); Mean Platelet Volume 9.2 fl (7.4-10.4); Monocytes # 0.6 K/mm3 (0.1-1.0); Monocytes % 7.4 % (1.7-9.3); Neutrophils # 4.9 K/mm3 (1.8-7.8); Neutrophils % 61.5 % (37.0-80.0); Platelet Count 334 K/mm3 (142-424); Red Blood Count 2.77 M/mm3 (4.20-5.40); Red Cell Distribution Width 17.7 % (11.5-17.5)
[2021-07-13 06:11] LABS: Hematocrit 26.9 % (37.0-47.0)
[2021-07-13 06:33] LABS: Chloride 108 mmol/L (98-107); Potassium 3.7 mmoL/L (3.5-5.1); Sodium 134 mmol/L (136-145)
[2021-07-13 06:36] LABS: Anion Gap 9.7 mEq/L (5-15); Blood Urea Nitrogen 23 mg/dl (7-17); Calcium 8.2 mg/dl (8.4-10.2); Carbon Dioxide 20 mmol/L (22.0-30.0); Creatinine Clearance Estimated -20 mL/min (50-200); Estimated Glomerular Filt Rate 32 ml/min (>60); GFR (African American) 39 ML/MIN (>60); Glucose 113 mg/dl (74-100)
--- NOTE | 2021-07-13 07:09 | P.PN_ITS ---
Subjective Narrative: No new issues. Patient is alert and watching TV. Progress Note: A&P (1) Small bowel obstruction Status: Acute (2) Abdominal pain Status: Acute (3) Paroxysmal atrial fibrillation with rapid ventricular response Status: Acute (4) Obesity, morbid, BMI 40.0-49.9 Status: Acute (5) Anemia Status: Acute (6) Acute kidney injury Status: Acute (7) Atrial flutter with controlled response Status: Acute (8) Hyperbilirubinemia Status: Acute (9) Respiratory failure Status: Acute (10) Altered mental status Status: Acute (11) Diabetes mellitus Status: Acute (12) Hypokalemia Status: Acute (13) Pneumonia due to E. coli Status: Acute Assessment and Plan for All Diagnoses:: Next dressing change due 07/15/2021. Exam Vital signs and Labs for Last 24 Hours: Temp Pulse Resp BP Pulse Ox 99.5 F 77 18 149/68 H 94 L 07/12/21 20:00 07/13/21 05:58 07/12/21 20:00 07/12/21 20:00 07/12/21 20:00 Laboratory Results - last 24 hr 07/12/21 12:04: POC Glucose 138 H 07/12/21 16:01: POC Glucose 93 07/12/21 21:05: POC Glucose 108 07/13/21 05:48: POC Glucose 103 07/13/21 05:49: WBC 8.0, RBC 2.77 L, Hgb 8.4 L, Hct 26.9 L, MCV 97.1, MCH 30.4, MCHC 31.3 L, RDW 17.7 H, Plt Count 334, MPV 9.2, Neut % (Auto) 61.5, Lymph % (Auto) 27.5, [place] % (Auto) 7.4, Eos % (Auto) 3.0, Baso % (Auto) 0.6, Neut # (Auto) 4.9, Lymph # (Auto) 2.2, [place] # (Auto) 0.6, Eos # (Auto) 0.2, Baso # (Auto) 0.1 07/13/21 05:49: Sodium 134 L, Potassium 3.7, Chloride 108 H, Carbon Dioxide 20 L , Anion Gap 9.7, BUN 23 H, Creatinine 1.60 H, Estimated Creat Clear -20 L, Estimated GFR 32 L, Est GFR ( Amer) 39 L, Glucose 113 H, Calcium 8.2 L I & O for Last 24 hours: Intake & Output 07/10/21 07/11/21 07/12/21 07/13/21 11:59 11:59 11:59 11:59 Intake Total 539 / 539 662 / 662 660 / 660 1006 / 1006 Output Total 1150 / 1150 700 / 700 1475 / 1475 1000 / 1000 Balance -611 / -611 -38 / -38 -815 / -815 6 / 6 Weight 238 lb 12.8 oz 239 lb 4.8 oz 235 lb 1.6 oz 169 lb 1.6 oz - *Routine Abdominal Exam Comments: [employer] WT dressing in place with good seal.
[2021-07-13 08:00] VITALS: BP 152/60; PULSE 62; RESP 18; TEMP 37.2; O2SAT 95
--- NOTE | 2021-07-13 09:05 | HMH.ACPN2 ---
Internal Medicine - PN: Subj *Date: 07/13/21 *Time: 08:45 Interval history: pt stastes she feels good, still whispering Exam Vital signs and Labs for Last 24 Hours: Temp Pulse Resp BP Pulse Ox 99.5 F 77 18 149/68 H 94 L 07/12/21 20:00 07/13/21 05:58 07/12/21 20:00 07/12/21 20:00 07/12/21 20:00 Laboratory Results - last 24 hr 07/12/21 12:04: POC Glucose 138 H 07/12/21 16:01: POC Glucose 93 07/12/21 21:05: POC Glucose 108 07/13/21 05:48: POC Glucose 103 07/13/21 05:49: WBC 8.0, RBC 2.77 L, Hgb 8.4 L, Hct 26.9 L, MCV 97.1, MCH 30.4, MCHC 31.3 L, RDW 17.7 H, Plt Count 334, MPV 9.2, Neut % (Auto) 61.5, Lymph % (Auto) 27.5, [place] % (Auto) 7.4, Eos % (Auto) 3.0, Baso % (Auto) 0.6, Neut # (Auto) 4.9, Lymph # (Auto) 2.2, [place] # (Auto) 0.6, Eos # (Auto) 0.2, Baso # (Auto) 0.1 07/13/21 05:49: Sodium 134 L, Potassium 3.7, Chloride 108 H, Carbon Dioxide 20 L, Anion Gap 9.7, BUN 23 H, Creatinine 1.60 H, Estimated Creat Clear -20 L, Estimated GFR 32 L, Est GFR ( Amer) 39 L, Glucose 113 H, Calcium 8.2 L I & O for Last 24 hours: Intake & Output 07/10/21 07/11/21 07/12/21 07/13/21 11:59 11:59 11:59 11:59 Intake Total 539 / 539 662 / 662 660 / 660 1006 / 1006 Output Total 1150 / 1150 700 / 700 1475 / 1475 1000 / 1000 Balance -611 / -611 -38 / -38 -815 / -815 6 / 6 Weight 238 lb 12.8 oz 239 lb 4.8 oz 235 lb 1.6 oz 169 lb 1.6 oz - Constitutional no acute distress - *Routine HEENT Exam Head: Present: normocephalic Eye: Present: PERRL ENT: Present: mucous membranes moist - *Routine Neck Exam Present: supple. Absent: lymphadenopathy - *Routine Respiratory Exam Present: CTA bilaterally - *Routine Cardiovascular Exam Present: RRR - *Routine Abdominal Exam Present: soft, normoactive bowel sounds, wound. Absent: tenderness Comments: wound vac in place - *Routine Extremities Exam Absent: cyanosis, clubbing, edema - *Routine Skin Exam Present: warm, wounds. Absent: rash - *Routine Neurological Exam Present: alert, oriented X3 Assessment and Plan (1) Small bowel obstruction Status: Acute Category: Medical Code(s): K56.609 - Unspecified intestinal obstruction, unspecified as to partial versus complete obstruction (2) Abdominal pain Status: Acute Category: Medical Code(s): R10.9 - Unspecified abdominal pain (3) Paroxysmal atrial fibrillation with rapid ventricular response Status: Acute Category: Medical Code(s): I48.0 - Paroxysmal atrial fibrillation (4) Obesity, morbid, BMI 40.0-49.9 Status: Acute Category: Medical Code(s): E66.01 - Morbid (severe) obesity due to excess calories (5) Anemia Status: Acute Category: Medical Code(s): D64.9 - Anemia, unspecified (6) Acute kidney injury Status: Acute Category: Medical Code(s): N17.9 - Acute kidney failure, unspecified (7) Atrial flutter with controlled response Status: Acute Category: Medical Code(s): I48.92 - Unspecified atrial flutter (8) Hyperbilirubinemia Status: Acute Category: Medical Code(s): E80.6 - Other disorders of bilirubin metabolism (9) Respiratory failure Status: Acute Category: Medical Code(s): J96.90 - Respiratory failure, unspecified, unspecified whether with hypoxia or hypercapnia (10) Altered mental status Status: Acute Category: Medical Code(s): R41.82 - Altered mental status, unspecified (11) Diabetes mellitus Status: Acute Category: Medical Code(s): E11.9 - Type 2 diabetes mellitus without complications (12) Hypokalemia Status: Acute Category: Medical Code(s): E87.6 - Hypokalemia (13) Pneumonia due to E. coli Status: Acute Category: Medical Code(s): J15.5 - Pneumonia due to Escherichia coli - Assessment and plan all Dx Assessment and Plan for all problems:: rounded with dr sunshine all orders per dr sawyer waiting on rehab bed
[2021-07-13 12:20] LABS: POC Glucose,Bedside 109 (70-110)
[2021-12-17 10:58] LABS: POC Glucose,Bedside 97 (70-110)
== END 2021-07-13 15:45 | DRG 329 ==
LOC: ER 21:03 → 2ND 23:45
PROVIDERS: Family Medicine; Internal Medicine Pulmonary Disease; Nurse Practitioner Family; Surgery; Admitting Provider Emergency Medicine; Emergency Provider Emergency Medicine; PCP Emergency Medicine; Visit Provider Emergency Medicine
PROC: (CPT 49000; principal; 2021-06-17 11:45)
DX: K56.51 Intestinal adhesions [bands], with partial obstruction (principal); J15.5 Pneumonia due to Escherichia coli; J96.21 Acute and chronic respiratory failure with hypoxia; Z68.42 Body mass index [BMI] 45.0-49.9, adult; I48.92 Unspecified atrial flutter; N17.9 Acute kidney failure, unspecified; T81.32XA Disruption of internal operation (surgical) wound, not elsewhere classified, initial encounter; Z20.822 Contact with and (suspected) exposure to COVID-19; I48.0 Paroxysmal atrial fibrillation; E66.01 Morbid (severe) obesity due to excess calories; E87.6 Hypokalemia; E11.9 Type 2 diabetes mellitus without complications; M54.9 Dorsalgia, unspecified; E78.5 Hyperlipidemia, unspecified; Z79.52 Long term (current) use of systemic steroids; D64.9 Anemia, unspecified; I35.0 Nonrheumatic aortic (valve) stenosis
CPT/HCPCS: 31500; 94002; 44120; 49900; 36415; 36569; 70450; 71045; 71275; 74018; 74019; 74021; 74176; 74177; 76705; 80048; 80051; 80053; 80076; 80202; 81001; 82140; 82150; 82803; 82947; 82962; 83605; 83690; 84436; 84443; 84484; 85007; 85014; 85018; 85025; 85048; 85049; 85610; 86850; 87040; 87070; 87075; 87077; 87186; 87205; 88307; 92526; 92610; 93005; 93306; 93971; 94003; 94640; 94760; 94761; 96365; 96366; 96375; 97110; 97140; 97162; 97163; 97166; 97530; 99285; C1751; C9803; G0238; J0282; J0330; J0692; J2405; J2704; J2710; J3370; J7060; P9016; Q9967; U0003; U0005